=== PATIENT | female | born 1955 | race Caucasian/White ===

== ENCOUNTER 2018-06-08 00:07 | Outpatient (CLI) | payer MEDICAID, SELFPAY ==
--- NOTE | 2018-06-08 11:15 | MERGEMPI_ITS ---
*[facility]* *[facility]* [address] [place] [address] Myocardial Perfusion Imaging - SPECT Haider protocol Date of study: 06/08/2018 *PATIENT PRESENTATION* Height: Blood Pressure: Weight: BSA: Ordering physician: Nadira Rodríguez Impressions: - Patient consented to rest images only; did not consent to stress images. - Rest images appeared normal. History: REASON FOR TESTING: PMH: 2 CVA'S, KIDNEY STONES, HISTORY OF MALIGNANCY, HAS HAD SURGERY FOR SAME. MALIGNANCY SITE INCLUEDES CERVIX, OVARIES. HISTORY OF PULMONARY DISEASE INCLUDING COPD, LUMB/LUMVAOSAC DISC DEGEN, CYSTITIS, NEUROPATHY. CERVICAL ARTHRITIS, JOINT PAIN-HAND, MENOPAUSAL DISORDER NEC, RHINITIS DUE TO POLLEN, TENDONITIS NOS, DIVERTICULOSIS OF COLON (WITHOUT MENTION OF HEMORRHAGE), GERD, IBS, UTI CHRONIC PAIN SYNDROME, HYPERLIPEMIA, HTN, COPD, ANXIETY DISORDER NOS, CHRONIC BACK PAIN. MULTIPLE SURGICAL PROCEDURES. FAMILY HISTORY: MOTHER AND FATHER-EARLY CAD. SMOKING: EXERCISE: PMH: COPD. Asthma. Risk factors: Family history of coronary artery disease. Imaging Technique: Protocol: Haider protocol. Acquisition: Gated SPECT; 1 day - rest/stress. The patient was imaged in the supine position. Attenuation correction used. Isotope administration: - Rest. Tc[99m]-sestamibi. Injection to stress time: 00:45. - Stress. Tc[99m]-sestamibi. 1-2 min before end of exercise Myocardial perfusion: Imaging information: gated. Study data: Rui Joyner MD supervised and was readily available during the procedure. This study was interpreted by [facility]. Study status: Routine. Consent: The risks, benefits, and alternatives to the procedure were explained to the patient and informed consent was obtained. Procedure: Initial setup. A baseline ECG was recorded. Surface ECG leads and manual cuff blood pressure measurements were monitored. Heart sounds: Normal. Lung sounds: Normal. Treadmill exercise testing was performed using the Haider protocol. Study completion: All catheters inserted during the procedure were removed. The patient tolerated the procedure well and was discharged from the lab. Discharge: The patient left the laboratory in stable condition. Birthdate: Patient birthdate: 1955. Sex: Gender: female. Study date: Study date: 06/08/2018. Study time: 12:30 PM. Electronically signed by Rui Joyner MD 06/08/2018 16:43
== END 2018-06-08 00:27 ==
PROVIDERS: PCP Family Medicine; Visit Provider Family Medicine
DX: R07.9 Chest pain, unspecified (principal); I10 Essential (primary) hypertension; E78.5 Hyperlipidemia, unspecified; J44.9 Chronic obstructive pulmonary disease, unspecified; Z82.49 Family history of ischemic heart disease and other diseases of the circulatory system; Z86.73 Personal history of transient ischemic attack (TIA), and cerebral infarction without residual deficits
CPT/HCPCS: 78451

== ENCOUNTER 2018-09-07 17:31 | Outpatient (REF) | payer MEDICAID, SELFPAY ==
[2018-09-07 21:23] LABS: Abs Immature Grans 0.02 k/cumm (0.0-0.09); Absolute Basophil Count 0.06 k/cumm (0.0-0.2); Absolute Lymphocyte Count 3.03 k/cumm (1.2-3.4); Absolute Monocyte Count 0.57 k/cumm (0.11-0.7); Basophils % 0.7; Eosinophils % 2.2; HCT 43.8 % (36.0-46.0); HGB 14.3 g/dL (12.0-15.5); Immature Grans % 0.2; Lymphocytes % 33.4; Mean Corp. HGB Concentration 32.6 g/dL (32.0-36.0); Mean Corpuscular Hemoglobin 30.9 pg (27.0-33.0); Mean Corpuscular Volume 94.6 fL (80-95); Mean Platelet Volume 10.3 fL (8.0-11.0); Monocytes % 6.3; Neutrophils % 57.2; Platelet Count 274 x1000/uL (130-400); RBC 4.63 m/cumm (4.00-5.20); RBC Distribution Width 12.5 % (11.7-14.6); White Blood Cell Count 9.08 k/cumm (4.4-10.8)
[2018-09-07 21:39] LABS: ALT 23 U/L (12-78); AST 17 U/L (15-37); Albumin 3.6 g/dL (3.4-5.0); Alkaline Phosphatase 84 U/L (46-116); Anion Gap 8.3 mmol/L (3-11); BUN 8 mg/dL (7-18); Bilirubin, Total 0.3 mg/dL (0.2-1.0); CO2 29.7 mmol/L (21.0-32.0); CREATININE 0.98 mg/dL (0.55-1.02); Calcium 8.8 mg/dL (8.5-10.1); Chloride 102 mmol/L (98-107); Cholesterol 203 mg/dL (50-200); Estimated GFR 57.51 (mL/min/1.73m2); Glucose 79 mg/dL (70-100); HDL Cholesterol 34 mg/dL (40-60); LDL CHOLESTEROL 123 mg/dL (<100); Potassium 4.3 mmol/L (3.5-5.1); Sodium 140 mmol/L (136-145); Total Protein 7.2 g/dL (6.4-8.2); Triglyceride 293 mg/dL (30-150)
[2018-09-07 21:47] LABS: Lipase 172 U/L (73-393)
== END 2018-09-07 17:51 ==
LOC: NCHCN 17:31
PROVIDERS: PCP Family Medicine; Visit Provider Internal Medicine
DX: R10.84 Generalized abdominal pain (principal); R05 Cough; N20.0 Calculus of kidney; R03.0 Elevated blood-pressure reading, without diagnosis of hypertension; J44.9 Chronic obstructive pulmonary disease, unspecified; M79.2 Neuralgia and neuritis, unspecified
CPT/HCPCS: 80053; 80061; 83690; 83721; 85025

== ENCOUNTER 2018-11-02 13:35 | Outpatient (REF) | payer MEDICAID, SELFPAY ==
[2018-11-07 07:51] LABS: Amphetamine Negative ng/mL (Cutoff: 25); Amphetamines Interpretation Negative.; MDA (Ecstasy Metabolite) Negative ng/mL (Cutoff: 25); MDMA (Ecstasy) Negative ng/mL (Cutoff: 25); Methamphetamine Negative ng/mL (Cutoff: 25); Phentermine Negative ng/mL (Cutoff: 25); Pseudoephedrine/Ephedrine Negative ng/mL (Cutoff: 25)
[2018-11-08 12:17] LABS: Codeine Negative ng/mL (Cutoff: 25); Dihydrocodeine 470 ng/mL (Cutoff: 25); Hydrocodone 2127 ng/mL (Cutoff: 25); Hydromorphone 336 ng/mL (Cutoff: 25); Morphine Negative ng/mL (Cutoff: 25); Naloxone Negative ng/mL (Cutoff: 25); Norhydrocodone 1582 ng/mL (Cutoff: 25); Noroxycodone Negative ng/mL (Cutoff: 25); Noroxymorphone Negative ng/mL (Cutoff: 25); Opiates Interpretation Positive.
== END 2018-11-02 13:55 ==
LOC: NCHCN 13:35
PROVIDERS: PCP Family Medicine; Visit Provider Internal Medicine
DX: R30.0 Dysuria (principal); G89.4 Chronic pain syndrome; F43.10 Post-traumatic stress disorder, unspecified
CPT/HCPCS: 80324; 80361; 87077; 87086; 87186

== ENCOUNTER 2019-01-12 22:42 | Outpatient (REF) | payer MEDICAID, SELFPAY ==
[2019-01-14 12:11] LABS: Campylobacter PCR SEE COMMENTS; Salmonella PCR SEE COMMENTS; Shiga Toxin PCR SEE COMMENTS; Shigella/Enteroinvasive Ecoli SEE COMMENTS
== END 2019-01-12 23:02 ==
LOC: NCHCN 22:42
PROVIDERS: PCP Family Medicine; Visit Provider Internal Medicine
DX: R19.7 Diarrhea, unspecified (principal); R11.10 Vomiting, unspecified
CPT/HCPCS: 87505

== ENCOUNTER 2019-06-03 17:03 | Outpatient (REF) | payer MEDICAID, SELFPAY | END 2019-06-03 17:23 | LOC: NCHCO 17:03 | PROVIDERS: PCP Internal Medicine; Visit Provider Internal Medicine | DX: M54.5 Low back pain (principal); F11.20 Opioid dependence, uncomplicated; R30.0 Dysuria; K43.9 Ventral hernia without obstruction or gangrene | CPT/HCPCS: 87086 ==

== ENCOUNTER 2019-09-09 21:34 | Outpatient (REF) | payer MEDICAID, SELFPAY ==
[2019-09-09 21:37] LABS: HGB 14.6 g/dL (12.0-15.5); Mean Corp. HGB Concentration 32.4 g/dL (32.0-36.0); Mean Corpuscular Volume 92.6 fL (80-95); Mean Platelet Volume 10.1 fL (8.0-11.0); Platelet Count 327 x1000/uL (130-400); RBC 4.86 m/cumm (4.00-5.20); RBC Distribution Width 12.9 % (11.7-14.6); White Blood Cell Count 8.79 k/cumm (4.4-10.8)
[2019-09-09 22:21] LABS: Hemoglobin A1C 5.9 % (3.8-5.6)
[2019-09-09 22:25] LABS: ALT 18 U/L (14-59); AST 14 U/L (15-37); Albumin 3.6 g/dL (3.4-5.0); Alkaline Phosphatase 81 U/L (46-116); BUN 7 mg/dL (7-18); Bilirubin, Total 0.3 mg/dL (0.2-1.0); Calcium 9.1 mg/dL (8.5-10.1); Chloride 104 mmol/L (98-107); Glucose 101 mg/dL (74-106); Potassium 4.3 mmol/L (3.5-5.1); Sodium 142 mmol/L (136-145); Vitamin B12 284 pg/mL (193-986)
[2019-09-13 14:24] LABS: Albumin 58.5 % (55.8-66.1); Total Protein 6.6 g/dL (6.3-8.2)
== END 2019-09-09 21:54 ==
LOC: NCHCN 21:34
PROVIDERS: PCP Internal Medicine; Visit Provider Internal Medicine
DX: G60.9 Hereditary and idiopathic neuropathy, unspecified (principal)
CPT/HCPCS: 80053; 85027; 82607; 83036; 84165

== ENCOUNTER 2019-12-13 10:58 | Outpatient (CLI) | payer MEDICAID, SELFPAY ==
[2019-12-15 09:13] LABS: COVID-19 RT-PCR Result Negative (Negative)
== END 2019-12-13 11:18 ==
PROVIDERS: PCP Internal Medicine; Visit Provider Internal Medicine
DX: Z11.59 Encounter for screening for other viral diseases (principal)
CPT/HCPCS: U0003

== ENCOUNTER 2020-01-03 09:15 | Outpatient (CLI) | payer MEDICAID, SELFPAY ==
[2020-01-04 18:29] LABS: COVID-19 RT-PCR UVMMC Result Negative (Negative)
== END 2020-01-03 09:35 ==
PROVIDERS: PCP Internal Medicine; Visit Provider Nurse Practitioner Family
DX: Z11.59 Encounter for screening for other viral diseases (principal)
CPT/HCPCS: U0003

== ENCOUNTER 2020-04-21 07:19 | Outpatient (CLI) | payer MEDICAID, SELFPAY ==
[2020-04-25 07:48] LABS: SARS-CoV-2 RNA Undetected (Undetected)
== END 2020-04-21 07:39 ==
PROVIDERS: PCP Internal Medicine; Visit Provider Internal Medicine
DX: Z20.828 Contact with and (suspected) exposure to other viral communicable diseases (principal)
CPT/HCPCS: U0003

== ENCOUNTER 2020-05-23 16:32 | Outpatient (REF) | payer MEDICAID, SELFPAY ==
[2020-05-23 21:51] LABS: HCT 43.7 % (36.0-46.0); HGB 14.5 g/dL (11.2-15.7); MCH 31.9 pg (27.0-33.0); MCHC 33.2 % (32.0-36.0); MPV 10.6 fL (8.0-11.0); Platelet Count 271 10^3/uL (130-400); RBC 4.55 10^6/uL (3.93-5.22); RDW 12.6 % (11.7-14.6); WBC 10.05 10^3/uL (4.4-10.8)
[2020-05-23 21:53] LABS: Bilirubin Negative (Negative); Blood Trace-lysed (Negative); Clarity Cloudy (Clear); Glucose Negative (Negative); Ketones Negative (Negative); Leukocyte Esterase Negative (Negative); Nitrite Negative (Negative); Specific Gravity 1.025 (1.005-1.025); Urobilinogen 0.2 EU/dL (Up TO 0.2); pH 5.5 (5-8)
[2020-05-23 22:10] LABS: ALT 25 U/L (14-59); AST 38 U/L (15-37); Albumin 3.4 g/dL (3.4-5.0); Alkaline Phosphatase 86 U/L (46-116); Anion Gap 7.3 mmol/L (3-11); BUN 10 mg/dL (7-18); Bilirubin, Total 0.3 mg/dL (0.2-1.0); CO2 28.7 mmol/L (21.0-32.0); CREATININE 0.91 mg/dL (0.55-1.02); Calcium 8.8 mg/dL (8.5-10.1); Chloride 103 mmol/L (98-107); FREE T4 1.19 ng/dL (0.76-1.46); Glucose 132 mg/dL (74-106); Potassium 4.3 mmol/L (3.5-5.1); Sodium 139 mmol/L (136-145); TSH 0.95 uIU/mL (0.36-3.74); Total Protein 6.9 g/dL (6.4-8.2)
[2020-05-23 22:12] LABS: Bacteria Negative HPF (Negative); C & S Indicated? No/Sq. Contamination; Casts Negative LPF (Negative); Crystals Negative HPF (Negative); Epithelial Cells Many HPF (Negative); Mucus Negative (Negative); Other Cells Negative (Negative); RBC 0-2 HPF (0-2); WBC 0-2 HPF (0-5)
== END 2020-05-23 16:52 ==
LOC: NCHCN 16:32
PROVIDERS: PCP Internal Medicine; Visit Provider Internal Medicine
DX: R63.4 Abnormal weight loss (principal); R53.83 Other fatigue; R03.0 Elevated blood-pressure reading, without diagnosis of hypertension
CPT/HCPCS: 80053; 85027; 81003; 81015; 84439; 84443

== ENCOUNTER 2020-07-11 13:42 | Outpatient (REF) | payer MEDICAID, SELFPAY ==
[2020-07-16 10:54] LABS: Patient Race White; SARS-CoV-2 RNA Undetected (Undetected); SARS-CoV-2 Specimen Source Nasal
== END 2020-07-11 14:02 ==
LOC: NCHCN 13:42
PROVIDERS: PCP Internal Medicine; Visit Provider Internal Medicine
DX: Z20.828 Contact with and (suspected) exposure to other viral communicable diseases (principal)
CPT/HCPCS: U0003

== ENCOUNTER 2020-07-21 21:57 | Outpatient (REF) | payer MEDICAID, SELFPAY | END 2020-07-21 22:17 | LOC: NCHCN 21:57 | PROVIDERS: PCP Internal Medicine; Visit Provider Internal Medicine | DX: J02.9 Acute pharyngitis, unspecified (principal) | CPT/HCPCS: 87070 ==

== ENCOUNTER 2020-11-20 15:19 | Outpatient (REF) | payer MEDICAID, SELFPAY ==
[2020-11-20 20:56] LABS: Hemoglobin A1C 5.4 % (<5.7)
== END 2020-11-20 15:20 | disposition home or self-care (01) ==
LOC: NCHCN 15:19
PROVIDERS: PCP Internal Medicine; Visit Provider Internal Medicine
DX: R73.03 Prediabetes (principal); F41.8 Other specified anxiety disorders
CPT/HCPCS: 83036

== ENCOUNTER 2021-03-23 17:05 | Emergency (ER) | payer MEDICARE, MEDICAID, SELFPAY ==
[2021-03-23 17:12] VITALS: BP 106/59; PULSE 67; RESP 18; TEMP 37; O2SAT 96
--- NOTE | 2021-03-23 17:14 | W.ED.GENAD ---
Discharge Plan Disposition Patient Disposition: HOME Condition: Stable Discharge Details Clinical Impression: Fracture of right wrist, Closed head injury, Post concussive syndrome, Contusion of multiple sites, Fall Primary Care Provider: Wolfgang Cagle ED Provider: Nicci Prieto Home Meds and New Rx's Prescriptions: Continued lorazepam 1 mg tablet 1 mg PO TID PRNRF: 0 fluticasone propionate 50 mcg/actuation spray,suspension 1 spray SWAPNA DAILY RF: 0 tramadol 50 mg tablet 50 mg PO BID PRNRF: 0 albuterol sulfate [ProAir HFA] 90 mcg/actuation HFA aerosol inhaler 2 puff IH Q4H PRNRF: 0 guaifenesin [Mucinex] 600 mg tablet extended release 12hr 600 mg PO BID RF: 0 hydrocodone-acetaminophen 10-325 mg tablet 1 tab PO BID PRNRF: 0 Narcan 4 mg/actuation spray,non-aerosol 4 mg SWAPNA Q2M PRNRF: 0 Symbicort 160-4.5 mcg/actuation HFA aerosol inhaler 2 puff IH BID RF: 0 nicotine (polacrilex) 4 mg gum 4 mg BC Q2H RF: 0 pregabalin [Lyrica] 50 mg capsule 50 mg PO DAILY RF: 0 Spiriva with HandiHaler 18 mcg capsule, w/inhalation device 1 cap IH DAILY RF: 0 pantoprazole 40 mg tablet,delayed release (DR/EC) 40 mg PO DAILY RF: 0 loratadine [Claritin] 10 mg tablet 10 mg PO DAILY RF: 0 meloxicam 7.5 mg Tablet 7.5 mg PO DAILY RF: 0 buprenorphine-naloxone [Suboxone] 4-1 mg Film 1 film sublingual DAILY RF: 0 diphenhydramine HCl 25 mg Tablet 25 mg PO BID PRNRF: 0 cyclobenzaprine 5 mg Tablet 5 mg PO HS PRNRF: 0 Discharge Instructions Instructions: Wrist Fracture in Adults (ED), Head Injury (ED), Contusion in Adults (ED), Post Concussion Syndrome (ED) Additional Instructions: Rest, ice, and elevate the affected area as much as possible. Take your regular medications that you have at home as needed and directed for pain. Take Tylenol as needed and directed for pain. Call the orthopedics office on Friday to schedule a follow-up appointment for reevaluation. Call urology on Oleg morning to schedule a follow-up appointment for reevaluation of your chronic urinary incontinence, frequency, and burning. Return immediately to the emergency department if you develop any worsening or new concerning symptoms such as worsening headaches, persistent vomiting or any other concerns Referrals: Corey England MD [ [facility] STAFF PHYSICIAN] - Pedro Swan MD [ [facility] STAFF PHYSICIAN] - Discharge Data Discharge Physician: Nicci Flor Medical Decision Making 66-year-old female with a history of COPD, former opiate addiction, PTSD presents for headache, confusion, right shoulder, right hip and knee pain after fall last night. Admits to LOC and a few episodes of vomiting. She denies any difficulty breathing or abdominal pain. No evidence of head, chest, abdomen or extremity trauma. She has pain with range of motion and tenderness to the right shoulder, right clavicle, right wrist, right hip, right knee. She is declining medication for pain. Suspect intermittent confusion likely due to postconcussive syndrome. She is somewhat slowed in her responses but oriented x 3 and appears nontoxic. Her vitals are within normal limits. Do not see an indication for lab work at this time. Will obtain CT head and cervical spine, x-rays and urinalysis. Imaging reviewed and right wrist x-ray report notes nondisplaced distal radius fracture with intra-articular extension. This finding appears subtle but will place a volar fiberglass splint and place patient on orthopedic list for follow-up. Remainder of imaging reviewed and negative. Patient reassessed and she states she is now complaining of left elbow and wrist pain. Initial examination was negative for pain in the left upper extremity. She has pain in left elbow and wrist with range of motion but no deformity. She was referred for left elbow and wrist x-rays which were negative. Her urinalysis was negative for infection. Patient states she is taking trimethoprim though this was listed on her allergy list which she says is not accurate. Patient also states she takes Suboxone, meloxicam and lorazepam. She states she is not taking any narcotic pain medicine. She was also placed on urology follow-up list for her chronic urinary incontinence and frequent UTIs. Medical Records Medical records reviewed: Yes I reviewed the patient's medical records. Imaging Data Radiologic Study: Radiologist's impression: CT Head Without Contrast Exam date and time: 03/23/2021 5:52 PM Age: 66 years old Clinical indication: Injury or trauma; Patient HX: S/P fall; Additional info: R/O acute intracranial injury, FX TECHNIQUE: Imaging protocol: Computed tomography of the head without contrast. COMPARISON: No relevant prior studies available. FINDINGS: Brain: There is no evidence of acute hemorrhage within the brain parenchyma or the subarachnoid space. No abnormal attenuation is noted within the brain parenchyma. Cerebral ventricles: There is no significant ventricular effacement or midline shift. The ventricular system is normal in size and distribution. Paranasal sinuses: The sinuses are normal. Mastoid air cells: The mastoid sinuses are normal. Orbital cavity: The orbits are normal. Bones/joints: The skull is normal. Soft tissues: The extracranial soft tissues are normal. IMPRESSION: No acute abnormality. CT Cervical Spine Without Contrast Exam date and time: 03/23/2021 5:52 PM Age: 66 years old Clinical indication: Injury or trauma; Patient HX: S/P fall; Additional info: R/O acute intracranial injury, FX TECHNIQUE: Imaging protocol: Computed tomography images of the cervical spine without contrast. COMPARISON: No relevant prior studies available. FINDINGS: Bones/joints: Mild straightening of the lordotic curvature. No spondylolysis or spondylolisthesis. No vertebral body compression fracture. No fracture of the posterior or lateral elements. Discs/Spinal canal/Neural foramina: Mild multilevel disc space narrowing from C4-C6. Multilevel posterior osteophytes with a prominent posterior disc osteophyte complex at C5-C6 and moderate canal stenosis. Prevertebral Space: No prevertebral soft tissue swelling. Lungs: The visualized bilateral lung apices demonstrate mild bullous changes of centrilobular emphysema. Soft tissues: Unremarkable. IMPRESSION: No acute cervical spine fracture or malalignment. XR Right Knee Exam date and time: 03/23/2021 5:53 PM Age: 66 years old Clinical indication: Other: Pain after fall; Patient HX: Fall, rule out FX; Additional info: Fall, R/O FX TECHNIQUE: Imaging protocol: XR Right knee. Views: 3 views. COMPARISON: No relevant prior studies available. FINDINGS: Bones/joints: No acute fracture or dislocation. Superior patellar enthesophyte. Soft tissues: Normal. IMPRESSION: No acute fracture or dislocation. XR Right Hip Exam date and time: 03/23/2021 5:52 PM Age: 66 years old Clinical indication: Other: Fall, R/O FX TECHNIQUE: Imaging protocol: XR Right hip. Views: 2 or 3 views hip with pelvis when performed. COMPARISON: No relevant prior studies available. FINDINGS: Bones/joints: No acute fracture or dislocation. The sacral arcades are well preserved. Soft tissues: Unremarkable. IMPRESSION: No acute fracture or dislocation. XR Right Wrist Exam date and time: 03/23/2021 6:16 PM Age: 66 years old Clinical indication: Other: Pain after fall; Additional info: Fall, R/O FX TECHNIQUE: Imaging protocol: XR Right wrist. Views: 3 or more views. COMPARISON: No relevant prior studies available. FINDINGS: Bones/joints: Nondisplaced fracture in the lateral aspect of the distal right radius with intra-articular extension. Soft tissues: Right wrist soft tissue swelling. IMPRESSION: Nondisplaced fracture in the lateral aspect of the distal right radius with intra-articular extension. XR Right Clavicle, Complete Exam date and time: 03/23/2021 5:53 PM Age: 66 years old Clinical indication: Other: S/P fall R/O FX; Patient HX: Fall, R/O FX TECHNIQUE: Imaging protocol: XR Right clavicle complete. Views: Any number of views. COMPARISON: CR XR SHOULDER RT COMPLETE 2+V 02/06/2021 3:36 PM FINDINGS: Bones/joints: No acute fracture or dislocation. Lungs: The visualized right upper lung field is clear. Soft tissues: Normal. IMPRESSION: No acute fracture or dislocation. XR Right Shoulder Exam date and time: 03/23/2021 5:52 PM Age: 66 years old Clinical indication: Other: Fall, R/O FX TECHNIQUE: Imaging protocol: XR Right shoulder. Views: 2 or more views. COMPARISON: CR XR SHOULDER RT COMPLETE 2+V 02/06/2021 3:36 PM FINDINGS: Bones/joints: No acute fracture or dislocation. Lungs: The visualized right upper lung field is clear. Soft tissues: Normal. IMPRESSION: No acute fracture or dislocation. XR Left Elbow Exam date and time: 03/23/2021 7:40 PM Age: 66 years old Clinical indication: Other: Fall, trauma TECHNIQUE: Imaging protocol: XR Left elbow. Views: 3 or more views. COMPARISON: No relevant prior studies available. FINDINGS: Bones/joints: No acute fracture or dislocation. Soft tissues: Normal. IMPRESSION: No acute fracture or dislocation. XR Left Wrist Exam date and time: 03/23/2021 7:40 PM Age: 66 years old Clinical indication: Other: Trauma, fall TECHNIQUE: Imaging protocol: XR Left wrist. Views: 3 or more views. COMPARISON: No relevant prior studies available. FINDINGS: Bones/joints: No acute fracture or dislocation. Soft tissues: Normal. IMPRESSION: No acute fracture or dislocation. Lab Data Lab results reviewed: Yes I reviewed the patient's lab results. Labs: Laboratory Tests Range/Units 03/23/21 19:08 Urine Color (Yellow) Yellow Urine Clarity (Clear) Clear Urine pH (5-8) 5.5 Ur Specific [place] (1.005-1.025) 1.015 Urine Protein (Negative) mg/dL Negative Urine Ketones (Negative) mg/dL Negative Urine Blood (Negative) Trace-lysed H Urine Nitrite (Negative) Negative Urine Bilirubin (Negative) Negative Urine Urobilinogen (Up TO 0.2) EU/dL 0.2 Ur Leukocyte Esterase (Negative) Negative Urine RBC (0-2) HPF Urine WBC (0-5) HPF 0-2 Ur Epithelial Cells (Negative) HPF Many Urine Crystals (Negative) HPF Negative Urine Bacteria (Negative) HPF Negative Urine Mucus (Negative) Negative Ur Culture Indicated? No Urine Glucose (Negative) mg/dL Negative HPI General Mode of arrival: ambulatory. Date/Time Provider Initiated Documentation: 03/23/21 17:13. Limitations to Documentation: no limitations. Information obtained by: patient. HPI Narrative: Patient is a 66-year-old female with a history of anxiety, depression, COPD, former opiate addiction, PTSD presents for headache, confusion, right shoulder, right wrist, right hip and knee pain after a fall earlier this morning. Patient states she was at someone's house when she went down the stairs without a light on and fell down 2-3 stairs. She states she hit the right side of her body on cement and her head on grass. She admits to LOC for 1 to 2 minutes and 2 episodes of vomiting following this. She currently is complaining of right-sided headache, right shoulder, right clavicle, right wrist, right hip and right knee and right first toe pain. She took Tylenol for pain prior to arrival. She states she does not want any medication for pain. Daughter states she went to see patient this afternoon and she appeared confused at times and that she called the pharmacy thinking she was calling her primary care doctor and generally seems slowed in her responses. She denies any chest pain, difficulty breathing. She states she has chronic upper abdominal pain which is being currently evaluated and is unchanged from baseline. She states she has chronic urinary incontinence for many years and has been followed by urology in the past which is now being followed by Dr. Cagle and states she started trimethoprim this week for dysuria and what she thought may be a UTI. She states her urinary symptoms have since improved. She denies any known fever or recent other illness prior to her fall. Related Data Home Medications Medication Instructions Recorded Confirmed albuterol sulfate 90 mcg/actuation 2 puff IH Q4H PRN 07/20/19 03/23/21 aerosol inhaler budesonide-formoterol HFA 160 2 puff IH BID 07/20/19 07/20/19 mcg-4.5 mcg/actuation aerosol inhaler fluticasone propionate 50 1 spray SWAPNA DAILY 07/20/19 07/20/19 mcg/actuation nasal spray,suspension guaifenesin 600 mg tablet, 600 mg PO BID 07/20/19 07/20/19 extended release 12 hr hydrocodone 10 mg-acetaminophen 1 tab PO BID PRN 07/20/19 07/20/19 325 mg tablet loratadine 10 mg tablet 10 mg PO DAILY 07/20/19 07/20/19 lorazepam 1 mg tablet 1 mg PO TID PRN 07/20/19 07/20/19 naloxone 4 mg/actuation nasal spray 4 mg SWAPNA Q2M PRN 07/20/19 03/23/21 nicotine (polacrilex) 4 mg gum 4 mg BC Q2H 07/20/19 03/23/21 pantoprazole 40 mg tablet,delayed 40 mg PO DAILY 07/20/19 07/20/19 release pregabalin 50 mg capsule 50 mg PO DAILY 07/20/19 07/20/19 tiotropium bromide 18 mcg capsule 1 cap IH DAILY 07/20/19 03/23/21 with inhalation device tramadol 50 mg tablet 50 mg PO BID PRN 07/20/19 07/20/19 buprenorphine-naloxone [Suboxone] 1 film SUBLINGUAL DAILY 03/23/21 03/23/21 cyclobenzaprine 5 mg PO HS PRN 03/23/21 03/23/21 diphenhydramine HCl 25 mg PO BID PRN 03/23/21 03/23/21 meloxicam 7.5 mg PO DAILY 03/23/21 03/23/21 Allergies Allergy/AdvReac Type Severity Reaction Status Date / Time amitriptyline Allergy Severe none Verified 03/23/21 17:19 specified with referral codeine Allergy Severe none Verified 03/23/21 17:19 specified with referral gabapentin Allergy Severe none Verified 03/23/21 17:19 specified with referral ondansetron [From Zofran] Allergy Severe none Verified 03/23/21 17:19 specified with referral sulfamethoxazole Allergy Severe none Verified 03/23/21 17:19 [From Bactrim] specified with referral trimethoprim [From Bactrim] Allergy Severe none Verified 03/23/21 17:19 specified with referral Iodinated Contrast Media AdvReac Unknown Unverified 03/23/21 17:19 Review of Systems All systems reviewed & are unremarkable except as noted in HPI and below Constitutional Constitutional: Reports as per HPI, Denies chills and Denies fever(s) Eyes Eyes: Denies blurry vision ENT Ears, Nose, Mouth, and Throat: Denies dizziness, Denies sore throat and Denies throat swelling Cardiovascular Cardiovascular: Denies chest pain and Denies dyspnea Respiratory Respiratory: Denies cough and Denies dyspnea Gastrointestinal Gastrointestinal: Denies abdominal pain, Denies diarrhea and Denies vomiting Genitourinary Genitourinary: Denies hematuria and Denies dysuria Musculoskeletal Musculoskeletal: Denies back pain and Denies numbness Integumentary/Breasts Skin/Breast: Denies lesions and Denies rash Neurologic Neurologic: Denies dizziness, Denies localized weakness and Denies numbness Allergic/Immunologic Allergic/Immunologic: Denies throat swelling [facility] Medical History (Updated 03/23/21 @ 20:36 by Nicci Prieto DO) Anxiety and depression Back pain Breast lump Chronic pain COPD (chronic obstructive pulmonary disease) Diarrhea Dysphagia History of cervical cancer Kidney stones Opiate addiction Postmenopausal PTSD (post-traumatic stress disorder) Skin lesion of face Smoker Somatization disorder Stomach upset Surgical History (Updated 07/20/19 @ 11:29 by Jo Lucero RN) History of colonoscopy Social History Smoking/Tobacco Use Status: Current every day Tobacco Type: cigarettes Smoking risk assessment performed?: Yes Alcohol Intake: former Drug use: Occasionally Substance use type: marijuana Do you feel safe at home: Yes Do you feel safe in your relationship?: Yes Exam Const General: cooperative and no acute distress HENCA Head: normal to inspection Ears: hearing grossly normal bilaterally and external ears normal Face and sinus: normal facial exam Mouth: oral mucosae normal Eyes General: appearance normal, both eyes and all related structures Pupils: PERRL EOM: EOM intact bilaterally Neck Neck: normal visual inspection and No submandibular swelling Lymphatic: no lymphadenopathy noted Chest Chest: normal inspection of the chest, normal palpation of entire chest wall and no tenderness Resp Effort & Inspection: normal respiratory effort and able to speak in complete sentences Auscultation: clear to auscultation bilaterally Cardio Rate: regular rate Rhythm: regular rhythm GI Inspection: normal to inspection and no abdominal wall ecchymosis Palpation: soft, not firm, not rigid and nontender Auscultation: normal bowel sounds Back/Spine/Pelvis Cervical Spine: No cervical spinal tenderness Thoracic/Lumbar Spine: thoracic and lumbar spine normal to inspection, No thoracic spinal tenderness and No lumbar spinal tenderness Skin General skin exam: no rashes or lesions noted Neuro General: patient alert, patient awake and patient oriented x3 Cognition: normal cognition Speech: speech normal Motor: muscle tone normal throughout Sensory Exam: no sensory deficits noted Extrem General: normal to inspection, capillary refill normal, no calf tenderness bilaterally and no edema Other: Pain in right shoulder with range of motion and palpation. Tenderness to palpation to right anterior lateral shoulder and overlying right clavicle. There is no evidence of trauma to right clavicle and shoulder. No pain in right elbow with range of motion. Pain in right wrist and proximal palmar hand with range of motion. Right snuffbox tenderness. No evidence of trauma to right elbow, wrist or hand. Pain in right hip and knee with range of motion and palpation. There is no evidence of trauma or deformity. Feet and ankles normal to inspection and palpation bilaterally. Psych Appearance: grossly normal Mental Status: mental status grossly normal Speech and Movement: speech and movement normal Affect: normal affect Procedures Orthopedic Splinting/Casting Injury #1: Side: right Upper Extremity Injury Location: wrist Upper Extremity Immobilizer: volar splint
--- NOTE | 2021-03-23 17:45 | DI.RAD_ITS ---
Exam(s) XR SHOULDER RT COMPLETE 2+V EXAM: XR SHOULDER RT COMPLETE 2+V CLINICAL HISTORY: s/p fall, r/o fx. TECHNIQUE: 2D digital imaging was performed. COMPARISON: CR XR SHOULDER RT COMPLETE 2+V from 02/06/2021 FINDINGS: BONES: No acute fracture is present. No bony destructive lesion is seen. JOINTS: No dislocation present. Mild degenerative changes of the right acromioclavicular joint. SOFT TISSUE: Normal. IMPRESSION: Unremarkable radiographs of the right shoulder. DATA REPOSITORY: RADIATION DOSE DELIVERED:
--- NOTE | 2021-03-23 17:45 | DI.RAD_ITS ---
Exam(s) XR HIP RT COMPLETE AP PELVIS EXAM: XR HIP RT COMPLETE AP PELVIS CLINICAL HISTORY: s/p fall, r/o fx. TECHNIQUE: 2D digital imaging was performed. COMPARISON: No exams were available for comparison FINDINGS: BONES: No acute fracture is present. No bony destructive lesion is seen. JOINTS: No dislocation present. SOFT TISSUE: Normal. IMPRESSION: Unremarkable radiographs of the right hip. Unremarkable radiographs of the pelvis. DATA REPOSITORY: RADIATION DOSE DELIVERED:
--- NOTE | 2021-03-23 17:45 | DI.RAD_ITS ---
Exam(s) XR CLAVICLE RT EXAM: XR CLAVICLE RT CLINICAL HISTORY: s/p fall, r/o fx TECHNIQUE: 2D digital imaging was performed. COMPARISON: No exams were available for comparison FINDINGS: BONES: No acute fracture is present. No bony destructive lesion is seen. JOINTS: No dislocation present. Mild degenerative changes of the right AC joint. SOFT TISSUE: Normal IMPRESSION: Unremarkable radiographs of the right clavicle. DATA REPOSITORY: RADIATION DOSE DELIVERED:
--- NOTE | 2021-03-23 17:45 | DI.RAD_ITS ---
Exam(s) XR WRIST RT COMPLETE EXAM: XR WRIST RT COMPLETE CLINICAL HISTORY: s/p fall, r/o fx. TECHNIQUE: 2D digital imaging was performed. COMPARISON: No previous for comparison. FINDINGS: BONES: No acute fracture is present. No bony destructive lesion is seen. JOINTS: The carpal bones are normally aligned. Mild degenerative changes of the 1st CMC joint. SOFT TISSUE: Normal. IMPRESSION: No acute fracture or dislocation. DATA REPOSITORY: RADIATION DOSE DELIVERED:
--- NOTE | 2021-03-23 17:45 | DI.CT_ITS ---
Exam(s) CT HEAD CERVICAL SPINE WO EXAM: CT HEAD CERVICAL SPINE WO CLINICAL HISTORY: s/p fall, r/o acute intracranial injury, fx. TECHNIQUE: Imaging Protocol: Axial computed tomography images with coronal and sagittal reformatted images were created and reviewed COMPARISON: No exams were available for comparison FINDINGS: CT Head: Ventricles and Extra axial spaces: Normal in size and morphology for the patient's age. Hemorrhage: None. Cerebral parenchyma: Normal. No acute territorial infarct. Midline shift: None. Brainstem/Cerebellum: Normal. Calvarium: Normal. Visualized Paranasal sinuses/Mastoids: Clear. Soft Tissues: Unremarkable. CT Cervical Spine: Bones: No acute fracture or subluxation. Mild degenerative changes in the cervical spine. Soft Tissues: Unremarkable. Lung Apices: Clear. Mild emphysematous changes. IMPRESSION: 1. No acute intracranial process. 2. No acute fracture or subluxation in the cervical spine. RADIATION DOSE DELIVERED: 1,133.77mGy.cm Total DLP DATA REPOSITORY: All CT scans at this facility are submitted to the National Radiology Data Registry (NRDR) Dose Index Registry (DIR) with the [employer] (A[employer]). RADIATION OPTIMIZATION: All CT scans at this facility use at least one of these dose optimization te chniques: automated exposure control; mA and/or kV adjustment per patient size (includes targeted exa ms where dose is matched to clinical indication); or iterative reconstruction.
--- NOTE | 2021-03-23 17:45 | DI.RAD_ITS ---
Exam(s) XR KNEE RT 3V AP,LAT,GABE EXAM: XR KNEE RT 3V AP,LAT,GABE CLINICAL HISTORY: s/p fall, r/o fx. TECHNIQUE: 2D digital imaging was performed. COMPARISON: No exams were available for comparison FINDINGS: BONES: No acute fracture is present. No bony destructive lesion is seen. There is an enthesophyte at the superior patella. JOINTS: The knee is normally aligned. No joint effusion is seen. SOFT TISSUE: Normal. IMPRESSION: No acute fracture or dislocation. DATA REPOSITORY: RADIATION DOSE DELIVERED:
--- NOTE | 2021-03-23 18:26 | DI.VRAD_ITS ---
PROCEDURE INFORMATION: Exam: CT Head Without Contrast Exam date and time: 03/23/2021 5:52 PM Age: 66 years old Clinical indication: Injury or trauma; Patient HX: S/P fall; Additional info: R/O acute intracranial injury, FX TECHNIQUE: Imaging protocol: Computed tomography of the head without contrast. COMPARISON: No relevant prior studies available. FINDINGS: Brain: There is no evidence of acute hemorrhage within the brain parenchyma or the subarachnoid space. No abnormal attenuation is noted within the brain parenchyma. Cerebral ventricles: There is no significant ventricular effacement or midline shift. The ventricular system is normal in size and distribution. Paranasal sinuses: The sinuses are normal. Mastoid air cells: The mastoid sinuses are normal. Orbital cavity: The orbits are normal. Bones/joints: The skull is normal. Soft tissues: The extracranial soft tissues are normal. IMPRESSION: No acute abnormality. PROCEDURE INFORMATION: Exam: CT Cervical Spine Without Contrast Exam date and time: 03/23/2021 5:52 PM Age: 66 years old Clinical indication: Injury or trauma; Patient HX: S/P fall; Additional info: R/O acute intracranial injury, FX TECHNIQUE: Imaging protocol: Computed tomography images of the cervical spine without contrast. COMPARISON: No relevant prior studies available. FINDINGS: Bones/joints: Mild straightening of the lordotic curvature. No spondylolysis or spondylolisthesis. No vertebral body compression fracture. No fracture of the posterior or lateral elements. Discs/Spinal canal/Neural foramina: Mild multilevel disc space narrowing from C4-C6. Multilevel posterior osteophytes with a prominent posterior disc osteophyte complex at C5-C6 and moderate canal stenosis. Prevertebral Space: No prevertebral soft tissue swelling. Lungs: The visualized bilateral lung apices demonstrate mild bullous changes of centrilobular emphysema. Soft tissues: Unremarkable. IMPRESSION: No acute cervical spine fracture or malalignment. Dictated and Authenticated by: Mariza Saucedo MD. Ordering:SHARMIN Grajeda MD
--- NOTE | 2021-03-23 18:28 | NUR.NOTE ---
pt states she has stopped taking many of the medications on her list. verified with artis rg. Nursing Note:
--- NOTE | 2021-03-23 18:57 | DI.VRAD_ITS ---
PROCEDURE INFORMATION: Exam: XR Right Shoulder Exam date and time: 03/23/2021 5:52 PM Age: 66 years old Clinical indication: Other: Fall, R/O FX TECHNIQUE: Imaging protocol: XR Right shoulder. Views: 2 or more views. COMPARISON: CR XR SHOULDER RT COMPLETE 2+V 02/06/2021 3:36 PM FINDINGS: Bones/joints: No acute fracture or dislocation. Lungs: The visualized right upper lung field is clear. Soft tissues: Normal. IMPRESSION: No acute fracture or dislocation. Dictated and Authenticated by: Mariza Saucedo MD. Ordering:SHARMIN Grajeda MD
--- NOTE | 2021-03-23 18:58 | DI.VRAD_ITS ---
PROCEDURE INFORMATION: Exam: XR Right Clavicle, Complete Exam date and time: 03/23/2021 5:53 PM Age: 66 years old Clinical indication: Other: S/P fall R/O FX; Patient HX: Fall, R/O FX TECHNIQUE: Imaging protocol: XR Right clavicle complete. Views: Any number of views. COMPARISON: CR XR SHOULDER RT COMPLETE 2+V 02/06/2021 3:36 PM FINDINGS: Bones/joints: No acute fracture or dislocation. Lungs: The visualized right upper lung field is clear. Soft tissues: Normal. IMPRESSION: No acute fracture or dislocation. Dictated and Authenticated by: Mariza Saucedo MD. Ordering:SHARMIN Grajeda MD
--- NOTE | 2021-03-23 18:59 | DI.VRAD_ITS ---
PROCEDURE INFORMATION: Exam: XR Right Wrist Exam date and time: 03/23/2021 6:16 PM Age: 66 years old Clinical indication: Other: Pain after fall; Additional info: Fall, R/O FX TECHNIQUE: Imaging protocol: XR Right wrist. Views: 3 or more views. COMPARISON: No relevant prior studies available. FINDINGS: Bones/joints: Nondisplaced fracture in the lateral aspect of the distal right radius with intra-articular extension. Soft tissues: Right wrist soft tissue swelling. IMPRESSION: Nondisplaced fracture in the lateral aspect of the distal right radius with intra-articular extension. Dictated and Authenticated by: Mariza Saucedo MD. Ordering:SHARMIN Grajeda MD
--- NOTE | 2021-03-23 19:00 | DI.VRAD_ITS ---
PROCEDURE INFORMATION: Exam: XR Right Hip Exam date and time: 03/23/2021 5:52 PM Age: 66 years old Clinical indication: Other: Fall, R/O FX TECHNIQUE: Imaging protocol: XR Right hip. Views: 2 or 3 views hip with pelvis when performed. COMPARISON: No relevant prior studies available. FINDINGS: Bones/joints: No acute fracture or dislocation. The sacral arcades are well preserved. Soft tissues: Unremarkable. IMPRESSION: No acute fracture or dislocation. Dictated and Authenticated by: Mariza Saucedo MD. Ordering:SHARMIN Grajeda MD
--- NOTE | 2021-03-23 19:01 | DI.VRAD_ITS ---
PROCEDURE INFORMATION: Exam: XR Right Knee Exam date and time: 03/23/2021 5:53 PM Age: 66 years old Clinical indication: Other: Pain after fall; Patient HX: Fall, rule out FX; Additional info: Fall, R/O FX TECHNIQUE: Imaging protocol: XR Right knee. Views: 3 views. COMPARISON: No relevant prior studies available. FINDINGS: Bones/joints: No acute fracture or dislocation. Superior patellar enthesophyte. Soft tissues: Normal. IMPRESSION: No acute fracture or dislocation. Dictated and Authenticated by: Mariza Saucedo MD. Ordering:SHARMIN Grajeda MD
[2021-03-23 19:25] LABS: Bilirubin Negative (Negative); Blood Trace-lysed (Negative); Clarity Clear (Clear); Glucose Negative (Negative); Ketones Negative (Negative); Leukocyte Esterase Negative (Negative); Nitrite Negative (Negative); Specific Gravity 1.015 (1.005-1.025); Urobilinogen 0.2 EU/dL (Up TO 0.2); pH 5.5 (5-8)
--- NOTE | 2021-03-23 19:30 | DI.RAD_ITS ---
Exam(s) XR WRIST LT COMPLETE EXAM: XR WRIST LT COMPLETE CLINICAL HISTORY: s/p fall, r/o fx. TECHNIQUE: 2D digital imaging was performed. COMPARISON: No exams were available for comparison FINDINGS: BONES: No acute fracture is present. No bony destructive lesion is seen. JOINTS: The carpal bones are normally aligned. SOFT TISSUE: Normal. IMPRESSION: Unremarkable radiographs of the left wrist. DATA REPOSITORY: RADIATION DOSE DELIVERED:
--- NOTE | 2021-03-23 19:30 | DI.RAD_ITS ---
Exam(s) XR ELBOW LT COMPLETE EXAM: XR ELBOW LT COMPLETE CLINICAL HISTORY: s/p fall, r/o acute fx. TECHNIQUE: 2D digital imaging was performed. COMPARISON: No exams were available for comparison FINDINGS: BONES: No acute fracture is present. No bony destructive lesion is seen. JOINTS: The elbow is normally aligned. No joint effusion is seen. SOFT TISSUE: Normal. IMPRESSION: Unremarkable radiographs of the left elbow. DATA REPOSITORY: RADIATION DOSE DELIVERED:
[2021-03-23 19:36] LABS: Bacteria Negative HPF (Negative); C & S Indicated? No; Crystals Negative HPF (Negative); Epithelial Cells Many HPF (Negative); Mucus Negative (Negative); WBC 0-2 HPF (0-5)
[2021-03-23] MEDS: Acetaminophen 500 MG TAB 1000 MG PO (19:49)
--- NOTE | 2021-03-23 20:01 | DI.VRAD_ITS ---
PROCEDURE INFORMATION: Exam: XR Left Wrist Exam date and time: 03/23/2021 7:40 PM Age: 66 years old Clinical indication: Other: Trauma, fall TECHNIQUE: Imaging protocol: XR Left wrist. Views: 3 or more views. COMPARISON: No relevant prior studies available. FINDINGS: Bones/joints: No acute fracture or dislocation. Soft tissues: Normal. IMPRESSION: No acute fracture or dislocation. Dictated and Authenticated by: Mariza Saucedo MD. Ordering:SHARMIN Grajeda MD
--- NOTE | 2021-03-23 20:02 | DI.VRAD_ITS ---
PROCEDURE INFORMATION: Exam: XR Left Elbow Exam date and time: 03/23/2021 7:40 PM Age: 66 years old Clinical indication: Other: Fall, trauma TECHNIQUE: Imaging protocol: XR Left elbow. Views: 3 or more views. COMPARISON: No relevant prior studies available. FINDINGS: Bones/joints: No acute fracture or dislocation. Soft tissues: Normal. IMPRESSION: No acute fracture or dislocation. Dictated and Authenticated by: Mariza Saucedo MD. Ordering:SHARMIN Grajeda MD
[2021-03-23 20:45] VITALS: BP 130/61; PULSE 61; RESP 17; O2SAT 95
--- NOTE | 2021-03-24 02:52 | NUR.NOTE ---
Nursing Note: Patient placed on care management referral list for follow up care with urology, referral faxed to urology.
== END 2021-03-23 20:50 | disposition home or self-care (01) ==
PROVIDERS: Emergency Provider Physician Assistant; PCP Internal Medicine
DX: S52.571A Other intraarticular fracture of lower end of right radius, initial encounter for closed fracture (principal); S06.9X1A Unspecified intracranial injury with loss of consciousness of 30 minutes or less, initial encounter; R40.2412 Glasgow coma scale score 13-15, at arrival to emergency department; F07.81 Postconcussional syndrome; M25.532 Pain in left wrist; M25.531 Pain in right wrist; M25.551 Pain in right hip; M25.561 Pain in right knee; R41.0 Disorientation, unspecified; M25.511 Pain in right shoulder; W10.8XXA Fall (on) (from) other stairs and steps, initial encounter
CPT/HCPCS: 29125; 73562; 99285; 70450; 72125; 73000; 73030; 73080; 73110; 73502; 81003; 81015

== ENCOUNTER 2021-04-05 12:01 | Outpatient (CLI) | payer MEDICARE, MEDICAID, SELFPAY ==
--- NOTE | 2021-04-05 11:45 | DI.RAD_ITS ---
Exam(s) XR WRIST RT COMPLETE EXAM: XR WRIST RT COMPLETE CLINICAL HISTORY: RIGHT WRIST FRACTURE. TECHNIQUE: 2D digital imaging was performed. COMPARISON: CR,XR XR WRIST LT COMPLETE from 03/23/2021 FINDINGS: There is no evidence of fracture nor dislocation. No significant ulnar variance. No erosions. No o sseous lesions. Moderate degenerative changes are noted at the 1st carpometacarpal joint. IMPRESSION: DATA REPOSITORY: RADIATION DOSE DELIVERED:
== END 2021-04-05 12:02 | disposition home or self-care (01) ==
LOC: DIORS 12:01
PROVIDERS: PCP Internal Medicine; Referring Provider Internal Medicine; Visit Provider Student in an Organized Health Care Education/Training Program
DX: S69.81XA Other specified injuries of right wrist, hand and finger(s), initial encounter (principal); S60.211A Contusion of right wrist, initial encounter; W10.8XXA Fall (on) (from) other stairs and steps, initial encounter
CPT/HCPCS: 99215; 73110

== ENCOUNTER 2021-04-13 04:00 | Outpatient (CLI) | payer MEDICARE, MEDICAID, SELFPAY ==
--- NOTE | 2021-04-13 | DI.CT_ITS ---
Exam(s) CT HEAD WO EXAM: CT HEAD WO CLINICAL HISTORY: MEMORY IMPAIRMENT,R41.3,H/O CLOSED HEAD INJURY,Z87.820,S/P FALL. TECHNIQUE: Imaging Protocol: Axial computed tomography images with coronal and sagittal reformatted images were created and reviewed COMPARISON: CT CT HEAD CERVICAL SPINE WO from 03/23/2021 FINDINGS: There are no skull fractures nor fluid in the visualized paranasal sinuses. There is no evidence of intracranial hemorrhage, mass effect, or shift of midline structures. There are no extra-axial fluid collections. The ventricles are not enlarged or shifted and there is no blo od within the ventricular system nor within the basal cisterns. IMPRESSION: No acute intracranial findings on this noninfused CT scan of the brain. RADIATION DOSE DELIVERED: 627.27mGy.cm Total DLP DATA REPOSITORY: All CT scans at this facility are submitted to the National Radiology Data Registry (NRDR) Dose Index Registry (DIR) with the [employer] ([employer]). RADIATION OPTIMIZATION: All CT scans at this facility use at least one of these dose optimization te chniques: automated exposure control; mA and/or kV adjustment per patient size (includes targeted exa ms where dose is matched to clinical indication); or iterative reconstruction.
--- NOTE | 2021-04-13 16:39 | DI.VRAD_ITS ---
PROCEDURE INFORMATION: Exam: CT Head Without Contrast Exam date and time: 04/13/2021 3:42 PM Age: 66 years old Clinical indication: Other: Memory impairment, h/o closed head injury, S/P fall TECHNIQUE: Imaging protocol: Computed tomography of the head without contrast. Radiation optimization: All CT scans at this facility use at least one of these dose optimization techniques: automated exposure control; mA and/or kV adjustment per patient size (includes targeted exams where dose is matched to clinical indication); or iterative reconstruction. COMPARISON: CT HEAD CERVICAL SPINE WO 03/23/2021 6:05 PM FINDINGS: Brain: Mild diffuse involutional changes in the brain for age are comparable to the prior without acute hemorrhage or acute territorial infarct. As before, vascular calcifications approach the [id number]. Cerebral ventricles: No ventriculomegaly. Paranasal sinuses: Visualized sinuses are unremarkable. No fluid levels. Mastoid air cells: Visualized mastoid air cells are well aerated. Bones/joints: Unremarkable. No acute fracture. Soft tissues: Unremarkable. IMPRESSION: No acute intracranial hemorrhage in no significant interval change from the recent prior. Dictated and Authenticated by: Geoff Andrew MD. Ordering:YANELIS Goss MD
== END 2021-04-13 04:20 ==
PROVIDERS: PCP Internal Medicine; Visit Provider Internal Medicine
DX: R41.3 Other amnesia (principal); Z87.828 Personal history of other (healed) physical injury and trauma
CPT/HCPCS: 70450

== ENCOUNTER → 2021-06-25 15:26 | Outpatient (BNVA) | payer MEDICARE, MEDICAID, SELFPAY | PROVIDERS: PCP Internal Medicine; Referring Provider Internal Medicine; Visit Provider Surgery | DX: R13.19 Other dysphagia (principal); J44.9 Chronic obstructive pulmonary disease, unspecified; Z87.891 Personal history of nicotine dependence | CPT/HCPCS: 99214 ==

== ENCOUNTER 2021-07-11 02:29 | Outpatient (CLI) | payer MEDICARE, MEDICAID, SELFPAY ==
[2021-07-11 11:27] LABS: Abs Immature Grans 0.02 10^3/uL (0.0-0.06); Absolute Basophil Count 0.04 10^3/uL (0.0-0.2); Absolute Eosinophil Count 0.11 10^3/uL (0.0-0.7); Absolute Lymphocyte Count 3.05 10^3/uL (1.2-3.4); Absolute Monocyte Count 0.51 10^3/uL (0.1-0.8); Absolute Neutrophil Count 4.35 10^3/uL (1.2-6.7); Basophils % 0.5; Eosinophils % 1.4; HCT 43.2 % (36.0-46.0); HGB 14.3 g/dL (11.2-15.7); Immature Grans % 0.2; Lymphocytes % 37.7; MCH 31.4 pg (27.0-33.0); MCHC 33.1 % (32.0-36.0); MCV 94.7 fL (80-95); MPV 9.3 fL (8.0-11.0); Monocytes % 6.3; Neutrophils % 53.9; Nucleated RBC 0 %; Platelet Count 250 10^3/uL (130-400); RBC 4.56 10^6/uL (3.93-5.22); RDW 12.5 % (11.7-14.6); RDW-SD 43.7 fL; WBC 8.08 10^3/uL (4.4-10.8)
[2021-07-11 13:52] LABS: Albumin 3.6 g/dL (3.4-5.0); BUN 9 mg/dL (7-18); Calcium 8.4 mg/dL (8.5-10.1); Estimated GFR 55.64 (mL/min/1.73m2); Glucose 108 mg/dL (74-106); Total Protein 6.9 g/dL (6.4-8.2)
[2021-07-11 13:53] LABS: ALT 17 U/L (14-59); AST 14 U/L (15-37); Alkaline Phosphatase 73 U/L (46-116); Anion Gap 8.6 mmol/L (3-11); Bilirubin, Total 0.2 mg/dL (0.2-1.0); CO2 30.4 mmol/L (21.0-32.0); Chloride 103 mmol/L (98-107); Potassium 4.2 mmol/L (3.5-5.1); Sodium 142 mmol/L (136-145)
== END 2021-07-11 02:30 | disposition home or self-care (01) ==
LOC: LBO 02:29
PROVIDERS: PCP Internal Medicine; Visit Provider Surgery
DX: R63.4 Abnormal weight loss (principal); R53.82 Chronic fatigue, unspecified; R03.0 Elevated blood-pressure reading, without diagnosis of hypertension; K21.9 Gastro-esophageal reflux disease without esophagitis; G62.9 Polyneuropathy, unspecified; Z72.0 Tobacco use
CPT/HCPCS: 36415; 80053; 85025

== ENCOUNTER 2021-07-12 15:31 | Outpatient (REF) | payer MEDICARE, MEDICAID, SELFPAY ==
[2021-07-12 14:53] LABS: Source Nasal/Nares
[2021-07-13 08:51] LABS: COVID-19 PCR Negative (Negative)
== END 2021-07-12 15:32 | disposition home or self-care (01) ==
LOC: LBN 15:31
PROVIDERS: PCP Internal Medicine; Visit Provider Surgery
DX: Z20.822 Contact with and (suspected) exposure to COVID-19 (principal); Z01.818 Encounter for other preprocedural examination
CPT/HCPCS: 87635

== ENCOUNTER 2021-07-13 10:29 | Day surgery (SDC) | payer MEDICARE, MEDICAID, SELFPAY ==
--- NOTE | 2021-07-12 23:20 | PDOC.DSDIS_ITS ---
Discharge Plan Disposition Patient Disposition: HOME Condition: Good Discharge Details Reason For Visit: stomach scope Attending Provider: Radha Elkins Primary Care Provider: Wolfgang Cagle Home Meds and New Rx's Prescriptions: No Action lorazepam 1 mg tablet 1 mg PO TID PRNRF: 0 fluticasone propionate 50 mcg/actuation spray,suspension 1 spray SWAPNA DAILY RF: 0 albuterol sulfate [ProAir HFA] 90 mcg/actuation HFA aerosol inhaler 2 puff IH Q4H PRNRF: 0 guaifenesin [Mucinex] 600 mg tablet extended release 12hr 600 mg PO BID RF: 0 Narcan 4 mg/actuation spray,non-aerosol 4 mg SWAPNA Q2M PRNRF: 0 Symbicort 160-4.5 mcg/actuation HFA aerosol inhaler 2 puff IH BID RF: 0 nicotine (polacrilex) 4 mg gum 4 mg BC Q2H RF: 0 pregabalin [Lyrica] 50 mg capsule 50 mg PO DAILY RF: 0 Spiriva with HandiHaler 18 mcg capsule, w/inhalation device 1 cap IH DAILY RF: 0 loratadine [Claritin] 10 mg tablet 10 mg PO DAILY RF: 0 Caltrate 600 plus D 600 mg (1,500 mg)-800 unit tablet,chewable 1 tab PO DAILY RF: 0 cyanocobalamin (vitamin B-12) 1,000 mcg capsule 1,000 mcg PO DAILY RF: 0 tretinoin 0.1 % cream 1 applic topical QHS RF: 0 meloxicam 7.5 mg tablet 7.5 mg PO DAILY RF: 0 nitroglycerin 0.4 mg Tablet, Sublingual 0.4 mg sublingual DIRECTED RF: 0 buprenorphine-naloxone [Suboxone] 4-1 mg Film 1 film sublingual DAILY RF: 0 diphenhydramine HCl 25 mg Tablet 25 mg PO BID PRNRF: 0 Discharge Instructions Additional Instructions: DSU Colonoscopy Post- Op Instructions Instructions for Everyone who is given Anesthesia: For your safety, please do the following for the next twenty-four (24) hours: *Do Not operate a motor vehicle (car, truck, motorcycle, etc.) *Do Not drink alcoholic beverages or use any recreational drugs for the first 24 hours or while taking pain medications. The medications in your body may have a reaction that can be dangerous. *Do Not make any important decisions or sign any important papers. Findings: normal stomach you do have a hernia of the abdominal wall Follow up: in surgery office if you want your hernia repaired. 1. No lifting over 20 pounds or strenuous activity for the first 24 hours after your procedure. After 24 hours there are no restrictions on your activity but you may feel fatigued for a few days. 2. After you arrive home you may have a light meal and return to your normal diet as you can tolerate it without feeling sick to your stomach. 3. You may have a bloated, gaseous feeling in your belly (abdomen) after a colonoscopy. Passing gas and belching will help. Walking or lying down on your left side with your knees flexed may relieve the discomfort. Call the office at [phone] (Office) or [phone] (Hospital) right away if you notice any of the following: a.Vomiting of blood or ?coffee ground stools?. b.Rectal bleeding 1Tbsp, blood clots or continuous bleeding. c.Severe belly (abdominal) pain. d.A hard distended belly (abdomen) and an inability to pass gas. 4. Please don?t expect to have a normal BM (bowel movement) for 2-3 days after your procedure. 5. If there are questions regarding the findings of your procedure, please contact your doctor 6. If you are unable to contact your doctor with a problem, contact the hospital at [phone]. 7. Continue all your regular medications unless directed otherwise. I understand the above instructions and have no questions. Signature of Patient or Adult Escort Name of Responsible Adult Escort Signature of Nurse Date/Time Activity:: see above Diet:: see aove Discharge Orders Discharge Orders: Discharge Order (Routine); Ordered 07/12/21 Ordered By: Radha Elkins DS: Diagnosis Discharge Diagnosis (1) Esophageal dysphagia: Status: Acute (2) Tobacco abuse: Status: Acute (3) Emphysema/COPD: Status: Acute (4) Coronary atherosclerosis due to calcified coronary lesion: Status: Acute (5) Atherosclerosis of arteries of extremities: Status: Acute (6) Ventral hernia: Status: Acute
--- NOTE | 2021-07-12 23:22 | ROE_ITS ---
Date of service: 07/13/21 Operative Note Operative Note DATE OF PROCEDURE: 07/13/21 PRE-OP DIAGNOSIS: dysphagia POST-OP DIAGNOSIS: other (Very mild gastritis. No hiatal hernia is appreciated today) PROCEDURE: egd SURGEON: Radha Elkins ANESTHESIA TYPE: General:No Airway Refer to Anesthesia Record ESTIMATED BLOOD LOSS: 1 PATHOLOGY: other Patient was transported to: same day Patient's condition: stable Procedure Description: After informed consent was obtained the patient was take to the procedure room and placed in a supine position. Monitors were applied and a time out was done. The patients name, date of , procedure type, allergies to medications and metal in their body was reviewed. A bite block was placed and the patient was sedated. Once sedated and comfortable the gastr oscope was advanced through the oropharynx which was grossly normal into the esophagus. The proximal and mid-esophagus were nl. In the distal esophagus there was no esophageal erosions varices diverticula or stricture apparent. The scope was advanced into the stomach and through the pylorus into the 3rd portion of the duodenum. The duodenum was noted to be nl. Biopsies were done while no bowel, antrum, GE junction. All specimens are retrieved and no-strictures or bleeding is noted. The scope was retracted back into the stomach and biopsies were done to rule out H. pylori. There is mild gastritis in the antrum at best. There is no ulcers. The scope was retroflexed. The cardia and fundus were noted to be normal. There is no hiatal hernia noted. The scope was retracted back into the esophagus and biopsies were done of the GE junction to rule out Lynn's. The Z line was regular. The GE junction was nl. I did not appreciate a hiatal hernia today. She had a EGD in 2009 that the endoscopist noted a hiatal hernia. The scope was removed and the patient was woken up and taken back to [facility] in stable condition.
--- NOTE | 2021-07-13 06:47 | W.ANESPRE ---
General Info Date of Service Date Performed: 07/13/21 Height: 5 ft 1 in Weight: 68.039 kg Body Mass Index (BMI): 28.3 Surgical Procedure: Operation Date: 07/13/21 11:20 Proposed Procedures Side Surgeon p Gastroscopy Radha Elkins, Meds Allergies and Home Medications Allergies Allergy/AdvReac Type Severity Reaction Status Date / Time amitriptyline Allergy Severe none Verified 07/13/21 11:29 specified with referral codeine Allergy Severe none Verified 07/13/21 11:29 specified with referral gabapentin Allergy Severe none Verified 07/13/21 11:29 specified with referral ondansetron [From Zofran] Allergy Severe none Verified 07/13/21 11:29 specified with referral sulfamethoxazole Allergy Severe none Verified 07/13/21 11:29 [From Bactrim] specified with referral trimethoprim [From Bactrim] Allergy Severe none Verified 07/13/21 11:29 specified with referral influenza virus vacc Allergy Verified 07/13/21 11:29 trivalent, split [From Fluzone] Iodinated Contrast Media AdvReac Unknown Verified 07/13/21 11:29 Home Medication Medication Instructions Recorded albuterol sulfate 90 mcg/actuation 2 puff IH Q4H PRN 07/20/19 aerosol inhaler budesonide-formoterol HFA 160 2 puff IH BID 07/20/19 mcg-4.5 mcg/actuation aerosol inhaler fluticasone propionate 50 1 spray SWAPNA DAILY 07/20/19 mcg/actuation nasal spray,suspension guaifenesin 600 mg tablet, 600 mg PO BID 07/20/19 extended release 12 hr loratadine 10 mg tablet 10 mg PO DAILY 07/20/19 lorazepam 1 mg tablet 1 mg PO TID PRN 07/20/19 naloxone 4 mg/actuation nasal spray 4 mg SWAPNA Q2M PRN 07/20/19 nicotine (polacrilex) 4 mg gum 4 mg BC Q2H 07/20/19 pregabalin 50 mg capsule 50 mg PO DAILY 07/20/19 tiotropium bromide 18 mcg capsule 1 cap IH DAILY 07/20/19 with inhalation device buprenorphine-naloxone [Suboxone] 1 film SUBLINGUAL DAILY 03/23/21 diphenhydramine HCl 25 mg PO BID PRN 03/23/21 calcium carbonate 600 mg(1,500 1 tab PO DAILY 04/03/21 mg)-vitamin D3 800 unit chewable tablet cyanocobalamin (vitamin B-12) 1,000 mcg PO DAILY 04/03/21 1,000 mcg capsule tretinoin 0.1 % topical cream 1 applic TOPICAL QHS 04/03/21 nitroglycerin 0.4 mg SUBLINGUAL DIRECTED 07/12/21 Current Visit Medications: Current Medications Generic Name Dose Route Start Last Admin Trade Name Freq PRN Reason Stop Dose Admin Hyoscyamine Sulfate 0.125 mg 07/12/21 23:20 Hyoscyamine 0.125 Mg Sl/Oral/Chew SL DIRECTED PRN Ringer's Solution 1,000 mls @ 80 mls/hr 07/13/21 06:00 IV 07/31/21 23:59 INFUSION NORAH IV Miscellaneous Supplies 1 each 07/13/21 06:00 Iv Access IV 07/31/21 23:59 DIRECTED NORAH Sodium Chloride 0 ml 07/13/21 06:00 Normal Saline Flush 10 Ml Syr IV 07/31/21 23:59 PRN PRN Sodium Chloride 0 ml 07/13/21 06:00 Normal Saline 10 Ml Vial IJ 07/31/21 23:59 DIRECTED PRN Sterile Water 0 ml 07/13/21 06:00 Water,Injection,Sterile 10 Ml Vial IJ 07/31/21 23:59 DIRECTED PRN PFSH Active Problems Active Problems: Problem Status Onset Code Fracture of right wrist S62.101A Closed head injury S09.90XA Post concussive syndrome F07.81 Contusion of multiple sites T07.XXXA Fall W19.XXXA Esophageal dysphagia R13.19 Tobacco abuse Z72.0 Colon stricture K56.699 Emphysema/COPD J43.9 S/P cholecystectomy Z90.49 Atherosclerosis of arteries of extremities I70.209 Coronary atherosclerosis due to calcified coronary lesion I25.10, I25.84 Ventral hernia K43.9 Lumbosacral radiculopathy due to degenerative joint disease of spine M47.27 Urinary incontinence R32 Contusion of right wrist S60.211A Galactorrhea N64.3 Diverticulosis of colon K57.30 Odontogenic infection of jaw M27.2 Headache R51.9 GERD (gastroesophageal reflux disease) K21.9 Bilateral breast lump N63.10, N63.20 Chronic fatigue R53.82 Thought disorder R41.89 Neuropathic pain M79.2 Lumbar radiculitis M54.16 Chest pain R07.9 Jaw pain R68.84 Medial epicondylitis M77.00 Dysuria R30.0 Abdominal pain R10.9 Chronic cough R05 Elevated blood pressure reading in office without diagnosis of hypertension R03.0 Numbness R20.0 Hernia, ventral K43.9 Peripheral neuropathy G62.9 Prediabetes R73.03 Unintentional weight loss R63.4 Sore throat J02.9 Medical History Medical History Abdominal pain Anxiety and depression Back pain Bilateral breast lump Breast lump Chest pain Chronic cough Chronic fatigue Chronic osteomyelitis Chronic pain Contusion of right wrist COPD (chronic obstructive pulmonary disease) Diarrhea Diverticulosis of colon Dysphagia Dysuria Elevated blood pressure reading in office without diagnosis of hypertension Galactorrhea GERD (gastroesophageal reflux disease) Headache Hernia, ventral History of cervical cancer Jaw pain Kidney stones Lumbar radiculitis Medial epicondylitis Neuropathic pain Numbness Odontogenic infection of jaw Opiate addiction pt. denies this Peripheral neuropathy Postmenopausal Prediabetes PTSD (post-traumatic stress disorder) Skin lesion of face Smoker Somatization disorder Sore throat Stomach upset Thought disorder Unintentional weight loss Urinary incontinence Warts Surgical History Surgical History H/O cone biopsy of cervix History of colonoscopy History of esophagogastroduodenoscopy (EGD) History of salpingectomy Tobacco Smoking/Tobacco Use Status: Current every day Tobacco Type: cigarettes Smoking cigarettes per day: 30 Alcohol Alcohol Intake: former Substance Use Substance use: Occasionally Substance use type: marijuana Vital Signs and Lab Results Vital Signs Most Recent Vital Signs in EMR: Temp Pulse Resp BP Pulse Ox 37.0 C 83 18 128/72 96 07/13/21 11:03 07/13/21 11:03 07/13/21 11:03 07/13/21 11:03 07/13/21 11:03 Lab Results Blood Type / Crossmatch: No Data to Display Complete Blood Count: White Blood Count 8.08 10^3/uL (4.4-10.8) 07/11/21 11:05 07/11/21 Red Blood Count 4.56 10^6/uL (3.93-5.22) 07/11/21 11:05 07/11/21 Hemoglobin 14.3 g/dL (11.2-15.7) 07/11/21 11:07/11/21 Hematocrit 43.2 % (36.0-46.0) 07/11/21 11:05 07/11/21 Platelet Count 250 10^3/uL (130-400) 07/11/21 11:07/11/21 Complete Metabolic Panel: Sodium Level 142 mmol/L (136-145) 07/11/21 11:05 07/11/21 Potassium Level 4.2 mmol/L (3.5-5.1) 07/11/21 11:07/11/21 Chloride Level 103 mmol/L (98-107) 07/11/21 11:07/11/21 Carbon Dioxide Level 30.4 mmol/L (21.0-32.0) 07/11/21 11:07/11/21 Blood Urea Nitrogen 9 mg/dL (7-18) 07/11/21 11:07/11/21 Creatinine 1.0 mg/dL (0.55-1.02) 07/11/21 11:07/11/21 Estimated GFR/1.73 m2 55.64 (mL/min/1.73m2) 07/11/21 11:07/11/21 Calcium Level 8.4 mg/dL (8.5-10.1) L 07/11/21 11:07/11/21 Albumin 3.6 g/dL (3.4-5.0) 07/11/21 11:07/11/21 Glucose Level 108 mg/dL (74-106) H 07/11/21 11:05 07/11/21 Liver Function Panel: Alanine Aminotransferase (ALT/SGPT) 17 U/L (14-59) 07/11/21 11:07/11/21 Aspartate Amino Transf (AST/SGOT) 14 U/L (15-37) L 07/11/21 11:05 07/11/21 Coagulation Panel: No Data to Display Cardiac Panel: No Data to Display Arterial Blood Gas: No Data to Display Venous Blood Gas: No Data to Display Pancreas Panel: No Data to Display Thyroid Panel: No Data to Display Infectious Disease: Coronavirus (COVID-19)(PCR) Negative (Negative) 07/12/21 14:40 07/12/21 Coronavirus 2019 Source Nasal/Nares 07/12/21 14:40 07/12/21 Blood Cultures: No Data to Display Toxicology Panel: No Data to Display Imaging and Studies Imaging and Studies Stress Test Summary: 2018: rest images appear normal. results unclear. Anesthesia Assessment and Plan Anesthesia History Personal History: No History of Anesthesia Complications Family History: No Family History of Anesthesia Complications Exercise Tolerance Exercise Tolerance: Metabolic Equivalents>4 Cardiac & Pulmonary Exam Cardiac Exam: Normal S1/S2 Heart Sounds Pulmonary Exam: Clear Bilateral Breath Sounds Implantable Cardiac Device Does patient have a Pacemaker or an ICD?: No Airway Exam Known Difficult Airway: No Mallampati Class: 1 Mouth Opening: Normal (> 3cm) Thyromental Distance: Less than 3 cm Neck Range of Motion: Full ROM Neck Circumference: Normal Teeth Condition: Generalized Poor Dentition and Edentulous (Uppers) ASA Classification ASA Score: ASA 3 Emergency Case?: No NPO Status NPO Status: NPO Clears >2 hours, Solids >8 hours Anesthesia Plan Resuscitation Status: Full Code Anesthesia Technique: General Anesthesia Airway Planned: Natural Airway Monitors Used: Standard Monitors Preoperative Comments:: 66 yo female EGD for dysphagia, GERD, pain with swallowing. Sig PMHx: Smoker, suboxone, COPD (budesonide/formoterol/albuterol), GERD, anxiety/depression, PTSD, cannabis. Extremely poor historian. Unable to answers questions directly without significant tangential stories. States that she has had multiple MIs and CVAs, and clogged aorta, but I can't find this documented. States that she is NPO and her daughter confirms this.
[2021-07-13 11:03] VITALS: BP 128/72; PULSE 83; RESP 18; TEMP 37; O2SAT 96
[2021-07-13] MEDS: Lactated Ringers 1,000 ML 80 ML IV (11:18)
[2021-07-13 11:41] VITALS: BMI 28.3
--- NOTE | 2021-07-13 11:49 | STOM_PTH ---
PATIENT: Savannah Avery LOC: [facility] U#:[id number] AGE/SX: 66/F ROOM: RE07/13/[address]: Radha Elkins : 1955 BED: DIS: 07/13/2021 SPEC #: [id number] RECD: 07/13/21 12:48 STATUS: DIVYA RETanner #: [id number] SANTA: 07/13/21 11:[address]: Radha Elkins DEPT: Surgical Specimen RECD BY: Nemo Castillo ENTERED: 07/13/21 12:49 SP TYPE: STOMACH OTHR DR: Wolfgang Cagle Tissues: 1 - BIOPSY BOWEL 2 - STOMACH BIOPSY 3 - ESOPHAGUS BIOPSY Procedures: GROSS AND MICRO LEVEL 4 Comments: [id number]
[2021-07-13 12:28] VITALS: BP 129/66; PULSE 66; RESP 18; TEMP 36.8; O2SAT 96
--- NOTE | 2021-07-13 12:53 | W.ANESPOSTOP ---
Postoperative Evaluation Date, Time and Location Date Performed: 07/13/21 Time Performed: 12:53 Patient Location: Day Surgery Unit Vital Signs Most Recent Imported Vital Signs: Most Recent Vital Signs Temp Pulse Resp BP Pulse Ox 36.8 C 66 18 129/66 96 07/13/21 12:28 07/13/21 12:28 07/13/21 12:28 07/13/21 12:28 07/13/21 12:28 Assessment Mental Status: Awake (Alert & Oriented to Patient Baseline) Airway and Respiratory Function: Patent airway with normal (patient baseline) respiratory exam Cardiovascular Function: Hemodynamically Stable Hydration Status: Adequately Hydrated Nausea & Vomiting: No Nausea or Vomiting Pain: Pt. Denies Any Pain Peripheral Nerve Block: Patient did not receive a nerve block
== END 2021-07-13 13:12 | disposition home or self-care (01) ==
PROVIDERS: PCP Internal Medicine; Visit Provider Surgery
PROC: 0DJ68ZZ Inspection of Stomach, Via Natural or Artificial Opening Endoscopic (ICD-10-PCS; CPT 43235; principal; 2021-07-13 11:15)
DX: R13.19 Other dysphagia (principal); K29.70 Gastritis, unspecified, without bleeding; K31.89 Other diseases of stomach and duodenum
CPT/HCPCS: 43239; 88305

== ENCOUNTER 2021-10-23 15:14 | Outpatient (REF) | payer MEDICARE, MEDICAID, SELFPAY ==
[2021-10-23 20:13] LABS: ALT 21 U/L (14-59); AST 17 U/L (15-37); Albumin 3.6 g/dL (3.4-5.0); Alkaline Phosphatase 67 U/L (46-116); Anion Gap 6.5 mmol/L (3-11); BUN 12 mg/dL (7-18); Bilirubin, Total 0.2 mg/dL (0.2-1.0); CO2 29.5 mmol/L (21.0-32.0); Calcium 8.9 mg/dL (8.5-10.1); Chloride 104 mmol/L (98-107); Estimated GFR 55.64 (mL/min/1.73m2); Glucose 100 mg/dL (74-106); Potassium 4.7 mmol/L (3.5-5.1); Sodium 140 mmol/L (136-145); Total Protein 6.9 g/dL (6.4-8.2)
== END 2021-10-23 15:15 | disposition home or self-care (01) ==
LOC: NCHCN 15:14
PROVIDERS: PCP Internal Medicine; Visit Provider Internal Medicine
DX: R03.0 Elevated blood-pressure reading, without diagnosis of hypertension (principal)
CPT/HCPCS: 80053

== ENCOUNTER 2021-11-07 01:06 | Outpatient (CLI) | payer MEDICARE, MEDICAID, SELFPAY ==
--- NOTE | 2021-11-07 13:00 | DI.CT_ITS ---
Exam(s) CT ABDOMEN PELVIS WO EXAM: CT ABDOMEN PELVIS WO INDICATION: LLQ ABD PAIN, R10.32, VENTRAL HERNIA, K43.9. COMPARISON: CT CT CHEST LUNG CANCER SCREEN from 02/06/2021 TECHNIQUE: FINDINGS: CT examination of the abdomen and pelvis was performed with oral contrast only. Images obtained thro ugh the lung bases are unremarkable. The liver is unremarkable in appearance. Gallbladder appears to been surgically removed. There is an approximately 9 millimeter diameter comm on hepatic duct, this is within normal limits for post cholecystectomy patient. Pancreas appears normal. Spleen is unremarkable in appearance. Adrenals appear normal. There is a 1 cm in diameter left lower pole renal cortical mass which measures around 11 Hounsfield u nits attenuation, presumed cyst period another possible small renal cyst is noted in the midpole dot uring about 11 millimeters in diameter, 8 Hounsfield units mean attenuation period there is no left h ydronephrosis or nephrolithiasis. There are multiple right renal calculi. There is renal cortical scarring on the right also noted. N o hydronephrosis. Urinary bladder is unremarkable in appearance.. Abdominal aorta is of normal diameter and no major vascular abnormality is seen. Are 2 small ventral hernias in the upper abdominal midline, 1 measuring about 14 by 42 millimeters in diameter on axial imaging with a 12 millimeter neck and the other measuring about 14 x 10 millimeter s with 10 millimeter neck. These contain fat but no bowel. No additional significant abdominal wall hernia seen apart from a tiny bilateral fat containing inguinal hernias.. No abdominal or pelvic ad enopathy. F[employer] RICE structures appear intact. Appendix is not specifically visualized but there is no evidence of appendicitis.. No evidence of di verticulitis or bowel obstruction. IMPRESSION: Small upper abdominal ventral hernias noted as described above. No bowel involvement.. RADIATION DOSE DELIVERED: 837.89mGy.cm Total DLP 837.89mGy.cm Total DLP !Error CTDIvol RADIATION OPTIMIZATION: All CT scans at this facility use at least one of these dose optimization te chniques: automated exposure control; mA and/or kV adjustment per patient size (includes targeted exa ms where dose is matched to clinical indication); or iterative reconstruction.
[2021-11-07] MEDS: Barium Sulfate 2% W/V-Berry Smoothie 450 ML BTL PO ×2 (13:28→13:29)
== END 2021-11-07 01:26 ==
PROVIDERS: PCP Internal Medicine; Visit Provider Internal Medicine
DX: R10.32 Left lower quadrant pain (principal); K43.9 Ventral hernia without obstruction or gangrene
CPT/HCPCS: 74176

== ENCOUNTER 2022-01-02 15:15 | Outpatient (CLI) | payer MEDICARE, MEDICAID, SELFPAY ==
--- NOTE | 2022-01-02 14:45 | DI.RAD_ITS ---
Exam(s) XR TIB/FIB RT XR KNEE RT 2V AP,LAT EXAM: XR KNEE RT 2V AP,LAT INDICATION: tib plateau fx f/u. COMPARISON: CR XR TIB/FIB RT from 01/02/2022 TECHNIQUE: 2D digital imaging was performed. Two views of the knee. Two views of the tibia and fib sam.. FINDINGS: The fracture at the tibial spines is faintly visible. The joint effusion has decreased in size. The joint spaces are well maintained. The ankle is unremarkable. No ankle mortise widening. No new ab normalities. DATA REPOSITORY: RADIATION DOSE DELIVERED:
== END 2022-01-02 15:16 | disposition home or self-care (01) ==
LOC: DIORS 15:15
PROVIDERS: PCP Internal Medicine; Referring Provider Internal Medicine; Visit Provider Student in an Organized Health Care Education/Training Program
DX: S83.511A Sprain of anterior cruciate ligament of right knee, initial encounter; X58.XXXA Exposure to other specified factors, initial encounter; S82.111A Displaced fracture of right tibial spine, initial encounter for closed fracture
CPT/HCPCS: 99204; 99215; 73560; 73590

== ENCOUNTER 2022-01-17 01:57 | Outpatient (CLI) | payer MEDICARE, MEDICAID, SELFPAY ==
--- NOTE | 2022-01-17 07:30 | DI.MRI_ITS ---
Exam(s) MR LOWER JOINT RT WO EXAM: MR LOWER JOINT RT WO CLINICAL HISTORY: ASSESS FX,RT TIBIAL PLATEAU FX,S82.141A. TECHNIQUE: Multiplanar multisequence MRI was performed. COMPARISON: CR RA KNEE 2 VW RT from 12/19/2021 CR XR KNEE RT 2V AP,LAT from 01/02/2022 FINDINGS: BONES: There is an oblique fracture seen in the proximal tibia. The fracture begins both medially an d laterally to the tibial spines and descends inferiorly and laterally into the proximal tibial metap hysis. There is mild depression of the fracture particularly anteriorly. There is marrow edema seen in the proximal tibia. JOINTS: Mild hyperintense signal is seen in the patellar articular cartilage inferiorly. There is a small joint effusion. TENDONS: Extensor mechanism: Unremarkable. Medial retinaculum: Unremarkable. Lateral retinaculum: Unremarkable. Popliteus: Unremarkable. MUSCLES: Unremarkable. MENISCI: The medial meniscus is unremarkable. The lateral meniscus is unremarkable. There is no evid ence of a meniscal tear. SOFT TISSUES: There is edema seen in the soft tissues adjacent to the proximal tibia laterally. LIGAMENTS: Anterior Cruciate: Unremarkable. Posterior Cruciate: Unremarkable. Medial Collateral:Unremarkable. Lateral Collateral: Unremarkable. OTHER: IMPRESSION: 1. Mildly depressed tibial plateau fracture. The fracture involves the medial aspect of the lateral tibial plateau in the lateral aspect of the medial tibial plateau around the tibial spines. 2. No evidence of a meniscal or ligament tear. DATA REPOSITORY:
== END 2022-01-17 02:17 ==
PROVIDERS: PCP Internal Medicine; Visit Provider Student in an Organized Health Care Education/Training Program
DX: S82.141A Displaced bicondylar fracture of right tibia, initial encounter for closed fracture (principal); X58.XXXA Exposure to other specified factors, initial encounter
CPT/HCPCS: 73721

== ENCOUNTER 2022-01-30 15:21 | Outpatient (CLI) | payer MEDICARE, MEDICAID, SELFPAY ==
--- NOTE | 2022-01-30 14:45 | DI.RAD_ITS ---
Exam(s) XR KNEE RT 2V AP,LAT EXAM: XR KNEE RT 2V AP,LAT CLINICAL HISTORY: right knee f/u TECHNIQUE: COMPARISON: CR XR KNEE RT 2V AP,LAT from 01/02/2022 FINDINGS: Two views were obtained. Previously described proximal tibial fractures again seen, no gross interva l change in alignment of fracture fragments comparison with examination of January 02. IMPRESSION: RADIATION DOSE DELIVERED: Total DLP
--- NOTE | 2022-01-30 14:54 | DI.RAD_ITS ---
Exam(s) XR KNEE LT 2V AP,LAT EXAM: XR KNEE LT 2V AP,LAT CLINICAL HISTORY: left knee pain TECHNIQUE: COMPARISON: CR RA KNEE 2 VW RT from 12/19/2021 CR XR KNEE RT 2V AP,LAT from 01/30/2022 FINDINGS: Two views were obtained. There is a probable small knee joint effusion. There is a small superior p atellar enthesophyte. Cartilaginous joint spaces appear fairly well maintained as visualized. No ot her bony abnormality seen. IMPRESSION: RADIATION DOSE DELIVERED: Total DLP
== END 2022-01-30 15:22 | disposition home or self-care (01) ==
LOC: DIORS 15:22
PROVIDERS: PCP Internal Medicine; Referring Provider Internal Medicine; Visit Provider Student in an Organized Health Care Education/Training Program
DX: S83.511A Sprain of anterior cruciate ligament of right knee, initial encounter; S82.141A Displaced bicondylar fracture of right tibia, initial encounter for closed fracture; S84.91XA Injury of unspecified nerve at lower leg level, right leg, initial encounter; S82.111A Displaced fracture of right tibial spine, initial encounter for closed fracture; M23.92 Unspecified internal derangement of left knee; X58.XXXA Exposure to other specified factors, initial encounter
CPT/HCPCS: 99214; 73560

== ENCOUNTER → 2022-06-19 01:27 | Outpatient (CLI) | payer MEDICARE, MEDICAID, SELFPAY ==
--- NOTE | 2022-06-19 | DI.MAMMO_ITS ---
Exam(s) MAMMO SCREENING EXAM: MAMMO SCREENING CLINICAL HISTORY: SCREENING, Z12.39. TECHNIQUE: Bilateral full field digital CC and MLO mammographic images were obtained with 3D tomosyn thesis and utilizing computer aided detection (CAD). COMPARISON: Prior outside mammograms were reviewed, the most recent being 2015. FINDINGS: There has been no significant change in the appearance and distribution of the fibroglandular tissue. There are no new spiculated masses nor malignant appearing microcalcification groups. There is no significant architectural distortion nor skin thickening-retraction. IMPRESSION: No radiographic evidence of malignancy. BI-RADS Category 1 - Negative Breast Density - Category B - Scattered areas of fibroglandular density Breast density Category C or D implies that the patient has dense breast tissue. Dense breast tissue can make it harder to find cancer on a mammogram. Dense breast tissue is also associated with an incr eased risk of breast cancer. This information about the result of the mammogram report was provided to the patient to raise their awareness. Use this report when you speak with the patient about their risks for breast cancer, which includes their family history. At that time, you may recommend additional screening tests (Ultrasoun d or MRI) as these tests may add significant information. A negative radiographic report should not delay biopsy if a dominant or clinically suspicious mass is present. Up to ten percent of cancers are not identified on mammography. A negative report may reinforce clinical impression. Adenosis and dense breasts may obscure an underlying neoplasm. False positive reports average 6 to 10%. Patient will receive a letter notifying them of these results.
--- NOTE | 2022-06-19 | DI.CTLCSR_ITS ---
Exam(s) CT CHEST LUNG CANCER SCREEN EXAM: CT CHEST LUNG CANCER SCREEN CLINICAL HISTORY: SCREENING FOR LUNG CA, SMOKER, F17.210. TECHNIQUE: Imaging Protocol: Low Dose Technique CONTRAST MATERIAL: None COMPARISON: CT CT CHEST LUNG CANCER SCREEN from 02/06/2021 FINDINGS: CHEST: LUNGS: There are no ominous pulmonary nodules. There are no confluent infiltrates. No pleural effusi ons. MEDIASTINUM: There is no obvious hilar nor mediastinal adenopathy. CARDIAC: Heart size is normal. There is no pericardial effusion.Caliber of the thoracic aorta is wit hin normal limits. OTHER: OSSEOUS: No significant osseous lesions.No fractures.. IMPRESSION: 1. No significant pulmonary nodules. No infiltrates. No pleural effusions. 2. No intrathoracic adenopathy evident 3. Lung RADS Cat 1 - Negative: No nodules and definitely benign nodules Lung-RADS 1.0 CATEGORIES: Category 0 - Prior chest CT exam(s) being located for comparison. Category 1 - Annual screening in 12 months. No nodules or definitely benign nodules. Category 2 - Annual screening in 12 months. Benign appearance. Nodules with low likelihood of becomin g active cancer. Category 3 - 6-month follow-up. Probably benign. Short-term follow-up suggested. Nodules with low lik elihood of becoming active cancer. Category 4A - 3-month follow-up and CT/PET if >8 mm in size. Suspicious finding. Findings which requi re additional testing. Category 4B - Findings which require additional testing and tissue sampling. Category 4X - Category 3 or 4 nodules with additional features or imaging findings that increases the suspicion of malignancy. Modifier S- Potentially clinically significant findings (non lung cancer) RADIATION DOSE DELIVERED: 69.4mGy.cm Total DLP 1.84mGy CTDIvol DATA REPOSITORY: All CT scans at this facility are submitted to the National Radiology Data Registry (NRDR) Dose Index Registry (DIR) with the [employer] ([employer]). RADIATION OPTIMIZATION: All CT scans at this facility use at least one of these dose optimization te chniques: automated exposure control; mA and/or kV adjustment per patient size (includes targeted exa ms where dose is matched to clinical indication); or iterative reconstruction.
== END ==
PROVIDERS: PCP Internal Medicine; Visit Provider Internal Medicine
DX: F17.210 Nicotine dependence, cigarettes, uncomplicated (principal); Z12.31 Encounter for screening mammogram for malignant neoplasm of breast; Z12.2 Encounter for screening for malignant neoplasm of respiratory organs
CPT/HCPCS: 71271; 77063; 77067

== ENCOUNTER 2022-06-19 16:09 | Emergency (ER) | payer MEDICARE, MEDICAID, SELFPAY ==
[2022-06-19 16:14] VITALS: BP 143/64; PULSE 75; RESP 17; TEMP 36.4; O2SAT 97
--- NOTE | 2022-06-19 17:30 | DI.CT_ITS ---
Exam(s) CT NECK WO EXAM: CT NECK WO CLINICAL HISTORY: hoarseness, sore throat, smoker, r/o mass TECHNIQUE: COMPARISON: CT CT HEAD CERVICAL SPINE WO from 03/23/2021 FINDINGS: CT examination of the cervical region was performed without contrast administration. Visualized intr acranial structures intact. No orbital pathology identified. Salivary glands are unremarkable in appearance bilaterally. No cervical mass or lymphadenopathy. Tracheolaryngeal structures appear intact as visualized. Visualized lung apices appear clear with some emphysematous changes noted . IMPRESSION: Negative noncontrast cervical CT. Contrast-enhanced examination or MRI would be recommended for furt her evaluation if there is clinical suspicion of neoplastic, inflammatory, or infectious process. RADIATION DOSE DELIVERED: 457.97mGy.cm Total DLP !Error CTDIvol DATA REPOSITORY: All CT scans at this facility are submitted to the National Radiology Data Registry (NRDR) Dose Index Registry (DIR) with the [employer] ([employer]). RADIATION OPTIMIZATION: All CT scans at this facility use at least one of these dose optimization te chniques: automated exposure control; mA and/or kV adjustment per patient size (includes targeted exa ms where dose is matched to clinical indication); or iterative reconstruction.
--- NOTE | 2022-06-19 17:34 | ED.GENADUL_ITS ---
Discharge Plan Disposition Patient Disposition: ELOPED Condition: Stable Discharge Details Clinical Impression: Left before treatment completed, Sore throat, Hoarseness, Smoker Primary Care Provider: Wolfgang Cagle ED Provider: Nicci Prieto Home Meds and New Rx's Prescriptions: No Action lorazepam 1 mg tablet 1 mg PO TID PRN fluticasone propionate 50 mcg/actuation spray,suspension 1 spray SWAPNA DAILY albuterol sulfate [ProAir HFA] 90 mcg/actuation HFA aerosol inhaler 2 puff IH Q4H PRN guaifenesin [Mucinex] 600 mg tablet extended release 12hr 600 mg PO BID Narcan 4 mg/actuation spray,non-aerosol 4 mg SWAPNA Q2M PRN nicotine (polacrilex) 4 mg gum 4 mg BC Q2H Spiriva with HandiHaler 18 mcg capsule, w/inhalation device 1 cap IH DAILY loratadine [Claritin] 10 mg tablet 10 mg PO DAILY cyanocobalamin (vitamin B-12) 1,000 mcg capsule 1,000 mcg PO DAILY Symbicort 160-4.5 mcg/actuation HFA aerosol inhaler 1 puff IH BID nitroglycerin 0.4 mg Tablet, Sublingual 0.4 mg sublingual DIRECTED pregabalin 50 mg capsule 1 cap PO DAILY Label Comments: TAKE ONE CAPSULE BY MOUTH EVERY DAY buprenorphine-naloxone [Suboxone] 4-1 mg Film 1 film sublingual DAILY diphenhydramine HCl 25 mg Tablet 25 mg PO BID PRN Discharge Data Discharge Date/Time-TO BE ENTERED AT DEPARTURE: 06/19/22 18:28 Medical Decision Making 67-year-old female who is a chronic tobacco smoker with a history of COPD, anxiety, depression, PTSD, GERD presents for sore throat and hoarseness for the past 2-week now with difficulty swallowing solid food for the past 5 days. She has a chronic cough with her COPD and states this has been slightly worse than usual. She had a fever last week but none since then. Her voice is hoarse and faint. She is otherwise able to speak in full sentences without drooling, trismus or submandibular swelling. Normal oropharynx. Lungs clear bilaterally. Her rapid strep test was negative. Differential diagnosis includes laryngitis, laryngeal mass. She states she cannot take IV contrast due to history of unresponsive event. She is agreeable with CT neck without IV contrast. Discussed the limitations without IV contrast for full evaluation of abscess or cellulitis. We will give a dose of Decadron p.o. and reassess. We will also order a chest x-ray due to her complaint of worsening cough. While in radiology, patient questioned why the chest x-ray was being performed. She refused the chest x-ray in radiology and then eloped from the emergency department. Patient left before treatment complete and reevaluation. Her CT neck resulted after she eloped and there was no obvious mass but limited with patient movement and lack of IV contrast. Patient placed on care management list for follow-up with her PCP for her results. Medical Records Medical records reviewed: Yes I reviewed the patient's medical records. Imaging Data Radiologic Study: Radiologist's impression: CT Neck Without Contrast Exam date and time: 06/19/2022 5:52 PM Age: 67 years old Clinical indication: Hoarseness, sore throat, smoker, R/O mass TECHNIQUE: Imaging protocol: Computed tomography of the neck without contrast. COMPARISON: CT HEAD CERVICAL SPINE WO 03/23/2021 6:05 PM FINDINGS: Limitations: The lack of intravenous contrast limits evaluation of the solid organs. Motion artifact does moderately limit the sensitivity of this examination. Pharynx: No significant tonsillar enlargement. Larynx: Epiglottis is normal. Prevertebral and retropharyngeal spaces: Unremarkable. Salivary glands: Glands are normal in size. Thyroid: No enlarged or calcified nodules.? Lymph nodes: No lymphadenopathy. Trachea: Visualized trachea is unremarkable. Lungs: Centrilobular emphysema is partially visualized. Bones/joints: No acute fracture.? Multilevel degenerative changes noted in the cervical spine with bilateral neural foraminal narrowing. Vasculature: Incidentally noted is a retropharyngeal course of the right carotid bifurcation. Soft tissues: No significant subcutaneous soft tissue abnormality. IMPRESSION: 1. No evidence of large mass in the pharynx, although scan is limited secondary to lack of intravenous contrast and slight motion. 2. No evidence of significantly enlarged tonsils or lymphadenopathy. HPI General Mode of arrival: ambulatory . Date/Time Provider Initiated Documentation: 06/19/22 16:13 . Limitations to Documentation: no limitations . Information obtained by: patient . HPI Narrative: Pt is a 67yo female who is a chronic tobacco smoker, with a history of COPD, PTSD, anxiety, depression who presents for 2 weeks of sore throat, hoarseness and loss of voice. She states she has a chronic cough associated with her COPD but states that the cough has been slightly worse than usual. She states she has been having difficulty eating for the last 5 days due to her hoarseness and sore throat. She states she has been able to drink fluids and eat Jell-O. She states her last solid meal was 5 days ago. She admits to a fever of 101 last week. She states she was here today for an outpatient mammogram and decided to come to the ER for the symptoms since I was here. Related Data Home Medications Medication Instructions Recorded Confirmed albuterol sulfate 90 mcg/actuation 2 puff inhalation Q4H PRN 07/20/19 06/19/22 aerosol inhaler (ProAir HFA) fluticasone propionate 50 1 spray intranasal DAILY 07/20/19 06/19/22 mcg/actuation nasal spray,suspension guaifenesin 600 mg tablet, 600 mg PO BID 07/20/19 01/30/22 extended release 12 hr (Mucinex) loratadine 10 mg tablet (Claritin) 10 mg PO DAILY 07/20/19 01/30/22 lorazepam 1 mg tablet 1 mg PO TID PRN 07/20/19 06/19/22 naloxone 4 mg/actuation nasal 4 mg intranasal Q2M PRN 07/20/19 06/19/22 spray (Narcan) nicotine (polacrilex) 4 mg gum 4 mg buccal Q2H 07/20/19 06/19/22 tiotropium bromide 18 mcg capsule 1 cap inhalation DAILY 07/20/19 06/19/22 with inhalation device (Spiriva with HandiHaler) buprenorphine 4 mg-naloxone 1 mg 1 film sublingual DAILY 03/23/21 06/19/22 sublingual film (Suboxone) diphenhydramine HCl 25 mg tablet 25 mg PO BID PRN 03/23/21 06/19/22 cyanocobalamin (vitamin B-12) 1,000 mcg PO DAILY 04/03/21 06/19/22 1,000 mcg capsule nitroglycerin 0.4 mg sublingual 0.4 mg sublingual DIRECTED 07/12/21 06/19/22 tablet budesonide-formoterol HFA 160 1 puff inhalation BID 05/17/22 10/19/22 mcg-4.5 mcg/actuation aerosol inhaler (Symbicort) pregabalin 50 mg capsule 1 cap PO DAILY 06/19/22 06/19/22 Allergies Allergy/AdvReac Type Severity Reaction Status Date / Time amitriptyline Allergy Severe none Verified 06/19/22 16:27 specified with referral codeine Allergy Severe none Verified 06/19/22 16:27 specified with referral gabapentin Allergy Severe none Verified 06/19/22 16:27 specified with referral ondansetron [From Zofran] Allergy Severe none Verified 06/19/22 16:27 specified with referral sulfamethoxazole Allergy Severe none Verified 06/19/22 16:27 [From Bactrim] specified with referral trimethoprim [From Bactrim] Allergy Severe none Verified 06/19/22 16:27 specified with referral influenza virus vacc Allergy Verified 06/19/22 16:27 trivalent, split [From Fluzone] Iodinated Contrast Media AdvReac Unknown Verified 06/19/22 16:27 General Stated Complaint: Sorethroat DANIELLE: 4 Review of Systems All systems reviewed & are unremarkable except as noted in HPI and below Constitutional Constitutional: Reports as per HPI, Denies chills and Denies fever(s) Eyes Eyes: Denies blurry vision ENT Ears, Nose, Mouth, and Throat: Denies dizziness, Reports hoarseness, Reports sore throat and Denies throat swelling Cardiovascular Cardiovascular: Denies chest pain and Denies dyspnea Respiratory Respiratory: Reports cough (chronic) and Denies dyspnea Gastrointestinal Gastrointestinal: Denies abdominal pain, Denies diarrhea and Denies vomiting Genitourinary Genitourinary: Denies hematuria and Denies dysuria Musculoskeletal Musculoskeletal: Denies back pain and Denies numbness Integumentary/Breasts Skin/Breast: Denies lesions and Denies rash Neurologic Neurologic: Denies dizziness, Denies localized weakness and Denies numbness Allergic/Immunologic Allergic/Immunologic: Denies throat swelling PFSH All Active Problems (Updated 06/19/22 @ 18:41 by Nicci Prieto DO) Left before treatment completed (Acute) Sore throat (Acute) Hoarseness (Acute) Smoker (Acute) Neuropraxia of right lower extremity (Acute) Internal derangement of left knee (Acute) Tibial plateau fracture, right (Acute 12/19/21) Ventral hernia (Acute) Fracture of right wrist (Acute) Closed head injury (Acute) Post concussive syndrome (Acute) Contusion of multiple sites (Acute) Fall (Acute) Esophageal dysphagia (Acute) Tobacco abuse (Acute) Colon stricture (Acute) Emphysema/COPD (Acute) S/P cholecystectomy (Acute) Atherosclerosis of arteries of extremities (Acute) Coronary atherosclerosis due to calcified coronary lesion (Acute) Ventral hernia (Acute) Lumbosacral radiculopathy due to degenerative joint disease of spine (Acute) Urinary incontinence (Acute) Contusion of right wrist (Acute) Galactorrhea (Acute) Diverticulosis of colon (Acute) Odontogenic infection of jaw (Acute) Headache (Acute) GERD (gastroesophageal reflux disease) (Chronic) Bilateral breast lump (Acute) Chronic fatigue (Acute) Thought disorder (Acute) Neuropathic pain (Acute) Lumbar radiculitis (Acute) Chest pain (Acute) Jaw pain (Acute) Medial epicondylitis (Acute) Dysuria (Acute) Abdominal pain (Acute) Chronic cough (Acute) Elevated blood pressure reading in office without diagnosis of hypertension (Acute) Numbness (Acute) Hernia, ventral (Acute) Peripheral neuropathy (Acute) Prediabetes (Acute) Unintentional weight loss (Acute) Sore throat (Acute) Medical History (Updated 06/19/22 @ 18:41 by Nicci Prieto DO) Anxiety and depression Back pain Breast lump Chronic osteomyelitis Chronic pain COPD (chronic obstructive pulmonary disease) Diarrhea Dysphagia History of cervical cancer Kidney stones Opiate addiction pt. denies this Postmenopausal PTSD (post-traumatic stress disorder) Skin lesion of face Smoker Somatization disorder Stomach upset Warts Surgical History (Updated 08/01/21 @ 15:21 by Jo Lucero RN) H/O cone biopsy of cervix History of colonoscopy History of esophagogastroduodenoscopy (EGD) History of esophagogastroduodenoscopy (EGD) (~07/13/21) History of salpingectomy Family History Father Cancer throat Kidney failure Mother Cancer Social History Smoking/Tobacco Use Status: Current every day Tobacco Type: cigarettes Smoking risk assessment performed?: Yes Alcohol Intake: former Drug use: Occasionally Substance use type: marijuana Current gender identity: female Do you feel safe at home: Yes Do you feel safe in your relationship?: Yes Exam Const General: cooperative and no acute distress Orientation: alert, awake and oriented x3 HENMT Head: normal to inspection Ears: hearing grossly normal bilaterally, external ears normal and TM's normal bilaterally Face and sinus: normal facial exam Mouth: oral mucosae normal Throat: posterior oropharynx normal Eyes General: appearance normal, both eyes and all related structures Pupils: PERRL EOM: EOM intact bilaterally Neck Neck: normal visual inspection and No submandibular swelling Lymphatic: no lymphadenopathy noted Chest Chest: normal inspection of the chest and no tenderness Resp Effort & Inspection: normal respiratory effort and able to speak in complete sentences Auscultation: clear to auscultation bilaterally Cardio Rate: regular rate Rhythm: regular rhythm Skin General skin exam: no rashes or lesions noted Neuro General: patient alert, patient awake and patient oriented x3 Cognition: normal cognition Speech: speech normal Motor: muscle tone normal throughout Sensory Exam: no sensory deficits noted Extrem General: normal to inspection, full ROM, capillary refill normal, no calf tenderness bilaterally and no edema Psych Appearance: grossly normal Mental Status: mental status grossly normal Speech and Movement: speech and movement normal Affect: normal affect Course Vital Signs Vital signs: Vital Signs Temperature 97.5 F L 06/19/22 16:14 Pulse 75 06/19/22 16:14 Respiratory Rate 17 06/19/22 16:14 Blood Pressure 143/64 H 06/19/22 16:14 Pulse Oximetry 97 06/19/22 16:14 Temperature 97.5 F L 06/19/22 16:14 Temperature Source Tympanic 06/19/22 16:14 Pulse 75 06/19/22 16:14 Respiratory Rate 17 06/19/22 16:14 Respiratory Effort Short of Breath 06/19/22 16:18 Blood Pressure 143/64 H 06/19/22 16:14 Blood Pressure Position Sitting 06/19/22 16:14 Pulse Oximetry 97 06/19/22 16:14 Oxygen Delivery Method Room Air 06/19/22 16:14 Oxygen Flow Rate 0 06/19/22 16:14 Pain Level 10 06/19/22 16:14 Lab/Test Results Lab/Test Results: 06/19/22 16:21 Tonsil - Not Specified Group A Streptococcus Culture - Pending
[2022-06-19] MEDS: Dexamethasone 10 MG/ML VIAL PO (17:39)
--- NOTE | 2022-06-19 18:35 | DI.VRAD_ITS ---
PROCEDURE INFORMATION: Exam: CT Neck Without Contrast Exam date and time: 06/19/2022 5:52 PM Age: 67 years old Clinical indication: Hoarseness, sore throat, smoker, R/O mass TECHNIQUE: Imaging protocol: Computed tomography of the neck without contrast. COMPARISON: CT HEAD CERVICAL SPINE WO 03/23/2021 6:05 PM FINDINGS: Limitations: The lack of intravenous contrast limits evaluation of the solid organs. Motion artifact does moderately limit the sensitivity of this examination. Pharynx: No significant tonsillar enlargement. Larynx: Epiglottis is normal. Prevertebral and retropharyngeal spaces: Unremarkable. Salivary glands: Glands are normal in size. Thyroid: No enlarged or calcified nodules. Lymph nodes: No lymphadenopathy. Trachea: Visualized trachea is unremarkable. Lungs: Centrilobular emphysema is partially visualized. Bones/joints: No acute fracture. Multilevel degenerative changes noted in the cervical spine with bilateral neural foraminal narrowing. Vasculature: Incidentally noted is a retropharyngeal course of the right carotid bifurcation. Soft tissues: No significant subcutaneous soft tissue abnormality. IMPRESSION: 1. No evidence of large mass in the pharynx, although scan is limited secondary to lack of intravenous contrast and slight motion. 2. No evidence of significantly enlarged tonsils or lymphadenopathy. Dictated and Authenticated by: Tejal Mix MD. Ordering:SHARMIN Grajeda MD
--- NOTE | 2022-06-22 10:24 | NUR.NOTE ---
Nursing Note: referreal to cm for ct results
== END 2022-06-19 18:28 ==
PROVIDERS: Emergency Provider Physician Assistant; PCP Internal Medicine
DX: J02.9 Acute pharyngitis, unspecified (principal); J44.9 Chronic obstructive pulmonary disease, unspecified; F17.210 Nicotine dependence, cigarettes, uncomplicated; Z79.51 Long term (current) use of inhaled steroids; Z53.29 Procedure and treatment not carried out because of patient's decision for other reasons
CPT/HCPCS: 87880; 99284; 70490; 87081; J1100

== ENCOUNTER → 2022-07-15 13:54 | Outpatient (BNVA) | payer MEDICARE, MEDICAID, SELFPAY | PROVIDERS: PCP Internal Medicine; Referring Provider Student in an Organized Health Care Education/Training Program; Visit Provider Psychiatry & Neurology Neurology | DX: G62.9 Polyneuropathy, unspecified (principal); M54.16 Radiculopathy, lumbar region | CPT/HCPCS: 95885; 95909; 99215 ==

== ENCOUNTER 2022-08-21 16:33 | Outpatient (REF) | payer MEDICARE, MEDICAID, SELFPAY ==
[2022-08-21 21:38] LABS: Abs Immature Grans 0.02 10^3/uL (0.0-0.06); Absolute Basophil Count 0.06 10^3/uL (0.0-0.2); Absolute Eosinophil Count 0.06 10^3/uL (0.0-0.7); Absolute Lymphocyte Count 2.93 10^3/uL (1.2-3.4); Absolute Monocyte Count 0.34 10^3/uL (0.1-0.8); Absolute Neutrophil Count 3.96 10^3/uL (1.2-6.7); Basophils % 0.8; Eosinophils % 0.8; HCT 44.2 % (36.0-46.0); HGB 14.4 g/dL (11.2-15.7); Immature Grans % 0.3; Lymphocytes % 39.8; MCH 30.9 pg (27.0-33.0); MCHC 32.6 % (32.0-36.0); MCV 95 fL (80-95); MPV 10.9 fL (8.0-11.0); Monocytes % 4.6; Neutrophils % 53.7; Platelet Count 245 10^3/uL (130-400); RBC 4.66 10^6/uL (3.93-5.22); RDW 12.6 % (11.7-14.6); RDW-SD 43.9 fL; WBC 7.37 10^3/uL (4.4-10.8)
[2022-08-21 21:39] LABS: Bilirubin Negative (Negative); Blood Small (Negative); Glucose Negative (Negative); Ketones Negative (Negative); Leukocyte Esterase Negative (Negative); Nitrite Negative (Negative); Specific Gravity 1.025 (1.005-1.025); Urobilinogen 0.2 EU/dL (Up TO 0.2); pH 5.5 (5-8)
[2022-08-21 21:58] LABS: Clarity Sl Cloudy (Clear)
[2022-08-21 22:12] LABS: Bacteria Few HPF (Negative); C & S Indicated? C&S Done As Ordered; Casts Negative LPF (Negative); Crystals Negative HPF (Negative); Epithelial Cells Many HPF (Negative); Mucus Negative (Negative); RBC 0-2 HPF (0-2); WBC 0-2 HPF (0-5)
[2022-08-21 22:15] LABS: ALT 22 U/L (14-59); AST 22 U/L (15-37); Albumin 4.2 g/dL (3.4-5.0); Alkaline Phosphatase 68 U/L (46-116); Anion Gap 8.7 mmol/L (3-11); BUN 8 mg/dL (7-18); Bilirubin, Total 0.2 mg/dL (0.2-1.0); CO2 29.3 mmol/L (21.0-32.0); Chloride 102 mmol/L (98-107); Estimated GFR 62.13 (mL/min/1.73m2); Glucose 89 mg/dL (74-106); Potassium 4.6 mmol/L (3.5-5.1); Sodium 140 mmol/L (136-145); Total Protein 7.6 g/dL (6.4-8.2); Vitamin B12 1041 pg/mL (193-986)
[2022-08-21 22:30] LABS: Hemoglobin A1C 5.7 % (<5.7)
[2022-08-22 09:07] LABS: TSH 1.26 uIU/mL (0.36-3.74)
[2022-08-23 08:47] LABS: CA 125 5 U/mL (<30)
[2022-08-23 11:06] LABS: Albumin 59.7 % (55.8-66.1); Albumin g/dL 4.5 g/dL (3.6-5.2); Total Protein 7.6 g/dL (6.3-8.2)
== END 2022-08-21 16:34 | disposition home or self-care (01) ==
LOC: NCHCN 16:33
PROVIDERS: PCP Internal Medicine; Visit Provider Internal Medicine
DX: R10.2 Pelvic and perineal pain (principal); R73.03 Prediabetes; F41.8 Other specified anxiety disorders; Z00.00 Encounter for general adult medical examination without abnormal findings; R30.0 Dysuria; R31.9 Hematuria, unspecified
CPT/HCPCS: 80053; 86304; 81003; 81015; 82607; 83036; 84165; 84443; 85025; 87086

== ENCOUNTER 2022-10-01 17:19 | Outpatient (REF) | payer MEDICARE, MEDICAID, SELFPAY ==
[2022-10-01 20:54] LABS: Bilirubin Negative (Negative); Blood Trace-intact (Negative); Clarity Clear (Clear); Glucose Negative (Negative); Ketones Negative (Negative); Leukocyte Esterase Negative (Negative); Nitrite Negative (Negative); Urobilinogen 0.2 EU/dL (Up TO 0.2); pH 5.5 (5-8)
[2022-10-01 21:19] LABS: Bacteria Negative HPF (Negative); C & S Indicated? No; Casts Negative LPF (Negative); Crystals Negative HPF (Negative); Epithelial Cells Few HPF (Negative); Mucus Negative (Negative); RBC 0-2 HPF (0-2); WBC 0-2 HPF (0-5)
== END 2022-10-01 17:20 | disposition home or self-care (01) ==
LOC: NCHCN 17:19
PROVIDERS: PCP Internal Medicine; Visit Provider Internal Medicine
DX: R10.31 Right lower quadrant pain (principal); R10.32 Left lower quadrant pain; R31.9 Hematuria, unspecified
CPT/HCPCS: 81003; 81015

== ENCOUNTER 2023-01-14 20:55 | Outpatient (REF) | payer MEDICARE, MEDICAID, SELFPAY ==
--- NOTE | 2023-01-14 15:20 | PAPNONF_PTH ---
PATIENT: Savannah Avery LOC: [facility]#:[id number] AGE/SX: 67/F ROOM: RE01/14/[address]: Wolfgang Cagle : 1955 BED: DIS: 01/14/2023 SPEC #: [id number] RECD: 01/15/23 13:15 STATUS: DIVYA TYLER #: [id number] SANTA: 01/14/23 15:[address]: Wolfgang Cagle DEPT: [facility] Cytology RECD BY: Nemo Castillo Tissues: 1 - BODY FLUID CYTO(SPUTUM/URINE)[facility] Procedures: BODY FLUID CYTO(URINE/SPUTUM) Comments: (TV=60 ml URINE,30 ml CYTOLYT ADDED)(REFRIGERATED)
[2023-01-14 21:34] LABS: Bilirubin Negative (Negative); Blood Negative (Negative); Clarity Clear (Clear); Glucose Negative (Negative); Ketones Negative (Negative); Leukocyte Esterase Negative (Negative); Nitrite Negative (Negative); Urobilinogen 0.2 mg/dL (Up to 0.2); pH 5.5 (5-8)
== END 2023-01-14 20:56 | disposition home or self-care (01) ==
LOC: NCHCN 20:55
PROVIDERS: PCP Internal Medicine; Visit Provider Internal Medicine
DX: R30.0 Dysuria (principal); G89.4 Chronic pain syndrome; F11.20 Opioid dependence, uncomplicated
CPT/HCPCS: 81003; 88104

== ENCOUNTER → 2024-01-22 03:49 | Outpatient (CLI) | payer MEDICARE, MEDICAID, SELFPAY ==
--- NOTE | 2024-01-22 | DI.CTLCSR_ITS ---
Exam(s) CT CHEST LUNG CANCER SCREEN EXAM: CT CHEST LUNG CANCER SCREEN CLINICAL HISTORY: F17.210 Cigarette smoker. TECHNIQUE: Imaging Protocol: Low Dose Technique CONTRAST MATERIAL: None COMPARISON: CT CT CHEST LUNG CANCER SCREEN from 06/19/2022 FINDINGS: CHEST: LUNGS: There are no ominous pulmonary nodules. There are no confluent infiltrates. No pleural effusi ons. MEDIASTINUM: There is no obvious hilar nor mediastinal adenopathy. CARDIAC: Heart size is normal. There is no pericardial effusion.Caliber of the thoracic aorta is wit hin normal limits. OTHER: OSSEOUS: No significant osseous lesions.. IMPRESSION: 1. No pulmonary nodules evident. No infiltrates. No pleural effusions. 2. No obvious intrathoracic adenopathy. 3. Lung RADS Cat 1 - Negative: No nodules and definitely benign nodules Lung-RADS 1.0 CATEGORIES: Category 0 - Prior chest CT exam(s) being located for comparison. Category 1 - Annual screening in 12 months. No nodules or definitely benign nodules. Category 2 - Annual screening in 12 months. Benign appearance. Nodules with low likelihood of becomin g active cancer. Category 3 - 6-month follow-up. Probably benign. Short-term follow-up suggested. Nodules with low lik elihood of becoming active cancer. Category 4A - 3-month follow-up and CT/PET if >8 mm in size. Suspicious finding. Findings which requi re additional testing. Category 4B - Findings which require additional testing and tissue sampling. Category 4X - Category 3 or 4 nodules with additional features or imaging findings that increases the suspicion of malignancy. Modifier S- Potentially clinically significant findings (non lung cancer) RADIATION DOSE DELIVERED: 71.19mGy.cm Total DLP DATA REPOSITORY: All CT scans at this facility are submitted to the National Radiology Data Registry (NRDR) Dose Index Registry (DIR) with the [employer] ([employer]). RADIATION OPTIMIZATION: All CT scans at this facility use at least one of these dose optimization te chniques: automated exposure control; mA and/or kV adjustment per patient size (includes targeted exa ms where dose is matched to clinical indication); or iterative reconstruction.
--- NOTE | 2024-01-22 | DI.MAMMO_ITS ---
Exam(s) MAMMO SCREENING EXAM: MAMMO SCREENING CLINICAL HISTORY: Z12.31 Screening. TECHNIQUE: Bilateral full field digital CC and MLO mammographic images were obtained with 3D tomosyn thesis and utilizing computer aided detection (CAD). COMPARISON: Prior mammograms were reviewed. FINDINGS: There has been no significant change in the appearance and distribution of the fibroglandular tissue. There are no new spiculated masses nor malignant appearing microcalcification groups. There is no significant architectural distortion nor skin thickening-retraction. IMPRESSION: No radiographic evidence of malignancy. BI-RADS Category 1 - Negative Breast Density - Category B - Scattered areas of fibroglandular density Breast density Category C or D implies that the patient has dense breast tissue. Dense breast tissue can make it harder to find cancer on a mammogram. Dense breast tissue is also associated with an incr eased risk of breast cancer. This information about the result of the mammogram report was provided to the patient to raise their awareness. Use this report when you speak with the patient about their risks for breast cancer, which includes their family history. At that time, you may recommend additional screening tests (Ultrasoun d or MRI) as these tests may add significant information. A negative radiographic report should not delay biopsy if a dominant or clinically suspicious mass is present. Up to ten percent of cancers are not identified on mammography. A negative report may reinforce clinical impression. Adenosis and dense breasts may obscure an underlying neoplasm. False positive reports average 6 to 10%. Patient will receive a letter notifying them of these results.
== END ==
PROVIDERS: PCP Internal Medicine; Visit Provider Internal Medicine
DX: F17.210 Nicotine dependence, cigarettes, uncomplicated (principal); Z12.2 Encounter for screening for malignant neoplasm of respiratory organs; Z12.31 Encounter for screening mammogram for malignant neoplasm of breast
CPT/HCPCS: 71271; 77063; 77067

== ENCOUNTER 2024-06-15 22:53 | Emergency (ER) | payer MEDICARE, MEDICAID, SELFPAY ==
[2024-06-15] VITALS (10 sets, daily range): BP systolic 139–170; BP diastolic 50–79; PULSE 68–78; RESP 15–20; O2SAT 92–99
--- NOTE | 2024-06-15 22:45 | RT.EKG_ITS ---
APPROVED REPORT Exam: Resting ECG Reason for Exam: short of breath Patient Location: E HR:74 bpm ECG Measurements Heart Rate 74 AXIS MT 141 P 102 QRSd 76 QRS 57 QT 363 T 51 QTc 404 Conclusion Sinus rhythm...normal P axis, V-rate 60- 99 Normal [place] Normal Electrocardiogram
--- NOTE | 2024-06-15 23:00 | ED.GENADUL_ITS ---
Discharge Plan Disposition Patient Disposition: Against Medical Advice Condition: Stable Discharge Details Clinical Impression: COPD exacerbation, Elevated d-dimer Primary Care Provider: Clare Lama ED Provider: To Groves [place] Meds and New Rx's Prescriptions: New prednisone 20 mg tablet 40 mg PO DAILY Qty: 8 0RF Rx Instructions: start on morning of 06/17 azithromycin 250 mg tablet 250 mg PO DAILY 4 Days Qty: 4 0RF Rx Instructions: start on morning of 06/17 Continued lorazepam 1 mg tablet 1 mg PO TID PRN fluticasone propionate 50 mcg/actuation spray,suspension 1 spray SWAPNA DAILY albuterol sulfate [ProAir HFA] 90 mcg/actuation HFA aerosol inhaler 2 puff IH Q4H PRN Narcan 4 mg/actuation spray,non-aerosol 4 mg SWAPNA Q2M PRN nicotine (polacrilex) 4 mg gum 4 mg BC Q2H Spiriva with HandiHaler 18 mcg capsule, w/inhalation device 1 cap IH DAILY guaifenesin [Mucinex] 600 mg tablet extended release 12hr 600 mg PO BID PRN loratadine [Claritin] 10 mg tablet 10 mg PO DAILY PRN cyanocobalamin (vitamin B-12) 1,000 mcg capsule 1,000 mcg PO DAILY Symbicort 160-4.5 mcg/actuation HFA aerosol inhaler 1 puff IH BID nitroglycerin 0.4 mg Tablet, Sublingual 0.4 mg sublingual DIRECTED pregabalin 50 mg capsule 1 cap PO DAILY Patient Comments: TAKE ONE CAPSULE BY MOUTH EVERY DAY buprenorphine-naloxone [Suboxone] 4-1 mg Film 1 film sublingual DAILY diphenhydramine HCl 25 mg Tablet 25 mg PO BID PRN Discharge Instructions Instructions: COPD Exacerbation, Adult ED Additional Instructions: You were seen in the ED for episode of shortness of breath in the setting of increasing cough and mild shortness of breath. Overall your visit is reassuring and this is likely a COPD exacerbation which we will treat with prednisone and azithromycin. However, as we discussed your D-dimer is very elevated and we are unable to exclude a pulmonary embolus as a source of your problem. You are signing out AGAINST MEDICAL ADVICE with risk of if diagnosis of pulmonary embolus is missed. You should begin taking your prednisone and azithromycin on the morning of the . You should follow-up with your primary care this week. Return to the ED for any new or worsening chest/back pain, fever, shortness of breath, syncope, other concerns. HPI General Mode of arrival: ambulatory . Date/Time Provider Initiated Documentation: 06/15/24 23:00 . Limitations to Documentation: no limitations . Information obtained by: patient and RN notes reviewed . HPI Narrative: Patient presents to ED with sudden onset of difficulty breathing/choking sensation this evening. Patient has not felt well for a couple of weeks. She has had increasing cough and mild shortness of breath. She has had some pain in between her shoulder blades for about a week now. She has had some abdominal bloating with lack of appetite. She notes that probably for the last week she has had floating/greasy beige-colored stool. She is status postcholecystectomy in the past. She has a large growth in the left upper quadrant which is thought to be a lipoma. She denies having any chest pain. She reports that when her dog jumped on her back this evening it made her cough up a small reddish-brown tadpole looking thing without a tail. Subsequently, felt that her breathing improved. She used her inhaler and came here for evaluation. Daughter reports that during this event she did become cyanotic. Patient reports that it felt like last Thanksgiving when she choked on a piece of turkey. Related Data Home Medications ?Medication ?Instructions ?Recorded ?Confirmed albuterol sulfate 90 mcg/actuation 2 puff inhalation Q4H PRN 07/20/19 06/15/24 aerosol inhaler (ProAir HFA) fluticasone propionate 50 1 spray intranasal DAILY 07/20/19 06/15/24 mcg/actuation nasal spray,suspension lorazepam 1 mg tablet 1 mg PO TID PRN 07/20/19 06/15/24 naloxone 4 mg/actuation nasal 4 mg intranasal Q2M PRN 07/20/19 06/15/24 spray (Narcan) nicotine (polacrilex) 4 mg gum 4 mg buccal Q2H 07/20/19 06/15/24 tiotropium bromide 18 mcg capsule 1 cap inhalation DAILY 07/20/19 06/15/24 with inhalation device (Spiriva with HandiHaler) buprenorphine 4 mg-naloxone 1 mg 1 film sublingual DAILY 03/23/21 06/15/24 sublingual film (Suboxone) diphenhydramine HCl 25 mg tablet 25 mg PO BID PRN 03/23/21 06/15/24 cyanocobalamin (vitamin B-12) 1,000 mcg PO DAILY 04/03/21 06/15/24 1,000 mcg capsule nitroglycerin 0.4 mg sublingual 0.4 mg sublingual DIRECTED 07/12/21 06/15/24 tablet budesonide-formoterol HFA 160 1 puff inhalation BID 01/15/22 06/15/24 mcg-4.5 mcg/actuation aerosol inhaler (Symbicort) pregabalin 50 mg capsule 1 cap PO DAILY 06/19/22 06/15/24 guaifenesin 600 mg tablet, 600 mg PO BID PRN 07/15/22 06/15/24 extended release 12 hr (Mucinex) loratadine 10 mg tablet (Claritin) 10 mg PO DAILY PRN 07/15/22 06/15/24 azithromycin 250 mg tablet 250 mg PO DAILY 4 days #4 tabs 06/16/24 prednisone 20 mg tablet 40 mg (2 x 20 mg) PO DAILY #8 tabs 06/16/24 Previous Rx's ?Medication ?Instructions ?Recorded azithromycin 250 mg tablet 250 mg PO DAILY 4 days #4 tabs 06/16/24 prednisone 20 mg tablet 40 mg (2 x 20 mg) PO DAILY #8 tabs 06/16/24 Allergies Allergy/AdvReac Type Severity Reaction Status Date / Time amitriptyline Allergy Severe none Verified 06/15/24 23:26 specified with referral codeine Allergy Severe none Verified 06/15/24 23:26 specified with referral gabapentin Allergy Severe none Verified 06/15/24 23:26 specified with referral ondansetron (From Zofran) Allergy Severe none Verified 06/15/24 23:26 specified with referral sulfamethoxazole (From Allergy Severe none Verified 06/15/24 23:26 Bactrim) specified with referral trimethoprim (From Bactrim) Allergy Severe none Verified 06/15/24 23:26 specified with referral influenza virus vacc Allergy Unknown Verified 06/15/24 23:26 trivalent, split (From Fluzone) Iodinated Contrast Media AdvReac Unknown Unknown Verified 06/15/24 23:26 General DANIELLE: 4 Review of Systems Narrative: Per HPI Exam Narrative Exam Narrative: Const: WDWN elderly female in NAD. VS per triage. HEENT: NC/AT. Normal facial exam. Neck: Supple. Trachea midline. Lungs: Normal respiratory effort. Lungs with fair air exchange and faint, scattered wheeze. Cor: RRR without murmur. Good radial pulses. GI: Soft/ND/NT. Left upper quadrant mass which is nontender and has slowly been growing over years. Neuro: A+O x 3. Normal speech, mentation, gait. Cranial nerves II - XII grossly intact. No gross motor or sensory deficit. Ext: No C/C/E. Medical Decision Making Patient presenting to ED after an acute event this evening resulting in shortness of breath and color change. Subsequently coughed up a reddish-brown blob of something when her dog jumped on her back. This resolved her acute event and after using her inhaler she felt much improved. She has not felt well for 2 weeks and is describing increasing cough, some mild shortness of breath, abdominal bloating, stool change. Mass in her left upper quadrant has been evaluated and is felt to be lipoma. Abdomen is otherwise benign at this time. Beige-colored floating stool suggest possible bile duct blockage. She is status-post cholecystectomy in the past. IV is in place. EKG obtained from triage is normal. Patient is allergic to IV contrast. Given the resulting quick improvement after patient coughed up this reddish-brown material, this is suggestive of airway obstruction. Doubt PE and doubt cardiac but will obtain D- dimer and troponin. Will obtain liver function given stool change. Will obtain CT of the chest/abdomen/pelvis without contrast to evaluate for potential mass given her smoking history though last CT chest negative. Patient's laboratory studies with a normal white count and hemoglobin. Chemistries and liver function unremarkable. Lipase normal. Magnesium a little high at 2.5. Initial troponin is negative. D-dimer markedly elevated at greater than 1600. Noncontrast CT of the torso is negative for any acute process other than possibility of sigmoid diverticulitis. However, on abdominal exam she has no tenderness in this area and has not complained of abdominal pain. Her repeat troponin is pending. We discussed at length her elevated D- dimer and recommendations to proceed with imaging study either VQ scan or CTA after at least 2 doses of steroids and diphenhydramine given her anaphylactic response in the past. This would require an observation admit and patient is refusing to stay for such. I did discuss possibility of pulmonary embolus which could result in if missed. Patient understands risk and is willing to sign out AMA. Discussion was held with daughter present. Still suspect this was a partial airway obstruction from what ever it was that she coughed up. Given that she has had some increasing shortness of breath and cough I will treat as a COPD exacerbation. She is given a dose of prednisone and azithromycin orally. If second troponin remains negative will discharge with prescriptions for same and refer to [facility] for follow-up. Medical Records Medical records reviewed: Yes I reviewed the patient's medical records. Lab Data Lab results reviewed: Yes I reviewed the patient's lab results. ECG Data Attestation: I personally reviewed and interpreted this ECG (s) as follows: Prior ECG tracings: not available for review Interpretation: Normal EKG PFSH All Active Problems (Updated 06/16/24 @ 01:21 by To Groves MD) Elevated d-dimer (Acute) COPD exacerbation (Acute) Warts (Acute) Neuropraxia of right lower extremity (Acute) Internal derangement of left knee (Acute) Tibial plateau fracture, right (Acute 12/19/21) Fracture of right wrist (Acute) Closed head injury (Acute) Post concussive syndrome (Acute) Esophageal dysphagia (Acute) Tobacco abuse (Acute) Colon stricture (Acute) Emphysema/COPD (Acute) Atherosclerosis of arteries of extremities (Acute) Coronary atherosclerosis due to calcified coronary lesion (Acute) Ventral hernia (Acute) Lumbosacral radiculopathy due to degenerative joint disease of spine (Acute) Urinary incontinence (Acute) Galactorrhea (Acute) Diverticulosis of colon (Acute) Odontogenic infection of jaw (Acute) Headache (Acute) GERD (gastroesophageal reflux disease) (Chronic) Bilateral breast lump (Acute) Chronic fatigue (Acute) Lumbar radiculitis (Acute) Chronic cough (Acute) Elevated blood pressure reading in office without diagnosis of hypertension (Acute) Peripheral neuropathy (Acute) Prediabetes (Acute) Unintentional weight loss (Acute) Medical History Heart attack Stroke Chronic osteomyelitis Kidney stones Breast lump History of cervical cancer PTSD (post-traumatic stress disorder) Anxiety and depression Somatization disorder Postmenopausal Skin lesion of face Back pain Smoker COPD (chronic obstructive pulmonary disease) Dysphagia Diarrhea Chronic pain Surgical History S/P exploratory laparotomy S/P wrist surgery S/P decompression of ulnar nerve History of esophagogastroduodenoscopy (EGD) (~07/13/21) S/P cholecystectomy History of esophagogastroduodenoscopy (EGD) History of salpingectomy H/O cone biopsy of cervix History of colonoscopy Family History Father Cancer throat Kidney failure Mother Cancer Social History Smoking/Tobacco Use Status: Current every day Tobacco Type: cigarettes Smoking risk assessment performed?: Yes Alcohol Intake: former Drug use: Occasionally Substance use type: marijuana Current gender identity: female Do you feel safe at home: Yes Do you feel safe in your relationship?: Yes
--- NOTE | 2024-06-15 23:15 | DI.CT_ITS ---
Exam(s) CT CHEST/ABD/PEL WO EXAM: CT CHEST/ABD/PEL WO CLINICAL HISTORY: cough, SOB, bloating, greasy/floating beige stool TECHNIQUE: Imaging Protocol: Axial computed tomography images with coronal and sagittal reformatted images were created and reviewed COMPARISON: CT CT ABDOMEN PELVIS WO from 11/07/[address] CHEST LUNG CANCER SCREEN from 01/22/2024 FINDINGS: CHEST: Tracheobronchial tree: Patent where visualized. Pulmonary parenchyma: Eirj-cz-licmnucs centrilobular emphysematous changes are present. No focal con solidating infiltrates are present. No suspicious pulmonary nodules are seen at this time. Mediastinum and Sharmaine: No dominant adenopathy or fluid collection. The esophagus is unremarkable. Thyroid gland: Unremarkable. Pleura: No effusion or pneumothorax. Heart: The heart is not dilated. Coronary artery calcifications are present. No pericardial effusion . Aorta: Thoracic aorta non-dilated. Atherosclerotic calcifications are present. Lymph nodes: Within normal limits. Bones:Within normal limits for the patient's age. Soft tissues: Unremarkable. ABDOMEN: Liver: Normal density. No measurable mass. Gallbladder and Biliary Tract: No cholelithiasis. The common duct measures 1.1 cm. This is unchange d compared to the prior examinations. Pancreas: Normal density, no abnormal calcifications or inflammatory process. Spleen: Normal. Adrenals: No masses seen. Kidneys: There is stable right renal cortical scarring. There is a stable cyst in the left kidney. No follow-up is recommended. No radiodense stones or obstructive uropathy. No masses seen. Abdominal Aorta: Abdominal portion non-dilated. Atherosclerotic calcification is present. Bowel: There is diverticulosis of the colon. There are mild inflammatory changes seen around the mid sigmoid colon (series 4, image 96). This may represent a mild diverticulitis. No evidence of bowel wall thickening or obstruction. No evidence of appendicitis. Peritoneal Cavity: No ascites, collection or mesenteric inflammatory response. No free air. Lymph Nodes: Within normal limits. Bones: Within normal limits for the patient's age. Soft Tissues: There again seen midline anterior abdominal wall fat containing hernias. There moderat e in size at this time. They have shown interval increase in size since examination on 11/07/2021. PELVIS: Bladder: Symmetric distention, no gross wall thickening. Reproductive Organs: Unremarkable as visualized. Lymph Nodes: Within normal limits. Bones: Within normal limits for the patient's age. IMPRESSION: 1. No acute pulmonary process. 2. Colonic diverticulosis. Mild inflammatory stranding seen around the mid sigmoid colon which may r epresent a mild acute diverticulitis. No abscess or free air. Please correlate clinically. 3. Interval increase in size of the midline upper abdominal wall fat containing hernias. RADIATION DOSE DELIVERED: 529.01mGy.cm Total DLP 529.01mGy.cm Total DLP DATA REPOSITORY: All CT scans at this facility are submitted to the National Radiology Data Registry (NRDR) Dose Index Registry (DIR) with the [employer] (ACR). RADIATION OPTIMIZATION: All CT scans at this facility use at least one of these dose optimization te chniques: automated exposure control; mA and/or kV adjustment per patient size (includes targeted exa ms where dose is matched to clinical indication); or iterative reconstruction.
[2024-06-15 23:31] LABS: Abs Immature Grans 0.03 10^3/uL (0.0-0.06); Absolute Basophil Count 0.05 10^3/uL (0.0-0.2); Absolute Eosinophil Count 0.21 10^3/uL (0.0-0.7); Absolute Lymphocyte Count 3.03 10^3/uL (1.2-3.4); Absolute Monocyte Count 0.49 10^3/uL (0.1-0.8); Absolute Neutrophil Count 6.85 10^3/uL (1.2-6.7); Basophils % 0.5 %; HCT 46.4 % (36.0-46.0); HGB 15.1 g/dL (11.2-15.7); Immature Grans % 0.3 %; Lymphocytes % 28.4 %; MCH 30.7 pg (27.0-33.0); MCHC 32.5 % (32.0-36.0); MCV 94 fL (80-95); MPV 9.5 fL (8.0-11.0); Monocytes % 4.6 %; Neutrophils % 64.2 %; Platelet Count 286 10^3/uL (130-400); RBC 4.92 10^6/uL (3.93-5.22); RDW-SD 41.8 fL; WBC 10.66 10^3/uL (4.4-10.8)
[2024-06-15 23:47] LABS: ALT 21 U/L (14-59); AST 26 U/L (15-37); Albumin 3.4 g/dL (3.4-5.0); Alkaline Phosphatase 73 U/L (46-116); Anion Gap 8.9 mmol/L (3-11); BUN 13 mg/dL (7-18); Bilirubin, Total 0.28 mg/dL (0.2-1.0); CO2 31.1 mmol/L (21.0-32.0); CREATININE 1.1 mg/dL (0.55-1.02); Chloride 104 mmol/L (98-107); Estimated GFR 54.73 (mL/min/1.73m2); Glucose 117 mg/dL (74-106); Magnesium 2.5 mg/dL (1.8-2.4); Potassium 3.8 mmol/L (3.5-5.1); Sodium 144 mmol/L (136-145); Total Protein 7.7 g/dL (6.4-8.2)
[2024-06-15 23:52] LABS: Lipase 34 U/L (16-77); Troponin I 4 ng/L (<or=51)
[2024-06-16] VITALS (16 sets, daily range): BP systolic 121–165; BP diastolic 43–64; PULSE 65–76; RESP 14–20; TEMP 36.8; O2SAT 89–96
[2024-06-16 00:08] LABS: D-Dimer 1615 ng/mlFEU (<500)
--- NOTE | 2024-06-16 01:01 | DI.VRAD_ITS ---
PROCEDURE INFORMATION: Exam: CT Chest Without Contrast; Diagnostic Exam date and time: 06/15/2024 11:33 PM Age: 69 years old Clinical indication: Cough and shortness of breath; Prior surgery; Surgery date: 6+ months; Surgery type: Cholecystectomy, appendectomy, salpingectomy, CA of cerxix; Patient HX: Cough, SOB, bloating, greasy/floating beige stool TECHNIQUE: Imaging protocol: Diagnostic computed tomography of the chest without contrast. 3D rendering (Not supervised by radiologist): MIP and/or 3D reconstructed images were created by the technologist. Radiation optimization: All CT scans at this facility use at least one of these dose optimization techniques: automated exposure control; mA and/or kV adjustment per patient size (includes targeted exams where dose is matched to clinical indication); or iterative reconstruction. COMPARISON: CT CHEST LUNG CANCER SCREEN 01/22/2024 3:12 PM FINDINGS: Lungs: Mild centrilobular pulmonary emphysema. No acute pulmonary infiltrate. Pleural spaces: Unremarkable. No pneumothorax. No pleural effusion. Heart: Unremarkable. No cardiomegaly. No pericardial effusion. Coronary arteries: Coronary artery calcification. Lymph nodes: Unremarkable. No enlarged lymph nodes. Vasculature: Unremarkable. No aortic aneurysm. Bones/joints: Unremarkable. No acute fracture. Soft tissues: Unremarkable. IMPRESSION: No acute finding. PROCEDURE INFORMATION: Exam: CT Abdomen And Pelvis Without Contrast Exam date and time: 06/15/2024 11:33 PM Age: 69 years old Clinical indication: Cough and shortness of breath; Prior surgery; Surgery date: 6+ months; Surgery type: Cholecystectomy, appendectomy, salpingectomy, CA of cerxix; Patient HX: Cough, SOB, bloating, greasy/floating beige stool TECHNIQUE: Imaging protocol: Computed tomography of the abdomen and pelvis without contrast. 3D rendering (Not supervised by radiologist): MIP and/or 3D reconstructed images were created by the technologist. Radiation optimization: All CT scans at this facility use at least one of these dose optimization techniques: automated exposure control; mA and/or kV adjustment per patient size (includes targeted exams where dose is matched to clinical indication); or iterative reconstruction. COMPARISON: CT ABDOMEN PELVIS WO 11/07/2021 3:28 PM FINDINGS: Liver: Normal. No mass. Gallbladder and biliary ducts: Status post cholecystectomy. Pancreas: Normal. No ductal dilation. Spleen: Normal. No splenomegaly. Adrenal glands: Normal. No mass. Kidneys and ureters: Normal. No hydronephrosis. Stomach and bowel: Colonic diverticula. Question trace diverticulitis of the sigmoid colon, clinically correlate. Appendix: No evidence of appendicitis. Intraperitoneal space: Unremarkable. No free air. No significant fluid collection. Vasculature: Unremarkable. No abdominal aortic aneurysm. Lymph nodes: Unremarkable. No enlarged lymph nodes. Urinary bladder: Unremarkable as visualized. Reproductive: Unremarkable as visualized. Bones/joints: Unremarkable. No acute fracture. Soft tissues: Midline upper abdominal fat containing ventral hernia. IMPRESSION: Question trace diverticulitis of the sigmoid colon, clinically correlate. Dictated and Authenticated by: Rui Venegas MD. Ordering:SUHAS Ariza MD
[2024-06-16] MEDS: Azithromycin 250 MG TAB 500 MG PO (01:19)
[2024-06-16] MEDS: predniSONE 20 MG TAB 60 MG PO (01:20)
[2024-06-16 01:23] LABS: Troponin I 4 ng/L (<or=51)
== END 2024-06-16 01:35 | disposition left against medical advice (07) ==
PROVIDERS: Emergency Provider Emergency Medicine; PCP Family Medicine
DX: J44.1 Chronic obstructive pulmonary disease with (acute) exacerbation (principal); R79.1 Abnormal coagulation profile; Z53.29 Procedure and treatment not carried out because of patient's decision for other reasons; F17.210 Nicotine dependence, cigarettes, uncomplicated; Z79.899 Other long term (current) drug therapy
CPT/HCPCS: 36415; 71250; 80053; 83690; 93005; 99285; 74176; 83735; 84484; 85025; 85379; 93010; 99284; J7512

== ENCOUNTER 2024-06-22 19:44 | Outpatient (REF) | payer MEDICARE, MEDICAID, SELFPAY ==
[2024-06-22 18:17] LABS: D-Dimer 990 ng/mlFEU (<500)
== END 2024-06-22 19:45 | disposition home or self-care (01) ==
LOC: LBO 19:44
PROVIDERS: PCP Family Medicine; Visit Provider Family Medicine
DX: R79.1 Abnormal coagulation profile (principal)
CPT/HCPCS: 85379

== ENCOUNTER 2024-08-03 21:54 | Outpatient (REF) | payer MEDICARE, MEDICAID, SELFPAY ==
[2024-08-03 22:11] LABS: Abs Immature Grans 0.03 10^3/uL (0.0-0.06); Absolute Basophil Count 0.07 10^3/uL (0.0-0.2); Absolute Eosinophil Count 0.18 10^3/uL (0.0-0.7); Absolute Lymphocyte Count 2.75 10^3/uL (1.2-3.4); Absolute Monocyte Count 0.46 10^3/uL (0.1-0.8); Absolute Neutrophil Count 6.75 10^3/uL (1.2-6.7); Basophils % 0.7 %; Eosinophils % 1.8 %; HCT 45.2 % (36.0-46.0); HGB 14.7 g/dL (11.2-15.7); Immature Grans % 0.3 %; Lymphocytes % 26.9 %; MCH 30.7 pg (27.0-33.0); MCHC 32.5 % (32.0-36.0); MCV 94 fL (80-95); Monocytes % 4.5 %; Neutrophils % 65.8 %; Platelet Count 248 10^3/uL (130-400); RBC 4.79 10^6/uL (3.93-5.22); RDW 12.6 % (11.7-14.6); RDW-SD 43.9 fL; WBC 10.24 10^3/uL (4.4-10.8)
[2024-08-03 22:29] LABS: Calculated LDL 138 mg/dL (<100); Cholesterol 217 mg/dL (<200); HDL Cholesterol 41 mg/dL (40-60); Triglyceride 193 mg/dL (<150)
[2024-08-03 22:50] LABS: C Diff PCR Negative (Negative)
[2024-08-07 15:32] LABS: Noroxycodone-by LC-MS/MS 2272 ng/mL (Cutoff: 25); Noroxymorphone-by LC-MS/MS 716 ng/mL (Cutoff: 25); Oxycodone Interpretation Positive.; Oxycodone-by LC-MS/MS 2526 ng/mL (Cutoff: 25); Oxymorphone-by LC-MS/MS 2194 ng/mL (Cutoff: 25)
== END 2024-08-03 21:55 | disposition home or self-care (01) ==
LOC: NCHCN 21:54
PROVIDERS: PCP Family Medicine; Visit Provider Family Medicine
DX: E78.5 Hyperlipidemia, unspecified (principal); G89.4 Chronic pain syndrome; R10.9 Unspecified abdominal pain; R19.7 Diarrhea, unspecified
CPT/HCPCS: 80061; 80365; 87493; 85025

== ENCOUNTER 2024-08-18 02:57 | Outpatient (CLI) | payer MEDICARE, MEDICAID, SELFPAY ==
--- NOTE | 2024-08-18 | DI.CT_ITS ---
Exam(s) CT ABDOMEN PELVIS WO EXAM: CT ABDOMEN PELVIS WO CLINICAL HISTORY: Abdominal pain, R10.9; ? LUQ abd hernia; lower abd pain; diarrhea. TECHNIQUE: Imaging Protocol: Axial computed tomography images with coronal and sagittal reformatted images were created and reviewed CONTRAST MATERIAL: Intravenous: none Oral: Yes. Oral contrast was administered for bowel opacification. COMPARISON: CT CT CHEST/ABD/PEL WO from 06/15/2024 FINDINGS: VISUALIZED LUNG BASES: No nodules nor pleural effusions evident. ABDOMEN: There is no ascites. LIVER: There are no obvious focal hepatic lesions evident of this noninfused study. GALLBLADDER/BILIARY: A distinct gallbladder is not seen. The common hepatic duct and common bile olga lidia t are dilated, measuring 1.4 cm and 0.9 cm, respectively. There is no radiopaque calculus seen in th e lower CBD. No pancreatic head mass. Possible subtle density at the ampulla head line by oral cont rast (series 7/image 34). PANCREAS: No evidence of pancreatic mass nor dilatation of the pancreatic duct. SPLEEN: Spleen is not enlarged. No obvious intrasplenic lesions. ADRENALS: There are no significant adrenal masses. KIDNEYS:There is a small benign exophytic cyst off the inferior pole of the left kidney again noted, measuring 1.1 cm. Does not require further imaging workup. There is cortical scarring again noted i n the opposite-right kidney and multiple small calculi again evident in the right kidney. No hydrone phrosis nor hydroureter. There are no radiopaque calculi evident in the nondistended urinary bladder .. ABDOMINAL AORTA: Abdominal aorta is calcified. Upper normal size. Maximum diameter 2.2 cm. Common iliac arteries are also calcified but not enlarged. LYMPH NODES: There is no retroperitoneal nor paraaortic adenopathy. ABDOMINAL WALL: There is a high midline anterior abdominal wall hernia again noted anterior to the rashel dy of the stomach. The anterior stomach wall is pulled up to the neck of this hernia but not into th e hernia sac, with the stomach remaining within the abdominal cavity. There is some mild mesenteric streaking within the hernia sac which is slightly left of center and min which measures 6 cm wide by 3 cm AP by 5 cm craniocaudal. GI: The oral contrast has progressed to the splenic flexure of the colon at time of image acquisition . There is no evidence of small-bowel obstruction. Maximum diameter of small bowel loops is 2.6 cm. There is extensive sigmoid diverticulosis. There is no obvious acute diverticulitis. No obvious c olitis pattern evident. PELVIS: LYMPH NODES: There is no intrapelvic nor inguinal adenopathy. GI: No evidence of appendicitis. URINARY BLADDER: No calculi nor obvious masses evident REPRODUCTIVE: Uterus and adnexal regions appear unremarkable and there is no free fluid in the pelvis . OSSEOUS: No significant osseous lesions. No fractures. No disc space narrowing. IMPRESSION: 1. Compared to the recent CT scan of 06/15/2024 there is again noted right-side renal cortical scarri ng and multiple punctate nonobstructive calculi again noted in the right kidney. Ureters are not dil ated and there are no radiopaque calculi evident in the nondistended urinary tract and urinary bladde r. 2. Distinct gallbladder is not identified. There are no surgical clips but correlation with any prio r history of cholecystectomy recommended. The common hepatic duct and CBD are dilated measurements a s above. There are no radiopaque calculi evident in the lower CBD. No pancreatic head mass. There is, however, a possible suggestion of a mural lesion at the ampullary level in the duodenum. Correla tion with biliary blood work recommended. May need ERCP. 3. Extensive sigmoid diverticulosis without evidence of acute diverticulitis. Anterior abdominal wall hernia as described above, unchanged from previous. RADIATION DOSE DELIVERED: 463.26mGy.cm Total DLP DATA REPOSITORY: All CT scans at this facility are submitted to the National Radiology Data Registry (NRDR) Dose Index Registry (DIR) with the [employer] (ACR). RADIATION OPTIMIZATION: All CT scans at this facility use at least one of these dose optimization te chniques: automated exposure control; mA and/or kV adjustment per patient size (includes targeted exa ms where dose is matched to clinical indication); or iterative reconstruction.
[2024-08-18] MEDS: Barium Sulfate 2% W/V-Creamy Vanilla Smoothie 450 ML BTL PO ×2 (13:02→13:03)
== END 2024-08-18 03:17 ==
LOC: DI 02:57
PROVIDERS: PCP Family Medicine; Visit Provider Family Medicine
DX: R10.9 Unspecified abdominal pain (principal)
CPT/HCPCS: 74176

== ENCOUNTER 2024-10-13 18:09 | Emergency (ER) | payer MEDICARE, MEDICAID, SELFPAY ==
[2024-10-13] VITALS (20 sets, daily range): BP systolic 123–178; BP diastolic 58–91; PULSE 61–76; RESP 12–21; TEMP 36.8–36.9; O2SAT 91–100
--- NOTE | 2024-10-13 18:30 | RT.EKG_ITS ---
APPROVED REPORT Exam: Resting ECG Reason for Exam: shortness of breath Patient Location: E HR:67 bpm ECG Measurements Heart Rate 67 AXIS FL 135 P 64 QRSd 77 QRS 68 QT 388 T 59 QTc 411 Conclusion Sinus rhythm...normal P axis, V-rate 60- 99
--- NOTE | 2024-10-13 18:30 | DI.RAD_ITS ---
Exam(s) XR CHEST 2V PA LATERAL EXAM: XR CHEST 2V PA LATERAL CLINICAL HISTORY: shortness of breath. TECHNIQUE: 2D digital imaging was performed. COMPARISON: No exams were available for comparison FINDINGS: 2 views: Heart size is normal. The mediastinum is not widened. No infiltrates nor pleural effusions. Is subtle suggestion of possible small nodule in the left uppe r lobe sub apical region. This is projected over posterior aspect of 4th left rib measures approxima tely 8 x 7 mm. IMPRESSION: Left upper lobe finding as above. Recommend either apical lordotic view or CT scan. DATA REPOSITORY: RADIATION DOSE DELIVERED:
--- OUTSIDE RECORDS SUMMARY | 2024-10-13 18:35 | XMS_ITS | Encounter Summary ---
Author Organization [facility] Address [address] [place] [address] Care Team Providers Care Staff Electronic Warfare Officer Name Role Phone Natanael Saab MD Primary Care Provider Wolfgang Bhatt MD Primary Care Provider [phone] Clare Lama MD Primary Care Provider [phone] Encounter Details Date Type Department Care Team (Late st Contact Info) Description 07/13/2021 Lab Requisition [facility] Pathology & Laboratory Medicine - [facility] [address] [place] [address] Radha Elkins, DO [address] [place] [address] Encounter for other general examination Social History Tobacco Use Types Packs/Day Years Used Date Smoking Tobacco: Every Day Cigarettes 2 49 Alcohol Use Standard Drinks/Week Comments No 0 (1 standard drink = 0.6 oz pur e alcohol) Interpersonal Safety Answer Date Record ed Physically Hurt Never 04/04/2020 Verbally Threaten Not on file 04/04/2020 Comments No Sex and Gender Information Value Date Recorded Sex Assigned at Not on file Legal Sex Female 17:26 EST Gender Identity Not on file Sexual Orientation Not on file documented as of this encounter Functional Status * Are you deaf or do you have serious difficulty hearing? Answer Date of Assessment Author No 03/05/2016 1:44 Ravi Woodall RN * Are you blind or do you have serious difficulty seeing, even when wearing glasses? Answer Date of Assessment Author No 03/05/2016 1:44 Ravi Woodall RN * Do you have serious difficulty walking or climbing stairs? (5 years old or older) Answer Date of Assessment Author Yes 03/05/2016 1:44 Ravi Woodall RN * Do you have difficulty dressing or bathing? (5 years old or older) Answer Date of Assessment Author Yes 03/05/2016 1:44 Ravi Woodall RN * Because of a physical, mental, or emotional condition, does this person have difficulty doing errands alone such as visiting a doctor's office or shopping? Answer Date of Assessment Author Yes 03/07/2016 14:43 Kaleb Woodall RN documented as of this encounter Mental Status * Because of a physical, mental, or emotional condition, does this person have serious difficulty concentrating, remembering, or making decisions? Answer Entry Date Author Yes 03/07/2016 14:43 Kaleb Woodall RN documented in this encounter Plan of Treatment Not on file documented as of this encounter Procedures Procedure Name Priority Date/Time Associated Diagnosis Comments SURGICAL PATHOLOGY Today 07/13/2021 11 :49 EST Encounter for other general examination documented in this encounter Results * SURGICAL PATHOLOGY (07/13/2021 11:49 EST) Note to Patient The following pathology results have been interpreted by your pathologist and may be available to you before your health provider has had the opportunity to review them. Please allow time for your provider to receive these results and explore management options, if applicable. 07/17/2021 16:25 [facility] Final Diagnosis A. DUODENUM, BULB, BIOPSY: - Duodenal mucosa with no specific pathologic features. B. STOMACH, ANTRUM, BIOPSY: - Gastric antral mucosa with mild reactive (chemical) gastropathy. C. GASTROESOPHAGEAL JUNCTION, BIOPSY: - Gastric cardia type mucosa with reactive changes. - Negative for intestinal metaplasia; Negative for dysplasia. 07/17/2021 16:25 [facility] Attestation By the signature below, the attending physician certifies that they have 1) personally conducted a gross and/or microscopic examination of the described specimen(s), and/or personally interpreted the results of laboratory testing of the described specimen(s), and 2) personally rendered or confirmed the above diagnosis. 07/17/2021 16:25 [facility] at 1625 Clinical History Dysphagia 07/17/2021 16:25 [facility] Gross Description A. Received in formalin labelled with proper patient identification (initials G, D) and duodenal bulb Bx is a white focally brown speckled tissue (0.4 x 0.3 x 0.2 cm). Submitted intact in A1. B. Received in formalin labelled with proper patient identification (initials G, D) and antrum Bx is a pale singer-white tissue (0.3 x 0.3 x 0.2 cm). Submitted intact in B1. C. Received in formalin labelled with proper patient identification (initials G, D) and GE junction Bx is pale singer-white tissue (0.3 x 0.3 x 0.3 cm). Entirely submitted in C1. Joel Ariza 07/15/2021 10:04 07/17/2021 16:25 [facility] Performing Lab [facility] 16:25 [facility] Scanned Images 07/17/2021 16:25 [facility] Tissue ENTIRE ESOPHAGUS / Unknown 07/13/2021 11:49 EST 07/13/2021 16:57 EST Tissue specimen (specimen) STOMACH STRUCTURE / Unknown 07/13/2021 11:49 EST 07/13/2021 16:57 EST Tissue specimen (specimen) ESOPHAGEAL STRUCTURE / Unknown 07/13/2021 11:49 EST 07/13/2021 16:57 EST us Radha Elkins DO PATHOLOGY ORDERABLES Final Re sult [facility] [address] [place] [address] documented in this encounter Visit Diagnoses Diagnosis Encounter for other general examination documented in this encounter Care Teams Staff Electronic Warfare Officer Relationship Specialty Start Date End Date Natanael Saab MD PCP - General 03/17/15 12/29/22 Wolfgang Cagle MD [address] [place] [address] PCP - General Internal Medicine - Primary Care 12/30/22 09/29/24 Clare Lama MD [address] [place] [address] PCP - General Family Medicine - Primary Care 09/30/24 documented as of this encounter
--- OUTSIDE RECORDS SUMMARY | 2024-10-13 18:35 | XMS_ITS | Encounter Summary ---
Author Organization [facility] Address [address] [place] [address] Care Team Providers Care Health Lead Name Role Phone Natanael Saab MD Primary Care Provider Unavailabl e Encounter Details Date Type Department Care Team (Late st Contact Info) Description 01/25/2017 Historical Results Only [facility] - [facility] - Main [address] [address] Jefferson Mayer MD [address] [place] [id number] Social History Tobacco Use Types Packs/Day Years Used Date Smoking Tobacco: Every Day Cigarettes 2 49 Alcohol Use Standard Drinks/Week Comments No 0 (1 standard drink = 0.6 oz pur e alcohol) Comments No Sex and Gender Information Value [...] Date of Assessment Author Yes 03/05/2016 1:44 EDT Ravi Mayo RN * Because of a physical, mental, or emotional condition, does this person have difficulty doing errands alone such as visiting a doctor's office or shopping? Answer Date of Assessment Author Yes 03/07/2016 14:43 EDT Kaleb Mayo RN documented as of this encounter Mental Status * Because of a physical, mental, or emotional condition, does this person have serious difficulty concentrating, remembering, or making decisions? Answer Entry Date Author Yes 03/07/2016 14:43 EDT Kaleb Mayo RN documented in this encounter Plan of Treatment Not on file documented as of this encounter Procedures Procedure Name Priority Date/Time Associated Diagnosis Comments COMPLETE BLOOD COUNT WITH DIFFERENTIAL (AUTO) Routine 01/25/2017 6:00 EDT T4 FREE Routine 01/25/2017 6:00 EDT MAGNESIUM Routine 01/25/2017 6:00 EDT LIPID PROFILE (INCLUDES CHOLESTEROL, TRIGLYCERIDES, HDL, LDL) Routine 01/25/2017 6:00 EDT BASIC METABOLIC PANEL (BMP) Routine 01/25/2017 6:00 EDT documented in this encounter Results * MAGNESIUM (01/25/2017 6:00 EDT) Magnesium 2.40 1.6 - 2.6 mg/dL 01/25/2017 7:33 EDT [facility] Comment: Specimen 1+ ??hemolyzed. ??Interpret results with caution. 24 Hour urine magnesium is a better indicator of magnesium stores. 01/25/2017 6:00 EDT 01/25/2017 6:39 EDT us Jefferson Mayer MD CHEMISTRY & BLOOD GAS ORDERABLES Final Result [facility] * (ABNORMAL) LIPID PROFILE (INCLUDES CHOLESTEROL, TRIGLYCERIDES, HDL, LDL) (01/25/2017 6:00 EDT) Triglyceride 270(H) 35 - 150 mg/dL 01/25/2017 7:30 EDT [facility] Cholesterol 197 120 - 200 mg/dL 01/25/2017 7:30 EDT [facility] Chol/HDL Ratio 6.7(H) 0 - 4.5 01/25/2017 7:30 EDT [facility] Comment: DESIRABLE RATIO IS LESS THAN 4.1 PATIENTS ARE CONSIDERED AT RISK: WOMEN RATIO >5 MEN RATIO >6 FASTING? - [facility] Unknown 6:42 EDT [facility] HDL 29(L) 40 - 60 mg/dL 01/25/2017 7:30 [facility] LDL CHOLESTEROL - [facility] 114(H) 60 - 100 mg/dL 01/25/2017 7:30 EDT [facility] Non HDL Cholesterol 168 mg/dl 01/25/2017 7:30 EDT [facility] Comment: Desirable: ?Less than 130 Borderline High: ??130-159 High: ? 160-189 Very High: ?Greater than or equal to 190 01/25/2017 6:00 EDT 01/25/2017 6:39 EDT us Jefferson Mayer MD CHEMISTRY & BLOOD GAS ORDERABLES Final Result [facility] * T4 FREE (01/25/2017 6:00 EDT) FREE T4 [facility] 1.14 0.89 - 1.76 ng/dL 01/25/2017 7:36 EDT [facility] 01/25/2017 6:00 EDT 01/25/2017 6:39 EDT us Jefferson Mayer MD CHEMISTRY & BLOOD GAS ORDERABLES Final Result [facility] * (ABNORMAL) BASIC METABOLIC PANEL (BMP) (01/25/2017 6:00 EDT) Pathologist [facility] 10 7 - 18 mg/dL 01/25/2017 7:30 EDT [facility] CALCIUM - [facility] 8.2(L) 8.5 - 10.1 mg/dL 01/25/2017 7:30 [facility] Chloride 108(H) 98 - 107 mEq/L [facility]2017 [facility] Total 29 21 - 32 mEq/L 01/25/2017 7:30 [facility] CREATININE 0.82 0.5 - 1.3 mg/dL 01/25/2017 7:30 [facility] eGFR >60 01/25/2017 7:30 [facility] Comment: Chronic renal impairment is defined as GFR <60 Multiply result by 1.210 for patients. eGFR calculated using the IDMS-traceable MDRD Study Equation. ??(effective 07/04/2014) Anion Gap 8 5 - 15 [facility]2017 [facility] 97 70 - 100 mg/dL 01/25/2017 7:30 [facility] Potassium 4.7 3.5 - 5.0 mEq/L 01/25/2017 7:33 [facility] Comment:Specimen 1+ hemolyze d. Interpret results with caution. Sodium 144 135 - 145 mEq/L 01/25/2017 7:30 [facility] 01/25/2017 6:00 EDT 01/25/2017 6:39 EDT us Jefferson Mayer MD CHEMISTRY & BLOOD GAS ORDERABLES Final Result [facility] * COMPLETE BLOOD COUNT WITH DIFFERENTIAL (AUTO) (01/25/2017 6:00 EDT) Pathologist [facility] ABSOLUTE NEUTROPHIL COUN - [facility] 3.30 1.7 - 7.0 10e3/ul 01/25/2017 7:01 EDT [facility] BASO # - [facility] 0.06 0.0 - 0.3 10e3/uL 01/25/2017 7:01 [facility] BASO % - [facility] 1 0 - 2 % 01/25/2017 7:01 [facility] EOS # - [facility] 0.15 0.05 - 0.5 10e3/uL 01/25/2017 7:01 [facility] EOS % - [facility] 2 0 - 5 % 01/25/2017 7:01 [facility] GRAN % - [facility] 53 40 - 80 % 01/25/2017 7:01 [facility] HEMATOCRIT - [facility] 40.7 34.0 - 47.0 % 01/25/2017 7:01 [facility] HEMOGLOBIN - [facility] 13.1 11.2 - 15.7 g/dl 01/25/2017 7:01 [facility] IG# - [facility] 0.01 0 - 0.07 10e3/uL 01/25/2017 7:01 [facility] IG% - [facility] 0.2 0 - 0.9 % 01/25/2017 7:01 [facility] LYMPH # - [facility] 2.18 0.9 - 2.9 10e3/uL 01/25/2017 7:01 [facility] LYMPH% - [facility] 35 20 - 40 % 01/25/2017 7:01 [facility] MEAN CORPUSCULAR HGB - [facility] 30.5 26 - 34 pg 01/25/2017 7:01 [facility] MEAN CORPUSCULAR HGB CONC - [facility] 32.2 31 - 36 g/dL 01/25/2017 7:01 [facility] MEAN CELL VOLUME - [facility] 94.9 77 - 100 fl 01/25/2017 7:01 [facility] MONO # - [facility] 0.55 0.3 - 0.9 10e3/uL 01/25/2017 7:01 [facility] MONO% - [facility] 9 0 - 12 % 01/25/2017 7:01 [facility] PLATELET COUNT 218 150 - 400 10e3/ul 01/25/2017 7:01 EDT [facility] RED BLOOD COUNT - [facility] 4.29 3.8 - 5.2 10e6/ul 01/25/2017 7:01 EDT [facility] RED CELL DISTRI WIDTH - [facility] 12.6 11.8 - 15.6 % 01/25/2017 7:01 EDT [facility] WHITE BLOOD COUNT - [facility] 6.3 3.5 - 10.5 10e3/ul 01/25/2017 7:01 EDT [facility] 01/25/2017 6:00 EDT 01/25/2017 6:39 EDT us Jefferson Mayer MD HEMATOLOGY & PF4 ORDERABLES [place] l Result [facility] documented in this encounter Visit Diagnoses Not on filedocumented in this encounter Care Teams Health Lead Relationship Specialty Start Date End Date Natanael Saab MD PCP - General 03/17/15 12/29/22 documented as of this encounter
--- OUTSIDE RECORDS SUMMARY | 2024-10-13 18:35 | XMS_ITS | Encounter Summary ---
Author Organization [facility] Address [address] [place] [address] Care Team Providers Care Switch Maker Name Role Phone Wolfgang Cagle MD Primary Care Provider [phone] Clare Lama MD Primary Care Provider [phone] Reason for Visit * Reason Onset Date Comments Appointment Related 09/29/2024 Encounter Details Date Type Department Care Team (Late st Contact Info) Description 09/29/[address] [facility] Gastroenterology - [address] [id number] Kalen Bowles MD [address] [place] [address] [address] [place] [address] Appointment Related Social History Tobacco Use Types Packs/Day Years Used Date Smoking Tobacco: Every Day Cigarettes 1.5 49 Alcohol Use Standard Drinks/Week Comments No [...] Date of Assessment Author No 03/05/2016 1:44 EDT Ravi Mayo RN * Are you blind or do [...] on file documented as of this encounter Visit Diagnoses Not on filedocumented in this encounter Care Teams Switch Maker Relationship Specialty Start Date End Date Wolfgang Cagle MD [address] [place] [address] PCP - General Internal Medicine - Primary Care 12/30/22 09/29/24 Clare Lama MD [address] [place] [address] PCP - General Family Medicine - Primary Care 09/30/24 documented as of this encounter
--- OUTSIDE RECORDS SUMMARY | 2024-10-13 18:35 | XMS_ITS | Encounter Summary ---
Author Organization [facility] Address [address] [place] [address] Care Team Providers Care Television Presenter Name Role Phone Wolfgang Cagle MD Primary Care Provider [phone] Reason for Referral * Referral (Urgent) - Authorization Not Required Specialty Diagnoses / Procedures Referred By Contact Referred To Contact Diagnoses Abnormal findings on diagnostic imaging of abdomen Procedures ENDOSCOPIC ULTRASOUND (EUS) IN ESOPHAGOGASTRODUODENOSCOPY US SCOPE W/ADJ STRXRS IN EGD INTRMURAL US NEEDLE ASPIRATE/BIOPSY ESOPHAGS IN ANESTHESIA UPPER GI ENDOSCOPIC PX NOS Clare Lama MD [address] [place] [address] Phone: tel:[phone] fax:[phone] [address] Phone: tel: fax: Referral ID Status Reason Start Date Expiration Date Visits Requested Visits Authorized [id number] Authorization Not Required 09/03/2024 1 1 Encounter Details Date Type Department Care Team (Latest Contact Info) Description 09/03/2024 Transcribe Orders [facility] [id number] Clare Lama MD [address] [place] [address] Abnormal findings on diagnostic imaging of abdomen (Primary Dx) Social History Tobacco Use Types Packs/Day Years [...] documented in this encounter Plan of Treatment Scheduled Orders Name Type Priority Associated Diagnoses Orde r Schedule ENDOSCOPIC ULTRASOUND (EUS) GI Routine Abnormal findings on diagnostic imaging of abdomen Expected: 09/03/2024, Expires: 03/03/2026 documented as of this encounter Visit Diagnoses Diagnosis Abnormal findings on diagnostic imaging of abdomen- Primary Nonspecific (abnormal) findings on radiological and other examination of abdominal area, including retroperitoneum documented in this encounter Care Teams Television Presenter Relationship Specialty Start Date End Date Wolfgang Cagle MD [address] [place] [address] PCP - General Internal Medicine - Primary Care 12/30/22 09/29/24 documented as of this encounter
--- OUTSIDE RECORDS SUMMARY | 2024-10-13 18:35 | XMS_ITS | Encounter Summary ---
Author Organization [facility] Address [address] [place] [address] Care Team Providers Care Stucco Plasterer Name Role Phone Natanael Saab MD Primary Care Provider Unavailabl e Encounter Details Date Type Department Care Team (Late st Contact Info) Description 10/13/2018 Historical Results Only [facility] Radiology Results [address] [place], [place] [id number] Wolfgang Cagle MD [address], [place] [address] Social History Tobacco Use Types Packs/Day Years [...] Procedure Name Priority Date/Time Associated Diagnosis Comments CT CHEST WO CONTRAST 10/13/2018 17:[address] ABDOMEN PELVIS WO CONTRAST 10/13/2018 17:20 EST documented in this encounter Results * CT ABDOMEN PELVIS WO CONTRAST (10/13/2018 17:20 EST) Anatomical Region Laterality Modality Other 10/13/2018 17:2 0 EST Narrative 10/13/2018 17:23 EST ? EXAM: CAT SCAN/ABDOMEN PELVIS WITHOUT CON EX. D/ (1449) ? CLINICAL INFORMATION: ? R10.84 ABD PAIN ? INDICATION: R10.84 ABD PAIN CHEST/ABDOMINAL PAIN ? TECHNIQUE: CT of the chest, abdomen and pelvis was formed without ? intravenous contrast. Oral contrast was administered prior to ? scanning. Multiplanar reconstruction was generated. ? COMPARISON: CTA chest 12/08/[address] abdomen pelvis 04/19/2016 ? FINDINGS: ? CHEST: ? Lower neck: No abnormalities. ? Chest wall soft tissues: No abnormalities. ? Mediastinum and corey: No enlarged mediastinal or hilar lymph nodes. ? The esophagus appears normal. ? Heart and mediastinal vasculature: ??No abnormalities. ? Large airways: ??There is mild diffuse thickening of the large ? airways. ? Lungs: ??Upper lobe predominant centrilobular emphysema is present. ? The lungs are clear. No concerning pulmonary nodule is identified. ? Pleura: No abnormalities. ? Bones: ??No significant abnormalities. ? ABDOMEN AND PELVIS: ? Hepatobiliary: No focal hepatic lesion is detected. The patient ? status post cholecystectomy. The common bile duct is mildly dilated, ? but similar compared to 2016. ? Spleen, pancreas, adrenal glands: No abnormalities. ? Kidneys, ureters, bladder: A small parenchymal calcification lower ? pole of the right kidney is unchanged compared to 2015 is associated ? with a chronic scar. There is no hydronephrosis or nephrolithiasis. ? The ureters are normal in caliber. The bladder is thin-walled. ? Reproductive: The uterus is anteverted. There is no adnexal mass. ? Bowel: There is no bowel obstruction or bowel wall thickening. ? Colonic diverticulosis is present, but there is no evidence of acute ? diverticulitis at this time. ? Peritoneal cavity / Subperitoneal space: No free fluid or free ? intraperitoneal air. ? PAGE 1 ? Signed Report ? (CONTINUED) ? Lymphovascular: Aortoiliac atherosclerosis. No aneurysm. No ? lymphadenopathy detected. ? Abdominal wall: There is a fat-containing ventral hernia in the ? epigastric region. The hernia defect measures 1.7 cm. ? Musculoskeletal: No acute osseous abnormality is detected. There is ? mild degenerative spondylosis of the lower lumbar spine. ? IMPRESSION: ? 1. No acute finding within the chest, abdomen or pelvis to explain ? the patient's symptoms. ? 2. Emphysema and diffuse airways thickening. ? 3. Coronary artery and peripheral atherosclerotic disease. ? 4. Status post cholecystectomy. Mild dilatation of the common bile ? duct is similar compared to prior and is likely at least partially ? related to postcholecystectomy state. ? 5. Small fat-containing ventral hernia. ? 6. Colonic diverticulosis without evidence of acute diverticulitis. ? REPORT SIGNED IN OTHER VENDOR SYSTEM 10/13/2018 ?Reported By: Nasir Morocho MD ? CC: ? Transcribed Date/Time: 10/13/2018 (8553) ? Field Artillery Operations Specialist: ? Printed Date/Time: 02/21/2019 (6388) ? PAGE 2 ? Signed Report ? Procedure Note Nasir Morocho MD - 07/08/2019 EXAM: CAT SCAN/ABDOMEN PELVIS WITHOUT CON EX. D/ (9669) CLINICAL INFORMATION: R10.84 ABD PAIN INDICATION: R10.84 ABD PAIN CHEST/ABDOMINAL PAIN TECHNIQUE: CT of the chest, abdomen and pelvis was formed without intravenous contrast. Oral contrast was administered prior to scanning. Multiplanar reconstruction was generated. COMPARISON: CTA chest 12/08/[address] abdomen pelvis 04/19/2016 FINDINGS: CHEST: Lower neck: No abnormalities. Chest wall soft tissues: No abnormalities. Mediastinum and corey: No enlarged mediastinal or hilar lymph nodes. The esophagus appears normal. Heart and mediastinal vasculature: No abnormalities. Large airways: There is mild diffuse thickening of the large airways. Lungs: Upper lobe predominant centrilobular emphysema is present. The lungs are clear. No concerning pulmonary nodule is identified. Pleura: No abnormalities. Bones: No significant abnormalities. ABDOMEN AND PELVIS: Hepatobiliary: No focal hepatic lesion is detected. The patient status post cholecystectomy. The common bile duct is mildlydilated, but similar compared to 2016. Spleen, pancreas, adrenal glands: No abnormalities. Kidneys, ureters, bladder: A small parenchymal calcification lower pole of the right kidney is unchanged compared to 2015 isassociated with a chronic scar. There is no hydronephrosis or nephrolithiasis. The ureters are normal in caliber. The bladder is thin-walled. Reproductive: The uterus is anteverted. There is no adnexal mass. Bowel: There is no bowel obstruction or bowel wall thickening. Colonic diverticulosis is present, but there is no evidence ofacute diverticulitis at this time. Peritoneal cavity / Subperitoneal space: No free fluid or free intraperitoneal air. PAGE 1 Signed Report (CONTINUED) Lymphovascular: Aortoiliac atherosclerosis. No aneurysm. No lymphadenopathy detected. Abdominal wall: There is a fat-containing ventral hernia in the epigastric region. The hernia defect measures 1.7 cm. Musculoskeletal: No acute osseous abnormality is detected. There is mild degenerative spondylosis of the lower lumbar spine. IMPRESSION: 1. No acute finding within the chest, abdomen or pelvis to explain the patient's symptoms. 2. Emphysema and diffuse airways thickening. 3. Coronary artery and peripheral atherosclerotic disease. 4. Status post cholecystectomy. Mild dilatation of the common bile duct is similar compared to prior and is likely at least partially related to postcholecystectomy state. 5. Small fat-containing ventral hernia. 6. Colonic diverticulosis without evidence of acute diverticulitis. REPORT SIGNED IN OTHER VENDOR SYSTEM 10/13/2018 Reported By: Nasir Morocho MD CC: Transcribed Date/Time: 10/13/2018 (9062) Field Artillery Operations Specialist: Printed Date/Time: 02/21/2019 (0681) PAGE 2 Signed Report us Wolfgang Cagle MD IMG CT ORDERABLES Final Result * CT CHEST WO CONTRAST (10/13/2018 17:20 EST) Anatomical Region Laterality Modality Chest Other 10/13/2018 17:2 0 EST Narrative 10/13/2018 17:23 EST ? EXAM: CAT SCAN/CHEST WITHOUT CONTRAST ? EX. D/ (1449) ? CLINICAL INFORMATION: ? R07.9 CHEST PAIN, ??R05 CHRONIC COUGH ? INDICATION: R10.84 ABD PAIN CHEST/ABDOMINAL PAIN ? TECHNIQUE: CT of the chest, abdomen and pelvis was formed without ? intravenous contrast. Oral contrast was administered prior to ? scanning. Multiplanar reconstruction was generated. ? COMPARISON: CTA chest 12/08/[address] abdomen pelvis 04/19/2016 ? FINDINGS: ? CHEST: ? Lower neck: No abnormalities. ? Chest wall soft tissues: No abnormalities. ? Mediastinum and corey: No enlarged mediastinal or hilar lymph nodes. ? The esophagus appears normal. ? Heart and mediastinal vasculature: ??No abnormalities. ? Large airways: ??There is mild diffuse thickening of the large ? airways. ? Lungs: ??Upper lobe predominant centrilobular emphysema is present. ? The lungs are clear. No concerning pulmonary nodule is identified. ? Pleura: No abnormalities. ? Bones: ??No significant abnormalities. ? ABDOMEN AND PELVIS: ? Hepatobiliary: No focal hepatic lesion is detected. The patient ? status post cholecystectomy. The common bile duct is mildly dilated, ? but similar compared to 2016. ? Spleen, pancreas, adrenal glands: No abnormalities. ? Kidneys, ureters, bladder: A small parenchymal calcification lower ? pole of the right kidney is unchanged compared to 2015 is associated ? with a chronic scar. There is no hydronephrosis or nephrolithiasis. ? The ureters are normal in caliber. The bladder is thin-walled. ? Reproductive: The uterus is anteverted. There is no adnexal mass. ? Bowel: There is no bowel obstruction or bowel wall thickening. ? Colonic diverticulosis is present, but there is no evidence of acute ? diverticulitis at this time. ? Peritoneal cavity / Subperitoneal space: No free fluid or free ? intraperitoneal air. ? PAGE 1 ? Signed Report ? (CONTINUED) ? Lymphovascular: Aortoiliac atherosclerosis. No aneurysm. No ? lymphadenopathy detected. ? Abdominal wall: There is a fat-containing ventral hernia in the ? epigastric region. The hernia defect measures 1.7 cm. ? Musculoskeletal: No acute osseous abnormality is detected. There is ? mild degenerative spondylosis of the lower lumbar spine. ? IMPRESSION: ? 1. No acute finding within the chest, abdomen or pelvis to explain ? the patient's symptoms. ? 2. Emphysema and diffuse airways thickening. ? 3. Coronary artery and peripheral atherosclerotic disease. ? 4. Status post cholecystectomy. Mild dilatation of the common bile ? duct is similar compared to prior and is likely at least partially ? related to postcholecystectomy state. ? 5. Small fat-containing ventral hernia. ? 6. Colonic diverticulosis without evidence of acute diverticulitis. ? REPORT SIGNED IN OTHER VENDOR SYSTEM 10/13/2018 ?Reported By: Nasir Morocho MD ? CC: ? Transcribed Date/Time: 10/13/2018 (1723) ? Field Artillery Operations Specialist: ? Printed Date/Time: 02/21/2019 (1106) ? PAGE 2 ? Signed Report ? Procedure Note Nasir Morocho MD - 07/08/2019 EXAM: CAT SCAN/CHEST WITHOUT CONTRAST EX. D/ (1449) CLINICAL INFORMATION: R07.9 CHEST PAIN, R05 CHRONIC COUGH INDICATION: R10.84 ABD PAIN CHEST/ABDOMINAL PAIN TECHNIQUE: CT of the chest, abdomen and pelvis was formed without intravenous contrast. Oral contrast was administered prior to scanning. Multiplanar reconstruction was generated. COMPARISON: CTA chest 12/08/[address] abdomen pelvis 04/19/2016 FINDINGS: CHEST: Lower neck: No abnormalities. Chest wall soft tissues: No abnormalities. Mediastinum and corey: No enlarged mediastinal or hilar lymph nodes. The esophagus appears normal. Heart and mediastinal vasculature: No abnormalities. Large airways: There is mild diffuse thickening of the large airways. Lungs: Upper lobe predominant centrilobular emphysema is present. The lungs are clear. No concerning pulmonary nodule is identified. Pleura: No abnormalities. Bones: No significant abnormalities. ABDOMEN AND PELVIS: Hepatobiliary: No focal hepatic lesion is detected. The patient status post cholecystectomy. The common bile duct is mildlydilated, but similar compared to 2016. Spleen, pancreas, adrenal glands: No abnormalities. Kidneys, ureters, bladder: A small parenchymal calcification lower pole of the right kidney is unchanged compared to 2015 isassociated with a chronic scar. There is no hydronephrosis or nephrolithiasis. The ureters are normal in caliber. The bladder is thin-walled. Reproductive: The uterus is anteverted. There is no adnexal mass. Bowel: There is no bowel obstruction or bowel wall thickening. Colonic diverticulosis is present, but there is no evidence ofacute diverticulitis at this time. Peritoneal cavity / Subperitoneal space: No free fluid or free intraperitoneal air. PAGE 1 Signed Report (CONTINUED) Lymphovascular: Aortoiliac atherosclerosis. No aneurysm. No lymphadenopathy detected. Abdominal wall: There is a fat-containing ventral hernia in the epigastric region. The hernia defect measures 1.7 cm. Musculoskeletal: No acute osseous abnormality is detected. There is mild degenerative spondylosis of the lower lumbar spine. IMPRESSION: 1. No acute finding within the chest, abdomen or pelvis to explain the patient's symptoms. 2. Emphysema and diffuse airways thickening. 3. Coronary artery and peripheral atherosclerotic disease. 4. Status post cholecystectomy. Mild dilatation of the common bile duct is similar compared to prior and is likely at least partially related to postcholecystectomy state. 5. Small fat-containing ventral hernia. 6. Colonic diverticulosis without evidence of acute diverticulitis. REPORT SIGNED IN OTHER VENDOR SYSTEM 10/13/2018 Reported By: Nasir Morocho MD CC: Transcribed Date/Time: 10/13/2018 (5566) Field Artillery Operations Specialist: [email or web address] Printed Date/Time: 02/21/2019 (7024) PAGE 2 Signed Report Wolfgang Cagle MD IMG CT ORDERABLES Final Result documented in this encounter Visit Diagnoses Not on filedocumented in this encounter Care Teams Stucco Plasterer Relationship Specialty Start Date End Date Natanael Saab MD PCP - General 03/17/15 12/29/22 documented as of this encounter
--- OUTSIDE RECORDS SUMMARY | 2024-10-13 18:35 | XMS_ITS | Encounter Summary ---
Author Organization [facility] Address [address] [place] [address] Care Team Providers Care Award Machine Operator Name Role Phone Natanael Saab MD Primary Care Provider Unavailabl e Encounter Details Date Type Department Care Team (Late st Contact Info) Description 01/25/2017 Results Only Imaging [facility] [phone] Unknown, Provider, Social History Tobacco Use Types Packs/Day Years [...] of Assessment Author Yes 03/07/2016 14:43 EDT Kalbe Mayo RN documented as of this encounter Mental Status * Because of a physical, mental, or emotional condition, does this person have serious difficulty concentrating, remembering, or making decisions? Answer Entry Date Author Yes 03/07/2016 14:43 EDT Kaleb Mayo RN documented in this encounter Plan of Treatment Pending Results Name Type Priority Associated Diagnoses Date /Time OUTSIDE IMAGES - CT NEURO Imaging 01/25/2017 15:03 EDT documented as of this encounter Visit Diagnoses Not on filedocumented in this encounter Care Teams Award Machine Operator Relationship Specialty Start Date End Date Natanael Saab MD PCP - General 03/17/15 12/29/22 documented as of this encounter
--- OUTSIDE RECORDS SUMMARY | 2024-10-13 18:35 | XMS_ITS | Encounter Summary ---
Author Organization [facility] Address [address] [place] [address] Care Team Providers Care Vegetable Picker Name Role Phone Natanael Saab MD Primary Care Provider Wolfgang Bhatt MD Primary Care Provider [phone] Clare Lama MD Primary Care Provider [phone] Encounter Details Date Type Department Care Team (Late st Contact Info) Description 01/03/2020 Lab Requisition [facility] - [facility] [address], [place] [address] Outr Resulting Lab, Provider Social History Tobacco Use Types Packs/Day Years [...] Procedure Name Priority Date/Time Associated Diagnosis Comments ZZCOVID-19 TEST [facility] PCR Today 01/03/2020 12:41 EDT COVID-19 TESTING Routine 01/03/2020 12:4 1 EDT documented in this encounter Results * COVID-19 TEST [facility] PCR (01/03/2020 12:41 EDT) Swab ENTIRE NASOPHARYNX / Unknown 01/03/2020 12:41 EDT 01/03/2020 20:44 EDT us Provider Outr Resulting Lab MICROBIOLOGY - GENER AL ORDERABLES Final Result Performing Organization Address City/State/[facility] Co de Phone Number [facility] [address] [place] [address] * COVID-19 TESTING (01/03/2020 12:41 EDT) COVID-19 rt-PCR Result Negative Negative 01/04/2020 18:24 EDT [facility] Comment: Negative results do not preclude 2019-nCoV infection and should not be used as the sole basis for treatment or other patient management decisions. Negative results must be combined with clinical observations, patient history, and epidemiological information. This test was developed and its performance characteristics determined by [facility]. It has not been cleared or approved by the [place] Food and Drug Administration. FDA does not require this test to go through premarket FDA review. This test is used for clinical purposes. It should not be regarded as investigational or for research. This laboratory is certified under the Clinical Laboratory Improvement Amendments (CLIA) as qualified to perform high complexity clinical laboratory testing. This test is based on the CDC COVID-19 Emergency Use Authorization (EUA) assay, with minor modification as defined by the FDA Performed on the [employer]. Performing Lab [facility] 01/04/2020 18:24 EDT [facility] Swab ENTIRE NASOPHARYNX / Unknown 01/03/2020 12:41 EDT 01/03/2020 20:44 EDT us Provider Outr Resulting Lab MICROBIOLOGY - GENER AL ORDERABLES Final Result [facility] [address] [place] [address] documented in this encounter Visit Diagnoses Not on filedocumented in this encounter Care Teams Vegetable Picker Relationship Specialty Start Date End Date Natanael Saab MD PCP - General 03/17/15 12/29/22 Wolfgang Cagle MD [address] [place] [address] PCP - General Internal Medicine - Primary Care 12/30/22 09/29/24 Clare Lama MD [address] [place] [id number] PCP - General Family Medicine - Primary Care 09/30/24 documented as of this encounter
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
--- OUTSIDE RECORDS SUMMARY | 2024-10-13 18:35 | XMS_ITS | Encounter Summary ---
Author Organization [facility] Address [address] [place] [address] Care Team Providers Care Operations Representative Name Role Phone Natanael Saab MD Primary Care Provider Wolfgang Bhatt MD Primary Care Provider [phone] Clare Lama MD Primary Care Provider [phone] Encounter Details Date Type Department Care Team (Late st Contact Info) Description 08/22/2022 Lab Requisition [facility] Pathology & Laboratory Medicine - [facility] [address], [place] [address] Outr Resulting Lab, Provider Social History Tobacco [...] Procedure Name Priority Date/Time Associated Diagnosis Comments SPEP, INCLUDES QUANTITATION OF MONOCLONAL SPIKE PERFORMABLE Today 08/21/2022 15:40 EST CA 125 Today 08/21/2022 15:40 EST HOLD SST Today 08/21/2022 15:40 EST SPEP, INCLUDES QUANTITATION OF MONOCLONAL SPIKE Today 08/21/2022 15:40 EST PROTEIN, TOTAL Today 08/21/2022 15:40 EST documented in this encounter Results * HOLD SST (08/21/2022 15:40 EST) Hold Hold 08/22/2022 19:01 EST [facility] Blood VENOUS BLOOD / Unknown 08/21/2022 15:40 EST 08/22/2022 17:58 EST us Provider Outr Resulting Lab LAB INFO SERVICE AND SUPPORT & PHONE RESULT Final Result [facility] [address] [place] [address] * SPEP, INCLUDES QUANTITATION OF MONOCLONAL SPIKE PERFORMABLE (08/21/2022 15:40 EST) Albumin % 59.7 55.8 - 66.1 % 08/23/2022 11:02 [facility] Albumin g/dL 4.5 3.6 - 5.2 g/dL 08/23/2022 11:02 [facility] Alpha-1 % 4.1 2.9 - 4.9 % 08/23/2022 11:02 [facility] Alpha-1 g/dL 0.30 0.15 - 0.40 g/dL 08/23/2022 11:02 [facility] Alpha-2 % 9.0 7.1 - 11.8 % 08/23/2022 11:02 [facility] Alpha-2 g/dL 0.70 0.50 - 1.00 g/dL 08/23/2022 11:02 [facility] Beta % 11.6 8.4 - 13.1 % 08/23/2022 11:02 [facility] Beta g/dL 0.90 0.60 - 1.20 g/dL 08/23/2022 11:02 [facility] Gamma % 15.6 11.1 - 18.8 % 08/23/2022 11:02 [facility] Gamma g/dL 1.20 0.60 - 1.60 g/dL 08/23/2022 11:02 [facility] SPEP Comment No apparent monoclonal protein seen on serum electrophoresis 08/23/2022 11:02 [facility] Comment:See scanned/suppleme ntary report. Total Protein 7.6 6.3 - 8.2 g/dL 08/23/2022 11:02 [facility] Blood VENOUS BLOOD / Unknown 08/21/2022 15:40 EST 08/22/2022 17:42 EST us Provider Outr Resulting Lab CHEMISTRY & BLOOD GA S ORDERABLES Final Result [facility] [address] [place] [address] * PROTEIN, TOTAL (08/21/2022 15:40 EST) Blood VENOUS BLOOD / Unknown 08/21/2022 15:40 EST 08/22/2022 17:42 EST us Provider Outr Resulting Lab CHEMISTRY & BLOOD GA S ORDERABLES Final Result Performing Organization Address [facility] Co de Phone Number [facility] [address] [place] [address] * CA 125 (08/21/2022 15:40 EST) CA 125 5 <30 U/mL 08/23/2022 8:42 EST [facility] Comment: NOTE: Serum CA 125 concentration should not be interpreted as absolute evidence for the presence or absence of malignant disease. Assayed on [employer] XPT using chemiluminescent technology. ??Values obtained by using different assay methods cannot be used interchangeably. Blood VENOUS BLOOD / Unknown 08/21/2022 15:40 EST 08/22/2022 17:42 EST us Provider Outr Resulting Lab CHEMISTRY & BLOOD GA S ORDERABLES Final Result Performing Organization Address [facility] de Phone Number [facility] [address] [place] [address] documented in this encounter Visit Diagnoses Not on filedocumented in this encounter Care Teams Operations Representative Relationship Specialty Start Date End Date Natanael Saab MD PCP - General 03/17/15 12/29/22 Wolfgang Cagle MD [address] [place] [address] PCP - General Internal Medicine - Primary Care 12/30/22 09/29/24 Clare Lama MD [address] [place] [address] PCP - General Family Medicine - Primary Care 09/30/24 documented as of this encounter
--- OUTSIDE RECORDS SUMMARY | 2024-10-13 18:35 | XMS_ITS | Encounter Summary ---
Author Organization [facility] Address [address] [place] [address] Care Team Providers Care Photographic Platemaker Name Role Phone Natanael Saab MD Primary Care Provider Wolfgang Bhatt MD Primary Care Provider [phone] Clare Lama MD Primary Care Provider [phone] Encounter Details Date Type Department Care Team (Late st Contact Info) Description 03/15/2020 Lab Requisition [facility] Pathology & Laboratory Medicine - [facility] [address], [place] [address] Outr Resulting Lab, Provider Social History Tobacco [...] Procedure Name Priority Date/Time Associated Diagnosis Comments DO NOT ORDER STANDALONE - BROAD COVID TEST Today 03/15/2020 9:47 EDT COVID-19 TESTING Routine 03/15/2020 9:47 EDT documented in this encounter Results * DO NOT ORDER STANDALONE - BROAD COVID TEST (03/15/2020 9:47 EDT) COVID-19 rt-PCR Result NEGATIVE Negative 03/18/2020 6:45 EDT [facility] Comment: 2019-novel Coronavirus (2019-nCoV) not detected by the qRT-PCR assay. Consider testing for other respiratory viruses or re-collecting for 2019-nCoV testing. Note: Optimum timing for peak viral levels during infections caused by 2019-nCoV have not been determined. Collection of multiple specimens from the same patient may be necessary to detect the virus. Limitations Positive results are indicative of active infection with SARS-CoV-2 but do not rule out bacterial infection or co-infection with other viruses. The agent detected may not be the definite cause of disease. In addition, detection of viral RNA may not indicate the presence of infectious virus or that SARS-CoV-2 is the causative agent for clinical symptoms. Negative results do not preclude SARS-CoV-2 infection and should not be used as the sole basis for patient management decisions. Negative results must be combined with clinical observations, patient history, and epidemiological information. False negative results may also occur if amplification inhibitors are present in the specimen or if inadequate numbers of organisms are present in the specimen. Optimum specimen types and timing for peak viral levels during infections caused by SARS-CoV-2 have not been fully determined. Collection of multiple specimens (types and time points) from the same patient may be necessary to detect the virus. The test was validated for use with upper respiratory specimens obtained via nasopharyngeal or oropharyngeal swabs in VTM, UTM, M4, M5, M6, saline, and MTM media. The performance of this test has not been established for other specimens. Specimens collected using other FDA recommended Specimen Collection Materials listed in the FDA COVID-19 [employer] communication (November 25, 2019) are processed with the caveat that they were not all validated for use with this test and the result must be interpreted in this context. Furthermore, a false negative results may occur if a specimen is improperly collected, transported or handled. If the virus mutates in the RT-PCR target region, SARS-CoV-2 may not be detected or may be detected less predictably. Inhibitors or other types of interference may produce a false negative result. An interference study evaluating the effect of common cold medications was not performed. This test is not FDA-cleared but its performance characteristics were established by our CLIA-certified, CAP-accredited, high complexity laboratory in accordance with CLIA regulations, [employer] (CAP) guidelines (Nov 18, 2019), and FDA guidance (Oct 30, 2019). This test is only for use under the Food and Drug Administration's Emergency Use Authorization. Swab ENTIRE NASOPHARYNX / Unknown 03/15/2020 9:47 EDT 03/15/2020 21:29 EDT us Provider Outr Resulting Lab MICROBIOLOGY - GENER AL ORDERABLES Final Result [facility] [place] [place] * COVID-19 TESTING (03/15/2020 9:47 EDT) COVID-19 rt-PCR Result NEGATIVE Negative 03/18/2020 7:52 EDT [facility] Comment: 2019-novel Coronavirus (2019-nCoV) not detected by the qRT-PCR assay. Consider testing for other respiratory viruses or re-collecting for 2019-nCoV testing. Note: Optimum timing for peak viral levels during infections caused by 2019-nCoV have not been determined. Collection of multiple specimens from the same patient may be necessary to detect the virus. Limitations Positive results are indicative of active infection with SARS-CoV-2 but do not rule out bacterial infection or co-infection with other viruses. The agent detected may not be the definite cause of disease. In addition, detection of viral RNA may not indicate the presence of infectious virus or that SARS-CoV-2 is the causative agent for clinical symptoms. Negative results do not preclude SARS-CoV-2 infection and should not be used as the sole basis for patient management decisions. Negative results must be combined with clinical observations, patient history, and epidemiological information. False negative results may also occur if amplification inhibitors are present in the specimen or if inadequate numbers of organisms are present in the specimen. Optimum specimen types and timing for peak viral levels during infections caused by SARS-CoV-2 have not been fully determined. Collection of multiple specimens (types and time points) from the same patient may be necessary to detect the virus. The test was validated for use with upper respiratory specimens obtained via nasopharyngeal or oropharyngeal swabs in VTM, UTM, M4, M5, M6, saline, and MTM media. The performance of this test has not been established for other specimens. Specimens collected using other FDA recommended Specimen Collection Materials listed in the FDA COVID-19 [employer] communication (November 25, 2019) are processed with the caveat that they were not all validated for use with this test and the result must be interpreted in this context. Furthermore, a false negative results may occur if a specimen is improperly collected, transported or handled. If the virus mutates in the RT-PCR target region, SARS-CoV-2 may not be detected or may be detected less predictably. Inhibitors or other types of interference may produce a false negative result. An interference study evaluating the effect of common cold medications was not performed. This test is not FDA-cleared but its performance characteristics were established by our CLIA-certified, CAP-accredited, high complexity laboratory in accordance with CLIA regulations, [employer] [place] (CAP) guidelines (Nov 18, 2019), and FDA guidance (Oct 30, 2019). This test is only for use under the Food and Drug Administration's Emergency Use Authorization. Performing Lab [facility] 03/18/2020 7:52 EDT [facility] Swab 03/15/2020 9:47 EDT 03/15/2020 21:29 EDT us Provider Outr Resulting Lab MICROBIOLOGY - GENER AL ORDERABLES Final Result [facility] [address] [place] [id number] [facility] [place] documented in this encounter Visit Diagnoses Not on filedocumented in this encounter Care Teams Photographic Platemaker Relationship Specialty Start Date End Date Natanael Saab MD PCP - General 03/17/15 12/29/22 Wolfgang Cagle MD [address] [place] [address] PCP - General Internal Medicine - Primary Care 12/30/22 09/29/24 Clare Lama MD [address] [place] [address] PCP - General Family Medicine - Primary Care 09/30/24 documented as of this encounter
--- OUTSIDE RECORDS SUMMARY | 2024-10-13 18:35 | XMS_ITS | Encounter Summary ---
Author Organization [facility] Address [address] [place] [address] Care Team Providers Care Joint Machine Operator Name Role Phone Natanael Saab MD Primary Care Provider Unavailabl e Encounter Details Date Type Department Care Team (Latest Contact Info) Description 03/16/2018 13:01 EDT - 03/16/2018 23:59 EDT Hospital Encounter [facility] [address] [place] [address] Unknown, Provider, Discharge Disposition: Home or Self Care Social History Tobacco Use Types Packs/Day Years [...] Kaleb Woodall RN documented in this encounter Medications at Time of Discharge acetaminophen (TYLENOL) 500 mg tablet Take 1 Tablet by mouth every 4 hours. Takes 2 daily budesonide-formo terol HFA (SYMBICORT) 160-4.5 mcg/actuation HFA aerosol inhaler inhaler Inhale as directed 2 times daily. levalbuterol (XOPENEX HFA) 45 mcg/actuation inhaler Inhale 90 mcg as directed every 6 hours LORATADINE (CLARITIN ORAL) Take by mouth as needed. LORazepam (ATIVAN) 2 mg tablet Take 1 Tablet by mouth 2 times daily. nicotine polacrilex (NICORETTE) 2 mg gum Take 1 Each by mouth every 2 hours. tiotropium (SPIRIVA) 18 mcg inhalation capsule Inhale 18 mcg as directed daily alendronate (FOSAMAX) 70 mg tablet Take 70 mg by mouth every 7 days. With full glass water,on empty stomach; nothing by mouth or lie down for next 30 min 09/21/2024 aspirin chewable 81 mg tablet Take 81 mg by mouth daily. 09/21/2024 atorvastatin (LIPITOR) 40 mg tablet Take 40 mg by mouth daily. Has not taken for 1 week 09/21/2024 cholecalciferol, Vitamin D3, 1,000 unit tablet Take 1,000 Units by mouth daily. Not taking it daily 09/21/2024 FLUTICASONE PROPIONATE (FLOVENT HFA INHALATION) Inhale as directed. 09/21/2024 GUAIFENESIN (MUCINEX ORAL) Take by mouth. 2024 HYDROcodone-acet aminophen (LORTAB) 10-500 mg per tablet Take 1 Tab by mouth every 4 hours. 09/21/2024 lisinopril (PRINIVIL, ZESTRIL) 10 mg tablet Take 10 mg by mouth daily. 09/21/2024 metoprolol (LOPRESSOR) 50 mg tablet Take 25 mg by mouth daily. 09/21/2024 predniSONE (DELTASONE) 10 mg tablet Take 10 mg by mouth daily. Took 06/19 and 06/2009/21/2024 sertraline (ZOLOFT) 50 mg tablet Take 50 mg by mouth daily. 09/21/2024 traMADol (ULTRAM) 50 mg tablet Take 50 mg by mouth every 6 hours 09/21/2024 documented as of this encounter Discharge Disposition Disposition Code Departure Means Destination Home or Self [facility] documented in this encounter Plan of Treatment Not on file documented as of this encounter Visit Diagnoses Not on filedocumented in this encounter Care Teams Joint Machine Operator Relationship Specialty Start Date End Date Natanael Saab MD PCP - General 03/17/15 12/29/22 documented as of this encounter
--- OUTSIDE RECORDS SUMMARY | 2024-10-13 18:35 | XMS_ITS | Encounter Summary ---
Author Organization [facility] Address [address] [place] [address] Care Team Providers Care Pot Pusher Name Role Phone Natanael Saab MD Primary Care Provider Unavailabl e Encounter Details Date Type Department Care Team (Late st Contact Info) Description 01/29/2019 Historical Results Only [facility] Radiology Results [address] [place], [place] [id number] Wolfgang Cagle MD [address] [place], [place] [address] Social History Tobacco Use Types Packs/Day Years [...] Procedure Name Priority Date/Time Associated Diagnosis Comments MR LUMBAR SPINE WO CONTRAST 01/29/2019 17:03 EDT documented in this encounter Results * MR LUMBAR SPINE WO CONTRAST (01/29/2019 17:03 EDT) Anatomical Region Laterality Modality Other 01/29/2019 17:0 3 EDT Narrative 01/29/2019 17:07 EDT ? EXAM: MAGNETIC RESONANCE IMAGING/LUMBAR S EX. D/ (1507) ? CLINICAL INFORMATION: ? M54.5 LUMBAR BACK PAIN ? LUMBAR SPINE W/O CONTRAST ? Signs and Symptoms/Comments: ??M54.5 LUMBAR BACK PAIN ? Comparisons: CT abdomen pelvis on 10/20/2018.. ? Technique: Noncontrast MR of the lumbar spine was performed with the ? following sequences: Sagittal T2, sagittal T1, sagittal STIR, axial ? T1, axial T2, coronal T2 fat-sat. ? FINDINGS: ? Bones: There are 5 lumbar type vertebral bodies. Mild S-shaped ? thoracolumbar scoliosis is suspected on the coronal career development specialist image. No ? significant spondylolisthesis is present. The marrow signal is within ? normal limits. There is no evidence of acute fracture. ? Spinal cord and cauda equina: The visible lower spinal cord is ? unremarkable. The conus terminates normally at the L1-L2 level. The ? cauda equina is normal in signal and morphology. ? Degenerative changes: Mild multilevel degenerative disc disease and ? facet arthrosis are present. ? T12-L1: Unremarkable. ? L1-L2: Unremarkable. ? L2-L3: Unremarkable. ? L3-L4: Mild disc bulge is present without significant spinal ? stenosis. Disc bulge and facet arthrosis result in mild bilateral ? neuroforaminal narrowing. ? L4-L5: Mild global disc bulge and epidural lipomatosis result in mild ? spinal stenosis. Mild bilateral neuroforaminal stenosis is present. ? L5-S1: Minimal global disc bulge is present without spinal stenosis. ? Mild bilateral neuroforaminal narrowing is present. ? Sacroiliac joints: The sacroiliac joints are congruent without ? significant edema. ? Soft tissues: The paraspinal soft tissues are unremarkable. Multiple ? small T2 hyperintense renal lesions are likely cysts. There is ? moderate parenchymal scarring along the lower pole of the right ? kidney, similar to October 2018. ? IMPRESSION: ? 1. ??Mild multilevel lumbar degenerative disc disease and facet ? PAGE 1 ? Signed Report ? (CONTINUED) ? arthrosis. ? 2. ??Mild L4-L5 global disc bulge and epidural lipomatosis with ? resulting mild spinal stenosis. ? 3. ??Mild multilevel neuroforaminal stenosis, as described. ? REPORT SIGNED IN OTHER VENDOR SYSTEM 01/29/2019 ?Reported By: Norris Beard MD ? CC: ? Transcribed Date/Time: 01/29/2019 (1707) ? Truckload Checker: [email or web address] ? Printed Date/Time: 05/19/2019 (8156) ? PAGE 2 ? Signed Report ? Procedure Note Norris Beard MD, - 07/06/2019 EXAM: MAGNETIC RESONANCE IMAGING/LUMBAR S EX. D/ (1507) CLINICAL INFORMATION: M54.5 LUMBAR BACK PAIN LUMBAR SPINE W/O CONTRAST Signs and Symptoms/Comments: M54.5 LUMBAR BACK PAIN Comparisons: CT abdomen pelvis on 10/20/2018.. Technique: Noncontrast MR of the lumbar spine was performed withthe following sequences: Sagittal T2, sagittal T1, sagittal STIR, axial T1, axial T2, coronal T2 fat-sat. FINDINGS: Bones: There are 5 lumbar type vertebral bodies. Mild S-shaped thoracolumbar scoliosis is suspected on the coronal career development specialist image. No significant spondylolisthesis is present. The marrow signal iswithin normal limits. There is no evidence of acute fracture. Spinal cord and cauda equina: The visible lower spinal cord is unremarkable. The conus terminates normally at the L1-L2 level. The cauda equina is normal in signal and morphology. Degenerative changes: Mild multilevel degenerative disc disease and facet arthrosis are present. T12-L1: Unremarkable. L1-L2: Unremarkable. L2-L3: Unremarkable. L3-L4: Mild disc bulge is present without significant spinal stenosis. Disc bulge and facet arthrosis result in mild bilateral neuroforaminal narrowing. L4-L5: Mild global disc bulge and epidural lipomatosis result inmild spinal stenosis. Mild bilateral neuroforaminal stenosis is present. L5-S1: Minimal global disc bulge is present without spinalstenosis. Mild bilateral neuroforaminal narrowing is present. Sacroiliac joints: The sacroiliac joints are congruent without significant edema. Soft tissues: The paraspinal soft tissues are unremarkable.Multiple small T2 hyperintense renal lesions are likely cysts. There is moderate parenchymal scarring along the lower pole of the right kidney, similar to October 2018. IMPRESSION: 1. Mild multilevel lumbar degenerative disc disease and facet PAGE 1 Signed Report (CONTINUED) arthrosis. 2. Mild L4-L5 global disc bulge and epidural lipomatosis with resulting mild spinal stenosis. 3. Mild multilevel neuroforaminal stenosis, as described. REPORT SIGNED IN OTHER VENDOR SYSTEM 01/29/2019 Reported By: Norris Beard MD CC: Transcribed Date/Time: 01/29/2019 (9922) Truckload Checker: Printed Date/Time: 05/19/2019 (2983) PAGE 2 Signed Report us Wolfgang Cagle MD IMG MRI ORDERABLES Final Resul t documented in this encounter Visit Diagnoses Not on filedocumented in this encounter Care Teams Pot Pusher Relationship Specialty Start Date End Date Natanael Saab MD PCP - General 03/17/15 12/29/22 documented as of this encounter
--- OUTSIDE RECORDS SUMMARY | 2024-10-13 18:35 | XMS_ITS | Encounter Summary ---
Author Organization [facility] Address [address] [place] [address] Care Team Providers Care Balance Staff Inspector Name Role Phone Wolfgang Cagle MD Primary Care Provider [phone] Clare Lama MD Primary Care Provider [phone] Encounter Details Date Type Department Care Team (Late st Contact Info) Description 01/16/2023 Lab Requisition [facility] Pathology & Laboratory Medicine - [facility] [address] [place] [address] Wolfgang Cagle MD [address] [place] [id number] Dysuria Social History Tobacco Use Types Packs/Day Years [...] 03/05/2016 1:44 EDT Ravi Mayo RN * Do you have difficulty dressing [...] Procedure Name Priority Date/Time Associated Diagnosis Comments NON EXECUTIVE MEETING MANAGER/FNA CYTOLOGY Today 01/14/2023 15:20 EDT Dysuria documented in this encounter Results * NON EXECUTIVE MEETING MANAGER/FNA CYTOLOGY (01/14/2023 15:20 EDT) Note to Patient The following pathology results have been interpreted by your pathologist and may be available to you before your health provider has had the opportunity to review them. Please allow time for your provider to receive these results and explore management options, if applicable. 01/16/2023 11:07 [facility] Final Diagnosis URINE, VOIDED, CYTOLOGIC EVALUATION: - Negative for high grade urothelial carcinoma. 01/16/2023 11:07 [facility] Attestation By the signature below, the attending physician certifies that they have personally conducted a gross and/or microscopic examination of the described specimens and rendered or confirmed the above diagnosis. 01/16/2023 11:07 [facility] at 1107 Clinical History Chronic dysuria; R30.0 01/16/2023 11:07 [facility] Gross Description A. 60ccs of clear yellow fluid, of which 30ccs are composed of Cytolyt, were received and processed by selective cellular enhancement technique. 01/16/2023 11:07 EDT [facility] Performing Lab [facility] 01/16/2023 11:07 EDT [facility] Scanned Images 01/16/2023 11:07 EDT [facility] Urine VOIDED URINE SPECIMEN / Unknown 01/14/2023 15:20 EDT 01/16/2023 6:29 EDT us Wolfgang Cagle MD PATHOLOGY ORDERABLES Final Res ult [facility] [address] [place] [address] documented in this encounter Visit Diagnoses Diagnosis Dysuria documented in this encounter Care Teams Balance Staff Inspector Relationship Specialty Start Date End Date Wolfgang Cagle MD [address] [place] [address] PCP - General Internal Medicine - Primary Care 12/30/22 09/29/24 Clare Lama MD [address] [place] [address] PCP - General Family Medicine - Primary Care 09/30/24 documented as of this encounter
--- OUTSIDE RECORDS SUMMARY | 2024-10-13 18:35 | XMS_ITS | Encounter Summary ---
Author Organization [facility] Address [address] [place] [address] Care Team Providers Care Trade Show Coordinator Name Role Phone Natanael Saab MD Primary Care Provider Unavailabl e Encounter Details Date Type Department Care Team (Latest Contact Info) Description 10/13/2018 13:36 EST - 10/13/2018 23:59 EST Hospital Encounter [facility] [address] [place] [address] Unknown, Provider, Discharge Disposition: Home or Self [...] Code Departure Means Destination Home or Self [facility] documented in this encounter Plan of Treatment Not on file documented as of this encounter Visit Diagnoses Not on filedocumented in this encounter Care Teams Trade Show Coordinator Relationship Specialty Start Date End Date Natanael Saab MD PCP - General 03/17/15 12/29/22 documented as of this encounter
--- OUTSIDE RECORDS SUMMARY | 2024-10-13 18:35 | XMS_ITS | Encounter Summary ---
Author Organization [facility] Address [address] [place] [address] Care Team Providers Care Signals Collector/Analyst Name Role Phone Wolfgang Cagle MD Primary Care Provider [phone] Reason for Referral * (Routine/Next Available) - Receiving Office to Obtain Authorization Specialty Diagnoses / Procedures Referred By Contac t Referred To Contact Procedures CT OUTSIDE IMAGES ABDOMEN PELVIS Imaging, External Referral ID Status Reason Start Date Expiration Date Visits Requested Visits Authorized [id number] Receiving Office to Obtain Authorization 4 1 1 Reason for Visit * (Routine/Next Available) - Receiving Office to Obtain Authorization Specialty Diagnoses / Procedures Referred By Contac t Referred To Contact Procedures CT OUTSIDE IMAGES ABDOMEN PELVIS Imaging, External Referral ID Status Reason Start Date Expiration Date Visits Requested Visits Authorized [id number] Receiving Office to Obtain Authorization 4 1 1 Encounter Details Date Type Department Care Team (Latest Contact Info) Description 08/18/2024 - 08/18/2024 23:59 EST Hospital Encounter [facility] [place] Discharge Disposition: Home or Self Care Social [...] Code Departure Means Destination Home or Self Care documented in this encounter Plan of Treatment Not on file documented as of this encounter Procedures Procedure Name Priority Date/Time Associated Diagnosis Comments CT OUTSIDE IMAGES ABDOMEN PELVIS Routine 08/18/2024 13:56 EST documented in this encounter Results * CT OUTSIDE IMAGES ABDOMEN PELVIS (08/18/2024 13:56 EST) Narrative 08/31/2024 13:56 EST This is a non-reportable exam. us External Imaging IMG OTHER IMAGING ORDERABLES Fi nal Result documented in this encounter Visit Diagnoses Not on filedocumented in this encounter Care Teams Signals Collector/Analyst Relationship Specialty Start Date End Date Wolfgang Cagle MD [address] [place] [id number] PCP - General Internal Medicine - Primary Care 12/30/22 09/29/24 documented as of this encounter
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
--- OUTSIDE RECORDS SUMMARY | 2024-10-13 18:35 | XMS_ITS | Encounter Summary ---
Author Organization 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 Name Role Phone Natanael Saab MD Primary Care Provider Unavailabl e Encounter Details Date Type Department Care Team (Late st Contact Info) Description 01/24/2017 Historical Results Only [facility] Radiology Results [address] [place], [place] [address] Alfonzo Beaver MD Social History Tobacco Use Types Packs/Day Years [...] Procedure Name Priority Date/Time Associated Diagnosis Comments URINALYSIS/COMPLETE - CV Routine 01/24/2017 21:35 EDT MR ANGIO HEAD WO CONTRAST 01/24/2017 20:03 EDT MR ANGIO NECK W WO CONTRAST 01/24/2017 19:59 EDT MR HEAD WO CONTRAST 01/24/2017 1 9:54 EDT XR CHEST 1 VIEW 01/24/2017 16:58 EDT POCT GLUCOSE, INTERFACED Routine 01/24/2017 16:[address] HEAD WO CONTRAST 01/24/2017 1 6:24 EDT ETHYL ALCOHOL - [facility] Routine 01/24/2017 16:10 EDT COMPLETE BLOOD COUNT WITH DIFFERENTIAL (AUTO) Routine 01/24/2017 16:10 EDT PROTIME/PARTIAL PROTIME ([facility] Routine 01/24/2017 16:10 EDT TROPONIN I Routine 01/24/2017 16:10 EDT TSH Routine 01/24/2017 16:10 EDT MAGNESIUM Routine 01/24/2017 16:10 EDT COMPREHENSIVE METABOLIC PANEL (CMP) Routine 01/24/2017 16:10 EDT documented in this encounter Results * URINALYSIS/COMPLETE - [facility] (01/24/2017 21:35 EDT) URINE APPEARANCE - [facility] Clear CLEAR 01/24/2017 22:42 [facility] URINE BACTERIA - [facility] RARE 01/24/2017 22:42 [facility] URINE BILIRUBIN - DIPSTICK - [facility] Negative NEGATIVE 01/24/2017 22:42 [facility] URINE BLOOD - [facility] Trace NEG 01/24/2017 22:42 [facility] URINE COLOR - [facility] Yellow YELLOW 01/24/2017 22:42 [facility] URINE GLUCOSE - DIPSTICK - [facility] Negative NEGATIVE 01/24/2017 22:42 [facility] URINE KETONE - [facility] Negative NEGATIVE 01/24/2017 22:42 [facility] URINE LEUK ESTERASE - [facility] Negative NEG 01/24/2017 22:42 [facility] URINE NITRITE - DIPSTICK - [facility] Negative NEG 01/24/2017 22:42 [facility] URINE PH - [facility] 5.5 4.0 - 8.0 7 22:42 [facility] URINE PROTEIN - DIPSTICK - [facility] Negative NEG 01/24/2017 22:42 [facility] URINE RBC - [facility] 1-3 rbc/hpf 01/24/2017 22:42 [facility] URCULTIF+? - [facility] Contaminated 01/24/2017 22:42 [facility] Comment: Specimen contaminated. Please recollect a clean catch sample if a culture is indicated. URINE SPECIFIC GRAVITY - [facility] <=1.005 1.001 - 1.035 01/24/2017 22:42 [facility] URINE SQUAMOUS CELLS - [facility] MANY NEG #/hpf 01/24/2017 22:42 [facility] URINE UROBILINOGEN - DIPSTICK - [facility] 0.2 0.2 - 1.0 01/24/2017 22:42 [facility] URINE WBC - [facility] RARE NEG wbc/hpf 01/24/2017 22:42 EDT [facility] 01/24/2017 21:3 5 EDT 01/24/2017 22:12 EDT us Jefferson Mayer MD CHEMISTRY & BLOOD GAS ORDERABLES Final Result [facility] * MR HEAD ANGIO WO CONTRAST (01/24/2017 20:03 EDT) Anatomical Region Laterality Modality Head Other 01/24/2017 20:0 3 EDT Narrative 01/24/2017 20:03 EDT ? EXAM: MAGNETIC RESONANCE IMAGING/MRA HEAD EX. D/ (191) ? CLINICAL INFORMATION: ? R SIDED WEAKNESS AND PARASTHESIAS ? EXAM: ? MR Angiography Head Without Intravenous Contrast ? CLINICAL HISTORY: ? 61 years old, female; Signs and symptoms; Weakness; Additional ? info: R sided weakness and parasthesias ? TECHNIQUE: ? Magnetic resonance angiography images of the head without ? intravenous contrast. ? MIP reconstructed images were created and reviewed. ? EXAM DATE/TIME: ? 01/24/2017 5:41 PM ? COMPARISON: ? CT - HEAD W/O CONTRAST STROKE ALERT 01/24/2017 4:13:09 PM ? FINDINGS: ? Right internal carotid artery: ??No acute findings. ? Intracranial segment is patent with no significant stenosis. ??No ? aneurysm. ? Right anterior cerebral artery: ??Unremarkable. ??No occlusion ? or significant stenosis. ??No aneurysm. ? Right middle cerebral artery: ??Unremarkable. ??No occlusion or ? significant stenosis. ??No aneurysm. ? Right posterior cerebral artery: ??Unremarkable. ??No occlusion ? or significant stenosis. ??No aneurysm. ? Right vertebral artery: ??Unremarkable as visualized. ? Left internal carotid artery: ??No acute findings. ? Intracranial segment is patent with no significant stenosis. ??No ? aneurysm. ? Left anterior cerebral artery: ??Unremarkable. ??No occlusion or ? significant stenosis. ??No aneurysm. ? Left middle cerebral artery: ??Unremarkable. ??No occlusion or ? significant stenosis. ??No aneurysm. ? Left posterior cerebral artery: ??Unremarkable. ??No occlusion ? or significant stenosis. ??No aneurysm. ? Left vertebral artery: ??Unremarkable as visualized. ? Basilar artery: ??Unremarkable. ??No occlusion or significant ? stenosis. ??No aneurysm. ? PAGE 1 ? Signed Report ? (CONTINUED) ? IMPRESSION: ? Normal head/brain MRA. ? REPORT SIGNED IN OTHER VENDOR SYSTEM 01/24/2017 ?Reported By: Jenaro Davis MD ? CC: ? Transcribed Date/Time: 01/24/2017 (2002) ? Record Changer: ? Printed Date/Time: 2019 (1150) ? PAGE 2 ? Signed Report ? Procedure Note Jenaro Davis M - 07/07/2019 EXAM: MAGNETIC RESONANCE IMAGING/MRA HEAD EX. D/ (1913) CLINICAL INFORMATION: R SIDED WEAKNESS AND PARASTHESIAS EXAM: MR Angiography Head Without Intravenous Contrast CLINICAL HISTORY: 61 years old, female; Signs and symptoms; Weakness; Additional info: R sided weakness and parasthesias TECHNIQUE: Magnetic resonance angiography images of the head without intravenous contrast. MIP reconstructed images were created and reviewed. EXAM DATE/TIME: 01/24/2017 5:41 PM COMPARISON: CT - HEAD W/O CONTRAST STROKE ALERT 01/24/2017 4:13:09 PM FINDINGS: Right internal carotid artery: No acute findings. Intracranial segment is patent with no significant stenosis. No aneurysm. Right anterior cerebral artery: Unremarkable. No occlusion or significant stenosis. No aneurysm. Right middle cerebral artery: Unremarkable. No occlusion or significant stenosis. No aneurysm. Right posterior cerebral artery: Unremarkable. No occlusion or significant stenosis. No aneurysm. Right vertebral artery: Unremarkable as visualized. Left internal carotid artery: No acute findings. Intracranial segment is patent with no significant stenosis. No aneurysm. Left anterior cerebral artery: Unremarkable. No occlusion or significant stenosis. No aneurysm. Left middle cerebral artery: Unremarkable. No occlusion or significant stenosis. No aneurysm. Left posterior cerebral artery: Unremarkable. No occlusion or significant stenosis. No aneurysm. Left vertebral artery: Unremarkable as visualized. Basilar artery: Unremarkable. No occlusion or significant stenosis. No aneurysm. PAGE 1 Signed Report (CONTINUED) IMPRESSION: Normal head/brain MRA. REPORT SIGNED IN OTHER VENDOR SYSTEM 01/24/2017 Reported By: Jenaro Davis MD CC: Transcribed Date/Time: 01/24/2017 (2002) Record Changer: Printed Date/Time: 2019 (4362) PAGE 2 Signed Report us Pedro Barron MD IM MRI ORDERABLES Final Result * MR NECK ANGIO W WO CONTRAST (01/24/2017 19:59 EDT) Anatomical Region Laterality Modality Neck Other 01/24/2017 19:5 9 EDT Narrative 01/24/2017 19:59 EDT ? EXAM: MAGNETIC RESONANCE IMAGING/ANGIOGRA EX. D/ (1914) ? CLINICAL INFORMATION: ? R SIDED WEAKNESS AND PARASTHESIAS ? EXAM: ? MR Angiography Neck Without and With Intravenous Contrast ? CLINICAL HISTORY: ? 61 years old, female; Signs and symptoms; Weakness; Additional ? info: R sided weakness and parasthesias ? TECHNIQUE: ? Magnetic resonance angiography images of the neck without and ? with intravenous contrast. ? MIP reconstructed images were created and reviewed. ? CONTRAST: ? 20 mL of magnevist administered intravenously. ? EXAM DATE/TIME: ? 01/24/2017 5:41 PM ? COMPARISON: ? CT - SOFT TISSUE NECK WITH CONTRAST 06/01/2016 7:49:53 PM ? FINDINGS: ? Right common carotid artery: ??Unremarkable. ??No significant ? stenosis. ??No dissection or occlusion. ? Right internal carotid artery: ??Unremarkable. ??Extracranial ? segment is patent with no significant stenosis. ??No dissection ? or occlusion. ? Right external carotid artery: ??Unremarkable. ??No occlusion. ? Right vertebral artery: ??Unremarkable. ??No significant ? stenosis. ??No dissection or occlusion. ? Left common carotid artery: ??Unremarkable. ??No significant ? stenosis. ??No dissection or occlusion. ? Left internal carotid artery: ??Unremarkable. ??Extracranial ? segment is patent with no significant stenosis. ??No dissection ? or occlusion. ? Left external carotid artery: ??Unremarkable. ??No occlusion. ? Left vertebral artery: ??Unremarkable. ??No significant ? stenosis. ??No dissection or occlusion. ? Soft tissues: ??Unremarkable as visualized. ?CAROTID STENOSIS REFERENCE USING NASCET CRITERIA: ? % ICA stenosis = (1 - narrowest ICA diameter/diameter of ? distal cervical ICA) x 100. ? Mild - <50% stenosis. ? Moderate - 50-69% stenosis. ? Severe - 70-94% stenosis. ? Near occlusion - 95-99% stenosis. ? Occluded - 100% stenosis. ? PAGE 1 ? Signed Report ? (CONTINUED) ? IMPRESSION: ? Normal neck MRA. ? REPORT SIGNED IN OTHER VENDOR SYSTEM 01/24/2017 ?Reported By: Jenaro Davis MD ? CC: ? Transcribed Date/Time: 01/24/2017 (1959) ? Record Changer: ? Printed Date/Time: 2019 (1150) ? PAGE 2 ? Signed Report ? Procedure Note Jenaro Davis - 07/07/2019 EXAM: MAGNETIC RESONANCE IMAGING/ANGIOGRA EX. D/ (1914) CLINICAL INFORMATION: R SIDED WEAKNESS AND PARASTHESIAS EXAM: MR Angiography Neck Without and With Intravenous Contrast CLINICAL HISTORY: 61 years old, female; Signs and symptoms; Weakness; Additional info: R sided weakness and parasthesias TECHNIQUE: Magnetic resonance angiography images of the neck without and with intravenous contrast. MIP reconstructed images were created and reviewed. CONTRAST: 20 mL of magnevist administered intravenously. EXAM DATE/TIME: 01/24/2017 5:41 PM COMPARISON: CT - SOFT TISSUE NECK WITH CONTRAST 06/01/2016 7:49:53 PM FINDINGS: Right common carotid artery: Unremarkable. No significant stenosis. No dissection or occlusion. Right internal carotid artery: Unremarkable. Extracranial segment is patent with no significant stenosis. No dissection or occlusion. Right external carotid artery: Unremarkable. No occlusion. Right vertebral artery: Unremarkable. No significant stenosis. No dissection or occlusion. Left common carotid artery: Unremarkable. No significant stenosis. No dissection or occlusion. Left internal carotid artery: Unremarkable. Extracranial segment is patent with no significant stenosis. No dissection or occlusion. Left external carotid artery: Unremarkable. No occlusion. Left vertebral artery: Unremarkable. No significant stenosis. No dissection or occlusion. Soft tissues: Unremarkable as visualized. CAROTID STENOSIS REFERENCE USING NASCET CRITERIA: % ICA stenosis = (1 - narrowest ICA diameter/diameter of distal cervical ICA) x 100. Mild - <50% stenosis. Moderate - 50-69% stenosis. Severe - 70-94% stenosis. Near occlusion - 95-99% stenosis. Occluded - 100% stenosis. PAGE 1 Signed Report (CONTINUED) IMPRESSION: Normal neck MRA. REPORT SIGNED IN OTHER VENDOR SYSTEM 01/24/2017 Reported By: Jenaro Davis MD CC: Transcribed Date/Time: 01/24/2017 (1958) Record Changer: Printed Date/Time: 2019 (5108) PAGE 2 Signed Report Pedro Barron MD IMG MRI ORDERABLES Final Result * MR HEAD WO CONTRAST (01/24/2017 19:54 EDT) Anatomical Region Laterality Modality Head Other 01/24/2017 19:5 4 EDT Narrative 01/24/2017 19:54 EDT ? EXAM: MAGNETIC RESONANCE IMAGING/BRAIN WI EX. D/ (1913) ? CLINICAL INFORMATION: ? R SIDED WEAKNESS AND PARASTHESIAS ? EXAM: ? MR Head Without Intravenous Contrast ? CLINICAL HISTORY: ? 61 years old, female; Signs and symptoms; Weakness, extremity; ? Right; Additional info: R sided weakness and parasthesias ? TECHNIQUE: ? Magnetic resonance images of the head/brain without ? intravenous contrast in multiple planes. ? EXAM DATE/TIME: ? 01/24/2017 5:41 PM ? COMPARISON: ? CT - HEAD W/O CONTRAST STROKE ALERT 01/24/2017 4:13:09 PM ? FINDINGS: ? Brain: ??Unremarkable. ??No mass. ??No hemorrhage. ??No acute ? infarct. ? Ventricles: ??Unremarkable. ??No ventriculomegaly. ? Bones/joints: ??Unremarkable. ? Sinuses: ??Minimal ethmoid sinus disease. ??No acute sinusitis. ? Mastoid air cells: ??Unremarkable as visualized. ??No mastoid ? effusion. ? Orbits: ??Unremarkable as visualized. ? IMPRESSION: ? No acute intracranial abnormality. ? REPORT SIGNED IN OTHER VENDOR SYSTEM 01/24/2017 ?Reported By: Jenaro Davis MD ? CC: ? Transcribed Date/Time: 01/24/2017 (1954) ? Record Changer: [employer] ? Printed Date/Time: 2019 (1150) ? PAGE 1 ? Signed Report ? Procedure Note Jenaro Davis - 07/07/2019 EXAM: MAGNETIC RESONANCE IMAGING/BRAIN WI EX. D/ (1914) CLINICAL INFORMATION: R SIDED WEAKNESS AND PARASTHESIAS EXAM: MR Head Without Intravenous Contrast CLINICAL HISTORY: 61 years old, female; Signs and symptoms; Weakness, extremity; Right; Additional info: R sided weakness and parasthesias TECHNIQUE: Magnetic resonance images of the head/brain without intravenous contrast in multiple planes. EXAM DATE/TIME: 01/24/2017 5:41 PM COMPARISON: CT - HEAD W/O CONTRAST STROKE ALERT 01/24/2017 4:13:09 PM FINDINGS: Brain: Unremarkable. No mass. No hemorrhage. No acute infarct. Ventricles: Unremarkable. No ventriculomegaly. Bones/joints: Unremarkable. Sinuses: Minimal ethmoid sinus disease. No acute sinusitis. Mastoid air cells: Unremarkable as visualized. No mastoid effusion. Orbits: Unremarkable as visualized. IMPRESSION: No acute intracranial abnormality. REPORT SIGNED IN OTHER VENDOR SYSTEM 01/24/2017 Reported By: Jenaro Davis MD CC: Transcribed Date/Time: 01/24/2017 (1953) Record Changer: Printed Date/Time: 2019 (4141) PAGE 1 Signed Report us Pedro Barron MD IMG MRI ORDERABLES Final Result * XR CHEST 1 VIEW (01/24/2017 16:58 EDT) Anatomical Region Laterality Modality Other 01/24/2017 16:5 8 EDT Narrative 01/24/2017 17:01 EDT ? EXAM: RADIOLOGY/CHEST-PORTABLE ?EX. D/ (1651) ? CLINICAL INFORMATION: ? STROKE PROTOCOL ? CHEST-PORTABLE ? Signs and Symptoms/Comments: ??STROKE PROTOCOL ? Comparisons: 12/08/2016, 06/01/2016. CT chest on 12/08/2016. ? FINDINGS: ? An upright AP view of the chest was performed. Multiple leads project ? over the chest. Biapical lucency corresponds to emphysema, as ? confirmed on recent CT. No acute lung findings are visible. The right ? hemidiaphragm is chronically elevated. No pneumothorax or pleural ? effusion is present. The aorta is calcified. The cardiomediastinal ? silhouette and pulmonary vascularity are otherwise unremarkable. ? Multilevel thoracic degenerative changes are present. ? IMPRESSION: ? Emphysema. No acute cardiopulmonary process. ? REPORT SIGNED IN OTHER VENDOR SYSTEM 01/24/2017 ?Reported By: Norris Beard MD ? CC: ? Transcribed Date/Time: 01/24/2017 (1701) ? Record Changer: ? Printed Date/Time: 2019 (0610) ? PAGE 1 ? Signed Report ? Procedure Note Norris Beard MD - 07/07/2019 EXAM: RADIOLOGY/CHEST-PORTABLE EX. D/ (1651) CLINICAL INFORMATION: STROKE PROTOCOL CHEST-PORTABLE Signs and Symptoms/Comments: STROKE PROTOCOL Comparisons: 12/08/2016, 06/01/2016. CT chest on 12/08/2016. FINDINGS: An upright AP view of the chest was performed. Multiple leadsproject over the chest. Biapical lucency corresponds to emphysema, as confirmed on recent CT. No acute lung findings are visible. Theright hemidiaphragm is chronically elevated. No pneumothorax or pleural effusion is present. The aorta is calcified. The cardiomediastinal silhouette and pulmonary vascularity are otherwise unremarkable. Multilevel thoracic degenerative changes are present. IMPRESSION: Emphysema. No acute cardiopulmonary process. REPORT SIGNED IN OTHER VENDOR SYSTEM 01/24/2017 Reported By: Norris Beard MD CC: Transcribed Date/Time: 01/24/2017 (2248) Record Changer: Printed Date/Time: 2019 (8777) PAGE 1 Signed Report us Alfonzo Beaver MD IMG DIAGNOSTIC IMAGING ORDERABL ES Final Result * (ABNORMAL) POCT GLUCOSE (01/24/2017 16:26 EDT) Glucose, POC 123(H) 70 - 100 mg/dL 01/24/2017 16:27 EDT [facility] 01/24/2017 16:2 6 EDT 01/24/2017 16:27 EDT us Norris Bills MD POINT OF CARE TEST ORDERABLE S Final Result [facility] * CT HEAD WO CONTRAST (01/24/2017 16:24 EDT) Anatomical Region Laterality Modality Head Other 01/24/2017 16:2 4 EDT Narrative 01/24/2017 16:28 EDT ? EXAM: CAT SCAN/HEAD W/O CONTRAST STROKE A EX. D/ (1617) ? CLINICAL INFORMATION: ? FACIAL DROOP/WEAKNESS ? HEAD W/O CONTRAST STROKE ALERT ? Signs and Symptoms/Comments: ??FACIAL DROOP/WEAKNESS ? Comparison: 05/29/2014, 05/01/2012 ? Technique: Noncontrast CT head was performed. ? FINDINGS: ? No intra- or extra-axial hemorrhage, fluid collection or mass is ? present. There is no mass effect or midline shift. The basal cisterns ? are patent. The ventricles are unremarkable. Intracranial ? atherosclerotic disease is present. No acute loss of mobley-white ? differentiation is visible. There is no CT evidence of acute infarct, ? although MR is more sensitive. ? The globes and orbits are intact. The visible paranasal sinuses are ? unremarkable. The mastoid air cells and middle ear cavities are ? clear. The osseous structures are unremarkable. The senior sas programmer images are ? unremarkable. ? IMPRESSION: ? 1. ??No acute intracranial abnormality. ? 2. ??Intracranial atherosclerotic disease. No definite CT evidence of ? acute ischemia, however MR is more sensitive. ? Dr. Norris Beard discussed these findings with Dr. Vasquez ? Anderson on 01/24/2017 4:22 PM. ? REPORT SIGNED IN OTHER VENDOR SYSTEM 01/24/2017 ?Reported By: Norris Beard MD ? CC: ? Transcribed Date/Time: 01/24/2017 (1628) ? Record Changer: ? Printed Date/Time: 2019 (1150) ? PAGE 1 ? Signed Report ? Procedure Note Norris Beard MD - 07/07/2019 EXAM: CAT SCAN/HEAD W/O CONTRAST STROKE A EX. D/ (7504) CLINICAL INFORMATION: FACIAL DROOP/WEAKNESS HEAD W/O CONTRAST STROKE ALERT Signs and Symptoms/Comments: FACIAL DROOP/WEAKNESS Comparison: 05/29/2014, 05/01/2012 Technique: Noncontrast CT head was performed. FINDINGS: No intra- or extra-axial hemorrhage, fluid collection or mass is present. There is no mass effect or midline shift. The basalcisterns are patent. The ventricles are unremarkable. Intracranial atherosclerotic disease is present. No acute loss of mobley-white differentiation is visible. There is no CT evidence of acuteinfarct, although MR is more sensitive. The globes and orbits are intact. The visible paranasal sinuses are unremarkable. The mastoid air cells and middle ear cavities are clear. The osseous structures are unremarkable. The senior sas programmer imagesare unremarkable. IMPRESSION: 1. No acute intracranial abnormality. 2. Intracranial atherosclerotic disease. No definite CT evidenceof acute ischemia, however MR is more sensitive. Dr. Norris Beard discussed these findings with Dr. Pedro Barron on 01/24/2017 4:22 PM. REPORT SIGNED IN OTHER VENDOR SYSTEM 01/24/2017 Reported By: Norris Beard MD CC: Transcribed Date/Time: 01/24/2017 (7400) Record Changer: Printed Date/Time: 2019 (6087) PAGE 1 Signed Report Alfonzo Beaver MD IMG CT ORDERABLES Final Result * (ABNORMAL) TSH (01/24/2017 16:10 EDT) THYROID STIM HORMONE - [facility] 0.30(L) 0.35 - 5.50 uIU/mL 01/24/2017 21:14 EDT [facility] 01/24/2017 16:1 0 EDT 01/24/2017 16:13 EDT Narrative [facility] - 01/24/2017 21:14 EDT Does PT Have a Latex Allergy? NO Alfonzo Beaver MD CHEMISTRY & BLOOD GAS ORDERABLE S Final Result [facility] * TROPONIN I (01/24/2017 16:10 EDT) [facility] Troponin I (ng/mL) <0.015 0.000 - 0.045 ng/mL 01/24/2017 16:40 EDT [facility] Comment: Interpretation comments: ??Cutoff for a positive troponin result is set at the 99th percentile of the upper reference limit. ??Elevated troponin must always be interpreted in the context of the clinical presentation. ?Serial troponin testing 3-6 hr from baseline is favored over relying on a single troponin level. 01/24/2017 16:1 0 EDT 01/24/2017 16:13 EDT [facility] - 01/24/2017 21:14 EDT Does PT Have a Latex Allergy? NO Alfonzo Beaver MD CHEMISTRY & BLOOD GAS ORDERABLE S Final Result Performing Organization Address [facility] de Phone Number [facility] * MAGNESIUM (01/24/2017 16:10 EDT) [facility] Magnesium 2.20 1.6 - 2.6 mg/dL 01/24/2017 16:40 EDT [facility] Comment: 24 Hour urine magnesium is a better indicator of magnesium stores. 01/24/2017 16:1 0 EDT 01/24/2017 16:13 EDT [facility] - 01/24/2017 21:14 EDT Does PT Have a Latex Allergy? NO us Alfonzo Beaver MD CHEMISTRY & BLOOD GAS ORDERABLE S Final Result Performing Organization Address [facility] Co de Phone Number [facility] * ETHYL ALCOHOL - [facility] (01/24/2017 16:10 EDT) [facility] ETHYL ALCOHOL - [facility] <3.0 0.0 - 60.0 mg/dL 01/24/2017 16:40 EDT [facility] Comment: *Unconfirmed screening results are to be used for medical purposes only.* 01/24/2017 16:1 0 EDT 01/24/2017 16:13 EDT Narrative [facility] - 01/24/2017 21:14 EDT Does PT Have a Latex Allergy? NO us Alfonzo Beaver MD CHEMISTRY & BLOOD GAS ORDERABLE S Final Result [facility] * (ABNORMAL) COMPREHENSIVE METABOLIC PANEL (CMP) (01/24/2017 16:10 EDT) Albumin % 3.7 3.4 - 5.0 g/dL 01/24/2017 16:40 [facility] ALKALINE PHOSPHATASE - [facility] 62 41 - 126 U/L 01/24/2017 16:40 [facility] BILIRUBIN TOTAL 0.3 0.0 - 1.0 mg/dL 01/24/2017 16:40 [facility] BUN - [facility] 7 7 - 18 mg/dL 01/24/2017 16:40 [facility] CALCIUM - [facility] 8.8 8.5 - 10.1 mg/dL 01/24/2017 16:40 [facility] Chloride 103 98 - 107 mEq/L 01/24/2017 16:40 [facility] CO2 Total 28 21 - 32 mEq/L 01/24/2017 16:40 [facility] CREATININE 0.91 0.5 - 1.3 mg/dL 01/24/2017 16:40 [facility] eGFR >60 01/24/2017 16:40 [facility] Comment: Chronic renal impairment is defined as GFR <60 Multiply result by 1.210 for patients. eGFR calculated using the IDMS-traceable MDRD Study Equation. ??(effective 07/04/2014) Anion Gap 6 5 - 15 01/24/2017 16:40 [facility] GLUCOSE - [facility] 105(H) 70 - 100 mg/dL 01/24/2017 16:40 [facility] Potassium 3.8 3.5 - 5.0 mEq/L 01/24/2017 16:40 EDT [facility] Sodium 137 135 - 145 mEq/L 01/24/2017 16:40 EDT [facility] TOTAL PROTEIN - [facility] 7.2 6.4 - 8.2 gm/dl 01/24/2017 16:40 EDT [facility] SGOT/AST - [facility] 15 10 - 37 U/L 01/24/2017 16:40 EDT [facility] SGPT/ALT - [facility] 24 12 - 78 U/L 01/24/2017 16:40 EDT [facility] 01/24/2017 16:1 0 EDT 01/24/2017 16:13 EDT Narrative [facility] - 01/24/2017 21:14 EDT Does PT Have a Latex Allergy? NO us Alfonzo Beaver MD CHEMISTRY & BLOOD GAS ORDERABLE S Final Result Performing Organization Address [facility]/ZIP Co de Phone Number [facility] * PROTIME/PARTIAL PROTIME ([facility]) (01/24/2017 16:10 EDT) INR - [facility] 1.0 0.9 - 1.2 01/24/2017 16:27 EDT [facility] Comment: Low intensity INR: 2.0-3.0 High intensity INR: Consult Coag Dept. PROTHROMBIN TIME - [facility] 10.4 9.7 - 11.9 SECONDS 01/24/2017 16:27 EDT [facility] PARTIAL THROMBO TIME - [facility] 27 23 - 30 SECONDS 01/24/2017 16:27 EDT [facility] Comment:Therapeutic Heparin Range: 51 - 70 seconds 01/24/2017 16:1 0 EDT 01/24/2017 16:13 EDT Narrative [facility] - 01/24/2017 16:27 EDT Does PT Have a Latex Allergy? NO us Alfonzo Beaver MD HEMATOLOGY & PF4 ORDERABLES Fin al Result [facility] * COMPLETE BLOOD COUNT WITH DIFFERENTIAL (AUTO) (01/24/2017 16:10 EDT) ABSOLUTE NEUTROPHIL COUN - [facility] 5.06 1.7 - 7.0 10e3/ul 01/24/2017 16:17 [facility] BASO # - [facility] 0.05 0.0 - 0.3 10e3/uL 01/24/2017 16:17 [facility] BASO % - [facility] 1 0 - 2 % 01/24/2017 16:17 [facility] EOS # - [facility] 0.19 0.05 - 0.5 10e3/uL 01/24/2017 16:17 [facility] EOS % - [facility] 2 0 - 5 % 01/24/2017 16:17 [facility] GRAN % - [facility] 57 40 - 80 % 01/24/2017 16:17 [facility] HEMATOCRIT - [facility] 43.6 34.0 - 47.0 % 01/24/2017 16:17 [facility] HEMOGLOBIN - [facility] 14.9 11.2 - 15.7 g/dl 01/24/2017 16:17 [facility] IG# - [facility] 0.02 0 - 0.07 10e3/uL 01/24/2017 16:17 [facility] IG% - [facility] 0.2 0 - 0.9 % 01/24/2017 16:17 [facility] LYMPH # - [facility] 2.69 0.9 - 2.9 10e3/uL 01/24/2017 16:17 [facility] LYMPH% - [facility] 31 20 - 40 % 01/24/2017 16:17 [facility] MEAN CORPUSCULAR HGB - [facility] 31.9 26 - 34 pg 01/24/2017 16:17 [facility] MEAN CORPUSCULAR HGB CONC - [facility] 34.2 31 - 36 g/dL 01/24/2017 16:17 [facility] MEAN CELL VOLUME - CV 93.4 77 - 100 fl 01/24/2017 16:17 [facility] MONO # - [facility] 0.80 0.3 - 0.9 10e3/uL 01/24/2017 16:17 EDT [facility] MONO% - [facility] 9 0 - 12 % 01/24/2017 16:17 EDT [facility] PLATELET COUNT 256 150 - 400 10e3/ul 01/24/2017 16:17 EDT [facility] RED BLOOD COUNT - [facility] 4.67 3.8 - 5.2 10e6/ul 01/24/2017 16:17 EDT [facility] RED CELL DISTRI WIDTH - [facility] 12.4 11.8 - 15.6 % 01/24/2017 16:17 T [facility] WHITE BLOOD COUNT - [facility] 8.8 3.5 - 10.5 10e3/ul 01/24/2017 16:17 T [facility] 01/24/2017 16:1 0 EDT 01/24/2017 16:13 EDT Narrative [facility] - 01/24/2017 16:17 EDT Does PT Have a Latex Allergy? NO us Alfonzo Beaver MD HEMATOLOGY & PF4 ORDERABLES Fin al Result [facility] documented in this encounter Visit Diagnoses Not on filedocumented in this encounter Care Teams Sprinkling Truck Driver Relationship Specialty Start Date End Date Natanael Saab MD PCP - General 03/17/15 12/29/22 documented as of this encounter
--- OUTSIDE RECORDS SUMMARY | 2024-10-13 18:35 | XMS_ITS | Encounter Summary ---
Author Organization [facility] Address [address] [place] [address] Care Team Providers Care Sales Floor Associate Name Role Phone Natanael Saab MD Primary Care Provider Wolfgang Bhatt MD Primary Care Provider [phone] Clare Lama MD Primary Care Provider [phone] Encounter Details Date Type Department Care Team (Late st Contact Info) Description 09/10/2019 Lab Requisition [facility] Pathology & Laboratory Medicine - [facility] [address] [place] [address] Unknown, Provider, Social History Tobacco Use Types [...] Comments SPEP, INCLUDES QUANTITATION OF MONOCLONAL SPIKE Routine 09/09/2019 16:10 EST documented in this encounter Results * SPEP, INCLUDES QUANTITATION OF MONOCLONAL SPIKE (09/09/2019 16:10 EST) Total Protein 6.6 6.3 - 8.2 g/dL 09/13/2019 14:20 [facility] Albumin % 58.5 55.8 - 66.1 % 09/13/2019 14:20 [facility] Alpha-1 % 4.5 2.9 - 4.9 % 09/13/2019 14:20 [facility] Alpha-2 % 9.8 7.1 - 11.8 % 09/13/2019 14:20 [facility] Beta % 12.6 8.4 - 13.1 % 09/13/2019 14:20 [facility] Gamma % 14.6 11.1 - 18.8 % 09/13/2019 14:20 [facility] SPEP Comment No apparent monoclonal protein seen on serum electrophoresis 09/13/2019 14:20 [facility] Comment:See scanned/suppleme ntary report. Blood VENOUS BLOOD / Unknown 09/09/2019 16:10 EST 09/10/2019 15:50 EST us Provider Unknown MD CHEMISTRY & BLOOD GAS ORDERA BLES Final Result [facility] [address] [place] [address] documented in this encounter Visit Diagnoses Not on filedocumented in this encounter Care Teams Sales Floor Associate Relationship Specialty Start Date End Date Natanael Saab MD PCP - General 03/17/15 12/29/22 Wolfgang Cagle MD [address] [place] [address] PCP - General Internal Medicine - Primary Care 12/30/22 09/29/24 Clare Lama MD [address] [place] [address] PCP - General Family Medicine - Primary Care 09/30/24 documented as of this encounter"
--- OUTSIDE RECORDS SUMMARY | 2024-10-13 18:35 | XMS_ITS | Encounter Summary ---
Author Organization [facility] Address [address] [place] [address] Care Team Providers Care Flame Gouger Name Role Phone Natanael Saab MD Primary Care Provider Unavailabl e Reason for Visit * Reason Onset Date Comments Other 03/11/2020 covid 19 call ce nter Labs Only 03/14/2020 COVID-19 Blue Dc baru Radha [phone] Encounter Details Date Type Department Care Team (Late st Contact Info) Description 03/14/2020 Telephone [facility] Adult Primary Care - [address] [address] Francoise Morataya Other (covid 19 call center); Labs Only (COVID-19 Blue Subaru Radha [phone]) Social History Tobacco Use Types Packs/Day Years [...] Kaleb Mayo RN documented in this encounter Miscellaneous Notes * Telephone Encounter - Elinor Bills - 03/14/2020 1513 EDT ..C-19 screening recommended by provider. Routed for testing ordering. Vehicle: [employer]iempo Radha Color: Blue Cell #: [phone] Spoke to patient and verbally gave instructions for Testing Facility. Patient is instructed to be there at 9am sharp. * Telephone Encounter - Evelia Clayton PA-C - 03/14/2020 1420 EDT Covid test ordered through call center. Please change to Dr. Francoise Light as the ordering provider. If positive results, please call [facility]/Mobile testing charge nurse [phone] (9am -5pm, 7 days a week). * Telephone Encounter - Francoise Morataya - 03/14/2020 1401 EDT Cell [phone] May benefit from assessment at [facility]? This patient is calling the [facility] COVID-19 information center with concern for COVID-19. The patient has had achiness, cough and sore throat for 3 days. Pt also c/o Leg hurst like she's walking on a bubble, skin changes not normal under breast and above her knees. Temp is 99.9 today after taking 1000mg tylenol. Reports she is prescribed 3000mg a day of tylenol. Also reports difficulty urinating and increased confusion I can't think good COVID-19 testing is indicated according to current [facility] algorithm. The patient has been previously tested for Covid-19. Reports being tested multiple times. Epic shows 01/02 and 12/12 but also reports going to [facility] pop up sites. 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 Patient maybe immunocompromised. COPD and states she uses Nitroglycerin. The patient is not a resident of a alf or assisted living facility. (If patient is, home health will facilitate testing once ordered). Patient was not offered a telehealth visit with their PCP or Express Care provider to further discuss symptoms as her PCP, Dr. Cagle at [facility] referred her to call center. Question if this patient is currently stable medically was well as mentally. was advised to go to the ER or call 911 with any worsening symptoms. Pt states I know how to call 911 and I'm not going anywhere. documented in this encounter Plan of Treatment Not on file documented as of this encounter Visit Diagnoses Diagnosis Body aches- Primary Generalized pain Cough Sore throat Acute pharyngitis documented in this encounter Care Teams Flame Gouger Relationship Specialty Start Date End Date Natanael Saab MD PCP - General 03/17/15 12/29/22 documented as of this encounter
--- OUTSIDE RECORDS SUMMARY | 2024-10-13 18:35 | XMS_ITS | Encounter Summary ---
Author Organization [facility] Address [address] [place] [address] Care Team Providers Care Meter Reading Clerk Name Role Phone Wolfgang Cagle MD Primary Care Provider [phone] Reason for Visit * Reason Onset Date Comments Coordination Of Care 09/03/2024 Encounter Details Date Type Department Care Team (Late st Contact Info) Description 09/03/2024 Telephone [facility] Gastroenterology - [address] [id number] Kalen Bowles MD [address] [facility] [place] [address] Coordination Of Care Social History Tobacco Use Types Packs/Day [...] Kaleb Woodall RN documented in this encounter Miscellaneous Notes * Telephone Encounter - Jaquelin Solorio - 09/03/2024 1408 EST I have attempted to contact the patient to schedule an EUS with Dr. Wilbur CARR documented in this encounter Plan of Treatment Not on file documented as of this encounter Visit Diagnoses Not on filedocumented in this encounter Care Teams Meter Reading Clerk Relationship Specialty Start Date End Date Wolfgang Cagle MD [address] [place] [address] PCP - General Internal Medicine - Primary Care 12/30/22 09/29/24 documented as of this encounter
--- OUTSIDE RECORDS SUMMARY | 2024-10-13 18:35 | XMS_ITS | Encounter Summary ---
Author Organization [facility] Address [address] [place] [address] Care Team Providers Care Control Systems Developer Name Role Phone Wolfgang Cagle MD Primary Care Provider [phone] Encounter Details Date Type Department Care Team (Latest Contact Info) Description 09/21/2024 14:40 EST - 09/21/2024 15:08 EST Hospital Encounter [facility] Pre-Surgical Testing [address] [place] [address] Discharge Disposition: Home or Self Care Social [...] mouth every 4 hours. Takes 2 daily budesonide-formot wendi HFA (SYMBICORT) 160-4.5 mcg/actuation HFA aerosol inhaler inhaler Inhale as directed 2 times daily. buprenorphine-nal oxone (SUBOXONE) 2-0.5 mg tablet, sublingual Place 1 Tablet under the tongue daily. levalbuterol (XOPENEX HFA) 45 mcg/actuation inhaler Inhale 90 mcg as directed every 6 hours LORATADINE (CLARITIN ORAL) Take by mouth as needed. LORazepam (ATIVAN) 2 mg tablet Take 1 Tablet by mouth 2 times daily. nicotine polacrilex (NICORETTE) 2 mg gum Take 1 Each by mouth every 2 hours. pantoprazole (PROTONIX) 40 mg tablet Take 1 Tablet by mouth daily before breakfast. tiotropium (SPIRIVA) 18 mcg inhalation capsule Inhale 18 mcg as directed daily documented as of this encounter Discharge Disposition Disposition Code Departure Means Destination Home or Self Residential documented in this encounter OR Notes * Preprocedure Instructions - Shalini Altamirano RN - 09/21/2024 3635 EST Savannah Avery has been instructed as follows regarding medication administration for the day of the scheduled procedure. Date of Surgery: 10/01/24 Instructions for Taking Medications Day of Surgery Medication Dose and frequency Last Dose Hold Day of Surgery Take Day of Surgery acetaminophen (TYLENOL) 500 mg tablet Take 500 mg by mouth every 4 hours. Takes 2 daily May take budesonide-formoterol HFA (SYMBICORT) 160-4.5 mcg/actuation HFA aerosol inhaler inhaler Inhale as directed 2 times daily. Take buprenorphine-naloxone (SUBOXONE) 2-0.5 mg tablet, sublingual Place 1 Tablet under the tongue daily. Daily Max: 1 Tablet Yes levalbuterol (XOPENEX HFA) 45 mcg/actuation inhaler Inhale 90 mcg as directed every 6 hours Patient not taking: Reported on 09/21/2024 Not Taking May takle LORATADINE (CLARITIN ORAL) Take by mouth as needed. May take LORazepam (ATIVAN) 2 mg tablet Take 2 mg by mouth 2 times daily May take nicotine polacrilex (NICORETTE) 2 mg gum Take 2 mg by mouth every 2 hours. HOLD pantoprazole (PROTONIX) 40 mg tablet Take 1 Tablet by mouth daily before breakfast. Yes tiotropium (SPIRIVA) 18 mcg inhalation capsule Inhale 18 mcg as directed daily Take Please call the PAT department at [phone] if you start any new medications or if you are taking any medications that were not reported at the time of your call Instructions: Call your surgeon prior to surgery date IF: You become ill. You have any new skin problems near the area where your surgery will be, such as a rash, blister, or infection. Your surgeon may have given you specific instructions to prepare for surgery. Please follow surgeonspecific instructions & call surgeon's office with any questions. Fasting: Follow the eating and drinking instructions below unless otherwise instructed by your surgeon. No solid food or liquids containing fats, including milk*, after midnight. On the day of your procedure, you should only have clear liquids (see ???Acceptable Liquids?? listed below). Due to a temporary national IV fluid conservation effort, we ask that you hydrate on the day of surgery and please Stop drinking 2 hours before your Procedure time to the hospital. Acceptable Liquids: DO NOT ADD THICKENERS TO ANY LIQUIDS Water Clear apple juice Clear white grape juice Clear sports drinks / Pedialyte (no protein or coconut water based sports drinks) *Children under 3 years of age: Water- up to 2 hours before surgical time Clear apple juice- up to 2 hours before surgical time Clear white grape juice- up to 2 hours before surgical time Clear sports drinks / Pedialyte- up to 2 hours before surgical time Breast milk - up to 4 hours before surgical time - *do not add cereals Non-human milk or formula - up to 6 hours before surgical time *do not add cereal or use formula with cereal already added Shower: with an ANTIBACTERIAL SOAP (or scrub sponge if provided by your surgeon's office) the nightbefore surgery and the morning of surgery. Do not shave your surgical site for 3 days prior to surgery. After your morning shower avoid using creams, lotion, powders, deodorant, makeup, hairspray, perfumes or colognes. Remove all fingernail indonesian, makeup, jewelery and body piercings before surgery. Ride Home: We require you have a responsible adult to drive you home after surgery or to accompany you if getting home via Taxi or Bus. If your ride cannot wait for you at the hospital, they still need to come in to pick you up, to assist with medication pickle water pump operator from pharmacy, review of discharge instructions and surgical consult. We ask that your ride stay within 15 minutes of the hospital for pickle water pump operator. Medications: Take as directed above with a sip of water on day of surgery. (If a medication must betaken with something other than clear liquids or sips of water, please call the PreAdmission Testing Clinic at for guidance.) Bring a list of your medications to the hospital. Please list when you last took each of medication. Leave actual medications at home unless told otherwise. CPAP/BiPAP: Bring your cleaned CPAP/BiPAP machine into preop on the day of your surgery. Be sure toempty the water chamber prior to transport Smoking: Stop smoking tobacco and marijuana prior to surgery as much as possible, avoiding it for aminimum of 24 hours prior to surgery. Legal Guardianship: BRING Proof of Guardianship on Day of Surgery. Legal Guardian must be availableon the Day of Surgery by Telephone if not physically present on the Day of Surgery. Clothing: Wear loose fitting and comfortable clothing. For arm and hand surgery wear a zip up or button up shirt with short sleeves. For eye surgery, do not wear a shirt that pulls over the head unless it has a wide neck opening. Valuables: Do not bring any on day of surgery, except money you may need for you hospital co-pay orto purchase any prescriptions. Visitation: Typically, two visitors are allowed in the Preop and Recovery areas. Each area of the hospital may have different visitation guidelines. Contact Information: Prior to Day of Surgery, call Pre-Admission Testing Clinic: [phone]. PAT toll Free Number . For Day of Surgery: [facility]: [phone] [facility]; [phone]. Visit our website for more information: [email or web address] Advance Directives: You can get the forms in a doctor's office, a hospital, a law office, a state or local office for the aging, a senior center, a penitentiary, or online. For more information, including forms for your state, see the [employer] website ([email or web address]). If not already done, please bring a signed copy of your Advance Directive with you to the hospital so that it may scanned into your electronic health record. documented in this encounter Plan of Treatment Not on file documented as of this encounter Visit Diagnoses Not on filedocumented in this encounter Discontinued Medications Medication Sig Discontinue Reason Start Date End Da te atorvastatin (LIPITOR) 40 mg tablet Take 40 mg by mouth daily. Has not taken for 1 week Error 09/21/2024 lisinopril (PRINIVIL, ZESTRIL) 10 mg tablet Take 10 mg by mouth daily. Error 09/21/2024 alendronate (FOSAMAX) 70 mg tablet Take 70 mg by mouth every 7 days. With full glass water,on empty stomach; nothing by mouth or lie down for next 30 min Error 09/21/2024 GUAIFENESIN (MUCINEX ORAL) Take by mouth. Error 09/21/2024 predniSONE (DELTASONE) 10 mg tablet Take 10 mg by mouth daily. Took 06/19 and 06/20 Error 09/21/2024 FLUTICASONE PROPIONATE (FLOVENT HFA INHALATION) Inhale as directed. Error HYDROcodone-acetaminophe n (LORTAB) 10-500 mg per tablet Take 1 Tab by mouth every 4 hours. Error 09/21/2024 traMADol (ULTRAM) 50 mg tablet Take 50 mg by mouth every 6 hours Error 09/21/2024 aspirin chewable 81 mg tablet Take 81 mg by mouth daily. Error 09/21/2024 sertraline (ZOLOFT) 50 mg tablet Take 50 mg by mouth daily. Error 09/21/2024 cholecalciferol, Vitamin D3, 1,000 unit tablet Take 1,000 Units by mouth daily. Not taking it daily Error 09/21/2024 metoprolol (LOPRESSOR) 50 mg tablet Take 25 mg by mouth daily. Error 09/21/2024 documented as of this encounter Historical Medications * This list may reflect changes made after this encounter. pantoprazole (PROTONIX) 40 mg tablet Take 1 Tablet by mouth daily before breakfast. buprenorphine-nal oxone (SUBOXONE) 2-0.5 mg tablet, sublingual Place 1 Tablet under the tongue daily. added in this encounter Care Teams Control Systems Developer Relationship Specialty Start Date End Date Wolfgang Cagle MD [address] [place] [address] PCP - General Internal Medicine - Primary Care 12/30/22 09/29/24 documented as of this encounter
--- OUTSIDE RECORDS SUMMARY | 2024-10-13 18:35 | XMS_ITS | Encounter Summary ---
Author Organization [facility] Address [address] [place] [address] Care Team Providers Care Customer Service Technician Name Role Phone Wolfgang Cagle MD Primary Care Provider [phone] Reason for Referral * (Routine/Next Available) - Receiving Office to Obtain Authorization Specialty Diagnoses / Procedures Referred By Contac t Referred To Contact Procedures CT OUTSIDE IMAGES CHEST ABDOMEN PELVIS Imaging, External Referral ID Status Reason Start Date Expiration Date Visits Requested Visits Authorized [id number] Receiving Office to Obtain Authorization 4 1 1 Reason for Visit * (Routine/Next Available) - Receiving Office to Obtain Authorization Specialty Diagnoses / Procedures Referred By Contac t Referred To Contact Procedures CT OUTSIDE IMAGES CHEST ABDOMEN PELVIS Imaging, External Referral ID Status Reason Start Date Expiration Date Visits Requested Visits Authorized [id number] Receiving Office to Obtain Authorization 4 1 1 Encounter Details Date Type Department Care Team (Latest Contact Info) Description 06/15/2024 - 06/15/2024 23:59 EDT Hospital Encounter [facility] Secondary Reads [place] Discharge Disposition: Home or [...] Date/Time Associated Diagnosis Comments CT OUTSIDE IMAGES CHEST ABDOMEN PELVIS Routine 06/15/2024 13:55 EDT documented in this encounter Results * CT OUTSIDE IMAGES CHEST ABDOMEN PELVIS (06/15/2024 13:55 EDT) Narrative 08/31/2024 13:55 EST This is a non-reportable exam. us External Imaging IMG OTHER IMAGING ORDERABLES Fi nal Result documented in this encounter Visit Diagnoses Not on filedocumented in this encounter Care Teams Customer Service Technician Relationship Specialty Start Date End Date Wolfgang Cagle MD [address] [place] [id number] PCP - General Internal Medicine - Primary Care 12/30/22 09/29/24 documented as of this encounter
--- OUTSIDE RECORDS SUMMARY | 2024-10-13 18:35 | XMS_ITS | Encounter Summary ---
Author Organization [facility] Address [address] [place] [address] Care Team Providers Care Rotoformer Backtender Name Role Phone Wolfgang Cagle MD Primary Care Provider [phone] Reason for Visit * Reason Comments Hernia * Referral (Routine) - Authorization Not Required Specialty Diagnoses / Procedures Referred By Contac t Referred To Contact General Surgery Diagnoses Ventral hernia without obstruction or gangrene Clare Lama MD [address] [place] [phone] Phone: tel: fax: [facility] General Surgery [address] [place] [phone] Phone: tel: fax: Referral ID Status Reason Start Date Expiration Date Visits Requested Visits Authorized [id number] Authorization Not Required 1 1 Encounter Details Date Type Department Care Team (Late st Contact Info) Description 09/02/2024 13:45 EST Office Visit [facility] General Surgery [address] [place] [phone] Jenaro Bills MD [address] [place] [address] [phone] Incarcerated incisional hernia (Primary Dx) Social History Tobacco Use Types [...] on file documented as of this encounter Last Filed Vital Signs Vital Sign Reading Time Taken Comments Blood Pressure 145/103 09/02/2024 1345 EST Pulse 68 09/02/2024 1345 EST Temperature - - Respiratory Rate - - Oxygen Saturation - - Inhaled Oxygen Concentration - - Weight 77.1 kg (170 lb) 09/02/2024 1345 EST Height 154.9 cm (5' 1) 09/02/2024 1345 EST Body Mass Index 32.12 09/02/2024 1345 EST documented in this encounter Functional Status * Are you [...] Kaleb Woodall RN documented in this encounter Progress Notes * Jenaro Bills MD - 09/02/2024 1345 EST General Surgery H&P CC - Chief Complaint Patient presents with Hernia HPI: Savannah Avery is a 69 y.o. female presenting to the general surgery clinic for evaluation regarding an epigastric incisional hernia. Patient notes that many years ago she had an open cholecystectomy with a transverse abdominal incision. Sometime after that she noticed bulging in the area ofher epigastrium. This may have been related to strenuous activity she was doing a few years ago. The history is somewhat confusing because she conflates many of the symptoms and evaluation of this with an apparent hiatal hernia for which she has had prior upper endoscopies. The epigastric hernia has been demonstrated on multiple prior CTs. On her most recent CT there was concern about a possible duodenal mural lesion. They are aware that follow-up ERCP was recommended. She also had an episode of respiratory symptoms with an elevated D-dimer. Definitive imaging was apparently not performed for multiple reasons, but she did improve with steroid treatment and it is suspected that this was actually a COPD exacerbation. She does note that she gained a fair amount of weight while on the steroids which she is trying to lose now that she has discontinued them. When asked about smoking sensation, she becomes tearful describing multiple traumatic family eventsthat have happened recently. No fevers or chills. No current nausea or vomiting. She notes that she is on pantoprazole. She alsonotes a history of diverticular disease but no known recent history of diverticulitis. Past Medical History: Diagnosis Date Anxiety Arthritis Asthma Cancer (HCC-CMS) Cerebral artery occlusion with cerebral infarction (HCC-CMS) COPD (chronic obstructive pulmonary disease) (HCC-CMS) Depression Diabetes mellitus (HCC-CMS) Environmental allergies GERD (gastroesophageal reflux disease) Heart attack ([facility]) Hypertension Irritable bowel syndrome Neuromuscular disease (HCC-CMS) Osteoporosis Pancreatitis Seizures ([facility]) Past Surgical History: Procedure Laterality Date ABDOMEN SURGERY APPENDECTOMY CHOLECYSTECTOMY TUBAL LIGATION WRIST GANGLION EXCISION Allergies Allergen Reactions Codeine Novacaine [Procaine (Bulk)] Pt states it doesn't work Penicillins Unable To Assess Itching Omni 350 [place] [facility] [place] It[place] eyes Current Outpatient Medications Medication Sig Dispense Refill acetaminophen (TYLENOL) 500 mg tablet Take 500 mg by mouth every 4 hours. Takes 2 daily alendronate (FOSAMAX) 70 mg tablet Take 70 mg by mouth every 7 days. With full glass water,on emptystomach; nothing by mouth or lie down for next 30 min aspirin chewable 81 mg tablet Take 81 mg by mouth daily. atorvastatin (LIPITOR) 40 mg tablet Take 40 mg by mouth daily. Has not taken for 1 week budesonide-formoterol HFA (SYMBICORT) 160-4.5 mcg/actuation HFA aerosol inhaler inhaler Inhale as directed 2 times daily. cholecalciferol, Vitamin D3, 1,000 unit tablet Take 1,000 Units by mouth daily. Not taking it daily FLUTICASONE PROPIONATE (FLOVENT HFA INHALATION) Inhale as directed. GUAIFENESIN (MUCINEX ORAL) Take by mouth. HYDROcodone-acetaminophen (LORTAB) 10-500 mg per tablet Take 1 Tab by mouth every 4 hours. levalbuterol (XOPENEX HFA) 45 mcg/actuation inhaler Inhale 90 mcg as directed every 6 hours lisinopril (PRINIVIL, ZESTRIL) 10 mg tablet Take 10 mg by mouth daily. LORATADINE (CLARITIN ORAL) Take by mouth. LORazepam (ATIVAN) 2 mg tablet Take 2 mg by mouth 2 times daily metoprolol (LOPRESSOR) 50 mg tablet Take 25 mg by mouth daily. nicotine polacrilex (NICORETTE) 2 mg gum Take 2 mg by mouth every 2 hours. predniSONE (DELTASONE) 10 mg tablet Take 10 mg by mouth daily. Took 06/19 and 06/20 sertraline (ZOLOFT) 50 mg tablet Take 50 mg by mouth daily. tiotropium (SPIRIVA) 18 mcg inhalation capsule Inhale 18 mcg as directed daily traMADol (ULTRAM) 50 mg tablet Take 50 mg by mouth every 6 hours No current facility-administered medications for this visit. Family History Problem Relation Age of Onset Ovarian Cancer Mother Depression Mother High Blood Pressure Mother Cancer Mother Heart Disease Mother Diabetes Mother *Other(comment) Mother kidney failure Unknown Mother chrons Stomach Cancer Mother Depression Father High Blood Pressure Father Anesthesia Problem Father Kidney Disease Father Cancer Father bladder and throat *Other(comment) Father hernia Early Sister Ovarian Cancer Maternal Aunt Ovarian Cancer Maternal Grandmother Colon Cancer Maternal Grandmother High Blood Pressure Maternal Grandmother Colon Cancer Maternal Grandfather High Blood Pressure Maternal Grandfather Colon Cancer Paternal Grandmother High Blood Pressure Paternal Grandmother Colon Cancer Paternal Grandfather High Blood Pressure Paternal Grandfather Early Grandchild Social History Socioeconomic History Marital status: Single Tobacco Use Smoking status: Every Day Current packs/day: 1.50 Average packs/day: 1.5 packs/day for 49.0 years (73.5 ttl pk-yrs) Types: Cigarettes Substance and Sexual Activity Alcohol use: No Alcohol/week: 0.0 standard drinks of alcohol Drug use: No Review of Systems A ten point review of systems was performed and was negative except for pertinent positives noted in the HPI O: BP (!) 145/103 Pulse 68 Ht 154.9 cm (61) Wt 77.1 kg (170 lb) BMI 32.12 kg/m?? Physical Examination: General appearance - alert, well appearing, and in no distress and overweight. Strong odor of tobacco Mental status - alert, oriented to person, place, and time, occasionally anxious or teary Chest - no tachypnea, retractions or cyanosis, no significant coughing during visit Heart - normal rate and regular rhythm Abdomen -obese, soft with obvious protruding mass in the epigastric area above a well-healed transverse scar. Not fully reducible in the supine position and some tenderness with attempts at reduction Musculoskeletal - no joint tenderness, deformity or swelling, no muscular tenderness noted Labs: No results found for this or any previous visit (from the past 24 hours). Imaging: CT OUTSIDE IMAGES ABDOMEN PELVIS Result Date: 08/31/2024 This is a non-reportable exam. Images were reviewed by me and report listed separately in her chart was reviewed. No pancreatic mass appreciated, but suggestion of a mural lesion in the duodenum near the ampulla. Follow-up ERCP recommended Herniated fatty mass in the epigastric area with stomach directly subjacent to this but not herniated. Some stranding of the fatty tissue within the hernia sac. Diverticulosis without obvious diverticulitis is also noted. Assessment: 69 y.o. female presenting with asymptomatic chronic epigastric incisional hernia. Multiple other chronic medical issues. Relevant concerns were indeterminate duodenal lesion. They are aware that this will need to be assessed prior to proceeding with any surgical repair. Once this is addressed and no surgical intervention is needed, then surgical planning for hernia repair is appropriate. I discussed with her that I would strongly recommend that she abstain from smoking for 4 to 6 weeks perioperatively to increase her risk of a successful repair and reduce the risk of complications, specifically infection and hernia recurrence. She notes that she is currently not mentally ready to stop smoking, but she hopes that she will be in the near future. We also discussed gradual modest weight loss as possible which will also help improve her chances of success. Risks and benefits of surgery were explained, including but not limited to risks of anesthetic, bleeding, infection, recurrence, bowel injury, nerve injury, arterial injury, prominent scarring and discomfort, scar contracture, and non- resolution of symptoms. The patient is agreeable with proceedingwith surgical intervention. Plan: Follow-up regarding duodenal lesion concern identified on CT. Following that, once patient is ready for at least temporary discontinuation of smoking, follow-up to schedule hernia repair. Recommend modest gradual weight loss in the interim. Jenaro Bills MD 09/02/2024 14:07 documented in this encounter Plan of Treatment Not on file documented as of this encounter Visit Diagnoses Diagnosis Incarcerated incisional hernia- Primary Incisional hernia with obstruction documented in this encounter Care Teams Rotoformer Backtender Relationship Specialty Start Date End Date Wolfgang Cagle MD [address] [place] [address] PCP - General Internal Medicine - Primary Care 12/30/22 09/29/24 documented as of this encounter
--- OUTSIDE RECORDS SUMMARY | 2024-10-13 18:35 | XMS_ITS | Encounter Summary ---
Author Organization [facility] Address [address] [place] [address] Care Team Providers Care Research Environmental Scientist Name Role Phone Natanael Saab MD Primary Care Provider Unavailabl e Encounter Details Date Type Department Care Team (Late st Contact Info) Description 03/16/2018 Historical Results Only [facility] Radiology Results [address] [place] [address] Clark Gordon MD [address] [place] [phone] Social History Tobacco Use Types Packs/Day Years [...] Procedure Name Priority Date/Time Associated Diagnosis Comments TROPONIN I Routine 03/16/2018 23:59 EDT XR CHEST 2 VIEWS 03/16/2018 22:0 6 EDT COMPLETE BLOOD COUNT WITH DIFFERENTIAL (AUTO) Routine 03/16/2018 21:00 EDT TROPONIN I Routine 03/16/2018 21:00 EDT MAGNESIUM Routine 03/16/2018 21:00 EDT COMPREHENSIVE METABOLIC PANEL (CMP) Routine 03/16/2018 21:00 EDT D-DIMER Routine 03/16/2018 20:48 EDT documented in this encounter Results * TROPONIN I (03/16/2018 23:59 EDT) Pathologist [facility] Troponin I (ng/mL) <0.012 0.000 - 0.034 ng/mL 03/17/2018 0:43 EDT [facility] Comment: Interpretation comments: ??Cutoff for a positive troponin result is set at the 99th percentile of the upper reference limit. ??Elevated troponin must always be interpreted in the context of the clinical presentation. ?Serial troponin testing 3-6 hr from baseline is favored over relying on a single troponin level. 03/16/2018 23:5 9 EDT 03/17/2018 0:12 EDT Narrative [facility] - 03/17/2018 0:43 EDT Time to be drawn: At [facility] us Rajeev Retana MD CHEMISTRY & BLOOD GAS ORDERAB LES Final Result Performing Organization Address [facility]/State/ZIP Co de Phone Number [facility] * XR CHEST 2 VIEWS (03/16/2018 22:06 EDT) Anatomical Region Laterality Modality Other 03/16/2018 22:0 6 EDT Narrative 03/16/2018 22:06 EDT ? EXAM: RADIOLOGY/CHEST (PA ?? LAT) ?EX. D/ (2132) ? CLINICAL INFORMATION: ? chest pain ? EXAM: ? XR Chest, 2 Views ? CLINICAL HISTORY: ? 63 years old, female; Pain; Chest pain; Type not specified ? TECHNIQUE: ? Frontal and lateral views of the chest. ? COMPARISON: ? CR - CHEST-PORTABLE 2017-01-24 16:27 ? FINDINGS: ? Lungs: ??Stable increased lucency upper lungs compatible with ? known emphysematous disease. Symmetric lung volumes. No ? segmental consolidations. ? Pleural space: ??Unremarkable. ??No pneumothorax. ? Heart: ??Unremarkable. ??No cardiomegaly. ? Mediastinum: ??Unremarkable. ? Bones/joints: ??Unremarkable. ? Vasculature: ??Stable minimally calcified aortic arch. ? Tubes, lines and devices: ??EKG leads project over the chest. ? IMPRESSION: ? No acute intrathoracic disease. ? REPORT SIGNED IN OTHER VENDOR SYSTEM 03/16/2018 ?Reported By: Fadi Talavera MD ? CC: Clark Gordon MD ? Transcribed Date/Time: 03/16/2018 (2205) ? Tester Compressed Gases: ? Printed Date/Time: 02/19/2019 (8830) ? PAGE 1 ? Signed Report ? Procedure Note Fadi Talavera MD - 07/08/2019 EXAM: RADIOLOGY/CHEST (PA LAT) EX. D/ (2131) CLINICAL INFORMATION: chest pain EXAM: XR Chest, 2 Views CLINICAL HISTORY: 63 years old, female; Pain; Chest pain; Type not specified TECHNIQUE: Frontal and lateral views of the chest. COMPARISON: CR - CHEST-PORTABLE 2017-01-24 16:27 FINDINGS: Lungs: Stable increased lucency upper lungs compatible with known emphysematous disease. Symmetric lung volumes. No segmental consolidations. Pleural space: Unremarkable. No pneumothorax. Heart: Unremarkable. No cardiomegaly. Mediastinum: Unremarkable. Bones/joints: Unremarkable. Vasculature: Stable minimally calcified aortic arch. Tubes, lines and devices: EKG leads project over the chest. IMPRESSION: No acute intrathoracic disease. REPORT SIGNED IN OTHER VENDOR SYSTEM 03/16/2018 Reported By: Fadi Talavera MD CC: Clark Gordon MD Transcribed Date/Time: 03/16/2018 (2205) Tester Compressed Gases: Printed Date/Time: 02/19/2019 (5379) PAGE 1 Signed Report Clark Gordon MD IMG DIAGNOSTIC IMAGING O RDERABLES Final Result * MAGNESIUM (03/16/2018 21:00 EDT) Magnesium 2.20 1.7 - 2.8 mg/dL 03/16/2018 21:24 [facility] 03/16/2018 21:0 0 EDT 03/16/2018 21:06 EDT Clark Gordon MD CHEMISTRY & BLOOD GAS OR DERABLES Final Result [facility] * COMPREHENSIVE METABOLIC PANEL (CMP) (03/16/2018 21:00 EDT) Pathologist [facility] Albumin % 4.2 3.4 - 4.9 g/dL 03/16/2018 21:24 [facility] ALKALINE PHOSPHATASE - [facility] 73 38 - 126 U/L 03/16/2018 21:24 [facility] BILIRUBIN TOTAL 0.4 0.2 - 1.3 mg/dL 03/16/2018 21:24 [facility] BUN - [facility] 12 10 - 26 mg/dL 03/16/2018 21:24 [facility] CALCIUM - [facility] 9.3 8.5 - 10.5 mg/dL 03/16/2018 21:24 [facility] Chloride 104 96 - 110 mmol/L 03/16/2018 21:24 [facility] CO2 Total 26 22 - 32 mEq/L 03/16/2018 21:24 [facility] CREATININE 1.04 0.52 - 1.04 mg/dL 03/16/2018 21:24 [facility] eGFR 54 03/16/2018 21:24 [facility] Comment: Stage 3: Moderate renal impairment is defined as GFR 30-59 Multiply result by 1.210 for patients. eGFR calculated using the IDMS-traceable MDRD Study Equation. ??(effective 07/04/2014) Anion Gap 9 0 - 18 03/16/2018 21:24 [facility] GLUCOSE - [facility] 83 70 - 100 mg/dL 03/16/2018 21:24 [facility] Potassium 3.9 3.5 - 5.0 mEq/L 03/16/2018 21:24 EDT [facility] Sodium 139 136 - 145 mEq/L 03/16/2018 21:24 EDT [facility] TOTAL PROTEIN - [facility] 7.2 6.2 - 8.2 gm/dL 03/16/2018 21:24 EDT [facility] SGOT/AST - [facility] 24 14 - 36 U/L 03/16/2018 21:24 EDT [facility] SGPT/ALT - [facility] 29 9 - 52 U/L 8 21:24 EDT [facility] 03/16/2018 21:0 0 EDT 03/16/2018 21:06 EDT Clark Gordon MD CHEMISTRY & BLOOD GAS OR DERABLES Final Result Performing Organization Address [facility]/ZIP Co de Phone Number [facility] * TROPONIN I (03/16/2018 21:00 EDT) [facility] [address] Troponin I (ng/mL) <0.012 0.000 - 0.034 ng/mL 03/16/2018 21:39 EDT [facility] Comment: Interpretation comments: ??Cutoff for a positive troponin result is set at the 99th percentile of the upper reference limit. ??Elevated troponin must always be interpreted in the context of the clinical presentation. ?Serial troponin testing 3-6 hr from baseline is favored over relying on a single troponin level. 03/16/2018 21:0 0 EDT 03/16/2018 21:06 EDT Clark Gordon MD CHEMISTRY & BLOOD GAS OR DERABLES Final Result [facility] * (ABNORMAL) COMPLETE BLOOD COUNT WITH DIFFERENTIAL (AUTO) (03/16/2018 21:00 EDT) [facility] [address] ABSOLUTE NEUTROPHIL COUN - [facility] 5.87 1.7 - 7.0 10e3/ul 03/16/2018 21:19 [facility] BASO # - [facility] 0.03 0.0 - 0.3 10e3/uL 03/16/2018 21:19 [facility] BASO % - [facility] 0 0 - 2 % 03/16/2018 21:19 [facility] EOS # - [facility] 0.10 0.05 - 0.5 10e3/uL 03/16/2018 21:19 [facility] EOS % - [facility] 1 0 - 5 % 03/16/2018 21:19 [facility] GRAN % - [facility] 58 40 - 80 % 03/16/2018 21:19 [facility] HEMATOCRIT - [facility] 43.6 34.0 - 47.0 % 03/16/2018 21:19 [facility] HEMOGLOBIN - [facility] 15.1 11.2 - 15.7 g/dl 03/16/2018 21:19 [facility] IG# - [facility] 0.02 0 - 0.07 10e3/uL 03/16/2018 21:19 [facility] IG% - [facility] 0.2 0 - 0.9 % 03/16/2018 21:19 [facility] LYMPH # - [facility] 3.61(H) 0.9 - 2.9 10e3/uL 03/16/2018 21:19 [facility] LYMPH% - [facility] 36 20 - 40 % 03/16/2018 21:19 [facility] MEAN CORPUSCULAR HGB - [facility] 31.7 26 - 34 pg 03/16/2018 21:19 [facility] MEAN CORPUSCULAR HGB CONC - [facility] 34.6 31 - 36 g/dL 03/16/2018 21:19 [facility] MEAN CELL VOLUME - [facility] 91.6 77 - 100 fl 03/16/2018 21:19 [facility] MONO # - [facility] 0.51 0.3 - 0.9 10e3/uL 03/16/2018 21:19 [facility] MONO% - [facility] 5 0 - 12 % 03/16/2018 21:19 EDT [facility] PLATELET COUNT 279 150 - 400 10e3/ul 03/16/2018 21:19 EDT [facility] RED BLOOD COUNT - [facility] 4.76 3.8 - 5.2 10e6/ul 03/16/2018 21:19 EDT [facility] RED CELL DISTRI WIDTH - [facility] 12.9 11.8 - 15.6 % 03/16/2018 21:19 EDT [facility] WHITE BLOOD COUNT - [facility] 10.1 3.5 - 10.5 10e3/ul 03/16/2018 21:19 EDT [facility] 03/16/2018 21:0 0 EDT 03/16/2018 21:07 EDT us Clark Gordon MD HEMATOLOGY & PF4 ORDERAB LES Final Result [facility] * (ABNORMAL) D-DIMER (03/16/2018 20:48 EDT) [facility] [address] D-Dimer 0.86(HH) mg/L FEU 03/16/2018 23:45 EDT [facility] Comment: <0.5 mg/L = Negative DVT/PE Negative Predictive Value Cutoff*: <0.50 mg/L (FEU) *Intended for use in conjunction with a non-high pre-test probability (PTP) assessment to aid in exclusion of DVT/PE. Reference Range for Normal Health Subjects; <0.59 mg/L (FEU) 03/16/2018 20:4 8 EDT 03/16/2018 23:31 EDT us Clark Gordon MD HEMATOLOGY & PF4 ORDERAB LES Final Result [facility] documented in this encounter Visit Diagnoses Not on filedocumented in this encounter Care Teams Research Environmental Scientist Relationship Specialty Start Date End Date Natanael Saab MD PCP - General 03/17/15 12/29/22 documented as of this encounter
--- OUTSIDE RECORDS SUMMARY | 2024-10-13 18:35 | XMS_ITS | Referral Summary ---
Author Organization [facility] Address [address] [place] [address] Care Team Providers Care Metal Room Dental Technician Name Role Phone Clare Lama MD Primary Care Provider Encounters Date Type Department Care Team Description 09/30/2024 14:29 EST - 09/30/2024 23:59 EST Hospital Encounter [facility] Endoscopy [address] [id number] Kalen Bowles MD Leopold, Robin, MD Abnormal findings on diagnostic imaging of abdomen Discharge Disposition: Home or Self Care 09/30/2024 15:41 EST Anesthesia Event [address] [id number] Hung Doan MD 09/29/[address] [address] Kalen Bowles MD Appointment Related 09/21/2024 14:40 EST - 09/21/2024 15:08 EST Hospital Encounter [facility] Pre-Surgical Testing [address], [place] [id number] Discharge Disposition: Home or Self Care 09/03/[address] [phone] Kalen Bowles MD Coordination Of Care 09/03/2024 Transcribe Orders [address] [place] [address] Clare Lama MD Abnormal findings on diagnostic imaging of abdomen (Primary Dx) 09/02/2024 13:[address] [facility] General Surgery [address] [place] [address] Jenaro Bills MD Incarcerated incisional hernia (Primary Dx) 08/18/2024 - 08/18/2024 23:59 EST Hospital Encounter [facility] Secondary Reads [place] Discharge Disposition: Home or Self Care from Last 3 Months Allergies Active Allergy Reactions Criticality Noted Date Comments Codeine 04/29/2013 Procaine (Bulk) 10/16/2015 Pt states it doesn't work Penicillins 04/29/2013 Unable To Assess Itching 06/20/2016 Omni 350 - reaction 06/11/16 at [facility] - reaction: Itching eyes Ondansetron Hcl Anaphylaxis [...] mouth daily. Not taking it daily 09/21/19 25 Discontinu ed(Error) traMADol (ULTRAM) 50 mg tablet Take 50 mg by mouth every 6 hours 09/21/19 25 Discontinu ed(Error) FLUTICASONE PROPIONATE (FLOVENT HFA INHALATION) [...] original. Patient has given permission for [facility] to verbally discuss the following information with [...] bilateral low back pain with sciatica Osteomyelitis ([facility]) 03/06/2016 Pyogenic inflammation of bone ([facility]) 03/05/20 16 Abdominal pain 04/29/2013 Overview (06/01/2015): ICD10 Update Auto Replacement Incarcerated incisional hernia 04/29/2013 Overview (06/01/2015): ICD10 Update Auto Replacement Social History Tobacco Use Types Packs/Day Years [...] on file Sexual Orientation Not on file Last Filed Vital Signs Vital Sign Reading [...] Body Mass Index 32.12 09/30/2024 1444 EST Functional Status * Are you deaf or [...] Yes 03/07/2016 14:43 EDT Kaleb Mayo RN Mental Status * Because of a physical, mental, or emotional condition, does this person have serious difficulty concentrating, remembering, or making decisions? Answer Entry Date Author Yes 03/07/2016 14:43 EDT Kaleb Mayo RN Plan of Treatment Not on file Procedures Procedure Name Priority Date/Time Associated Diagnosis [...] 10/01/2024 09:47:07 AM By Kalen Bowles MD us Kalen Bowles MD GI PROCEDURE ORDERABLES Fin al Result * HEPATIC FUNCTION PANEL (ALB,ALK PHOS,ALT,AST,DBIL,TOT TYSHAWN,TOT PROT) (09/30/2024 16:23 EST) Total Protein 6.4 6.3 - 8.2 g/dL 09/30/2024 17:28 [facility] Albumin 3.9 3.4 - 4.9 g/dL 09/30/2024 17:28 [facility] Bilirubin, Total <0.5 <1.4 mg/dL 09/30/19 17:28 [facility] Conjugated Bilirubin 0.0 <=0.3 mg/dL 09/30/2024 17:28 [facility] Unconjugated Bilirubin 0.5 <=1.1 mg/dL 09/30/2024 17:28 [facility] Alkaline Phosphatase 51 38 - 126 U/L 09/30/2024 17:28 [facility] ALT 18 <35 U/L 09/30/2024 17:28 [facility] AST 26 15 - 46 U/L 09/30/2024 17:28 [facility] Calculated Total Bilirubin 0.5 <1.4 mg/dL 09/30/2024 17:28 [facility] Blood VENOUS BLOOD / Unknown Venipuncture / Unknown 09/30/2024 16:23 EST 09/30/2024 16:45 EST us Kalen Bowles MD CHEMISTRY & BLOOD GAS ORDER MARTITA Final Result [facility] [address] [place] [address] * (ABNORMAL) POCT GLUCOSE, INTERFACED (09/30/2024 15:15 EST) Glucose, POC 111(H) 70 - 100 mg/dL 09/30/2024 15:19 EST [facility] HN LAB POC COMMENT (GLUCOSE) Test Performed by Nursing Services 09/30/2024 15:19 [facility] Blood CAPILLARY BLOOD / Unknown 09/30/2024 15:15 EST 09/30/2024 15:19 EST Kalen Bowles MD POINT OF CARE TEST ORDERABL ES Final Result [facility] [address] [place] [address] * CT OUTSIDE IMAGES ABDOMEN PELVIS (08/18/2024 [...] CC: ? Transcribed Date/Time: 10/13/2018 (1723) ? Social Work Instructor: SCR ? Printed Date/Time: 02/21/2019 (1101) ? PAGE 2 ? Signed Report ? [...] Nasir Morocho MD CC: Transcribed Date/Time: 10/13/2018 (2968) Social Work Instructor: Printed Date/Time: 02/21/2019 (2113) PAGE 2 Signed Report Wolfgang Cagle MD IMG CT ORDERABLES Final Result from Last 3 Months or Most Recently Relevant to Health Maintenance [place] Advance Directives For more information, please contact: [phone] Documents on File Type Date Recorded Patient Solution Strategist Expl anation Advance Directive 03/17/2015 7:42 [place] for Health Care-Signed Advance Directive 03/17/2015 4:53 * Full Code (Latest Code Status on File) Date Activated Date Inactivated Comments 03/05/2016 1:04 03/06/2016 21:08 Question Answer Comments Reason for decision includes: Written do cumentation of patient's wishes (Advance Directive) Who participated in the discussion? Patient Care Teams Metal Room Dental Technician Relationship Specialty Start Date End Date Clare Lama MD [address] [place] [phone] PCP - General Family Medicine - Primary Care 09/30/24
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
--- OUTSIDE RECORDS SUMMARY | 2024-10-13 18:35 | XMS_ITS | Encounter Summary ---
Author Organization [facility] Address [address] [place] [address] Care Team Providers Care Certified [employer] Engineer Name Role Phone Natanael Saab MD Primary Care Provider Wolfgang Bhatt MD Primary Care Provider [phone] Clare Lama MD Primary Care Provider [phone] Encounter Details Date Type Department Care Team (Late st Contact Info) Description 12/13/2019 Lab Requisition [facility] Pathology & Laboratory Medicine - [facility] [address] [place] [address] Niall Oh MD [address] [place] [phone] Encounter for other general examination Social History [...] Priority Date/Time Associated Diagnosis Comments ZZCOVID-19 TEST [facility] PCR Today 12/13/2019 11:39 EDT Encounter for other general examination documented in this encounter Results * COVID-19 TEST [facility] (12/13/2019 11:39 EDT) COVID-19 rt-PCR Result Negative Negative 12/14/2019 18:37 EDT [facility] Comment: Negative results do not preclude 2019-nCoV infection and should not be used as the sole basis for treatment or other patient management decisions. Negative results must be combined with clinical observations, patient history, and epidemiological information. This test has not been FDA cleared or approved. This test has been internally validated, but independent review and determination of emergency use authorization ??(EUA) by the FDA is pending. Performed on the [employer] Fast Swab ENTIRE NASOPHARYNX / Unknown 12/13/2019 11:39 EDT 12/13/2019 20:32 EDT us Niall Oh MD MICROBIOLOGY - GENERAL JAYLAN NOYOLA Final Result [facility] [address] [place] [address] documented in this encounter Visit Diagnoses Diagnosis Encounter for other general examination documented in this encounter Care Teams Certified Novell Engineer Relationship Specialty Start Date End Date Natanael Saab MD PCP - General 03/17/15 12/29/22 Wolfgang Cagle MD [address] [place] [address] PCP - General Internal Medicine - Primary Care 12/30/22 09/29/24 Clare Lama MD [address] [place] [address] PCP - General Family Medicine - Primary Care 09/30/24 documented as of this encounter
--- OUTSIDE RECORDS SUMMARY | 2024-10-13 18:35 | XMS_ITS | Encounter Summary ---
Author Organization [facility] Address [address] [place] [address] Care Team Providers Care Usability Specialist Name Role Phone Natanael Saab MD Primary Care Provider Unavailabl e Reason for Visit * Reason Comments COVID-19 R/O COVID - SYMPTOMS X4 DAYS Encounter Details Date Type Department Care Team (Late st Contact Info) Description 03/15/2020 9:00 EDT Nurse Only [facility] - Mobile Testing Department [address] [place] [address] Nurse, [facility] Mobile Testing Screening for viral disease (Primary Dx) Social History Tobacco Use Types [...] Sign Reading Time Taken Comments Blood Pressure - - Pulse 78 03/15/2020 0925 EDT Temperature - - Respiratory Rate - - Oxygen Saturation 96% 03/15/2020 0925 EDT Inhaled Oxygen Concentration - - Weight - - Height - - Body Mass Index - - documented in this encounter Functional Status * Are you deaf or do you have serious difficulty hearing? Answer Date of Assessment Author No 03/05/2016 1:44 EDT Ravi Mayo RN * Are you blind or do you have serious difficulty seeing, even when wearing glasses? Answer Date of Assessment Author No 03/05/2016 1:44 EDT Ravi Mayo RN * Do you have serious difficulty [...] Kaleb Mayo RN documented in this encounter Progress Notes * Josie Macias - 03/15/2020 0900 EDT Reason for visit - Covid 19 Screening HPI and Provider order- It is confirmed that patient qualifies for testing, C-19 testing has been recommended and ordered by provider Education - Patient offered Covid counseling and was provided with Covid home instructions. Vital Signs obtained and put in chart. Brief Assessment- Patient in no acute distress and tolerated testing well. Nurse performing swab/service today - Provider on site today - Diagnosis / code - Screening for other viral disease, Z11.59 Nurse Encounter charge [id number] documented in this encounter Plan of Treatment Not on file documented as of this encounter Procedures Procedure Name Priority Date/Time Associated Diagnosis Comments COVID-19 TESTING Routine 03/15/2020 9:47 EDT Screening for viral disease documented in this encounter Results * COVID-19 TESTING (03/15/2020 9:47 EDT) Performing Lab [place] 03/18/2020 12:17 EDT [facility] Comment: Please indicate the Triage TierNO Test performed or referred by The [address] [address] COVID-19 rt-PCR Result Not Detected Negative 03/18/2020 12:17 EDT [facility] Comment: 2019-novel Coronavirus (2019-nCoV) not detected by [...] in accordance with CLIA regulations, College [employer] (CAP) guidelines (Nov 18, 2019), and FDA guidance (Oct 30, 2019). This test is only for use under the Food and Drug Administration's Emergency Use Authorization. 03/15/2020 9:47 EDT 03/15/2020 12:23 EDT us Francoise Light MD MICROBIOLOGY - GENERAL ORDERAB LES Final Result [facility] [address] [place] [address] documented in this encounter Visit Diagnoses Diagnosis Screening for viral disease- Primary Special screening examination for unspecified viral disease documented in this encounter Care Teams Usability Specialist Relationship Specialty Start Date End Date Natanael Saab MD PCP - General 03/17/15 12/29/22 documented as of this encounter
--- OUTSIDE RECORDS SUMMARY | 2024-10-13 18:36 | XMS_ITS | Encounter Summary ---
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 [address] [place], [place] [id number] Social History Tobacco Use Types Packs/Day Years [...] Date/Time Associated Diagnosis Comments TROPONIN I Routine 12/08/2016 22:[address] ANGIO CHEST 12/08/2016 22:18 EDT URINALYSIS/COMPLETE - CV Routine 12/08/2016 20:36 EDT THYROID CASCADE Routine 12/08/2016 20:27 EDT PTT Routine 12/08/2016 20:27 EDT PROTIME Routine 12/08/2016 20:27 EDT PROTIME Routine 12/08/2016 20:27 EDT ETHYL ALCOHOL - [facility] Routine 12/08/2016 20:19 EDT COMPLETE BLOOD COUNT WITH DIFFERENTIAL (AUTO) Routine 12/08/2016 20:19 EDT TROPONIN I Routine 12/08/2016 20:19 EDT BACTERIAL CULTURE, URINE Routine 12/08/2016 20:19 EDT MAGNESIUM Routine 12/08/2016 20:19 EDT LIPASE Routine 12/08/2016 20:19 EDT COMPREHENSIVE METABOLIC PANEL (CMP) Routine 12/08/2016 20:19 EDT XR CHEST 2 VIEWS 12/08/2016 19:3 2 EDT BACTERIAL CULTURE, URINE Routine 12/08/2016 19:06 EDT documented in this encounter Results * TROPONIN I (12/08/2016 22:45 EDT) Pathologist [facility] Troponin I (ng/mL) <0.015 0.000 - 0.045 ng/mL 12/08/2016 23:17 EDT [facility] Comment: Interpretation comments: ??Cutoff for a positive troponin result is set at the 99th percentile of the upper reference limit. ??Elevated troponin must always be interpreted in the context of the clinical presentation. ?Serial troponin testing 3-6 hr from baseline is favored over relying on a single troponin level. 12/08/2016 22:4 5 EDT 12/08/2016 22:51 EDT Narrative [facility] - 12/08/2016 23:17 EDT Does PT Have a Latex Allergy? NO Time to be drawn: 2041 us Rafael Lopez MD CHEMISTRY & BLOOD GAS ORDER MARTITA Final Result [facility] * CT ANGIO CHEST W AND OR WO CONTRAST (12/08/2016 22:18 EDT) Anatomical Region Laterality Modality Chest Other 12/08/2016 22:1 8 EDT Narrative 12/08/2016 22:19 EDT ? EXAM: CAT SCAN/CTA AORTA CHEST/ABDOMEN ?EX. D/ (2208) ? CLINICAL INFORMATION: ? BACK PAIN RADIATING TO CHEST, ABDOMINAL PAIN. ? EXAM: ? CT Angiography Chest With Intravenous Contrast ? CLINICAL HISTORY: ? 61 years old, female; Pain; Chest pain; Abdominal pain; Other: ? Back pain radiating to chest, abdominal pain. ; Additional info: ? Back pain radiating to chest, abdominal pain. ? TECHNIQUE: ? Axial computed tomographic angiography images of the chest ? with intravenous contrast using pulmonary embolism protocol. ? This CT exam was performed using one or more of the following ? dose reduction techniques: ??automated exposure control, ? adjustment of the mA and/or kV according to patient size, and/or ? use of iterative reconstruction technique. ? Coronal and sagittal reformatted images were created and ? reviewed. ? CONTRAST: ? 100 mL of [id number] administered intravenously. ? COMPARISON: ? No relevant prior studies available. ? FINDINGS: ? Pulmonary arteries: ??No focal filling defects are identified ? within the pulmonary arterial tree to indicate pulmonary ? embolism. ? Aorta: ??The aorta demonstrates mild atherosclerotic ? calcification. ??No thoracic aortic aneurysm. ? Lungs: ?Central airways are clear.There are moderate ? emphysematous changes. ? Pleural space:There is no pleural fluid or pneumothorax. ? Heart: ??The heart is normal in size. ??No significant ? pericardial effusion. ? Bones/joints: ??No acute fracture. ??No dislocation. ? Soft tissues: ??Unremarkable. ? Lymph nodes: ??There are no enlarged axillary, hilar or ? mediastinal lymph nodes. ? IMPRESSION: ? No evidence of pulmonary embolism or aortic aneurysm. ? Emphysema. ? EXAM: ? CT Abdomen With Intravenous Contrast ? CLINICAL HISTORY: ? 61 years old, female; Pain; Chest pain; Abdominal pain; Other: ? PAGE 1 ? Signed Report ? (CONTINUED) ? Back pain radiating to chest, abdominal pain. ; Additional info: ? Back pain radiating to chest, abdominal pain. ? TECHNIQUE: ? Axial computed tomography images of the abdomen with ? intravenous contrast during the arterial phase of enhancement. ? This CT exam was performed using one or more of the following ? dose reduction techniques: ??automated exposure control, ? adjustment of the mA and/or kV according to patient size, and/or ? use of iterative reconstruction technique. ? Coronal and sagittal reformatted images were created and ? reviewed. ? CONTRAST: ? 100 mL of [id number] administered intravenously. ? COMPARISON: ? CT - CHEST WITH CONTRAST 06/11/2016 3:43:22 PM ? FINDINGS: ? Lower thorax: No acute findings. ? Aorta: ??Calcified atherosclerotic plaque is seen in the aorta ? and common iliac arteries without evidence of aneurysm. ??No ? dissection. ? Celiac trunk and mesenteric arteries: ??No acute findings. ??No ? occlusion or significant stenosis. ? Renal arteries: ??No acute findings. ??No occlusion or ? significant stenosis. ? Liver: ??Unremarkable. ??No mass. ? Gallbladder and bile ducts: ??The gallbladder is surgically ? absent. ??Mild prominence of the common bile duct is a common ? finding following cholecystectomy. ? Pancreas: ??Unremarkable. ??No ductal dilation. ??No mass. ? Spleen: ??Unremarkable. ??No splenomegaly. ? Adrenals: ??Unremarkable. ??No mass. ? Kidneys and ureters: ??Focal wedge-shaped cortical defects are ? identified in the upper and lower poles of the right kidney. ? Left kidney is normal. ??No hydronephrosis. ? Stomach and bowel: ??The bowel is nonobstructed. ??No mucosal ? thickening. ? Intraperitoneal space: ??There is no ascites, mesenteric edema ? or free intraperitoneal air. ? Bones/joints: ??The osseous structures are demineralized. ? Soft tissues: ??Unremarkable. ??No mass. ? Lymph nodes: ??There are no enlarged mesenteric, ? retroperitoneal or pelvic lymph nodes. ? IMPRESSION: ? No evidence of aortic aneurysm. ? PAGE 2 ? Signed Report ? (CONTINUED) ? Multifocal right renal cortical scarring. ? REPORT SIGNED IN OTHER VENDOR SYSTEM 12/08/2016 ?Reported By: Rossi Humphries MD ? CC: ? Transcribed Date/Time: 12/08/2016 (0000) ? Highway Maintenance Supervisor: ? Printed Date/Time: 02/13/2019 (1233) ? PAGE 3 ? Signed Report ? Procedure Note Rossi Humphries MD - 07/07/2019 EXAM: CAT SCAN/CTA AORTA CHEST/ABDOMEN EX. D/ (9633) CLINICAL INFORMATION: BACK PAIN RADIATING TO CHEST, ABDOMINAL PAIN. EXAM: CT Angiography Chest With Intravenous Contrast CLINICAL HISTORY: 61 years old, female; Pain; Chest pain; Abdominal pain; Other: Back pain radiating to chest, abdominal pain. ; Additional info: Back pain radiating to chest, abdominal pain. TECHNIQUE: Axial computed tomographic angiography images of the chest with intravenous contrast using pulmonary embolism protocol. This CT exam was performed using one or more of the following dose reduction techniques: automated exposure control, adjustment of the mA and/or kV according to patient size, and/or use of iterative reconstruction technique. Coronal and sagittal reformatted images were created and reviewed. CONTRAST: 100 mL of [id number] administered intravenously. COMPARISON: No relevant prior studies available. FINDINGS: Pulmonary arteries: No focal filling defects are identified within the pulmonary arterial tree to indicate pulmonary embolism. Aorta: The aorta demonstrates mild atherosclerotic calcification. No thoracic aortic aneurysm. Lungs: Central airways are clear.There are moderate emphysematous changes. Pleural space:There is no pleural fluid or pneumothorax. Heart: The heart is normal in size. No significant pericardial effusion. Bones/joints: No acute fracture. No dislocation. Soft tissues: Unremarkable. Lymph nodes: There are no enlarged axillary, hilar or mediastinal lymph nodes. IMPRESSION: No evidence of pulmonary embolism or aortic aneurysm. Emphysema. EXAM: CT Abdomen With Intravenous Contrast CLINICAL HISTORY: 61 years old, female; Pain; Chest pain; Abdominal pain; Other: PAGE 1 Signed Report (CONTINUED) Back pain radiating to chest, abdominal pain. ; Additional info: Back pain radiating to chest, abdominal pain. TECHNIQUE: Axial computed tomography images of the abdomen with intravenous contrast during the arterial phase of enhancement. This CT exam was performed using one or more of the following dose reduction techniques: automated exposure control, adjustment of the mA and/or kV according to patient size, and/or use of iterative reconstruction technique. Coronal and sagittal reformatted images were created and reviewed. CONTRAST: 100 mL of [id number] administered intravenously. COMPARISON: CT - CHEST WITH CONTRAST 06/11/2016 3:43:22 PM FINDINGS: Lower thorax: No acute findings. Aorta: Calcified atherosclerotic plaque is seen in the aorta and common iliac arteries without evidence of aneurysm. No dissection. Celiac trunk and mesenteric arteries: No acute findings. No occlusion or significant stenosis. Renal arteries: No acute findings. No occlusion or significant stenosis. Liver: Unremarkable. No mass. Gallbladder and bile ducts: The gallbladder is surgically absent. Mild prominence of the common bile duct is a common finding following cholecystectomy. Pancreas: Unremarkable. No ductal dilation. No mass. Spleen: Unremarkable. No splenomegaly. Adrenals: Unremarkable. No mass. Kidneys and ureters: Focal wedge-shaped cortical defects are identified in the upper and lower poles of the right kidney. Left kidney is normal. No hydronephrosis. Stomach and bowel: The bowel is nonobstructed. No mucosal thickening. Intraperitoneal space: There is no ascites, mesenteric edema or free intraperitoneal air. Bones/joints: The osseous structures are demineralized. Soft tissues: Unremarkable. No mass. Lymph nodes: There are no enlarged mesenteric, retroperitoneal or pelvic lymph nodes. IMPRESSION: No evidence of aortic aneurysm. PAGE 2 Signed Report (CONTINUED) Multifocal right renal cortical scarring. REPORT SIGNED IN OTHER VENDOR SYSTEM 12/08/2016 Reported By: Rossi Humphries MD CC: Transcribed Date/Time: 12/08/2016 (1551) Highway Maintenance Supervisor: Printed Date/Time: 02/13/2019 (7216) PAGE 3 Signed Report us Rafael Lopez MD IMG CT ORDERABLES Final Res ult * URINALYSIS/COMPLETE - [facility] (12/08/2016 20:36 EDT) URINE APPEARANCE - [facility] Clear CLEAR 12/08/2016 20:59 EDT [facility] URINE BACTERIA - [facility] FEW 12/08/2016 21:08 EDT [facility] URINE BILIRUBIN - DIPSTICK - [facility] Negative NEGATIVE 12/08/2016 20:59 [facility] URINE BLOOD - [facility] 1+ NEG 12/08/2016 20:59 [facility] URINE COLOR - [facility] Yellow YELLOW 12/08/2016 20:59 [facility] URINE GLUCOSE - [place] - [facility] Negative NEGATIVE 12/08/2016 20:59 [facility] URINE KETONE - [facility] Negative NEGATIVE 12/08/2016 20:59 [facility] URINE LEUK ESTERASE - [facility] 1+ NEG 12/08/2016 20:59 [facility] URINE NITRITE - [place] - [facility] Negative NEG 12/08/2016 20:59 [facility] URINE PH - [facility] 6.0 4.0 - 8.0 7 20:59 [facility] URINE PROTEIN - [place] - [facility] Negative NEG 12/08/2016 20:59 [facility] URINE RBC - [facility] RARE rbc/hpf 12/09/19 17 21:08 [facility] URCULTIF+? - [facility] Culture Ordered 12/08/2016 21:08 [facility] URINE SPECIFIC GRAVITY - [facility] <=1.005 1.001 - 1.035 12/08/2016 20:59 [facility] URINE SQUAMOUS CELLS - [facility] FEW NEG #/hpf 12/08/2016 21:08 [facility] URINE UROBILINOGEN - [place] - [facility] 0.2 0.2 - 1.0 12/08/2016 20:59 [facility] URINE WBC - [facility] 1-4 NEG wbc/hpf 017 21:08 [facility] 12/08/2016 20:3 6 EDT 12/08/2016 20:40 [facility] - 12/08/2016 21:08 EDT Does PT Have a Latex Allergy? NO us Rafael Lopez MD CHEMISTRY & BLOOD GAS ORDER MARTITA Final Result Performing Organization Address [facility] Co de Phone Number [facility] * THYROID CASCADE (12/08/2016 20:27 EDT) TSH 0.41 0.35 - 5.50 uIU/mL 12/08/2016 20:59 EDT [facility] 12/08/2016 20:2 7 EDT 12/08/2016 20:36 EDT [facility] - 12/08/2016 20:59 EDT Does PT Have a Latex Allergy? NO us Rafael Lopez MD CHEMISTRY & BLOOD GAS ORDER MARTITA Final Result Performing Organization Address [facility] de Phone Number [facility] * PTT (12/08/2016 20:27 EDT) PARTIAL THROMBO TIME - [facility] 27 23 - 30 SECONDS 12/08/2016 21:04 EDT [facility] Comment:Therapeutic Heparin Range: 51 - 70 seconds 12/08/2016 20:2 7 EDT 12/08/2016 20:38 EDT [facility] - 02/24/2019 23:15 EDT Does PT Have a Latex Allergy? NO us Rafael Lopez MD HEMATOLOGY & PF4 ORDERABLES Final Result Performing Organization Address [facility] de Phone Number [facility] * PROTIME (12/08/2016 20:27 EDT) Pathologist [facility] PROTHROMBIN TIME - [facility] 10.7 9.7 - 11.9 SECONDS 12/08/2016 21:04 EDT [facility] 12/08/2016 20:2 7 EDT 12/08/2016 20:38 EDT [facility] - 02/24/2019 23:15 EDT Does PT Have a Latex Allergy? NO us Rafael Lopez MD HEMATOLOGY & PF4 ORDERABLES Final Result Performing Organization Address City/[facility] Co de Phone Number [facility] * PROTIME (12/08/2016 20:27 EDT) INR - [facility] 1.0 0.9 - 1.2 12/08/2016 21:04 EDT [facility] Comment: Low intensity INR: 2.0-3.0 High intensity INR: Consult Coag Dept. 12/08/2016 20:2 7 EDT 12/08/2016 20:38 EDT Narrative [facility] - 02/24/2019 23:15 EDT Does PT Have a Latex Allergy? NO us Rafael Lopez MD HEMATOLOGY & PF4 ORDERABLES Final Result Performing Organization Address [facility]/ZIP Co de Phone Number [facility] * BACTERIAL CULTURE, URINE (12/08/2016 20:19 EDT) Pathologist [facility] ESCHERIACHIA COLI - [facility] ESCHERICHIA COLI 12/10/2016 7:27 EDT [facility] CitrateConcentration 10,000-100,00 0 CFU/ML 12/10/2016 7:27 EDT [facility] USUAL UROGENITAL BERE - [facility] UUV 12/10/2016 7:27 EDT [facility] CitrateConcentration 10,000-100,00 0 CFU/ML 12/10/2016 7:27 EDT [facility] 12/08/2016 20:1 9 EDT 12/08/2016 21:08 EDT Comment:VOID Narrative Organism Antibiotic Method Susceptibility Escherichia coli Ampicillin Sulbactam GRAM NEGAT ISI SUSCEPTIBILITY - [facility] >=32: Resistant Escherichia coli Ampicillin GRAM NEGATIVE SUSCEPTIBILITY - [facility] >=32: Resistant Escherichia coli Amoxicillin Clavulan ic acid GRAM NEGATIVE SUSCEPTIBILITY - [facility] >=32: Resistant Escherichia coli Ceftriaxone GRAM NEGATIVE SUSCEPTIBILITY - [facility] <=1: Susceptible Escherichia coli Cefazolin GRAM NEGATIVE SUSCEPTIBILITY - [facility] >=64: Resistant Escherichia coli Ciprofloxacin GRAM NEGATIVE SUSCEPTIBILITY - [facility] <=0.25: Susceptible Escherichia coli Cefepime GRAM NEGATIVE SUSCEPTIBILITY - [facility] <=1: Susceptible Escherichia coli Ertapenem GRAM NEGATIVE SUSCEPTIBILITY - [facility] <=0.5: Susceptible Escherichia coli Nitrofurantoin GRAM NEGATIVE SUSCEPTIBILITY - [facility] <=16: Susceptible Escherichia coli Gentamicin GRAM NEGATIVE SUSCEPTIBILITY - [facility] <=1: Susceptible Escherichia coli Levofloxacin GRAM NEGATIVE SUSCEPTIBILITY - [facility] <=0.12: Susceptible Escherichia coli Trimethoprim-Sulfame th oxazole GRAM NEGATIVE SUSCEPTIBILITY - [facility] <=20: Susceptible Escherichia coli Tobramycin GRAM NEGATIVE SUSCEPTIBILITY - [facility] <=1: Susceptible Comment:See Reason(s) for St udy us Rafael Lopez MD MICROBIOLOGY - GENERAL ORDBaljit NOYOLA Edited Result - Final Performing Organization Address [facility]/ZIP Co de Phone Number [facility] * TROPONIN I (12/08/2016 20:19 EDT) Troponin I (ng/mL) <0.015 0.000 - 0.045 ng/mL 12/08/2016 20:50 EDT [facility] Comment: Interpretation comments: ??Cutoff for a positive troponin result is set at the 99th percentile of the upper reference limit. ??Elevated troponin must always be interpreted in the context of the clinical presentation. ?Serial troponin testing 3-6 hr from baseline is favored over relying on a single troponin level. 12/08/2016 20:1 9 EDT 12/08/2016 20:22 EDT Narrative [facility] - 12/08/2016 20:50 EDT Does PT Have a Latex Allergy? NO us Clark Gordon MD CHEMISTRY & BLOOD GAS OR DERABLES Final Result Performing Organization Address [facility]/ZIP Co de Phone Number [facility] * MAGNESIUM (12/08/2016 20:19 EDT) Magnesium 2.20 1.6 - 2.6 mg/dL 12/08/2016 20:50 EDT [facility] Comment: 24 Hour urine magnesium is a better indicator of magnesium stores. 12/08/2016 20:1 9 EDT 12/08/2016 20:22 EDT [facility] - 12/08/2016 20:50 EDT Does PT Have a Latex Allergy? NO us Clark Gordon MD CHEMISTRY & BLOOD GAS OR DERABLES Final Result Performing Organization Address City/[facility]/ZIP Co de Phone Number [facility] * LIPASE (12/08/2016 20:19 EDT) Lipase 112 73 - 393 U/L 12/08/2016 20:50 EDT [facility] 12/08/2016 20:1 9 EDT 12/08/2016 20:22 EDT [facility] - 12/08/2016 20:50 EDT Does PT Have a Latex Allergy? NO us Clark Gordon MD CHEMISTRY & BLOOD GAS OR DERABLES Final Result Performing Organization Address [facility] de Phone Number [facility] * ETHYL ALCOHOL - [facility] (12/08/2016 20:19 EDT) ETHYL ALCOHOL - [facility] <3.0 0.0 - 60.0 mg/dL 12/08/2016 20:50 EDT [facility] Comment: *Unconfirmed screening results are to be used for medical purposes only.* 12/08/2016 20:1 9 EDT 12/08/2016 20:22 EDT [facility] - 12/08/2016 20:50 EDT Does PT Have a Latex Allergy? NO us Clark Gordon MD CHEMISTRY & BLOOD GAS OR DERABLES Final Result Performing Organization Address [facility]/ZIP Co de Phone Number [facility] * (ABNORMAL) COMPREHENSIVE METABOLIC PANEL (CMP) (12/08/2016 20:19 EDT) Albumin % 3.8 3.4 - 5.0 g/dL 12/08/2016 20:50 EDT [facility] ALKALINE PHOSPHATASE - [facility] 67 41 - 126 U/L 12/08/2016 20:50 [facility] BILIRUBIN TOTAL 0.5 0.0 - 1.0 mg/dL 12/08/2016 20:50 [facility] BUN - [facility] 6(L) 7 - 18 mg/dL 12/08/2016 20:50 [facility] CALCIUM - [facility] 8.7 8.5 - 10.1 mg/dL 12/08/2016 20:50 [facility] Chloride 103 98 - 107 mEq/L 12/08/2016 20:50 [facility] CO2 Total 28 21 - 32 mEq/L 12/08/2016 20:50 [facility] CREATININE 0.92 0.5 - 1.3 mg/dL 12/08/2016 20:50 [facility] eGFR >60 12/08/2016 20:50 [facility] Comment: Chronic renal impairment is defined as GFR <60 Multiply result by 1.210 for patients. eGFR calculated using the IDMS-traceable MDRD Study Equation. ??(effective 07/04/2014) Anion Gap 9 5 - 15 12/08/2016 20:50 [facility] GLUCOSE - [facility] 105(H) 70 - 100 mg/dL 12/08/2016 20:50 [facility] Potassium 3.5 3.5 - 5.0 mEq/L 12/08/2016 20:50 [facility] Sodium 139 135 - 145 mEq/L 12/08/2016 20:50 [facility] TOTAL PROTEIN - [facility] 7.4 6.4 - 8.2 gm/dl 12/08/2016 20:50 [facility] SGOT/AST - [facility] 15 10 - 37 U/L 12/08/2016 20:50 [facility] SGPT/ALT - [facility] 19 12 - 78 U/L 12/08/2016 20:50 [facility] 12/08/2016 20:1 9 T 12/08/2016 20:22 [facility] - 12/08/2016 20:50 EDT Does PT Have a Latex Allergy? NO us Clark Gordon MD CHEMISTRY & BLOOD GAS OR DERABLES Final Result [facility] * (ABNORMAL) COMPLETE BLOOD COUNT WITH DIFFERENTIAL (AUTO) (12/08/2016 20:19 EDT) ABSOLUTE NEUTROPHIL COUN - [facility] 6.27 1.7 - 7.0 10e3/ul 12/08/2016 20:37 [facility] BASO # - [facility] 0.04 0.0 - 0.3 10e3/uL 12/08/2016 20:37 [facility] BASO % - [facility] 0 0 - 2 % 12/08/2016 20:37 [facility] EOS # - [facility] 0.10 0.05 - 0.5 10e3/uL 12/08/2016 20:37 [facility] EOS % - [facility] 1 0 - 5 % 12/08/2016 20:37 [facility] GRAN % - [facility] 63 40 - 80 % 12/08/2016 20:37 [facility] HEMATOCRIT - [facility] 44.3 34.0 - 47.0 % 12/08/2016 20:37 [facility] HEMOGLOBIN - [facility] 14.8 11.2 - 15.7 g/dl 12/08/2016 20:37 [facility] IG# - [facility] 0.02 0 - 0.07 10e3/uL 12/08/2016 20:37 [facility] IG% - [facility] 0.2 0 - 0.9 % 12/08/2016 20:37 [facility] LYMPH # - [facility] 3.06(H) 0.9 - 2.9 10e3/uL 12/08/2016 20:37 [facility] LYMPH% - [facility] 31 20 - 40 % 12/08/2016 20:37 [facility] MEAN CORPUSCULAR HGB - CV 31.2 26 - 34 pg 12/08/2016 20:37 EDT [facility] MEAN CORPUSCULAR HGB CONC - [facility] 33.4 31 - 36 g/dL 12/08/2016 20:37 EDT [facility] MEAN CELL VOLUME - [facility] 93.5 77 - 100 fl 12/08/2016 20:37 EDT [facility] MONO # - [facility] 0.50 0.3 - 0.9 10e3/uL 12/08/2016 20:37 EDT [facility] MONO% - [facility] 5 0 - 12 % 12/08/2016 20:37 EDT [facility] PLATELET COUNT 270 150 - 400 10e3/ul 12/08/2016 20:37 EDT [facility] RED BLOOD COUNT - [facility] 4.74 3.8 - 5.2 10e6/ul 12/08/2016 20:37 [facility] RED CELL DISTRI WIDTH - [facility] 12.5 11.8 - 15.6 % 12/08/2016 20:37 EDT [facility] WHITE BLOOD COUNT - [facility] 10.0 3.5 - 10.5 10e3/ul 12/08/2016 20:37 EDT [facility] 12/08/2016 20:1 9 EDT 12/08/2016 20:22 EDT Narrative [facility] - 12/08/2016 20:37 EDT Does PT Have a Latex Allergy? NO us Clark Gordon MD HEMATOLOGY & PF4 ORDERAB LES Final Result [facility] * XR CHEST 2 VIEWS (12/08/2016 19:32 EDT) Anatomical Region Laterality Modality Other 12/08/2016 19:3 2 EDT Narrative 12/08/2016 19:32 EDT ? EXAM: RADIOLOGY EXPRESS CARE/EXP CARE XR ??EX. D/ (1928) ? CLINICAL INFORMATION: ? HX OF COPD INCREASED FATIGUE XR DONE AT [facility] ? -R07.9 ? EXAM: ? XR Chest, 2 Views ? CLINICAL HISTORY: ? 61 years old, female; Signs and symptoms; Other: Fatigue; ? Additional info: HX of copd increased fatigue xr done at [facility] ? care ? TECHNIQUE: ? Frontal and lateral views of the chest. ? COMPARISON: ? CT - CHEST WITH CONTRAST 06/11/2016 3:43:22 PM ? FINDINGS: ? Lungs: ??The lungs hyperinflated. ??There is no focal consolidation, ? pleural fluid or pneumothorax. ? Pleural space: ??See above. ? Heart: ??The heart is normal in size. ??The thoracic aorta is normal ? in caliber. ? Mediastinum: ??Unremarkable. ? Bones/joints: ??Osseous structures are normal for age. ? IMPRESSION: ? COPD. ??No acute process. ? REPORT SIGNED IN OTHER VENDOR SYSTEM 12/08/2016 ?Reported By: Rossi Humphries MD ? CC: ? Transcribed Date/Time: 12/08/2016 (1932) ? Highway Maintenance Supervisor: ? Printed Date/Time: 02/13/2019 (1233) ? PAGE 1 ? Signed Report ? Procedure Note Rossi Humphries MD - 07/07/2019 EXAM: RADIOLOGY EXPRESS CARE/EXP CARE XR EX. D/ (1929) CLINICAL INFORMATION: HX OF COPD INCREASED FATIGUE XR DONE AT [facility] -R07.9 EXAM: XR Chest, 2 Views CLINICAL HISTORY: 61 years old, female; Signs and symptoms; Other: Fatigue; Additional info: HX of copd increased fatigue xr done at [facility] TECHNIQUE: Frontal and lateral views of the chest. COMPARISON: CT - CHEST WITH CONTRAST 06/11/2016 3:43:22 PM FINDINGS: Lungs: The lungs hyperinflated. There is no focal consolidation, pleural fluid or pneumothorax. Pleural space: See above. Heart: The heart is normal in size. The thoracic aorta is normal in caliber. Mediastinum: Unremarkable. Bones/joints: Osseous structures are normal for age. IMPRESSION: COPD. No acute process. REPORT SIGNED IN OTHER VENDOR SYSTEM 12/08/2016 Reported By: Rossi Humphries MD CC: Transcribed Date/Time: 12/08/2016 (193) Highway Maintenance Supervisor: Printed Date/Time: 02/13/2019 (1446) PAGE 1 Signed Report us Manjit Oscar NP IMG DIAGNOSTIC IMAGING ORDBaljit NOYOLA Final Result * BACTERIAL CULTURE, URINE (12/08/2016 19:06 EDT) [facility] ESCHERICHIA COLI 12/11/2016 7:16 EDT [facility] CitrateConcentration >100,000 CFU/ML 11/30 7:16 T [facility] USUAL UROGENITAL BERE - [facility]UV 12/11/2016 7:16 EDT [facility] CitrateConcentration <10,000 CFU/ML 11/30 7:16 [facility] 12/08/2016 19:0 6 EDT 12/09/2016 11:17 EDT Comment:VOID Narrative Organism Antibiotic Method Susceptibility Escherichia coli Ampicillin Sulbactam GRAM NEGAT ISI SUSCEPTIBILITY - [facility] >=32: Resistant Escherichia coli Ampicillin GRAM NEGATIVE SUSCEPTIBILITY - [facility] >=32: Resistant Escherichia coli Amoxicillin Clavulan ic acid GRAM NEGATIVE SUSCEPTIBILITY - [facility] >=32: Resistant Escherichia coli Ceftriaxone GRAM NEGATIVE SUSCEPTIBILITY - [facility] <=1: Susceptible Escherichia coli Cefazolin GRAM NEGATIVE SUSCEPTIBILITY - [facility] >=64: Resistant Escherichia coli Ciprofloxacin GRAM NEGATIVE SUSCEPTIBILITY - [facility] <=0.25: Susceptible Escherichia coli Cefepime GRAM NEGATIVE SUSCEPTIBILITY - [facility] <=1: Susceptible Escherichia coli Ertapenem GRAM NEGATIVE SUSCEPTIBILITY - [facility] <=0.5: Susceptible Escherichia coli Nitrofurantoin GRAM NEGATIVE SUSCEPTIBILITY - [facility] <=16: Susceptible Escherichia coli Gentamicin GRAM NEGATIVE SUSCEPTIBILITY - [facility] <=1: Susceptible Escherichia coli Levofloxacin GRAM NEGATIVE SUSCEPTIBILITY - [facility] <=0.12: Susceptible Escherichia coli Piperacillin Tazobactam GRAM NEGATIVE SUSCEPTIBILITY - [facility] >=128: Resistant Escherichia coli Trimethoprim-Sulfame th oxazole GRAM NEGATIVE SUSCEPTIBILITY - [facility] <=20: Susceptible Escherichia coli Tobramycin GRAM NEGATIVE SUSCEPTIBILITY - [facility] <=1: Susceptible Comment:See Reason(s) for St udy us Manjit Oscar PIANO BENCH ASSEMBLER MICROBIOLOGY - GENERAL JAYLAN NOYOLA Edited Result - Final [facility] documented in this encounter Visit Diagnoses Not on filedocumented in this encounter Care Teams Water Fabricator Operator Relationship Specialty Start Date End Date Natanael Saab MD PCP - General 03/17/15 12/29/22 documented as of this encounter
--- OUTSIDE RECORDS SUMMARY | 2024-10-13 18:36 | XMS_ITS | Encounter Summary ---
Author Organization [facility] Address [address] [place] [address] Care Team Providers Care Oxyacetylene Cutter Name Role Phone Natanael Saab MD Primary Care Provider Unavailabl e Encounter Details Date Type Department Care Team (Late st Contact Info) Description 06/21/2016 Results Only Imaging [facility] Spine Program - [address] [place] [address] Morgan Singh MD [address] [place] [address] [place] [address] Social History Tobacco Use Types Packs/Day Years Used Date Smoking Tobacco: Every Day Cigarettes 1 49 Alcohol Use Standard Drinks/Week Comments No [...] Associated Diagnoses Date /Time OUTSIDE IMAGES - NM OTHER Imaging 06/21/2016 15:00 EDT documented as of this encounter Visit Diagnoses Not on filedocumented in this encounter Care Teams Oxyacetylene Cutter Relationship Specialty Start Date End Date Natanael Saab MD PCP - General 03/17/15 12/29/22 documented as of this encounter
--- OUTSIDE RECORDS SUMMARY | 2024-10-13 18:36 | XMS_ITS | Encounter Summary ---
Author Organization [facility] Address [address] [place] [address] Care Team Providers Care Tight Cooper Name Role Phone Natanael Saab MD Primary Care Provider Unavailabl e Encounter Details Date Type Department Care Team (Late st Contact Info) Description 12/31/2016 Historical Results Only [facility] Radiology Results [address] [place] [address] Nadira Rodríguez MD [address] [place] [phone] Social History Tobacco Use Types Packs/Day Years [...] Assessment Author Yes 03/05/2016 1:44 EDT Ravi Myao RN * Because of a physical, mental, [...] Procedure Name Priority Date/Time Associated Diagnosis Comments US ABDOMEN COMPLETE 12/31/2016 1 6:20 EDT documented in this encounter Results * US ABDOMEN COMPLETE (12/31/2016 16:20 EDT) Anatomical Region Laterality Modality Abdomen, Body Ultrasound 12/31/2016 16:2 0 EDT Narrative 12/31/2016 16:29 EDT ? EXAM: ULTRASOUND/ABDOMINAL MULTIPLE ORGAN EX. D/ (1546) ? CLINICAL INFORMATION: ? R19.02 ABD MASS LEFT UPPER QUADRANT ? INDICATION: ??R19.02 ABD MASS LEFT UPPER QUADRANT MASS LEFT UPPER ? QUADRANT ? TECHNIQUE: ??Grayscale and color Doppler sonography of the abdomen ? COMPARISON: CT abdomen pelvis 04/19/2016 ? FINDINGS: ? The aorta is normal in caliber. ? The IVC is normal in caliber. ? The visualized portions of the body and head of the pancreas appear ? normal. ? Liver measures 12.2 cm maximal craniocaudal dimension and ? demonstrates normal echotexture and morphology. No focal hepatic ? lesion is identified. ? The patient is status post cholecystectomy. The common hepatic duct ? is dilated, measuring up to 14 mm in diameter. This is similar when ? compared to the comparison CT examination performed 04/19/2016 and may ? be related to postcholecystectomy state. ? The right and left kidneys measure 9.1 and 10.3 cm in long axis ? length, respectively, and demonstrate normal corticomedullary ? differentiation morphology. There is no cyst, mass or hydronephrosis. ? The spleen measures 12.3 x 4.5 x 4.0 cm and demonstrates a normal ? echotexture and morphology. ? The site of palpable concern corresponds with a fat-containing ? ventral epigastric hernia. No bowel is identified within this hernia. ? This fat-containing hernia was also apparent on a CT examination ? performed 04/19/2016. ? IMPRESSION: ? 1. Area of palpable concern corresponds with a fat-containing ventral ? hernia. ? 2. Status post cholecystectomy. ? REPORT SIGNED IN OTHER VENDOR SYSTEM 12/31/2016 ?Reported By: Nasir Morocho MD ? CC: ? Transcribed Date/Time: 12/31/2016 (1629) ? Beveler: ? Printed Date/Time: 2019 (1150) ? PAGE 1 ? Signed Report ? Procedure Note Nasir Morocho E - 07/07/2019 EXAM: ULTRASOUND/ABDOMINAL MULTIPLE ORGAN EX. D/ (1546) CLINICAL INFORMATION: R19.02 ABD MASS LEFT UPPER QUADRANT INDICATION: R19.02 ABD MASS LEFT UPPER QUADRANT MASS LEFT UPPER QUADRANT TECHNIQUE: Grayscale and color Doppler sonography of the abdomen COMPARISON: CT abdomen pelvis 04/19/2016 FINDINGS: The aorta is normal in caliber. The IVC is normal in caliber. The visualized portions of the body and head of the pancreas appear normal. Liver measures 12.2 cm maximal craniocaudal dimension and demonstrates normal echotexture and morphology. No focal hepatic lesion is identified. The patient is status post cholecystectomy. The common hepatic duct is dilated, measuring up to 14 mm in diameter. This is similar when compared to the comparison CT examination performed 04/19/2016 andmay be related to postcholecystectomy state. The right and left kidneys measure 9.1 and 10.3 cm in long axis length, respectively, and demonstrate normal corticomedullary differentiation morphology. There is no cyst, mass orhydronephrosis. The spleen measures 12.3 x 4.5 x 4.0 cm and demonstrates a normal echotexture and morphology. The site of palpable concern corresponds with a fat-containing ventral epigastric hernia. No bowel is identified within thishernia. This fat-containing hernia was also apparent on a CT examination performed 04/19/2016. IMPRESSION: 1. Area of palpable concern corresponds with a fat-containingventral hernia. 2. Status post cholecystectomy. REPORT SIGNED IN OTHER VENDOR SYSTEM 12/31/2016 Reported By: Nasir Morocho MD CC: Transcribed Date/Time: 12/31/2016 (9188) Beveler: Printed Date/Time: 2019 (9631) PAGE 1 Signed Report us Nadira Rodríguez MD IMG US ORDERABLES Final Result documented in this encounter Visit Diagnoses Not on filedocumented in this encounter Care Teams Tight Cooper Relationship Specialty Start Date End Date Natnaael Saab MD PCP - General 03/17/15 12/29/22 documented as of this encounter
--- OUTSIDE RECORDS SUMMARY | 2024-10-13 18:36 | XMS_ITS | Encounter Summary ---
Author Organization [facility] Address [address] [place] [address] Care Team Providers Care District [address] Justice Name Role Phone Natanael Saab MD Primary Care Provider Wolfgang Bhatt MD Primary Care Provider [phone] Clare Lama MD Primary Care Provider [phone] Encounter Details Date Type Department Care Team (Late st Contact Info) Description 02/27/2016 Historical Results Only [facility] [address] [place] [address] Unknown, Provider, Social History Tobacco Use Types Packs/Day Years Used Date Smoking Tobacco: Every Day Cigarettes 1 49 Alcohol Use Standard Drinks/Week Comments No 0 (1 standard drink = 0.6 oz pur e alcohol) Comments Unknown Sex and Gender Information Value Date Recorded Sex Assigned at Not on file Legal Sex Female 17:26 EST Gender Identity Not on file Sexual Orientation Not on file documented as of this encounter Plan of Treatment Not on file documented as of this encounter Procedures Procedure Name Priority Date/Time Associated Diagnosis Comments TRANSTHORACIC ECHO (TTE) COMPLETE 02/27/2016 15:13 EDT documented in this encounter Results * TRANSTHORACIC ECHO (TTE) COMPLETE (02/27/2016 15:13 EDT) Anatomical Region Laterality Modality Ultrasound 02/27/2016 15:1 3 EDT Narrative 02/27/2016 15:13 EDT ?[facility] ?[address] [place], [place] [address] ? [id number] ? E C H O C A R D I O G R A M ? R E P O R T NAME: ZAINAB AVERY ? : 57 ? LOCATION: CARD ? TELEPHONE: [phone] ?MR#: [id number] ? *[facility]* *[facility]* [address] [place] [address] Date of study: 02/27/2016 Transthoracic Echocardiography M-mode, complete 2D, complete spectral Doppler, and color Doppler *STUDY CONCLUSIONS* Summary: 1. Left ventricle: The cavity size was normal. Wall thickness was normal. ?? Systolic function was normal. The estimated ejection fraction was 60-65%. ?? Wall motion was normal; there were no regional wall motion abnormalities. 2. Left atrium: The atrium was mildly dilated. 3. Right ventricle: The cavity size was normal. Wall thickness was normal. ?? Systolic function was normal. *PATIENT PRESENTATION* Height: ? 157.5cm ((62in) ) S/D Pressure: 136 / 63 Weight: ? 77.1kg ((169.6lb) ) BSA: ?1.87m S 2 Test start time: ??03:10 PM. Test stop time: ??04:00 PM. PERFORMING ?? [facility] [place]AMINER ??Kaylin Drummond ORDERING ? Delfino Fabian REFERRING ?Delfino Fabian *PROCEDURE DATA* Procedure information: ??This study was interpreted by [facility] [place] [facility]. Pertinent images and digital data are archived for permanent storage and are available for subsequent review. Comparison was made to the study of 07/18/2007. ??Study status: ??Routine. Transthoracic echocardiography. ??M-mode, complete 2D, complete spectral Doppler, and color Doppler. A Transthoracic Echocardiogram was performed. Scanning was performed from the parasternal, apical, subcostal, and suprasternal notch acoustic windows. Images were obtained using a [facility] IE33 2 cardiac ultrasound machine. Image quality was good. ??Study completion: ??The patient tolerated the ?[facility] ?[address] [place] [address] ? [id number] ? E C H O C A R D I O G R A M ? R E P O R T NAME: ZAINAB AVERY ? : 57 ? LOCATION: CARD ? TELEPHONE: [phone] ?MR#: [id number] ? procedure well. *CARDIAC ANATOMY* Left ventricle: ??The cavity size was normal. Wall thickness was normal. Systolic function was normal. The estimated ejection fraction was 60-65%. Wall motion was normal; there were no regional wall motion abnormalities. Diastolic parameters were normal. Aortic valve: ?? Trileaflet; normal thickness leaflets. Mobility was not restricted. ??Doppler: ??Transvalvular velocity was within the normal range. There was no stenosis. There was no regurgitation. Aorta: ??Aortic root: The aortic root was normal in size. Ascending aorta: The ascending aorta was normal in size. Mitral valve: ?? Structurally normal valve. ?? Mobility was not restricted. Doppler: ??Transvalvular velocity was within the normal range. There was no evidence for stenosis. There was trivial regurgitation. Left atrium: ??The atrium was mildly dilated. Right ventricle: ??The cavity size was normal. Wall thickness was normal. Systolic function was normal. Pulmonic valve: ?Doppler: ??Transvalvular velocity was within the normal range. There was no evidence for stenosis. There was trivial regurgitation. Tricuspid valve: ?? Structurally normal valve. ?Doppler: ??Transvalvular velocity was within the normal range. There was no evidence for stenosis. There was trivial regurgitation. Pulmonary artery: ?? Pulmonary systolic pressure was within the normal range, in the range of 30mm Hg to 35mm Hg. Right atrium: ??The atrium was normal in size. Pericardium: ??There was no pericardial effusion. Systemic veins: Inferior vena cava: The vessel was normal in size. The respirophasic diameter changes were in the normal range (greater than or equal to 50%), consistent with normal central venous pressure. Measurements Left ventricle ? Value ?Reference LV ID, ED, PLAX chordal ?4.7 ?? cm ? 4.3 - 5.2 LV ID, ES, PLAX chordal ?3.0 ?? cm ? 2.3 - 3.8 LV fx shortening, PLAX chordal ? 36 ?% ?>=29 LV PW thickness, ED ?0.9 ?? cm ? IVS/LV PW ratio, ED ?0.9 ?<=1.3 LV end-diastolic volume ?102 ?? ml ? LV end-systolic volume ? 35 ?ml ? LV ejection fraction ? 66 ?% ? LV ejection fraction, 1-p A2C ?70 ?% ? LV end-systolic volume, 2-p ?22 ?ml ? LV ejection fraction, 2-p ?70 ?% ? LV IVRT, DP ?88 ?ms ? 60 - 100 LV e', lateral ? 0.106 m/sec ?[facility] ?[facility] [address] [place], [place] [address] ? [id number] ? E C H O C A R D I O G R A M ? R E P O R T NAME: ZAINAB AVERY ? : 57 ? LOCATION: CARD ? TELEPHONE: [phone] ?MR#: [id number] ? LV e', medial ?0.075 m/sec ?? LV e', average ? 0.09 ??m/sec ?? Ventricular septum ? Value ?Reference IVS thickness, ED ?0.8 ?? cm ? LVOT ? Value ?Reference LVOT ID, S ? 1.9 ?? cm ? LVOT area ?2.8 ?? cm S 2 ?? Aorta ?Value ?Reference Aortic root ID ? 2.7 ?? cm ? Ascending aorta ID, A-P ?2.7 ?? cm ? Ascending aorta ID, A-P, S ? 2.7 ?? cm ? Left atrium ?Value ?Reference LA ID, A-P, ES ? 4.1 ?? cm ? LA ID/bsa, A-P ? 2.2 ?? cm/m S 2 <=2.2 LA area, ES, A4C ? 22.1 ??cm S 2 ?? 8.8 - 23.4 LA area, ES, A2C ? 19 ?cm S 2 ?? LA volume, ES, 2-p ? 66 ?ml ? LA volume/bsa, ES, 2-p ? 35 ?ml/m S 2 LA/aortic root ratio ? 1.52 ? Mitral valve ? Value ?Reference Mitral E/A ratio, peak ? 1.3 ? Right atrium ? Value ?Reference RA area, ES, A4C ? 16.1 ??cm S 2 ?? 8.3 - 19.5 Legend: (L) ??and ??(H) ??katey values outside specified reference range. I have personally reviewed the images and have reviewed and edited the reported findings. Electronically signed by Leroy Damian 02/27/2016 16:30 Procedure Note Leroy Damian MD - 06/20/2019 [facility] [address] [place], [place] [address] [id number] E C H O C A R D I O G R A M R E P O R T NAME: ZAINAB AVERY : 57LOCATION: CARD TELEPHONE: [phone] MR#: [id number] *[facility] [place] [facility]* *[facility]* [address] [place] [address] Date of study: 02/27/2016 Transthoracic Echocardiography M-mode, complete 2D, complete spectral Doppler, and color Doppler *STUDY CONCLUSIONS* Summary: 1. Left ventricle: The cavity size was normal. Wall thickness wasnormal. Systolic function was normal. The estimated ejection fraction [id number]%. Wall motion was normal; there were no regional wall motionabnormalities. 2. Left atrium: The atrium was mildly dilated. 3. Right ventricle: The cavity size was normal. Wall thickness wasnormal. Systolic function was normal. *PATIENT PRESENTATION* Height: 157.5cm ((62in) ) S/D Pressure: 136 / 63 Weight: 77.1kg ((169.6lb) ) BSA: 1.87m S 2 Test start time: 03:10 PM. Test stop time: 04:00 PM. PERFORMING [facility] [place] EXAMINER Kaylin Drummond ORDERING Delfino Fabian REFERRING Delfino Fabian *PROCEDURE DATA* Procedure information: This study was interpreted by [facility] [place] [facility]. Pertinent imagesand digital data are archived for permanent storage and are available [facility]. Comparison was made to the study of 07/18/2007. Study status:Routine. Transthoracic echocardiography. M-mode, complete 2D, complete spectralDoppler, and color Doppler. A Transthoracic Echocardiogram was performed. Scanningwas performed from the parasternal, apical, subcostal, and suprasternalnotch acoustic windows. Images were obtained using a [facility] IE33 2 cardiacultrasound machine. Image quality was good. Study completion: The patient toleratedthe [facility] [address] [place] [address] [id number] E C H O C A R D I O G R A M R E P O R T NAME: ZAINAB AVERY : 57LOCATION: CARD TELEPHONE: [phone] MR#: [id number] [id number] procedure well. *CARDIAC ANATOMY* Left ventricle: The cavity size was normal. Wall thickness was normal.Systolic function was normal. The estimated ejection fraction was 60-65%. Wallmotion was normal; there were no regional wall motion abnormalities. Diastolicparameters were normal. Aortic valve: Trileaflet; normal thickness leaflets. Mobility was not restricted. Doppler: Transvalvular velocity was within the normal range.There was no stenosis. There was no regurgitation. Aorta: Aortic root: The aortic root was normal in size. Ascending aorta: The ascending aorta was normal in size. Mitral valve: Structurally normal valve. Mobility was notrestricted. Doppler: Transvalvular velocity was within the normal range. There wasno evidence for stenosis. There was trivial regurgitation. Left atrium: The atrium was mildly dilated. Right ventricle: The cavity size was normal. Wall thickness was normal. Systolic function was normal. Pulmonic valve: Doppler: Transvalvular velocity was within the normalrange. There was no evidence for stenosis. There was trivial regurgitation. Tricuspid valve: Structurally normal valve. Doppler: Transvalvular velocity was within the normal range. There was no evidence for stenosis.There was trivial regurgitation. Pulmonary artery: Pulmonary systolic pressure was within the normalrange, in the range of 30mm Hg to 35mm Hg. Right atrium: The atrium was normal in size. Pericardium: There was no pericardial effusion. Systemic veins: Inferior vena cava: The vessel was normal in size. The respirophasicdiameter changes were in the normal range (greater than or equal to 50%),consistent with normal central venous pressure. Measurements Left ventricle Value Reference LV ID, ED, PLAX chordal 4.7 cm 4.3 - 5.2 LV ID, ES, PLAX chordal 3.0 cm 2.3 - 3.8 LV fx shortening, PLAX chordal 36 % >=29 LV PW thickness, ED 0.9 cm IVS/LV PW ratio, ED 0.9 <=1.3 LV end-diastolic volume 102 ml LV end-systolic volume 35 ml LV ejection fraction 66 % LV ejection fraction, 1-p A2C 70 % LV end-systolic volume, 2-p 22 ml LV ejection fraction, 2-p 70 % LV IVRT, DP 88 ms 60 - 100 LV e', lateral 0.106 m/sec [facility] [address] [place], [place] [address] [id number] E C H O C A R D I O G R A M R E P O R T NAME: ZAINAB AVERY : 57LOCATION: CARD TELEPHONE: [phone] MR#: [id number] LV e', medial 0.075 m/sec LV e', average 0.09 m/sec Ventricular septum Value Reference IVS thickness, ED 0.8 cm LVOT Value Reference LVOT ID, S 1.9 cm LVOT area 2.8 cm S 2 Aorta Value Reference Aortic root ID 2.7 cm Ascending aorta ID, A-P 2.7 cm Ascending aorta ID, A-P, S 2.7 cm Left atrium Value Reference LA ID, A-P, ES 4.1 cm LA ID/bsa, A-P 2.2 cm/m S 2 <=2.2 LA area, ES, A4C 22.1 cm S 2 8.8 - 23.4 LA area, ES, A2C 19 cm S 2 LA volume, ES, 2-p 66 ml LA volume/bsa, ES, 2-p 35 ml/m S 2 LA/aortic root ratio 1.52 Mitral valve Value Reference Mitral E/A ratio, peak 1.3 Right atrium Value Reference RA area, ES, A4C 16.1 cm S 2 8.3 - 19.5 Legend: (L) and (H) katey values outside specified reference range. I have personally reviewed the images and have reviewed and edited thereported findings. Electronically signed by Leroy Damian 02/27/2016 16:30 us Provider Unknown CARDIAC ECHO ORDERABLES [place] l Result documented in this encounter Visit Diagnoses Not on filedocumented in this encounter Care Teams District [address] Justice Relationship Specialty Start Date End Date Natanael Saab MD PCP - General 03/17/15 12/29/22 Wolfgang Cagle MD [address] [place] [address] PCP - General Internal Medicine - Primary Care 12/30/22 09/29/24 Clare Lama MD [address] [place] [address] PCP - General Family Medicine - Primary Care 09/30/24 documented as of this encounter
--- OUTSIDE RECORDS SUMMARY | 2024-10-13 18:36 | XMS_ITS | Encounter Summary ---
Author Organization [facility] Address [address] [place] [address] Care Team Providers Care Rn Residential Name Role Phone Natanael Saab MD Primary Care Provider Unavailabl e Encounter Details Date Type Department Care Team (Late st Contact Info) Description 04/19/2016 Historical Results Only [facility] Radiology Results [address] [place] [address] Clare Feliciano, ELA TEACHER ENP [address] [place] [address] Social History Tobacco Use Types [...] Date of Assessment Author No 03/05/2016 1:44 HIWOTT Ravi Mayo RN * Are you blind [...] Procedure Name Priority Date/Time Associated Diagnosis Comments XR CHEST 2 VIEWS 04/19/2016 22:[address] ABDOMEN PELVIS WO CONTRAST 04/19/2016 22:03 EDT documented in this encounter Results * CT ABDOMEN PELVIS WO CONTRAST (04/19/2016 22:03 EDT) Anatomical Region Laterality Modality Other 04/19/2016 22:0 3 EDT Narrative 04/19/2016 22:03 EDT ? EXAM: CAT SCAN/ABDOMEN PELVIS WITHOUT CON EX. D/ (2115) ? CLINICAL INFORMATION: ? ABD PAIN ? EXAM: ? CT Abdomen and Pelvis Without Intravenous Contrast. ? CLINICAL HISTORY: ? The patient is a 61 years ??female; Signs and symptoms; Other: ? Unknown; Prior surgery; Surgery date: 6+ months; Surgery type: ? Gallbladder, appendectomy, fallopian tube removed around 21 y. ? O. , Recent ovarian biopsy; Patient HX: Cervical cancer at 21 y. ? O. ; Additional info: Abd pain ? TECHNIQUE: ? Axial computed tomography images of the abdomen and pelvis ? without intravenous contrast. ??As a consequence, evaluation of ? visceral organs and vascular structures is limited. ??This CT ? exam was performed using one or more of the following dose ? reduction techniques: ??automated exposure control, adjustment of ? the mA and/or kV according to patient size, and/or use of ? iterative reconstruction technique. ? Coronal and sagittal reformatted images were created and ? reviewed. ? EXAM DATE/TIME: ? 04/19/2016 8:34 PM ? COMPARISON: ? MR - PELVIS WO/W CONTRAST 03/04/2016 3:28:14 PM ? FINDINGS: ? Lower thorax: No acute findings. ?ABDOMEN: ? Liver: ??Unremarkable. ? Gallbladder and bile ducts: ??The patient is status post ? cholecystectomy. ??No ductal dilation. ? Pancreas: ??Unremarkable. ??No ductal dilation. ? Spleen: ??Unremarkable. ??No splenomegaly. ? Adrenals: ??Unremarkable. ??No mass. ? Kidneys and ureters: ??There is right renal cortical scarring ? with dystrophic calcifications. The kidneys are otherwise ? unremarkable with no evidence of hydronephrosis or perinephric ? stranding. ?PELVIS: ? Bladder: ??Unremarkable. ??No stones. ? Reproductive: ??Unremarkable as visualized. ? Appendix: ??There has been an appendectomy. ?ABDOMEN ?? PELVIS: ? Stomach and bowel: ??There is diverticulosis with no evidence ? of acute diverticulitis. There is no evidence of intestinal ? obstruction. ? Peritoneum: ??Unremarkable. ??No significant fluid collection. ? No free air. ? PAGE 1 ? Signed Report ? (CONTINUED) ? Lymph nodes: ??Unremarkable. ??No enlarged lymph nodes. ? Vasculature: ??Unremarkable. ??No aortic aneurysm. ? Bones: ??No acute osseous abnormality is identified. ??There is ? patchy sclerosis of the left sacrum which is asymmetric to the ? right. ??The recent MR demonstrated evidence of inflammation at ? the level of the left sacrum and left SI joint. ? Soft tissues: ??There is an uncomplicated fat containing ? epigastric ventral hernia. ??The neck of the hernia measures ? approximately 10 mm. ??(Image 38 of series 2). ? IMPRESSION: ? 1. ??There is no evidence of bowel obstruction, abscess or free ? air. ? 2. ??No acute intra-abdominal or pelvic abnormality is identified. ? Remainder of findings as described above. ? REPORT SIGNED IN OTHER VENDOR SYSTEM 04/19/2016 ?Reported By: Lisa Ramires MD ? CC: ? Transcribed Date/Time: 04/19/2016 (2203) ? Supervisor Home Energy Consultant: ? Printed Date/Time: 02/12/2019 (1044) ? PAGE 2 ? Signed Report ? Procedure Note Lisa Ramires - 07/07/2019 EXAM: CAT SCAN/ABDOMEN PELVIS WITHOUT CON EX. D/ (2116) CLINICAL INFORMATION: ABD PAIN EXAM: CT Abdomen and Pelvis Without Intravenous Contrast. CLINICAL HISTORY: The patient is a 61 years female; Signs and symptoms; Other: Unknown; Prior surgery; Surgery date: 6+ months; Surgery type: Gallbladder, appendectomy, fallopian tube removed around 21 y. O. , Recent ovarian biopsy; Patient HX: Cervical cancer at 21 y. O. ; Additional info: Abd pain TECHNIQUE: Axial computed tomography images of the abdomen and pelvis without intravenous contrast. As a consequence, evaluation of visceral organs and vascular structures is limited. This CT exam was performed using one or more of the following dose reduction techniques: automated exposure control, adjustment of the mA and/or kV according to patient size, and/or use of iterative reconstruction technique. Coronal and sagittal reformatted images were created and reviewed. EXAM DATE/TIME: 04/19/2016 8:34 PM COMPARISON: MR - PELVIS WO/W CONTRAST 03/04/2016 3:28:14 PM FINDINGS: Lower thorax: No acute findings. ABDOMEN: Liver: Unremarkable. Gallbladder and bile ducts: The patient is status post cholecystectomy. No ductal dilation. Pancreas: Unremarkable. No ductal dilation. Spleen: Unremarkable. No splenomegaly. Adrenals: Unremarkable. No mass. Kidneys and ureters: There is right renal cortical scarring with dystrophic calcifications. The kidneys are otherwise unremarkable with no evidence of hydronephrosis or perinephric stranding. PELVIS: Bladder: Unremarkable. No stones. Reproductive: Unremarkable as visualized. Appendix: There has been an appendectomy. ABDOMEN PELVIS: Stomach and bowel: There is diverticulosis with no evidence of acute diverticulitis. There is no evidence of intestinal obstruction. Peritoneum: Unremarkable. No significant fluid collection. No free air. PAGE 1 Signed Report (CONTINUED) Lymph nodes: Unremarkable. No enlarged lymph nodes. Vasculature: Unremarkable. No aortic aneurysm. Bones: No acute osseous abnormality is identified. There is patchy sclerosis of the left sacrum which is asymmetric to the right. The recent MR demonstrated evidence of inflammation at the level of the left sacrum and left SI joint. Soft tissues: There is an uncomplicated fat containing epigastric ventral hernia. The neck of the hernia measures approximately 10 mm. (Image 38 of series 2). IMPRESSION: 1. There is no evidence of bowel obstruction, abscess or free air. 2. No acute intra-abdominal or pelvic abnormality is identified. Remainder of findings as described above. REPORT SIGNED IN OTHER VENDOR SYSTEM 04/19/2016 Reported By: Lisa Ramires MD CC: Transcribed Date/Time: 04/19/2016 (2202) Supervisor Home Energy Consultant: Printed Date/Time: 02/12/2019 (8078) PAGE 2 Signed Report us Clare Feliciano ELA TEACHER ENP IMG CT ORDERABLES Final Re sult * XR CHEST 2 VIEWS (04/19/2016 22:03 EDT) Anatomical Region Laterality Modality Other 04/19/2016 22:0 3 EDT Narrative 04/19/2016 22:03 EDT ? EXAM: RADIOLOGY/CHEST (PA ?? LAT) ?EX. D/ (2122) ? CLINICAL INFORMATION: ? COUGH/FEVER ? EXAM: ? XR Chest, 2 Views. ? CLINICAL HISTORY: ? 61 years old, female; Signs and symptoms; Cough and fever; ? Symptoms not specified; Additional info: Cough/fever ? TECHNIQUE: ? Frontal and lateral views of the chest. ? COMPARISON: ? CR - CHEST, CHEST PA 02/14/2014 3:23:31 PM ? FINDINGS: ? Lungs: ??Unremarkable. ??No consolidation. ? Pleural spaces: ??Unremarkable. ??No pneumothorax. ? Heart: ??Unremarkable. ??No cardiomegaly. ? Mediastinum: ??Unremarkable. ? Bones/joints: ??Unremarkable. ??No acute fracture. ? IMPRESSION: ? No acute abnormality. ? REPORT SIGNED IN OTHER VENDOR SYSTEM 04/19/2016 ?Reported By: Agata Castro MD ? CC: ? Transcribed Date/Time: 04/19/2016 (2202) ? Supervisor Home Energy Consultant: ? Printed Date/Time: 02/12/2019 (8774) ? PAGE 1 ? Signed Report ? Procedure Note Agata Castro MD - 07/07/2019 EXAM: RADIOLOGY/CHEST (PA LAT) EX. D/ (2122) CLINICAL INFORMATION: COUGH/FEVER EXAM: XR Chest, 2 Views. CLINICAL HISTORY: 61 years old, female; Signs and symptoms; Cough and fever; Symptoms not specified; Additional info: Cough/fever TECHNIQUE: Frontal and lateral views of the chest. COMPARISON: CR - CHEST, CHEST PA 02/14/2014 3:23:31 PM FINDINGS: Lungs: Unremarkable. No consolidation. Pleural spaces: Unremarkable. No pneumothorax. Heart: Unremarkable. No cardiomegaly. Mediastinum: Unremarkable. Bones/joints: Unremarkable. No acute fracture. IMPRESSION: No acute abnormality. REPORT SIGNED IN OTHER VENDOR SYSTEM 04/19/2016 Reported By: Agata Castro MD CC: Transcribed Date/Time: 04/19/2016 (2202) Supervisor Home Energy Consultant: Printed Date/Time: 02/12/2019 (9399) PAGE 1 Signed Report us Clare Feliciano ELA TEACHER ENP IMG DIAGNOSTIC IMAGING ORD ERABLES Final Result documented in this encounter Visit Diagnoses Not on filedocumented in this encounter Care Teams Rn Residential Relationship Specialty Start Date End Date Natanael Saab MD PCP - General 03/17/15 12/29/22 documented as of this encounter
--- OUTSIDE RECORDS SUMMARY | 2024-10-13 18:36 | XMS_ITS | Encounter Summary ---
Author Organization [facility] Address [address] [place] [address] Care Team Providers Care Vegetable I Farmworker Name Role Phone Natanael Saab MD Primary Care Provider Unavailabl e Reason for Referral * Radiology Services (Routine) - Closed Specialty Diagnoses / Procedures Referred By Contac t Referred To Contact Diagnoses Chronic bilateral low back pain with left-sided sciatica Bilateral low back pain with right-sided sciatica, unspecified chronicity Procedures MR LUMBAR SPINE WO CONTRAST Morgan Singh MD Phone: tel: fax: Referral ID Status Reason Start Date Expiration Date Visits Re quested Visits Authorized [id number] Closed 06/26/2016 1 1 Reason for Visit * Reason Onset Date Comments Orders (Non Pre-visit) 06/26/2016 Encounter Details Date Type Department Care Team (Late st Contact Info) Description 06/26/2016 Orders Only [facility] - [address] [place] [address] Morgan Singh MD [address] [place] [address] [place] [address] Chronic bilateral low back pain with left-sided sciatica (Primary Dx); Bilateral low back pain with right-sided sciatica, unspecified chronicity Social History Tobacco Use Types Packs/Day Years [...] Type Priority Associated Diagnoses Orde r Schedule MR LUMBAR SPINE WO CONTRAST Imaging Routine Chronic bilateral low back pain with left-sided sciatica Bilateral low back pain with right-sided sciatica, unspecified chronicity Ordered: 06/26/2016 documented as of this encounter Visit Diagnoses Diagnosis Chronic bilateral low back pain with left-sided sciatica- Primary Bilateral low back pain with right-sided sciatica, unspecified chronicity documented in this encounter Care Teams Vegetable I Farmworker Relationship Specialty Start Date End Date Natanael Saab MD PCP - General 03/17/15 12/29/22 documented as of this encounter
--- OUTSIDE RECORDS SUMMARY | 2024-10-13 18:36 | XMS_ITS | Encounter Summary ---
Author Organization [facility] Address [address] [place] [address] Care Team Providers Care Exercise Scientist Name Role Phone Briana Okeefe MD Primary Care Provider Unavailabl e Encounter Details Date Type Department Care Team (Late st Contact Info) Description 03/21/2016 Historical Results Only [facility] [place] [address] [place] [address] Sally Gordillo, PLASTER TENDER [address] [place] [address], [address] [place] [address] Social History Tobacco Use Types Packs/Day Years [...] Date of Assessment Author Yes 03/07/2016 14:43 HIWOTT Kaleb Mayo RN documented as of this encounter Mental Status * Because of a physical, mental, or emotional condition, does this person have serious difficulty concentrating, remembering, or making decisions? Answer Entry Date Author Yes 03/07/2016 14:43 Kaleb Woodall RN documented in this encounter Plan of Treatment Not on file documented as of this encounter Procedures Procedure Name Priority Date/Time Associated Diagnosis Comments PAP TEST Routine 03/21/2016 documented in this encounter Results * PAP TEST (03/21/2016) 03/21/2016 03/22/2016 9:2 0 EDT Narrative [facility] - 03/29/2016 15:59 EDT ----- ------- Name: ZAINAB AVERY ? : [birth year] ?Age/Sex: 64/F ?Unit#: [id number] ? Loc: AGO ? Status: REG POV ?? Reg Date: 03/21/16 ? Pt.Phone Number: ? ----- ------- Specimen: [id number] ?STATUS: SOUT ?Spec Date:03/21/16 ? Physician Copies: ?Sally Gordillo ? Tissues: ? Cervical/Endo Pap ?BRIANA OKEEFE MD ? CPT: 95100 ?? Units: ??1 ----- ------- ? CYTOLOGY DIAGNOSIS SPECIMEN ADEQUACY: ?Satisfactory for evaluation. Transformation zone component ABSENT. GENERAL CATEGORIZATION: ?Negative for Intraepithelial Lesion or Malignancy DESCRIPTIVE DIAGNOSIS: ? Negative for Intraepithelial Lesion or Malignancy. ----- ------- ?HPV DNA RESULTS ?? 03/21/16 0925 HPV DNA RESULT ??NEG ? Negative for HPV types 16, 18, 31, 33, 35, 39, 45, 51, 52, ? 56, 58, 59, 66, 68. ? Method: Cervista HPV HR (High Risk) DNA test. ----- ------- ORDER QUERIES: LMP: ? - AGE 45 ? N Post ? N ??PREVIOUS ATYPICAL: Y BCP/HRT? N Rad Rx? N IUD? N ??PAP PLUS HPV? Y ??REFLEX TO HR-HPV IF ASCUS ?? REFLEX TO HPV 16/18 IF HPV POS/PAP NEG ?? HPV REGARDLESS?RFLX HPV IF LSIL ?? Signed Jalen Madden CT(ASCP) 03/29/16 By the signature above, the attending physician certifies that he/she has personally conducted a gross and/or microscopic examination of the described specimens and rendered or confirmed the above diagnosis. Test Performed by [facility], [address] [place] [id number] Stage Manager: Daisha Pagan MD PHD ----- ------- us Sally Gordillo PLASTER TENDER PATHOLOGY ORDERABLES Final Re sult Performing Organization Address City/State/[facility] Co de Phone Number [facility] documented in this encounter Visit Diagnoses Not on filedocumented in this encounter Care Teams Exercise Scientist Relationship Specialty Start Date End Date Briana Okeefe MD PCP - General 03/17/15 12/29/22 documented as of this encounter
--- OUTSIDE RECORDS SUMMARY | 2024-10-13 18:36 | XMS_ITS | Encounter Summary ---
Author Organization [facility] Address [address] [place] [address] Care Team Providers Care Motor Electrician Name Role Phone Natanael Saab MD Primary Care Provider Unavailabl e Encounter Details Date Type Department Care Team (Latest Contact Info) Description 12/08/2016 16:02 EDT - 12/08/2016 23:59 EDT Hospital Encounter [facility] [address] [place] [address] Unknown, Provider, Discharge Disposition: Home or Self [...] Code Departure Means Destination Home or Self Nursing Home documented in this encounter Plan of Treatment Not on file documented as of this encounter Visit Diagnoses Not on filedocumented in this encounter Care Teams Motor Electrician Relationship Specialty Start Date End Date Natanael Saab MD PCP - General 03/17/15 12/29/22 documented as of this encounter
--- OUTSIDE RECORDS SUMMARY | 2024-10-13 18:36 | XMS_ITS | Encounter Summary ---
Author Organization [facility] Address [address] [place] [address] Care Team Providers Care Cone Trucker Name Role Phone Natanael Saab MD Primary Care Provider Unavailabl e Encounter Details Date Type Department Care Team (Late st Contact Info) Description 06/11/2016 Historical Results Only [facility] Radiology Results [address] [place], [place] [address] Natanael Saab MD Social History Tobacco Use Types Packs/Day [...] Priority Date/Time Associated Diagnosis Comments CT CHEST W CONTRAST 06/11/2016 1 6:10 EDT documented in this encounter Results * CT CHEST W CONTRAST (06/11/2016 16:10 EDT) Anatomical Region Laterality Modality Chest Other 06/11/2016 16:1 0 EDT Narrative 06/11/2016 16:27 EDT ? EXAM: CAT SCAN/CHEST WITH CONTRAST ?EX. D/ (1552) ? CLINICAL INFORMATION: ? R06.02 R22.1 SWOLLEN NECK, SHORTNESS OF BREATH, ? DILATED BLOOD VESSELS;SVC SYNDROME ? CHEST WITH CONTRAST ? Signs and Symptoms/Comments: ??R06.02 R22.1 SWOLLEN NECK, SHORTNESS OF ? BREATH, DILATED BLOOD VESSELS; SVC SYNDROME ? Comparison: Chest radiograph on 06/01/2016, 04/19/2016. CT neck on ? 06/01/2016.. ? Technique: Contrast-enhanced CT chest was performed. Multiplanar ? reformations were performed. Standard and venous delays were ? performed (SVC syndrome protocol). ? FINDINGS: ? Of note, the patient complained of mild facial and eye pruritus ? immediately following intervenous contrast administration. She was ? assessed immediately by Dr. Beard. Blood pressure and heart rate ? remained within acceptable parameters. Pruritus resolved ? spontaneously over several minutes without intervention. This mild ? contrast reaction should be documented in the patient's record. ? Premedication is recommended before any future contrast-enhanced CT. ? Chest Wall: Unremarkable. ? Mediastinum: Scattered atherosclerotic disease is present. The heart ? is otherwise unremarkable. The IVC is widely patent. The pericardium ? is unremarkable. ? Lymph Nodes: No enlarged mediastinal, hilar, or axillary lymph nodes ? are identified. ? Airways: Mild diffuse airway thickening is present without ? significant mucous plugging. ? Lungs: Moderate centrilobular emphysema is present. No pulmonary mass ? is identified. ? Pleura: No pneumothorax or pleural effusion is present. ? Bones: Mild multilevel thoracolumbar degenerative disease is present. ? Upper Abdomen: The common bile duct is chronically dilated, measuring ? up to 16 mm (axial image 100). Mild-moderate intrahepatic biliary ? dilatation is also unchanged. These findings may reflect ? postcholecystectomy changes. There is moderate scarring along the ? posterior aspect of the right kidney (for example axial image 108). ? IMPRESSION: ? PAGE 1 ? Signed Report ? (CONTINUED) ? 1. ??Mild contrast reaction (facial and eye itchiness) which resolved ? spontaneously. Patient should be premedicated for any future ? iodinated contrast-enhanced exams. ? 2. ??No thoracic mass identified. SVC widely patent. ? 3. ??Moderate centrilobular emphysema. ? 4. ??Chronic biliary dilatation, perhaps reflecting ? postcholecystectomy changes.. ? REPORT SIGNED IN OTHER VENDOR SYSTEM 06/11/2016 ?Reported By: Norris Beard MD ? CC: ? Transcribed Date/Time: 06/11/2016 (1627) ? Animal Hospital Clerk: ? Printed Date/Time: 02/12/2019 (1044) ? PAGE 2 ? Signed Report ? Procedure Note Norris Beard MD - 07/07/2019 EXAM: CAT SCAN/CHEST WITH CONTRAST EX. D/ (1552) CLINICAL INFORMATION: R06.02 R22.1 SWOLLEN NECK, SHORTNESS OF BREATH, DILATED BLOOD VESSELS;SVC SYNDROME CHEST WITH CONTRAST Signs and Symptoms/Comments: R06.02 R22.1 SWOLLEN NECK, SHORTNESSOF BREATH, DILATED BLOOD VESSELS; SVC SYNDROME Comparison: Chest radiograph on 06/01/2016, 04/19/2016. CT neck on 06/01/2016.. Technique: Contrast-enhanced CT chest was performed. Multiplanar reformations were performed. Standard and venous delays were performed (SVC syndrome protocol). FINDINGS: Of note, the patient complained of mild facial and eye pruritus immediately following intervenous contrast administration. She was assessed immediately by Dr. Beard. Blood pressure and heart rate remained within acceptable parameters. Pruritus resolved spontaneously over several minutes without intervention. This mild contrast reaction should be documented in the patient's record. Premedication is recommended before any future contrast-enhanced CT. Chest Wall: Unremarkable. Mediastinum: Scattered atherosclerotic disease is present. Theheart is otherwise unremarkable. The IVC is widely patent. Thepericardium is unremarkable. Lymph Nodes: No enlarged mediastinal, hilar, or axillary lymphnodes are identified. Airways: Mild diffuse airway thickening is present without significant mucous plugging. Lungs: Moderate centrilobular emphysema is present. No pulmonarymass is identified. Pleura: No pneumothorax or pleural effusion is present. Bones: Mild multilevel thoracolumbar degenerative disease ispresent. Upper Abdomen: The common bile duct is chronically dilated,measuring up to 16 mm (axial image 100). Mild-moderate intrahepatic biliary dilatation is also unchanged. These findings may reflect postcholecystectomy changes. There is moderate scarring along the posterior aspect of the right kidney (for example axial image 108). IMPRESSION: PAGE 1 Signed Report (CONTINUED) 1. Mild contrast reaction (facial and eye itchiness) whichresolved spontaneously. Patient should be premedicated for any future iodinated contrast-enhanced exams. 2. No thoracic mass identified. SVC widely patent. 3. Moderate centrilobular emphysema. 4. Chronic biliary dilatation, perhaps reflecting postcholecystectomy changes.. REPORT SIGNED IN OTHER VENDOR SYSTEM 06/11/2016 Reported By: Norris Beard MD CC: Transcribed Date/Time: 06/11/2016 (1627) Animal Hospital Clerk: Printed Date/Time: 02/12/2019 (104) PAGE 2 Signed Report Natanael Saab MD IM CT ORDERABLES Final Result documented in this encounter Visit Diagnoses Not on filedocumented in this encounter Care Teams Cone Trucker Relationship Specialty Start Date End Date Natanael Saab MD PCP - General 03/17/15 12/29/22 documented as of this encounter
--- OUTSIDE RECORDS SUMMARY | 2024-10-13 18:36 | XMS_ITS | Encounter Summary ---
Author Organization [facility] Address [address] [place] [address] Care Team Providers Care Clinical Social Work Aide Name Role Phone Natanael Saab MD Primary Care Provider Unavailabl e Encounter Details Date Type Department Care Team (Late st Contact Info) Description 06/01/2016 Historical Results Only [facility] Radiology Results [address] [place] [address] Francoise Alejandro MD [address] [place] [address] Social History Tobacco Use Types [...] Name Priority Date/Time Associated Diagnosis Comments CT SOFT TISSUE NECK W CONTRAST 06/01/2016 21:41 EDT MR HEAD W WO CONTRAST 06/01/2016 21:24 EDT XR CHEST 2 VIEWS 06/01/2016 21:0 5 EDT documented in this encounter Results * CT SOFT TISSUE NECK W CONTRAST (06/01/2016 21:41 EDT) Anatomical Region Laterality Modality Neck Other 06/01/2016 21:4 1 EDT Narrative 06/01/2016 21:41 EDT ? EXAM: CAT SCAN/SOFT TISSUE NECK WITH CONT EX. D/ (2009) ? CLINICAL INFORMATION: ? PATIENT WITH HEADACHE, VERTIGO, FACIAL SWELLING, NECK SWELLING ? EXAM: ? CT Neck With Intravenous Contrast. ? CLINICAL HISTORY: ? 61 years old, female; Pain; Other: Swelling neck and face; ? Additional info: Patient with headache, vertigo, facial ? swelling, neck swelling ? TECHNIQUE: ? Axial computed tomography images of the neck with intravenous ? contrast. ??This CT exam was performed using one or more of the ? following dose reduction techniques: ??automated exposure ? control, adjustment of the mA and/or kV according to patient ? size, and/or use of iterative reconstruction technique. ? CONTRAST: ? 100 mL of [id number] administered intravenously. ? COMPARISON: ? MR - CERVICAL SPINE WITHOUT CONT. 10/14/2014 1:28:44 PM ? FINDINGS: ? Nasopharynx: ??Unremarkable. ? Oropharynx: ??Unremarkable. ??No significant tonsillar ? enlargement. ??No peritonsillar abscess. ? Hypopharynx: ??Unremarkable. ? Larynx: ??Unremarkable. ??Normal epiglottis. ? Trachea: ??Unremarkable. ? Retropharyngeal space: ??Unremarkable. ? Submandibular/parotid glands: ??Unremarkable. ??Glands are ? normal in size. ? Lymph nodes: ??Unremarkable. ??No lymphadenopathy. ? Thyroid: ??Unremarkable. ??No enlarged or calcified nodules. ? Bones: ??No acute fracture. ? Lung apices: ??Emphysema is present at the lung apices. ? IMPRESSION: ? 1. ??No acute findings. ? 2. ??Emphysema. ? REPORT SIGNED IN OTHER VENDOR SYSTEM 06/01/2016 ?Reported By: Agata Castro MD ? CC: ? Transcribed Date/Time: 06/01/2016 (2141) ? Gambling Supervisor: ? Printed Date/Time: 02/12/2019 (2715) ? PAGE 1 ? Signed Report ? Procedure Note Agata Castro MD - 07/07/2019 EXAM: CAT SCAN/SOFT TISSUE NECK WITH CONT EX. D/ (2009) CLINICAL INFORMATION: PATIENT WITH HEADACHE, VERTIGO, FACIAL SWELLING, NECK SWELLING EXAM: CT Neck With Intravenous Contrast. CLINICAL HISTORY: 61 years old, female; Pain; Other: Swelling neck and face; Additional info: Patient with headache, vertigo, facial swelling, neck swelling TECHNIQUE: Axial computed tomography images of the neck with intravenous contrast. This CT exam was performed using one or more of the following dose reduction techniques: automated exposure control, adjustment of the mA and/or kV according to patient size, and/or use of iterative reconstruction technique. CONTRAST: 100 mL of [id number] administered intravenously. COMPARISON: MR - CERVICAL SPINE WITHOUT CONT. 10/14/2014 1:28:44 PM FINDINGS: Nasopharynx: Unremarkable. Oropharynx: Unremarkable. No significant tonsillar enlargement. No peritonsillar abscess. Hypopharynx: Unremarkable. Larynx: Unremarkable. Normal epiglottis. Trachea: Unremarkable. Retropharyngeal space: Unremarkable. Submandibular/parotid glands: Unremarkable. Glands are normal in size. Lymph nodes: Unremarkable. No lymphadenopathy. Thyroid: Unremarkable. No enlarged or calcified nodules. Bones: No acute fracture. Lung apices: Emphysema is present at the lung apices. IMPRESSION: 1. No acute findings. 2. Emphysema. REPORT SIGNED IN OTHER VENDOR SYSTEM 06/01/2016 Reported By: Agata Castro MD CC: Transcribed Date/Time: 06/01/2016 (2146) Gambling Supervisor: Printed Date/Time: 02/12/2019 (6205) PAGE 1 Signed Report Francoise Alejandro MD IMG CT ORDERABLES Final Result * MR HEAD W WO CONTRAST (06/01/2016 21:24 EDT) Anatomical Region Laterality Modality Head Other 06/01/2016 21:2 4 EDT Narrative 06/01/2016 21:25 EDT ? EXAM: MAGNETIC RESONANCE IMAGING/BRAIN W/ EX. D/ (2020) ? CLINICAL INFORMATION: ? PATIENT WITH HEADACHE, VERTIGO, FACIAL SWELLING, NECK SWELLING ? EXAM: ? MR Head Without and With Intravenous Contrast. ? CLINICAL HISTORY: ? 61 years old, female; Signs and symptoms; Mass, lump, or ? localized swelling; Face; Additional info: Patient with ? headache, vertigo, facial swelling, neck swelling ? TECHNIQUE: ? Magnetic resonance images of the head/brain without and with ? intravenous contrast in multiple planes. ? CONTRAST: ? 15 mL of GADOLINIUM administered intravenously. ? COMPARISON: ? CT - MAXILLO FACIAL WITH CONTRAST 06/08/2015 7:13:42 PM ? FINDINGS: ? Brain: ??Unremarkable. ??No mass. ??No hemorrhage. ??No acute ? infarct. ? Ventricles: ??Unremarkable. ??No ventriculomegaly. ? Bones: ??Unremarkable. ? Sinuses: ??Unremarkable as visualized. ??No acute sinusitis. ? Mastoid air cells: ??Unremarkable as visualized. ??No mastoid ? effusion. ? Orbits: ??Unremarkable as visualized. ? IMPRESSION: ? No acute intracranial abnormality. ? REPORT SIGNED IN OTHER VENDOR SYSTEM 06/01/2016 ?Reported By: Agata Castro MD ? CC: ? Transcribed Date/Time: 06/01/2016 (2124) ? Gambling Supervisor: ? Printed Date/Time: 02/12/2019 (9803) ? PAGE 1 ? Signed Report ? Procedure Note Agata Castro MD - 07/07/2019 EXAM: MAGNETIC RESONANCE IMAGING/BRAIN W/ EX. D/ (2020) CLINICAL INFORMATION: PATIENT WITH HEADACHE, VERTIGO, FACIAL SWELLING, NECK SWELLING EXAM: MR Head Without and With Intravenous Contrast. CLINICAL HISTORY: 61 years old, female; Signs and symptoms; Mass, lump, or localized swelling; Face; Additional info: Patient with headache, vertigo, facial swelling, neck swelling TECHNIQUE: Magnetic resonance images of the head/brain without and with intravenous contrast in multiple planes. CONTRAST: 15 mL of GADOLINIUM administered intravenously. COMPARISON: CT - MAXILLO FACIAL WITH CONTRAST 06/08/2015 7:13:42 PM FINDINGS: Brain: Unremarkable. No mass. No hemorrhage. No acute infarct. Ventricles: Unremarkable. No ventriculomegaly. Bones: Unremarkable. Sinuses: Unremarkable as visualized. No acute sinusitis. Mastoid air cells: Unremarkable as visualized. No mastoid effusion. Orbits: Unremarkable as visualized. IMPRESSION: No acute intracranial abnormality. REPORT SIGNED IN OTHER VENDOR SYSTEM 06/01/2016 Reported By: Agata Castro MD CC: Transcribed Date/Time: 06/01/2016 (2124) Gambling Supervisor: Printed Date/Time: 02/12/2019 (9468) PAGE 1 Signed Report Francoise Alejandro MD IMG MRI ORDERABLES Final Result * XR CHEST 2 VIEWS (06/01/2016 21:05 EDT) Anatomical Region Laterality Modality Other 06/01/2016 21:0 5 EDT Narrative 06/01/2016 21:05 EDT ? EXAM: RADIOLOGY/CHEST (PA ?? LAT) ?EX. D/ (2056) ? CLINICAL INFORMATION: ? WEAKNESS, UPPER CHEST CONGESTION ? EXAM: ? XR Chest, 2 Views. ? CLINICAL HISTORY: ? 61 years old, female; Signs and symptoms; Other: Upper chest ? congestion; Additional info: Weakness, upper chest congestion ? TECHNIQUE: ? Frontal and lateral views of the chest. ? COMPARISON: ? CR - CHEST, [facility] 04/19/2016 9:10:37 PM ? FINDINGS: ? The lungs are well expanded and clear. ??There is no pleural ? fluid or pneumothorax. The cardiomediastinal silhouette is ? within normal limits. ??Deformity of the left clavicle represents ? prior trauma. ? IMPRESSION: ? No acute cardiopulmonary disease. ? REPORT SIGNED IN OTHER VENDOR SYSTEM 06/01/2016 ?Reported By: Rossi Humphries MD ? CC: ? Transcribed Date/Time: 06/01/2016 (2105) ? Gambling Supervisor: HIS.VRAD ? Printed Date/Time: 02/12/2019 (1044) ? PAGE 1 ? Signed Report ? Procedure Note Rossi Humphries MD - 07/07/2019 EXAM: RADIOLOGY/CHEST (PA LAT) EX. D/ (2056) CLINICAL INFORMATION: WEAKNESS, UPPER CHEST CONGESTION EXAM: XR Chest, 2 Views. CLINICAL HISTORY: 61 years old, female; Signs and symptoms; Other: Upper chest congestion; Additional info: Weakness, upper chest congestion TECHNIQUE: Frontal and lateral views of the chest. COMPARISON: CR - CHEST, [facility] 04/19/2016 9:10:37 PM FINDINGS: The lungs are well expanded and clear. There is no pleural fluid or pneumothorax. The cardiomediastinal silhouette is within normal limits. Deformity of the left clavicle represents prior trauma. IMPRESSION: No acute cardiopulmonary disease. REPORT SIGNED IN OTHER VENDOR SYSTEM 06/01/2016 Reported By: Rossi Humphries MD CC: Transcribed Date/Time: 06/01/2016 (2104) Gambling Supervisor: Printed Date/Time: 02/12/2019 (7665) PAGE 1 Signed Report us Francoise Alejandro MD IMG DIAGNOSTIC IMAGING ORDERABL ES Final Result documented in this encounter Visit Diagnoses Not on filedocumented in this encounter Care Teams Clinical Social Work Aide Relationship Specialty Start Date End Date Natanael Saab MD PCP - General 03/17/15 12/29/22 documented as of this encounter
--- OUTSIDE RECORDS SUMMARY | 2024-10-13 18:36 | XMS_ITS | Encounter Summary ---
Author Organization [facility] Address [address] [place] [address] Care Team Providers Care Switching Clerk Name Role Phone Natanael Saab MD Primary Care Provider Unavailabl e Reason for Referral * Radiology Services (Routine) - Closed Specialty Diagnoses / Procedures Referred By Contac t Referred To Contact Diagnoses Low back pain without sciatica, unspecified back pain laterality, unspecified chronicity Procedures L SPINE 4 OR MORE VIEWS Morgan Singh MD Phone: tel: fax: Referral ID Status Reason Start Date Expiration Date Visits Re quested Visits Authorized [id number] Closed 06/12/2016 1 1 Reason for Visit * Reason Onset Date Comments Pre-visit Orders 06/10/2016 Encounter Details Date Type Department Care Team (Late st Contact Info) Description 06/10/2016 Orders Only [facility] Spine Program - [address] [place] [address] Morgan Singh MD [address] [place] [address] [place] [address] Low back pain without sciatica, unspecified back pain laterality, unspecified chronicity (Primary Dx) Social History Tobacco Use Types [...] Procedure Name Priority Date/Time Associated Diagnosis Comments L SPINE 4 OR MORE VIEWS Routine 06/20/2016 15:14 EDT Low back pain without sciatica, unspecified back pain laterality, unspecified chronicity documented in this encounter Results * L SPINE 4 OR MORE VIEWS (06/20/2016 15:14 EDT) Anatomical Region Laterality Modality Other 06/20/2016 15:1 4 EDT 06/20/2016 15:57 EDT Narrative 06/20/2016 15:57 EDT L SPINE 4 OR MORE VIEWS ??06/20/2016 3:14 PM Signs and Symptoms/Comments: M54.5-Low back pain-ICD-10; low back pain Comparison outside films July 21, 2013. TECHNIQUE: AP, lateral, lateral flexion-extension views. AP film again demonstrates a mild lower lumbar dextroscoliosis. This is grossly unchanged. There may be minimal right lateral slip of L4 on L5. Although subtle, there is suggestion for calcification of the left iliolumbar ligament. The lateral view demonstrates no AP malalignment. Disc narrowing again suggested at L4-L5. There are no new compression fractures. Sclerosis overlies the lower lumbar and lumbosacral facets consistent with degenerative change. This may be slightly progressed since prior study. Flexion-extension lateral views suggest minimal anterolisthesis at L4-5 with flexion compared to extension. However, the patient is rotated on the flexion view and this may be an artifact of positioning. The amount of motion appears to be 1 mm or less even if real. IMPRESSION: 1. Suggestion for left iliolumbar ligament calcification. 2. Possible minimal right lateral slip of L4 and L5 which may be new. 3. Mild levoscoliosis not grossly changed since previous exam. 4. Possible minimal motion at L4-L5 although this appears to be 1 mm or less and may be an artifact of rotation on the flexion view relative to the extension films. Procedure Note Jose Antonio Cruz MD - 06/20/2016 L SPINE 4 OR MORE VIEWS 06/20/2016 3:14 PM Signs and Symptoms/Comments: M54.5-Low back pain-ICD-10; low back pain Comparison outside films July 21, 2013. TECHNIQUE: AP, lateral, lateral flexion-extension views. AP film again demonstrates a mild lower lumbar dextroscoliosis. This is grossly unchanged. There may be minimal right lateral slip of L4 on L5. Although subtle, there is suggestion for calcification of the left iliolumbar ligament. The lateral view demonstrates no AP malalignment. Disc narrowing again suggested at L4-L5. There are no new compression fractures. Sclerosis overlies the lower lumbar and lumbosacral facets consistent with degenerative change. This may be slightly progressed since prior study. Flexion-extension lateral views suggest minimal anterolisthesis at L4-5 with flexion compared to extension. However, the patient is rotated on the flexion view and this may be an artifact of positioning. The amount of motion appears to be 1 mm or less even if real. IMPRESSION: 1. Suggestion for left iliolumbar ligament calcification. 2. Possible minimal right lateral slip of L4 and L5 which may be new. 3. Mild levoscoliosis not grossly changed since previous exam. 4. Possible minimal motion at L4-L5 although this appears to be 1 mm or less and may be an artifact of rotation on the flexion view relative to the extension films. us Morgan Singh MD IMG DIAGNOSTIC IMAGING ORDER MARTITA Final Result documented in this encounter Visit Diagnoses Diagnosis Low back pain without sciatica, unspecified back pain laterality, unspecified chronicity- Primary documented in this encounter Care Teams Switching Clerk Relationship Specialty Start Date End Date Natanael Saab MD PCP - General 03/17/15 12/29/22 documented as of this encounter
--- OUTSIDE RECORDS SUMMARY | 2024-10-13 18:36 | XMS_ITS | Encounter Summary ---
Author Organization [facility] Address [address] [place] [address] Care Team Providers Care Offset Second Press Operator Name Role Phone Natanael Saab MD Primary Care Provider Unavailabl e Reason for Visit * Reason Onset Date Comments Biopsy Results 03/13/2016 Encounter Details Date Type Department Care Team (Late st Contact Info) Description 03/13/2016 Telephone [facility] Infectious Disease - [address] [address] Matt Finnegan RN Biopsy Results Social History Tobacco Use Types Packs/Day Years [...] of Assessment Author Yes 03/05/2016 1:44 EDT Gael, Broo ke, RN * Because of a physical, mental, [...] encounter Miscellaneous Notes * Telephone Encounter - Matt Finnegan RN - 03/13/2016 0850 EDT Patient called yesterday afternoon requesting her biopsy results. She refused to hang up without these results. Patient was very anxious as she's concerned her family is going to take her medical decision making away from her. I reviewed her surgical pathology results with her but explained that I really wanted to review with Dr. Patrick to have a better understanding of next steps. Savannah agreed but was thankful that I reviewed the results with her. I also explained that taking someone's medical decision making away is not an easy task and a court would have to deem her incompetent. This would be a long process. She was happy to hear this as she is clear that she wants to make her own decisions which she believes isbetween she and her physicians. Add- Spoke with Dr. Patrick this am(03/13/16) and review surgical path and culture results. Culturesare negative and biopsy doesn't show definitive osteomyelitis. Dr. Patrick wouldn't make any changes at this time. Dr. Patrick is still waiting for all her records for other facilities. I tried to call patient this am. Her phone was not accepting calls at this time. I will try again later today. documented in this encounter Plan of Treatment Not on file documented as of this encounter Visit Diagnoses Not on filedocumented in this encounter Care Teams Offset Second Press Operator Relationship Specialty Start Date End Date Natanael Saab MD PCP - General 03/17/15 12/29/22 documented as of this encounter
--- OUTSIDE RECORDS SUMMARY | 2024-10-13 18:36 | XMS_ITS | Encounter Summary ---
Author Organization [facility] Address [address] [place] [address] Care Team Providers Care Tire Installer Name Role Phone Natanael Saab MD Primary Care Provider Unavailabl e Reason for Visit * Reason Onset Date Comments Appointment Related 06/24/2016 Encounter Details Date Type Department Care Team (Late st Contact Info) Description 06/24/[address] [facility] Spine Program - [address] [place] [address] Morgan Singh MD [address] [place] [address] [place] [address] Appointment Related Social History Tobacco Use Types [...] of Assessment Author Yes 03/07/2016 14:43 EDT Klaeb Mayo RN documented as of this encounter Mental Status * Because of a physical, mental, or emotional condition, does this person have serious difficulty concentrating, remembering, or making decisions? Answer Entry Date Author Yes 03/07/2016 14:43 EDT Kaleb Mayo RN documented in this encounter Miscellaneous Notes * Telephone Encounter - Heydi Adams - 07/04/2016 0752 EDT Messages left for patient to please contact me as there is an extensive MRI safety questionaire I need to ask her prior to [place] [facility] [place] Awaiting patient's return call. * Telephone Encounter - Morgan Singh MD - 06/25/2016 1216 EDT OK to do [place] [facility] [place] Morgan 06/25/16 12:16 * Telephone Encounter - Heydi Adams - 06/24/[address] Singh - see copy of plan from office visit with you last week below: PLAN: 1. Lumbar MRI scan 2. SPECT/CT lumbar spine bone scan 3. Follow-up visit with Dr Singh Savannah states that she remembered after she left our office that she had a SPECT/CT in 2014 and these images have just been pushed [place] [facility] [place] Savannah states she does not want to repeat the scan as she has been advised by her infectious disease physician that she should not have any further scans. Savannah agrees to having an MRI, but is requesting this be completed [place] [facility] Please advise. documented in this encounter Plan of Treatment Not on file documented as of this encounter Visit Diagnoses Not on filedocumented in this encounter Care Teams Tire Installer Relationship Specialty Start Date End Date Natanael Saab MD PCP - General 03/17/15 12/29/22 documented as of this encounter
--- OUTSIDE RECORDS SUMMARY | 2024-10-13 18:36 | XMS_ITS | Encounter Summary ---
Author Organization [facility] Address [address] [place] [address] Care Team Providers Care Aviation Consultant Name Role Phone Natanael Saab MD Primary Care Provider Unavailabl e Reason for Visit * Reason Comments Back Pain low back pain Leg Pain bilateral leg toe pa in Neck Pain bilateral shoulder p ain Abdominal Pain Groin Pain right groin pain Encounter Details Date Type Department Care Team (Late st Contact Info) Description 03/07/2016 14:45 EDT Office Visit [facility] Interventional Pain [address] [place] [address] [place] [address] [place] [address] Villa Hackett MD [address] [place] [address] DDD (degenerative disc disease), cervical (Primary Dx); Ulnar nerve compression, left Social History Tobacco Use Types Packs/Day Years [...] Sign Reading Time Taken Comments Blood Pressure 144/77 03/07/2016 1442 EDT Pulse 72 03/07/2016 1442 EDT Temperature 36.7 ??C (98 ??F) 03/07/2016 1442 EDT Respiratory Rate 16 03/07/2016 1442 EDT Oxygen Saturation - - Inhaled Oxygen Concentration - - Weight 75.3 kg (166 lb) 03/07/2016 1442 EDT Height 157.5 cm (5' 2) 03/07/2016 1442 EDT Body Mass Index 30.36 03/07/2016 1442 EDT documented in this encounter Functional Status * [...] documented in this encounter Progress Notes * Villa Hackett MD - 03/07/2016 1430 EDT [facility] OP PAIN CONSULT Patient Name: Savannah Avery : 1955 Date of Service: 03/07/2016 Chief Complaint: Chief Complaint Patient presents with ??? Back Pain low back pain ??? Leg Pain bilateral leg toe pain ??? Neck Pain bilateral shoulder pain ??? Abdominal Pain ??? Groin Pain right groin pain Physician Requesting Consultation:Felice He History of Present Illness: Ms. Avery presents at the request of Felice He for evaluationand treatment of her chronic neck pain. This pain is primarily localized to the bilateral neck areaand radiates along the medial aspect of both arms to the 4th/5th finger along the ulnar distribution. She had surgery on the left side 5 years ago to decompress the ulnar nerve with no relief. She also had 3 steroid injections The pain is worsened with lateral neck movement and she has difficulty supporting the weight of her head with her neck and will support it with her hands when upright.The pain is dull and throbbing at the neck and shooting, radicular pain down her upper extremities. It is 5-04/10. Pt has a hx of DDD of C/L spine, depression, anxiety, PTSD, stroke, DM, borderline personality disorder and smoking (on 09/02 ppd). She also has osteoporosis but has not been able to take calcium due to her recurrent kidney stones. She had been discharged from [facility] for possible sacral osteomyelitis as she had increased pain in hersacrum. She had a bone biopsy and was put on IV abx. Bcx have shown no growth and her WBC downtrended prior to discharge on 03/06. The patient???s chronic pain has negatively impacted level of function, resulting in a depressed mood, more difficulty walking, less social interaction, less enjoyment of life and difficulty performing the basic activities of daily living. Diagnostic workup includes an MRI of the c spine and EMG. Allergies: Allergies Allergen Reactions ??? Codeine ??? Novacaine [Procaine (Bulk)] Pt states it doesn't work ??? Penicillins Current Medications: Current Outpatient Prescriptions Medication Sig Dispense Refill ??? aspirin chewable 81 mg tablet Take 81 mg by mouth daily. ??? cholecalciferol, Vitamin D3, 1,000 unit tablet Take 1,000 Units by mouth daily ??? FLUTICASONE PROPIONATE (FLOVENT HFA INHALATION) Inhale as directed. ??? GUAIFENESIN (MUCINEX ORAL) Take by mouth. ??? HYDROcodone-acetaminophen (LORTAB) 10-500 mg per tablet Take 1 Tab by mouth every 4 hours. ??? levalbuterol (XOPENEX HFA) 45 mcg/actuation inhaler Inhale 90 mcg as directed every 6 hours ??? LORATADINE (CLARITIN ORAL) Take by mouth. ??? LORazepam (ATIVAN) 2 mg tablet Take 2 mg by mouth 2 times daily ??? metoprolol (LOPRESSOR) 50 mg tablet Take 50 mg by mouth 2 times daily. ??? tiotropium (SPIRIVA) 18 mcg inhalation capsule Inhale 18 mcg as directed daily ??? traMADol (ULTRAM) 50 mg tablet Take 50 mg by mouth every 6 hours No current facility-administered medications for this visit. Past Medical HX: Past Medical History Diagnosis Date ??? Arthritis ??? Cancer ??? Asthma ??? Irritable bowel syndrome ??? COPD (chronic obstructive pulmonary disease) ??? Environmental allergies ??? Anxiety ??? Depression ??? Diabetes mellitus ??? GERD (gastroesophageal reflux disease) ??? Heart attack ??? Neuromuscular disease ??? Osteoporosis ??? Pancreatitis ??? Seizures ??? Cerebral artery occlusion with cerebral infarction Past Surgical HX: Past Surgical History Procedure Laterality Date ??? Appendectomy ??? Cholecystectomy ??? Wrist ganglion excision ??? Abdomen surgery Past Social HX: History Social History ??? Marital Status: Single Spouse Name: N/A ??? Number of Children: N/A ??? Years of Education: N/A Occupational History ??? Not on file. Social History Main Topics ??? Smoking status: Current Every Day Smoker -- 1.00 packs/day for 49 years ??? Smokeless tobacco: Not on file ??? Alcohol Use: No ??? Drug Use: No ??? Sexual Activity: Not on file Other Topics Concern ??? Not on file Social History Narrative Family HX: Family History Problem Relation Age of Onset ??? Cancer Mother ??? Heart Disease Mother ??? Diabetes Mother ??? *Other(comment) Mother kidney failure ??? Unknown Mother chrons ??? Kidney Disease Father ??? Cancer Father bladder and throat ??? *Other(comment) Father hernia Review of Systems: System Negative Positive Comments Constitutional x Eyes x ENT x Cardiovascular x Pulmonary x Gastrointestinal x Genitourinary x Muscoloskeletal x As above Skin x Neurological x Psychiatric x anxious Endocrine x Hematologic/Lymph x Allergic/Immunologic x Physical Exam: Vitals: [facility] 02/29/2016 General:orientedX3, cooperative and mild distress Neuro: Cranial nerves II-XII grossly intact and symmetric HEENT: Skin: clear, warm, dry and intact and no rashes, bruises or petechiae noted Musculoskeletal: diffuse pain in the neck bilaterally to light touch. Upper extremities: No clubbing, cyanosis, or edema. Lower extremities: No cyanosis, or edema Strength Exam: 4/5 strength in both R/L UE. Sensory Exam: decreased sensation to light touch bilaterally in upper extremity at the 4th/5th fingers. Assessment: 61 y.o. F with complicated medical history and possible left sacral osteomyelitis presents for evaluation of her chronic neck pain with bilateral radiculopathy in ulnar distribution. 1. DDD (degenerative disc disease), cervical 2. Ulnar nerve compression, left Plan: We had a lengthy discussion regarding options. From an interventional approach to pain, I would notsuggest an injection until we have ruled out osteomyelitis. If she does have this infection we willrequire about a year prior to an injection and we need ID clearance. If she does not have osteomyelitis we will schedule a repeat C spine MRI and likely do a midline DANIELLE at C8 From a medication perspective, I would recommend a trial of pregabalin for her neuropathic pain. Ptsays that gabapentin was ineffective and she is not currently on a neuropathic agent. I would also recommend acetaminophen if her liver function permits. The patient asked appropriate questions and all questions were answered. Attending attestation: I have reviewed the history and physical findings with the resident/fellow. I agree with the findings and plan of care documented in the resident's/fellow's note. Douglas Lomas MD documented in this encounter Plan of Treatment Not on file documented as of this encounter Visit Diagnoses Diagnosis DDD (degenerative disc disease), cervical- Primary Degeneration of cervical intervertebral disc Ulnar nerve compression, left documented in this encounter Care Teams Aviation Consultant Relationship Specialty Start Date End Date Natanael Saab MD PCP - General 03/17/15 12/29/22 documented as of this encounter
--- OUTSIDE RECORDS SUMMARY | 2024-10-13 18:36 | XMS_ITS | Encounter Summary ---
Author Organization [facility] Address [address] [place] [address] Care Team Providers Care Lease Administration Supervisor Name Role Phone Natanael Saab MD Primary Care Provider Unavailabl e Encounter Details Date Type Department Care Team (Late st Contact Info) Description 03/08/2016 Results Only Imaging [facility] Infectious Disease - [address] [id number] Karen Patrick MD Social History Tobacco Use Types Packs/Day [...] /Time OUTSIDE IMAGES - CT NEURO Imaging 03/08/2016 17:29 EDT documented as of this encounter Visit Diagnoses Not on filedocumented in this encounter Care Teams Lease Administration Supervisor Relationship Specialty Start Date End Date Natanael Saab MD PCP - General 03/17/15 12/29/22 documented as of this encounter
--- OUTSIDE RECORDS SUMMARY | 2024-10-13 18:36 | XMS_ITS | Encounter Summary ---
Author Organization [facility] Address [address] [place] [address] Care Team Providers Care Field Service Manager Name Role Phone Natanael Saab MD Primary Care Provider Unavailabl e Reason for Visit * Reason Onset Date Comments Appointment Related 07/02/2016 Encounter Details Date Type Department Care Team (Late st Contact Info) Description 07/02/2016 Telephone [facility] Spine Program - [address] [place] [address] Morgan Singh MD [address] [place] [address] [place] [address] Appointment Related Social History Tobacco [...] * Telephone Encounter - Heydi Adams - 07/02/[id number] EDT Call was placed to Savannah to please contact me regarding scheduling of [place] [facility] as there are some safety questions I need to ask prior to scheduling. Awaiting her return call. documented in this encounter Plan of Treatment Not on file documented as of this encounter Visit Diagnoses Not on filedocumented in this encounter Care Teams Field Service Manager Relationship Specialty Start Date End Date Natanael Saab MD PCP - General 03/17/15 12/29/22 documented as of this encounter
--- OUTSIDE RECORDS SUMMARY | 2024-10-13 18:36 | XMS_ITS | Encounter Summary ---
Author Organization [facility] Address [address] [place] [address] Care Team Providers Care Executive Administrative Asst Name Role Phone Natanael Saab MD Primary Care Provider Unavailabl e Reason for Visit * Reason Onset Date Comments Medication Management 04/12/2016 Encounter Details Date Type Department Care Team (Late st Contact Info) Description 04/12/2016 Telephone [facility] Infectious Disease - [address] [address] Karen Patrick MD Medication Management Social History Tobacco Use Types Packs/Day Years [...] encounter Miscellaneous Notes * Telephone Encounter - Fouzia Berrios RN - 04/12/2016 1433 EDT Contacted Aric at [facility] - Explained that Prednisone was not ordered by any provider in [facility]. * Telephone Encounter - Carmen Espana - 04/12/2016 1346 EDT Mauri with [facility](Dr Saab) stated patient advised her that she will be out of prednisone tomorrow and does not know who prescribes it. Mauri would like a call back today at [phone]. documented in this encounter Plan of Treatment Not on file documented as of this encounter Visit Diagnoses Not on filedocumented in this encounter Care Teams Executive Administrative Asst Relationship Specialty Start Date End Date Natanael Saab MD PCP - General 03/17/15 12/29/22 documented as of this encounter
--- OUTSIDE RECORDS SUMMARY | 2024-10-13 18:36 | XMS_ITS | Encounter Summary ---
Author Organization [facility] Address [address] [place] [address] Care Team Providers Care Vp Talent Management Name Role Phone Natanael Saab MD Primary Care Provider Unavailabl e Reason for Visit * Reason Onset Date Comments Follow-up 03/15/2016 Encounter Details Date Type Department Care Team (Late st Contact Info) Description 03/15/2016 Telephone [facility] Infectious Disease - [address] [address] Matt Finnegan RN Follow-up Social History Tobacco Use Types Packs/Day Years [...] Telephone Encounter - Matt Finnegan RN - 03/15/2016 0909 EDT Patient called back to discuss results. I relayed results to patient. Spoke with Dr. Patrick this am(03/13/16) and review surgical path and culture results.?? Cultures are negative and biopsy doesn't show definitive osteomyelitis.?? Dr. Patrick wouldn't make any changesat this time.?? Dr. Patrick is still waiting for all her records for other facilities I explained to patient that Dr. Patrick is waiting for records to review prior to creating a plan of care. Patient states she would like a call directly from Dr. Patrick. Patient reports she is having difficulty walking on her right leg and wants to get things figured out. Patient asked that I send her the surgical path results as she is unable to see them on [facility]. Mailed results. I explained to patient that Dr. Patrick will follow up with patient once she has the records. Patient understands and agreeable with plan. documented in this encounter Plan of Treatment Not on file documented as of this encounter Visit Diagnoses Not on filedocumented in this encounter Care Teams Vp Talent Management Relationship Specialty Start Date End Date Natanael Saab MD PCP - General 03/17/15 12/29/22 documented as of this encounter
--- OUTSIDE RECORDS SUMMARY | 2024-10-13 18:36 | XMS_ITS | Encounter Summary ---
Author Organization [facility] Address [address] [place] [address] Care Team Providers Care Natural Gas Trader Name Role Phone Natanael Saab MD Primary Care Provider Unavailabl e Encounter Details Date Type Department Care Team (Late st Contact Info) Description 04/04/2016 Historical Results Only [facility] Radiology Results [address] [place] [address] Sally Gordillo, MINE GEOLOGIST [address] [facility], [address] [place] [address] Social History Tobacco Use Types [...] Name Priority Date/Time Associated Diagnosis Comments US PELVIS TRANSVAGINAL COMPLETE 04/04/2016 16:50 EDT US BREAST LIMITED UNILATERAL 04/04/2016 14:26 EDT MA BREAST DIAGNOSTIC SUJIT BILATERAL 04/04/2016 14:26 EDT documented in this encounter Results * US PELVIS TRANSVAGINAL (04/04/2016 16:50 EDT) Anatomical Region Laterality Modality Pelvis Other 04/04/2016 16:5 0 EDT Narrative 04/04/2016 16:54 EDT ? EXAM: ULTRASOUND/TRANSVAGINAL - GUEST SERVICE REPRESENTATIVE W/ DO EX. D/ (1456) ? CLINICAL INFORMATION: ? R10.2 PELVIC PAIN ? INDICATION: R10.2 PELVIC PAIN PELVIC PAIN ? TECHNIQUE: ?Transvaginal pelvic ultrasound. Arterial and venous ? spectral waveforms along with color imaging of the ovaries. ? COMPARISON: None. ? FINDINGS: ?The uterus measures 6.2 x 2.2 x 3.7 centimeters. The ? endometrium measures 3.6 mm in thickness. The uterine parenchyma is ? unremarkable. ??No free fluid is seen in the cul-de-sac. The right ? ovary measures 2.0 x 1.1 x 1.1 cm. ?The left ovary measures 1.7 x ? 1.1 x 0.9 cm. ? The ovarian parenchyma is normal in appearance. ? Symmetric ovarian blood flow is noted. ? IMPRESSION: ? 1. ??No uterine or ovarian abnormality detected. ? REPORT SIGNED IN OTHER VENDOR SYSTEM 04/04/2016 ?Reported By: Sony Torres MD ? CC: ? Transcribed Date/Time: 04/04/2016 (1654) ? Seal Mixing Operator: ? Printed Date/Time: 02/12/2019 (1044) ? PAGE 1 ? Signed Report ? Procedure Note Sony Torres MD - 07/07/2019 EXAM: ULTRASOUND/TRANSVAGINAL - GUEST SERVICE REPRESENTATIVE W/ DO EX. D/ (1456) CLINICAL INFORMATION: R10.2 PELVIC PAIN INDICATION: R10.2 PELVIC PAIN PELVIC PAIN TECHNIQUE: Transvaginal pelvic ultrasound. Arterial and venous spectral waveforms along with color imaging of the ovaries. COMPARISON: None. FINDINGS: The uterus measures 6.2 x 2.2 x 3.7 centimeters. The endometrium measures 3.6 mm in thickness. The uterine parenchyma is unremarkable. No free fluid is seen in the cul-de-sac. The right ovary measures 2.0 x 1.1 x 1.1 cm. The left ovary measures 1.7 x 1.1 x 0.9 cm. The ovarian parenchyma is normal in appearance. Symmetric ovarian blood flow is noted. IMPRESSION: 1. No uterine or ovarian abnormality detected. REPORT SIGNED IN OTHER VENDOR SYSTEM 04/04/2016 Reported By: Sony Torres MD CC: Transcribed Date/Time: 04/04/2016 (0354) Seal Mixing Operator: Printed Date/Time: 02/12/2019 (4502) PAGE 1 Signed Report us Sally Gabriel Alliejeff MINE GEOLOGIST IMG US OB ORDERABLES Final Re sult * US BREAST LIMITED UNILATERAL (04/04/2016 14:26 EDT) Anatomical Region Laterality Modality Breast Other 04/04/2016 14:2 6 EDT Narrative 04/04/2016 16:19 EDT ? EXAM: MAMMOGRAM/MAMMO BILATERAL DX W SUJIT EX. D/ (1409) ? CLINICAL INFORMATION: ? R92.2 BREAST DENSITY, LEFT BREAST ? Z12.39 SCREENING MAMMO, RIGHT BREAST ? EXAM: ULTRASOUND/UNILATERAL BREAST LIMITE EX. D/ (1426) ? CLINICAL INFORMATION: ? R92.2, LEFT BREAST DENSITY ? RIGHT BREAST SCREENING ? INDICATION: ??Left breast density. Right breast screening. ? TECHNIQUE: ??Diagnostic left breast mammogram and ultrasound ? Screening right breast mammogram ? BILATERAL MAMMOGRAM: Full field digital whole breast 2D (C-view) and ? 3D CC and MLO views of both breasts were obtained. CAD technology was ? utilized. ? FINDINGS: ??The breast parenchyma is normal in appearance. No mass and ? no architectural distortion is seen. The breast tissue is of scattered ? density. ? LEFT BREAST ULTRASOUND: The entire upper left breast was scanned. The ? patient reports that her doctor perceived an area of concern in the ? upper breast. Furthermore, the patient reported a self-reported area ? of density at the 2 o'clock position. This entire region was scanned. ? No mass and no architectural distortion is seen. ? IMPRESSION: ??This is a negative bilateral breast mammogram and left ? breast ultrasound (ACR category 1). The patient should return in one ? year for bilateral breast screening mammography. ? Please note a negative imaging study should never preclude further ? evaluation and/or biopsy of a clinically suspicious finding. ? These findings and recommendations were discussed directly with the ? patient by the cardiac catheterization technologist at the time of the ? examination. ? FINAL ASSESSMENT: ??DIAGNOSTIC LEFT BREAST MAMMOGRAM/ULTRASOUND - ?Category 1 - Negative. ? FINAL ASSESSMENT: ??SCREENING RIGHT BREAST MAMMOGRAM - Category 1 - ?Negative. ? These results will be communicated to your patient via a lay letter ? from Radiology. ??If any additional imaging is needed we will contact ? your patient directly. ? PAGE 1 ? Signed Report ? (CONTINUED) ? JSP:jr ?Reported By: Sony Torres MD ? CC: ? Transcribed Date/Time: 04/04/2016 (6849) ? Seal Mixing Operator: NICOLE ? Printed Date/Time: 02/12/2019 (1044) ? PAGE 2 ? Signed Report ? Procedure Note Sony Torres MD - 07/07/2019 EXAM: MAMMOGRAM/MAMMO BILATERAL DX W SUJIT EX. D/ (1409) CLINICAL INFORMATION: R92.2 BREAST DENSITY, LEFT BREAST Z12.39 SCREENING MAMMO, RIGHT BREAST EXAM: ULTRASOUND/UNILATERAL BREAST LIMITE EX. D/ (1426) CLINICAL INFORMATION: R92.2, LEFT BREAST DENSITY RIGHT BREAST SCREENING INDICATION: Left breast density. Right breast screening. TECHNIQUE: Diagnostic left breast mammogram and ultrasound Screening right breast mammogram BILATERAL MAMMOGRAM: Full field digital whole breast 2D (C-view)and 3D CC and MLO views of both breasts were obtained. CAD technologywas utilized. FINDINGS: The breast parenchyma is normal in appearance. No massand no architectural distortion is seen. The breast tissue is ofscattered density. LEFT BREAST ULTRASOUND: The entire upper left breast was scanned.The patient reports that her doctor perceived an area of concern in the upper breast. Furthermore, the patient reported a self-reportedarea of density at the 2 o'clock position. This entire region was scanned. No mass and no architectural distortion is seen. IMPRESSION: This is a negative bilateral breast mammogram and left breast ultrasound (ACR category 1). The patient should return inone year for bilateral breast screening mammography. Please note a negative imaging study should never preclude further evaluation and/or biopsy of a clinically suspicious finding. These findings and recommendations were discussed directly with the patient by the cardiac catheterization technologist at the time of the examination. FINAL ASSESSMENT: DIAGNOSTIC LEFT BREAST MAMMOGRAM/ULTRASOUND - Category 1 - Negative. FINAL ASSESSMENT: SCREENING RIGHT BREAST MAMMOGRAM - Category 1 - Negative. These results will be communicated to your patient via a lay letter from Radiology. If any additional imaging is needed we willcontact your patient directly. PAGE 1 Signed Report (CONTINUED) JSP:jr Reported By: Sony Torres MD CC: Transcribed Date/Time: 04/04/2016 (9591) Seal Mixing Operator: NICOLE Printed Date/Time: 02/12/2019 (4228) PAGE 2 Signed Report us Sally Gordillo MINE GEOLOGIST IMG US ORDERABLES Final Resul t * MA BREAST DIAGNOSTIC SUJIT BILATERAL (04/04/2016 14:26 EDT) Anatomical Region Laterality Modality Breast Bilateral Other 04/04/2016 14:2 6 EDT Narrative 04/04/2016 16:19 EDT ? EXAM: MAMMOGRAM/MAMMO BILATERAL DX W SUJIT EX. D/ (1409) ? CLINICAL INFORMATION: ? R92.2 BREAST DENSITY, LEFT BREAST ? Z12.39 SCREENING MAMMO, RIGHT BREAST ? EXAM: ULTRASOUND/UNILATERAL BREAST LIMITE EX. D/ (1426) ? CLINICAL INFORMATION: ? R92.2, LEFT BREAST DENSITY ? RIGHT BREAST SCREENING ? INDICATION: ??Left breast density. Right breast screening. ? TECHNIQUE: ??Diagnostic left breast mammogram and ultrasound ? Screening right breast mammogram ? BILATERAL MAMMOGRAM: Full field digital whole breast 2D (C-view) and ? 3D CC and MLO views of both breasts were obtained. CAD technology was ? utilized. ? FINDINGS: ??The breast parenchyma is normal in appearance. No mass and ? no architectural distortion is seen. The breast tissue is of scattered ? density. ? LEFT BREAST ULTRASOUND: The entire upper left breast was scanned. The ? patient reports that her doctor perceived an area of concern in the ? upper breast. Furthermore, the patient reported a self-reported area ? of density at the 2 o'clock position. This entire region was scanned. ? No mass and no architectural distortion is seen. ? IMPRESSION: ??This is a negative bilateral breast mammogram and left ? breast ultrasound (ACR category 1). The patient should return in one ? year for bilateral breast screening mammography. ? Please note a negative imaging study should never preclude further ? evaluation and/or biopsy of a clinically suspicious finding. ? These findings and recommendations were discussed directly with the ? patient by the cardiac catheterization technologist at the time of the ? examination. ? FINAL ASSESSMENT: ??DIAGNOSTIC LEFT BREAST MAMMOGRAM/ULTRASOUND - ?Category 1 - Negative. ? FINAL ASSESSMENT: ??SCREENING RIGHT BREAST MAMMOGRAM - Category 1 - ?Negative. ? These results will be communicated to your patient via a lay letter ? from Radiology. ??If any additional imaging is needed we will contact ? your patient directly. ? PAGE 1 ? Signed Report ? (CONTINUED) ? AILYN:jr ?Reported By: Sony Torres MD ? CC: ? Transcribed Date/Time: 04/04/2016 (0209) ? Seal Mixing Operator: NICOLE ? Printed Date/Time: 02/12/2019 (1044) ? PAGE 2 ? Signed Report ? Procedure Note Sony Torres MD - 07/07/2019 EXAM: MAMMOGRAM/MAMMO BILATERAL DX W SUJIT EX. D/ (1409) CLINICAL INFORMATION: R92.2 BREAST DENSITY, LEFT BREAST Z12.39 SCREENING MAMMO, RIGHT BREAST EXAM: ULTRASOUND/UNILATERAL BREAST LIMITE EX. D/ (1426) CLINICAL INFORMATION: R92.2, LEFT BREAST DENSITY RIGHT BREAST SCREENING INDICATION: Left breast density. Right breast screening. TECHNIQUE: Diagnostic left breast mammogram and ultrasound Screening right breast mammogram BILATERAL MAMMOGRAM: Full field digital whole breast 2D (C-view)and 3D CC and MLO views of both breasts were obtained. CAD technologywas utilized. FINDINGS: The breast parenchyma is normal in appearance. No massand no architectural distortion is seen. The breast tissue is ofscattered density. LEFT BREAST ULTRASOUND: The entire upper left breast was scanned.The patient reports that her doctor perceived an area of concern in the upper breast. Furthermore, the patient reported a self-reportedarea of density at the 2 o'clock position. This entire region was scanned. No mass and no architectural distortion is seen. IMPRESSION: This is a negative bilateral breast mammogram and left breast ultrasound (ACR category 1). The patient should return inone year for bilateral breast screening mammography. Please note a negative imaging study should never preclude further evaluation and/or biopsy of a clinically suspicious finding. These findings and recommendations were discussed directly with the patient by the cardiac catheterization technologist at the time of the examination. FINAL ASSESSMENT: DIAGNOSTIC LEFT BREAST MAMMOGRAM/ULTRASOUND - Category 1 - Negative. FINAL ASSESSMENT: SCREENING RIGHT BREAST MAMMOGRAM - Category 1 - Negative. These results will be communicated to your patient via a lay letter from Radiology. If any additional imaging is needed we willcontact your patient directly. PAGE 1 Signed Report (CONTINUED) VIKASP:jr Reported By: Sony Torres MD CC: Transcribed Date/Time: 04/04/2016 (1619) Seal Mixing Operator: NICOLE Printed Date/Time: 02/12/2019 (8543) PAGE 2 Signed Report Sally Gordillo MINE GEOLOGIST IMG MAMMOGRAPHY ORDERABLES Fi nal Result documented in this encounter Visit Diagnoses Not on filedocumented in this encounter Care Teams Natural Gas Trader Relationship Specialty Start Date End Date Natanael Saab MD PCP - General 03/17/15 12/29/22 documented as of this encounter
--- OUTSIDE RECORDS SUMMARY | 2024-10-13 18:36 | XMS_ITS | Encounter Summary ---
Author Organization [facility] Address [address] [place] [address] Care Team Providers Care Beef Breaker Name Role Phone Natanael Saab MD Primary Care Provider Unavailabl e Encounter Details Date Type Department Care Team (Latest Contact Info) Description 02/09/2016 9:36 EDT - 02/09/2016 23:59 EDT Hospital Encounter [facility] [address] [place] [address] Unknown, Provider, Discharge Disposition: Home or Self [...] on file documented as of this encounter Medications at Time of Discharge levalbuterol (XOPENEX HFA) 45 mcg/actuation inhaler Inhale 90 mcg as directed every 6 hours LORazepam (ATIVAN) 2 mg tablet Take 1 Tablet by mouth 2 times daily. tiotropium (SPIRIVA) 18 mcg inhalation capsule Inhale 18 mcg as directed daily cholecalciferol, Vitamin D3, 1,000 unit tablet Take 1,000 Units by mouth daily. Not taking it daily 09/21/2024 FLUTICASONE PROPIONATE (FLOVENT HFA INHALATION) Inhale as directed. 09/21/2024 traMADol (ULTRAM) 50 mg tablet Take 50 mg by mouth every 6 hours 09/21/2024 documented as of this encounter Discharge Disposition Disposition Code Departure Means Destination Home or Self Assisted documented in this encounter Plan of Treatment Not on file documented as of this encounter Visit Diagnoses Not on filedocumented in this encounter Care Teams Beef Breaker Relationship Specialty Start Date End Date Natanael Saab MD PCP - General 03/17/15 12/29/22 documented as of this encounter
--- OUTSIDE RECORDS SUMMARY | 2024-10-13 18:36 | XMS_ITS | Encounter Summary ---
Author Organization [facility] Address [address] [place] [address] Care Team Providers Care Counting Machine Operator Name Role Phone Natanael Saab MD Primary Care Provider Unavailabl e Encounter Details Date Type Department Care Team (Latest Contact Info) Description 06/01/2016 8:10 EDT - 06/01/2016 23:59 EDT Hospital Encounter [facility] [address] [place] [address] Unknown, Provider, Discharge Disposition: Auto Discharge Social History Tobacco Use Types Packs/Day Years [...] Kaleb Mayo RN documented in this encounter Medications at Time of Discharge levalbuterol (XOPENEX HFA) 45 mcg/actuation inhaler Inhale 90 mcg as directed every 6 hours LORATADINE (CLARITIN ORAL) Take by mouth as needed. LORazepam (ATIVAN) 2 mg tablet Take 1 Tablet by mouth 2 times daily. tiotropium (SPIRIVA) 18 mcg inhalation capsule Inhale 18 mcg as directed daily aspirin chewable 81 mg tablet Take 81 mg by mouth daily. 09/21/2024 cholecalciferol, Vitamin D3, 1,000 unit tablet Take 1,000 Units by mouth daily. Not taking it daily 09/21/2024 FLUTICASONE PROPIONATE (FLOVENT HFA INHALATION) Inhale as directed. 09/21/2024 GUAIFENESIN (MUCINEX ORAL) Take by mouth. 2024 HYDROcodone-acet aminophen (LORTAB) 10-500 mg per tablet Take 1 Tab by mouth every 4 hours. 09/21/2024 metoprolol (LOPRESSOR) 50 mg tablet Take 25 mg by mouth daily. 09/21/2024 traMADol (ULTRAM) 50 mg tablet Take 50 mg by mouth every 6 hours 09/21/2024 documented as of this encounter Discharge Disposition Disposition Code Departure Means Destination Auto Discharge Home documented in this encounter Plan of Treatment Pending Results Name Type Priority Associated Diagnoses Date /Time OUTSIDE IMAGES - PLAIN FILM MSK Imaging 06/10/2016 11:28 EDT OUTSIDE IMAGES - OTHER NEURO Imaging 06/10/2016 11:28 EDT OUTSIDE IMAGES - PLAIN FILM MSK Imaging 06/10/2016 11:28 EDT OUTSIDE IMAGES - PLAIN FILM MSK Imaging 06/10/2016 11:28 EDT OUTSIDE IMAGES - OTHER NEURO Imaging 06/10/2016 11:28 EDT documented as of this encounter Visit Diagnoses Not on filedocumented in this encounter Care Teams Counting Machine Operator Relationship Specialty Start Date End Date Natanael Saab MD PCP - General 03/17/15 12/29/22 documented as of this encounter
--- OUTSIDE RECORDS SUMMARY | 2024-10-13 18:36 | XMS_ITS | Encounter Summary ---
Author Organization [facility] Address [address] [place] [address] Care Team Providers Care Junior Project Coordinator Name Role Phone Natanael Saab MD Primary Care Provider Unavailabl e Encounter Details Date Type Department Care Team (Late st Contact Info) Description 03/04/[address] [facility] Radiology Results [address] [place] [address] Norris Bills MD [address] [place] [address] Social History Tobacco Use Types [...] as of this encounter Functional Status * Because of a physical, mental, or emotional condition, does this person have difficulty doing errands alone such as visiting a doctor's office or shopping? Answer Date of Assessment Author Yes 02/29/2016 13:46 EDT documented as of this encounter Mental Status * Because of a physical, mental, or emotional condition, does this person have serious difficulty concentrating, remembering, or making decisions? Answer Entry Date Author Yes 02/29/2016 13:46 EDT documented in this encounter Plan of Treatment Not on file documented as of this encounter Procedures Procedure Name Priority Date/Time Associated Diagnosis Comments MR PELVIS W WO CONTRAST 03/04/2016 16:45 EDT documented in this encounter Results * MR PELVIS W WO CONTRAST (03/04/2016 16:45 EDT) Anatomical Region Laterality Modality Other 03/04/2016 16:4 5 EDT Narrative 03/04/2016 16:45 EDT ? AN ADDENDUM IS INCLUDED ON THIS REPORT ? ADDENDUM ? Findings were discussed with Norris Bills at 03/04/2016 4:51 PM ? EDT. ? ADDENDUM SIGNED IN OTHER VENDOR SYSTEM 03/04/2016 ?Reported By: Mare Ratliff MD ?Transcribed: 03/04/2016 (1651) [facility] ?REPORT ? EXAM: MAGNETIC RESONANCE IMAGING/PELVIS W EX. D/ ([id number]) ? CLINICAL INFORMATION: ? FEVER, SACRAL TENDERNESS, RADICULAR FINDINGS ? EXAM: ? MR Pelvis Without and With Intravenous Contrast. ? CLINICAL HISTORY: ? 61 years old, female; Pain and signs and symptoms; Difficulty ? in walking and other: Fever sacral tenderness, ; pelvic pain; ? Additional info: Fever, sacral tenderness, radicular findings ? TECHNIQUE: ? Multiplanar magnetic resonance images of the pelvis without ? and with intravenous contrast. ? CONTRAST: ? 15 mL of magnevist administered intravenously. ? COMPARISON: ? CT - ABDOMEN PELVIS WITHOUT CONTRAS 11/27/2014 11:55:08 PM ? FINDINGS: ? Bowel: Diverticulosis without focal diverticulitis. ??No ? obstruction. ??No mucosal thickening. ? Bladder: ??Unremarkable. ??No stones. ??No mass. ? Reproductive: ??Unremarkable as visualized. ? Lymph nodes: ??Unremarkable. ??No enlarged lymph nodes. ? Vasculature: ?? In addition to the abnormal signal within the ? bone marrow of the left sacrum, there is also some increased ? signal consistent with inflammation/edema adjacent to the ? vessels and nerves at the level of the internal iliac vessels ? and the sacroiliac joint inferiorly. ? Bones: ??No acute fracture. ??T2 fat-saturated coronal images ? show abnormal increased signal in the sacrum on the left ? adjacent to the SI joint inferiorly on image 18 through 22. ? This is also seen on axial T2 fast spin echo images 21 through ? 30. There is some increased signal within the joint itself on ? this axial series. ??No large fluid collection is seen. ? T1-weighted fat-saturated images post contrast administration ? also show abnormal enhancement at the same area in the sacrum ? that had bright signal on the T2 fast spin-echo fat-saturated ? images and there is some increased enhancement adjacent to the ? vessels and neural foramina on the left compared to the right. ? There is a very small area of increased signal within the ? PAGE 1 ? Signed Report ? (CONTINUED) ? AN ADDENDUM IS INCLUDED ON THIS REPORT ? right sacrum on image 24 series 6. ??This area shows some ? enhancement on postcontrast imaging as seen on axial image 25 of ? series 9 and coronal image 19 of series 8. ?There is a small amount of fluid at the hip joints bilaterally. ?This appears relatively symmetric. ? IMPRESSION: ? Findings consistent with infection/and/or inflammation at the ? SI joint on the left greater than right with enhancement ? predominantly in the sacrum and adjacent soft tissues on the ? left. ??There is minimal abnormal signal in the sacrum on the ? right. ??No focal abscess is identified. ??Infection needs to be ? excluded as the etiology for the changes in the sacrum. ? Infection cannot be excluded however the joint appears ? preserved although there is some increased signal on T2 weighted ? images within the SI joint. ? REPORT SIGNED IN OTHER VENDOR SYSTEM 03/04/2016 ?Reported By: Mare Ratliff MD ? CC: ? Transcribed Date/Time: 03/04/2016 (0539) ? Knit Goods Mender: ? Printed Date/Time: 02/11/2019 (2097) ? PAGE 2 ? Signed Report ? Procedure Note Mare Ratliff MD - 07/07/2019 AN ADDENDUM IS INCLUDED ON THIS REPORT ADDENDUM Findings were discussed with Nroris Bills at 03/04/2016 4:51 PM EDT. ADDENDUM SIGNED IN OTHER VENDOR SYSTEM 03/04/2016 Reported By: Mare Ratliff MD Transcribed: 03/04/2016 (1145) [facility] REPORT EXAM: MAGNETIC RESONANCE IMAGING/PELVIS W EX. D/ ([id number]) CLINICAL INFORMATION: FEVER, SACRAL TENDERNESS, RADICULAR FINDINGS EXAM: MR Pelvis Without and With Intravenous Contrast. CLINICAL HISTORY: 61 years old, female; Pain and signs and symptoms; Difficulty in walking and other: Fever sacral tenderness, ; pelvic pain; Additional info: Fever, sacral tenderness, radicular findings TECHNIQUE: Multiplanar magnetic resonance images of the pelvis without and with intravenous contrast. CONTRAST: 15 mL of magnevist administered intravenously. COMPARISON: CT - ABDOMEN PELVIS WITHOUT CONTRAS 11/27/2014 11:55:08 PM FINDINGS: Bowel: Diverticulosis without focal diverticulitis. No obstruction. No mucosal thickening. Bladder: Unremarkable. No stones. No mass. Reproductive: Unremarkable as visualized. Lymph nodes: Unremarkable. No enlarged lymph nodes. Vasculature: In addition to the abnormal signal within the bone marrow of the left sacrum, there is also some increased signal consistent with inflammation/edema adjacent to the vessels and nerves at the level of the internal iliac vessels and the sacroiliac joint inferiorly. Bones: No acute fracture. T2 fat-saturated coronal images show abnormal increased signal in the sacrum on the left adjacent to the SI joint inferiorly on image 18 through 22. This is also seen on axial T2 fast spin echo images 21 through 30. There is some increased signal within the joint itself on this axial series. No large fluid collection is seen. T1-weighted fat-saturated images post contrast administration also show abnormal enhancement at the same area in the sacrum that had bright signal on the T2 fast spin-echo fat-saturated images and there is some increased enhancement adjacent to the vessels and neural foramina on the left compared to the right. There is a very small area of increased signal within the PAGE 1 Signed Report (CONTINUED) AN ADDENDUM IS INCLUDED ON THIS REPORT right sacrum on image 24 series 6. This area shows some enhancement on postcontrast imaging as seen on axial image 25 of series 9 and coronal image 19 of series 8. There is a small amount of fluid at the hip joints bilaterally. This appears relatively symmetric. IMPRESSION: Findings consistent with infection/and/or inflammation at the SI joint on the left greater than right with enhancement predominantly in the sacrum and adjacent soft tissues on the left. There is minimal abnormal signal in the sacrum on the right. No focal abscess is identified. Infection needs to be excluded as the etiology for the changes in the sacrum. Infection cannot be excluded however the joint appears preserved although there is some increased signal on T2 weighted images within the SI joint. REPORT SIGNED IN OTHER VENDOR SYSTEM 03/04/2016 Reported By: Mare Ratliff MD CC: Transcribed Date/Time: 03/04/2016 (8327) Knit Goods Mender: Printed Date/Time: 02/11/2019 (9866) PAGE 2 Signed Report Norris Bills MD IMG MRI ORDERABLES Final Res ult documented in this encounter Visit Diagnoses Not on filedocumented in this encounter Care Teams Junior Project Coordinator Relationship Specialty Start Date End Date Natanael Saab MD PCP - General 03/17/15 12/29/22 documented as of this encounter
--- OUTSIDE RECORDS SUMMARY | 2024-10-13 18:36 | XMS_ITS | Encounter Summary ---
Author Organization [facility] Address [address] [place] [address] Care Team Providers Care Manager Shipping Name Role Phone Natanael Saab MD Primary Care Provider Unavailabl e Encounter Details Date Type Department Care Team (Late st Contact Info) Description 06/20/2016 Results Only Imaging [facility] [phone] Unknown, Provider, Social History Tobacco Use Types [...] Date of Assessment Author No 03/05/2016 1:44 Raiv Woodall RN * Are you blind or [...] Associated Diagnoses Date /Time OUTSIDE IMAGES - OTHER NEURO Imaging 06/20/2016 17:30 EDT documented as of this encounter Visit Diagnoses Not on filedocumented in this encounter Care Teams Manager Shipping Relationship Specialty Start Date End Date Natanael Saab MD PCP - General 03/17/15 12/29/22 documented as of this encounter
--- OUTSIDE RECORDS SUMMARY | 2024-10-13 18:36 | XMS_ITS | Encounter Summary ---
Author Organization [facility] Address [address] [place] [address] Care Team Providers Care Ic Designer Custom Name Role Phone Natanael Okeefe MD Primary Care Provider Unavailabl e Reason for Referral * Consult (3 - 10 Business Days) - Closed Specialty Diagnoses / Procedures Referred By Contac t Referred To Contact Infectious Disease Diagnoses Subacute osteomyelitis, osteomyelitis of unspecified site Susan Lynn DO Phone: tel: fax: [facility] Infectious Disease - [facility] [address] [place] [address] Phone: tel: fax: Referral ID Status Reason Start Date Expiration Date V isits Requested Visits Authorized [id number] Closed Specialty Services Required 03/06/2016 1 1 Question Answer Reason for Request: Hip pain, MR with ?osteo, biopsy taken- results pending on discharge * Follow Up (Routine) - Closed Specialty Diagnoses / Procedures Referred By Contac t Referred To Contact Diagnoses Subacute osteomyelitis, osteomyelitis of unspecified site Susan Lynn DO Phone: tel: fax: Referral ID Status Reason Start Date Expiration Date V isits Requested Visits Authorized [id number] Closed Continuity of Care 03/06/2016 1 1 Question Answer Reason for Request: Post hospital discharge follow up for ?osteomyelitis Reason for Visit * Reason Comments Back Pain Pt arrives complaini ng of 8/10 BP. Reports stepping on a nail three weeks ago, then again 3 days later, then was attacked by a turkey. See T-call. Encounter Details Date Type Department Care Team (Late st Contact Info) Description 03/04/2016 23:47 EDT - 03/06/2016 19:05 EDT Hospital Encounter [facility] Hematology & Oncology Unit [address] [place] [address] [phone] Salome Silver PAMarcelloC [address] [place] [address] [phone] Ashutosh Wright MD [address] [place] [address] [phone] Bharati Palma, PA-C [address] [place] [phone] Luis Enrique Colin MD [address] [place] [address] [phone] David Ruelas MD [address] [place] [address] [phone] Subacute osteomyelitis, other site (CMS-HCC) (Primary Dx); Subacute osteomyelitis, osteomyelitis of unspecified site; Ventral hernia without obstruction or gangrene Discharge Disposition: Home or Self Care Social [...] Sign Reading Time Taken Comments Blood Pressure 176/74 03/06/2016 1746 EDT Inform ed RN Arleth Pulse 63 03/06/2016 0909 EDT Temperature 37 ??C (98.6 ??F) 03/06/2016 1746 EDT Respiratory Rate 16 03/06/2016 1746 EDT Oxygen Saturation 95% 03/06/2016 1746 EDT Inhaled Oxygen Concentration - - Weight 75.4 kg (166 lb 3.2 oz) 03/04/2016 194 EDT Height 157.5 cm (5' 2.01) 03/05/2016 0149 EDT Body Mass Index 30.39 03/04/2016 1943 EDT documented in this encounter Functional Status [...] of a physical, mental, or emotional condition, do you have difficulty doing errands alone such as visiting a doctor's office or shopping? (15 years old or older) Answer Date of Assessment Author No 03/05/2016 1:44 EDT Ravi Mayo RN documented as of this encounter Mental Status * Because of a physical, mental, or emotional condition, do you have serious difficulty concentrating, remembering, or making decisions? (5 years old or older) Answer Entry Date Author No 03/05/2016 1:44 EDT Ravi Mayo RN documented in this encounter Discharge Summaries * David Ruelas MD - 03/06/2016 1349 EDT Medicine Discharge Summary Primary Care Provider: Natanael Okeefe Attending Physician: David Ruelas MD Admit Date: 03/04/2016 Discharge Date: 03/06/2016 Disposition: Home or self care Reason for Admission: Rule out osteomyelitis Principal/Final Diagnosis: Additional Problems Managed in the Hospital Active Hospital Problems Diagnosis Date Noted ??? Pyogenic inflammation of bone 03/05/2016 Resolved Hospital Problems Diagnosis Date Noted Date Resolved No resolved problems to display. Principal Procedure: Left sacral biopsy--Bone aspirate for path and culture? Hospital Course: Ms. Avery is a 61 y/o female admitted for further work-up after results from MRIat [facility] were shown to be consistent with osteomyelitis of the left iliosacral joint and sacrum. The patient's past medical history significant for degenerative disc disease of the lumbar spine, CAD, HTN, DM, stroke, recurrent dysuria, ventral abdominal hernia, anxiety, depression, PTSD, borderline personality disorder.?? She presented to [facility] because the pain in her sacrum and left leg is differentfrom her usual and she had found it more difficult to walk in the past day.?? She was transferred to [facility] for availability of specialty care services given the concern for osteomyelitis.?WBC within normal limits and trending down (8.82 --> 7.24).?? No other relevant laboratory findings to report.?? In the ED, the patient was seen and assessed by Orthopedics, who recommend against draining the abscess based on imaging.?? Interventional Radiology performed a bone biopsy the following day. The patient's pain was controlled with her home pain medications and intermittent dilaudid doses PRN. Given her clinical stability (no WBC count or fever) the patient was continued off antibiotics. She asked to leave on 03/06 as she did not want to miss previously scheduled doctors appointments on 03/07. A discussion was had regarding the possibility of an infection and the need to return to the hospital if she were to develop worsening symptoms or fever. [facility]04 at [facility] had shown no growth to date at the time of discharge. Bone biopsy from 03/06/2016 in process. Clinical Issues Needing Follow-up: -Follow up bone biopsy culture results -Infectious disease clinic follow up requested Discharge Medications: CONTINUE taking these medications Sig aspirin chewable 81 mg tablet 81 mg, oral, DAILY cholecalciferol (Vitamin D3) 1,000 unit tablet 1,000 Units, oral, DAILY CLARITIN ORAL oral FLOVENT HFA INHALATION inhalation HYDROcodone-acetaminophen 10-500 mg per tablet Commonly known as: LORTAB 1 Tab, oral, EVERY 4 HOURS LORazepam 2 mg tablet Commonly known as: ATIVAN 2 mg, oral, 2 TIMES DAILY metoprolol 50 mg tablet Commonly known as: LOPRESSOR 50 mg, oral, 2 TIMES DAILY MUCINEX ORAL oral tiotropium 18 mcg inhalation capsule Commonly known as: SPIRIVA 18 mcg, inhalation, DAILY traMADol 50 mg tablet Commonly known as: ULTRAM 50 mg, oral, EVERY 6 HOURS XOPENEX HFA 45 mcg/actuation inhaler Generic drug: levalbuterol 90 mcg, inhalation, EVERY 6 HOURS STOP taking these medications trimethoprim 100 mg tablet Commonly known as: TRIMPEX Allergies Allergen Reactions ??? Codeine ??? Novacaine [Procaine (Bulk)] Pt states it doesn't work ??? Penicillins There is no immunization history on file for this patient. Results Pending at Discharge Test results still pending from this admission Procedure Component Value Units Date/Time Bacterial Culture, Blood [[id number]] Collected: 03/04/162133 Lab Status: In process Specimen Information: Blood Updated: 03/04/162243 Bacterial Culture, Blood [[id number]] Collected: 03/04/162133 Lab Status: In process Specimen Information: Blood Updated: 03/04/162242 These [facility] appointments have already been scheduled Mar 07, 2016 14:45 Consultation with Villa Hackett MD [facility] Pain Medicine - [place] (--) [address] [place] [id number] Follow-up appointments and procedures Amb Consult/Follow Up Adult Infectious Disease Reason for Request: Hip pain, MR with ?osteo, biopsy taken- results pending on discharge Authorizing Provider: Susan Puente, DO Amb Consult/Follow Up Primary Care Physician Reason for Request: Post hospital discharge follow up for ?osteomyelitis Authorizing Provider: Susan Puente DO Discharge Summary Completed By: Susan Puente Attending Attestation: I have interviewed and examined the patient. I have discussed the case with the resident and agree with the discharge plan outlined above. Met with patient and her daughter and son after her biopsy. She was updated on our plans to continue to hold antibiotics until culture information finalized. She agreed to stay and await an ID consult. On hearing the situation, ID agreed to cont to hold antibio tics until cultures were completed - they attempted to see her but she had left the room. They alsoagreed they could see her as an outpatient. Later she decided to leave. Follow up arranged with ID.Cultures remain no growth to date. She was independently ambulatory. I updated the RN of her PCP - the patient was due to see them on Date of service: 03/06/2016 Time spent 45 min David Ruelas MD documented in this encounter Discharge Instructions * Discharge Instructions* Rui Mike RN - 03/06/2016 12:22 EDT RADIOLOGY PATIENT EDUCATION INSTRUCTIONS FOLLOWING BONE BIOPSY PROCEDURE 03/06/16 Procedure Site - Sacral Physician Performing Procedure - Reagan Bashir MD ?? Return home and rest quietly for the remainder of the day. ?? DO NOT drive or make legal decisions today as you may have received sedation medication for yourprocedure. ?? Have a responsible adult drive you and remain with you the rest of the day if possible. Depending on the time of your procedure, your activity will be restricted thus making it difficult to prepare meals etc. You may have also received medication that makes you groggy or sleepy. ?? You may resume your normal diet after the procedure. Avoid alcoholic beverages and depressant drugs for 24 hours. ?? DO NOT take aspirin-containing products, ibuprofen, vitamin E, or blood thinning products for 24hours after the procedure. You may take Tylenol (1-2 tablets every 4-6 hours) for mild discomfort. Call the Radiology Department for pain, unrelieved by Tylenol for the first 24 hours following your procedure. ?? Call your physician immediately or go to the nearest Emergency Room if you develop any of the following - Rapid Heart Rate or Pulse Upper back or chest pain Sudden onset of anxiety Skin color change Saturation or the Band-Aid or dressing Shortness of Breath Sweating Feeling Faint Bloody Stool ?? Check the dressing or Band-Aid throughout the day for any increase in drainage. Keep the Band-Aid or dressing dry for 24 hours. Replace the Band-Aid if necessary. If you notice brisk bleeding, apply pressure for 10 minutes and slowly release the pressure to see if the bleeding has stopped. If the bleeding does not stop, go to your Physician or the nearest Emergency Room. ?? The results of your procedure will go to the Physician who ordered the procedure. It may take 2-5 days for procedure results to come back. ?? IF YOU HAVE ANY QUESTIONS OR CONCERNS REGARDING THE PROCEDURE, PLEASE CALL THE [facility] INTERVENTIONAL RADIOLOGY AT . SOMEONE IS AVAILABLE TO TAKE YOUR CALL 24 HOURS A DAY. ?? documented in this encounter Medications at Time [...] or Self Care documented in this encounter Progress Notes * Sangita Wise - 03/06/2016 1615 EDT Visit to patient bedside. Also present daughter Jenna and son Mu. Patient and family inquiring Why is patient being discharged at 1530? railway station manager contacted medical team. Dr. Puente and Salo will be coming to meet with patient as soon as off call in Emergency Department. Bedside nurse Arleth Lee. Informed patient and family that bedrest following biopsy ended at 3:30. Arleth Lee informed patient and family that team would be by as soon as possible to discuss patient and family questions. * Kalen Amezquita - 03/06/2016 1526 EDT Spiritual Care Note Re: Zainab Avery : 1955, AGE: 61 y.o. Room: [place] [address] Zainab Avery who is listed as Uatsdin has received a visit from the Spiritual Care Departmenton 03/06/2016. Need/Assessment: ?? Met with patient and patient's son and daughter. ?? Patient was tearing and appeared anxious, fearful, upset, aggressive and overwhelmed by her present experience. ?? Emergency Room Clerk explored with patient and family, the patient's hospitalization, treatment and emotional feelings. ?? According to daughter, patient had bone biopsy and became upset due to post surgical pain. Emergency Room Clerk further explored with patient her emotional needs. Patient stated that she was angry because thestaff weren't giving her medication as requested by her. She stated that her medication was taken away from her and that she felt assaulted by staff. They are not listening to me and they are not doing anything for me, she said. ?? Patient, at a point, became very aggressive towards her children, whom she claimed weren't listening to her and her needs for specific pain medication. Patient appeared to be tearing as she expressed her frustration. Intervention: ?? Emergency Room Clerk provided listening, comforting and empathic presence for patient. ?? Validated patient's emotional feelings, helped patient to process her feelings and then exploredwith patient the benefits of trusting her health-care providers (the Staff). ?? Emergency Room Clerk provided spiritual counseling and emotional support. Outcome: ?? Emergency Room Clerk helped patient to calm down and listened to her caregivers. ?? Patient's care-givers were appreciative of the support. Plan of Action: x No Follow up necessary - Needs met Continued Family Support Continued Support from Emergency Room Clerk following patient Make a Referral to: Continued Support with Volunteer Visits Connect with Community Supports Ask for a consult from: Other: Visit Initiated by: x Referral Time: 1:30 PM End of Life / Comfort Care / Hospice Urgent Request - Time: 4 Level of Visit Services Provided: Anointing of Sick Prayer Communion Relaxation through music Assist Advanced Directives Integrative therapies Assist Decision Making Shahid and Prayer at dying Exploration of Ethical issues Present at time of x Family Support x Other Chaplain Rigo Nevarez 131 Phone [phone] Spiritual Care is available 24 hours a day. Office hours are 0800 to 1700 Friday through Friday and 0830 to 1630 Friday and Friday. Interfaith and Advent chaplains are available 24 hours a day. For routine consults please call and leave a message with the Spiritual Care Office ([phone]) and patients will be seen within 24 hours. Forall emergent consults page the Alevism or Interfaith on-call Emergency Room Clerk through [facility] ([phone]). * Sangita Wise - 03/06/2016 1503 EDT Initial Case Management/Social Work Assessment and Discharge Plan/Readmission Risk Assessment Reason for Admission: hip pain Patient Contact Information: Todd Jones [phone] LIVING ARRANGEMENTS AND ACCESSIBILITY ISSUES: Lives in one story home with four stairs to enter. What in home social supports are available to the patient? Patient states her son Amilcar is living with her and Amilcar has liver cancer,. ADVANCED DIRECTIVES, POA &/or COLST IN PLACE: Yes Vt Advance Directive in Scans CULTURAL, SABIANIST and/or LANGUAGE factors affecting health care/discharge planning: Yes Patient has borderline personality disorder Insurance in Place: Yes Type of Insurance: Medicaid DISCHARGE RISK ASSESSMENT: History of mental illness;Polypharmacy, > 7 medications Total # selected above: Score of 1 - 2: This patient is at LOW RISK for re-hospitalization Tentative plan to address the risk of re-hospitalization for those at HIGH MODERATE RISK: Bring risk factors to attention of team to be addressed FUNCTIONAL & PSYCHOSOCIAL INFORMATION: patient is 61 year old woman who is admitted from OSH for pain in her hip. Patient is unhappy with her care, I was supposed to get antibiotics and they haven't given me any. Patient Advocacy is involved MEDICAL AND COMMUNITY SERVICES: Primary Care Provider: Natanael Okeefe Specialists: unknown Skilled home care services: patient is followed by Cierra Chang RN Community Health team nurse from Dr. Okeefe's office DME Provider: not at this time Pharmacy: [facility] in [place] Other: Patient's brother in law Todd will give patient a ride home. POST HOSPITAL TRANSITION PLAN: pending clinical course Sangita Wise 03/06/2016 15:03 * Rui Mike RN - 03/06/2016 1053 EDT I have reviewed Labs, MAR, Pt history. I have noted the sedation orders by CURT. I have reviewed all over pertinent orders for this procedure. The H + P has been completed. The site has been site marked sacral by CURT PEREZ. Pt greeted in CT ID'd by name, and viewed name bracelet. . Assessed IV. As the nurse in the room I explained goals of procedure and sedation relating to nursing goals. Pt verbalizes all questionshave been answered regarding procedure. Upon entering the room, patient is verbally disagreeable toprocedure and to IV start. Pt in room time is 1115 I have reviewed the consent for the procedure. Pt positioned prone on the CT table. Gel pads under elbows, Safety straps in place. VS assessed. Administration of conscious sedation began at 1150 . Sterile prep of sacral spine with betadine in the usual sterile fashion. Galvez moment for BX procedure verbalized with all team members listening At 1205 between FARTUN/DERICK and CURT. At start of the procedure the patient is awake, during procedure, patient resting on table VSS as charted. Post procedure, patient moved from table to cart and transferred to S4 with report. Patient had smokeless tobacco device in her hand immediately after the procedure as I placed it there. A few minutes after, she had lost it, presumably in the bed because it was no where to be found on the floor. Patient agreed to go up without it, it can be replaced. Biopsy labs sent family notified end of procedure follow up plan discussed with In suite provider. Defer to Physicians note for procedure outcomes Medications administered during the procedure, over 50 minutes of time in titrated, divided doses, Versed 8 Mg Fentanyl 300 Mcg IV. Pt responded to sedation very resistantly at first. Other Meds given during procedure nacl IVF during procedure 400mLs. Pt tolerated procedure fairly well. Discharge instructions placed in prism. * David Ruelas MD - 03/05/2016 5808 EDT Brief Progress Note ([id number] @8:00): SUBJECTIVE: Patient lying in bed. Aggravated that she has been asked the same questions multiple times. I explained that we would like to get a bone biopsy in order to identify any specific infective agents, as well as, better guide antimicrobial therapy. She said she would like me to discuss everything with her sister before any treatment occurred. OBJECTIVE: Patient afebrile and vital signs stable at time of exam. General: Patient resting in bed, cup of juice and crackers at bedside. Not in any respirtatory or physical distress. HEENT: NC/CT, no scleral icterus. CVS: RRR, S1/S2, no M/R/G GI: abdomen soft, globally tender to palpation, hernia reducible, BS+ Extremities: able to weight bear. Ambulates with cane. *Unable to complete exam, patient deferred. LABS: WBC within normal limits and trending down (8.82 --> 7.24). No other relevant laboratory findings to report. ASSESSMENT: Ms. Avery is a 7o year old female admitted for further work-up after results from MRI at [facility] [place] to be consistent with osteomyelitis of the left iliosacral joint and sacrum. Past medical history significant for degenerative disc disease of the lumbar spine, CAD, HTN, DM, stroke, IBS s/p bowel ?resection, recurrent dysuria, abdominal hernia, anxiety, depression, PTSD, borderline personality disorder. PLAN: Osteomyelitis - plan for bone biopsy tomorrow - NPO overnight - continue FOREST RANGER TECHNICIAN meds Layla Nash MD PGY-1 Pager# [phone] Attending Attestation: I have interviewed and examined the patient. I have personally reviewed the medication list. I have independently reviewed the lab results. D/w Dr Colin. I have discussed the case with the resident and agree with the findings and plan of care above. Anyadditions in blue. Discussed her care with Patient advocacy. Her home pain med plan has been resumed. Awaiting final MRI report - she is aware recommendation isfor biopsy to confirm infection prior to antibiotics in an otherwise stable person. She is amenableto biopsy after the procedure was reviewed. No matter what, she states she needs to be home by 03/07. Date of service: 03/05/2016 David Ruelas MD * Felice Wolff - 03/05/2016 1031 EDT SPIRITUAL CARE NOTE Patient: Zainab Avery 03/05/2016 Location: [place] [address] Date of : 1955 Age: 61 y.o. Zainab Avery who is listed as Uatsdin has received a visit from the Spiritual Care Departmenton 03/05/2016. VISIT INITIATED by 4 Level of Visit Initial Visit by S.C. Department Urgent Request - Time: Follow-up visit x Referral Time:09:58 End of Life / Comfort Care / Hospice UNAVAILABLE FOR VISIT Patient Discharged Patient sleeping Patient out of room Patient with Treatment Team SPIRITUAL ISSUE & ASSESSMENT: Patient is distrustful of the health care she is receiving at hospital. She did not want to come here and is not sure she wants the services she is being provided. Imentioned she may want to talk to a patient advocate and she showed me a card of the person she wastalking to. The card said the person was an RN who is a patient advocate. When asked if she believed in this person's willingness to help, she confirmed she felt hopeful. We spoke of her spirituality. She considers her sister Sushila, who , a guardian spirit who watches over her. Before I left we said the 'Our Father' together and then I said a more personal prayer for her, her family, her caretakers and her sister Sushila. ISSUES & INTERVENTIONS: x Listened to patient's story Concerned about life after Facilitated Restorationist Needs / Rituals Conflicted or challenged belief system x Prayer / [place] Isolated from confucianist community Anointing of the Sick - (called Environmental Solutions Engineer) Conflict between confucianist beliefs and treatment Communion Facilitated exploration of Guilt Mandaen x Facilitated exploration of Hopelessness Naming Ceremony Facilitated identification of Emotions Facilitated exploration of meaning/purpose Shahid and Prayers for the Dying Facilitated exploration of Discouragement Present at time of (w/ in 2 hrs) Facilitated Grief / Bereavement Work Consoled Family Encouraged focus on present moment Prayers for the x Encouraged Self-care Contacted EDUARD Connected with Community Resources Family Support Provided Reading Materials Advocated for patient / family Relaxation through Music Celebrated with patient / family Led a Guided Meditation Consulted with interdisciplinary team Assisted with Advanced Directives Connected with Community Resources Facilitated exploration of Ethical Issues Clarified or confirmed information Facilitated Decision Making Assisted with the Clarification of Goals PLAN: No Follow up necessary - Needs met Continued Family Support x Continued Support from Emergency Room Clerk following patient Made a Referral to Continued Support with Volunteer Visits Emily Daniellain Hand Shaper Spiritual Care Department [place] [phone] Spiritual Care is available 24 hours a day. Interfaith and Advent chaplains are available 24 hours a day. For routine consults please call and leave a message with the Spiritual Care Office ([phone]) and patients will be seen within 24 hours. For all emergent consults page the Alevism or Interfaith on-call Emergency Room Clerk through [facility] ([phone]). * Yahaira Galloway, RT - 03/05/2016 0630 EDT Respiratory Consult/Progress Note Indications for Respiratory therapy: history of COPD Data Vitals: Heart Rate: 56 BPM, Resp: 16, SpO2: 95 % FIO2/O2 Device: , , O2 Device: None, RT Orders: Flovent BID, Spiriva daily and Albuterol MDI prn Protocol Scoring: Bronchodilator/Inhalation Therapy Frequency Bronchodialator - Clinical Indications: History of COPD Breath Sounds: Any abnormal BS decreased Response: No change / no treatment Pulse: <100 Resp Rate: 18-25 SOB: None Total Score: 2 Comment:: Flovent BID and Spiriva daily home routine/prn Alb MDI Airway Clearance Therapy Frequency Airway Clearance - Clinical Indications: No clinical indications Breath Sounds: Clear / diminished Sputum: Small (tsp) / None Consistency: None Cough Effort: Strong, non-productive Color: None Total Score: 0 Hyperinflation Therapy Frequency Hyperinflation - Clinical Indications: No clinical indications Breath Sounds: Diminished / crackles Surgery: No X-Ray / Atelectasis: No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 2 0:37 EDT GLUCOSE, GLUCOMETER Routine 03/05/2016 1 6:38 EDT GLUCOSE, GLUCOMETER Routine 03/05/2016 1 3:38 EDT GLUCOSE, GLUCOMETER Routine 03/05/2016 7 :12 EDT COMPLETE BLOOD COUNT Routine 03/05/2016 5:36 EDT BUN Routine 03/05/2016 5:36 EDT CREATININE Routine 03/05/2016 5:36 EDT ELECTROLYTES Routine 03/05/2016 5:36 EDT SECONDARY READ BODY MR Routine 03/05/2016 4:46 EDT GLUCOSE, GLUCOMETER Routine 03/05/2016 2 :05 EDT POCT URINE DIPSTICK, CLINITEK STAT 03/05/2016 0:24 EDT DRY POWDERED OR METERED DOSE INHALER Routine 03/04/2016 21:51 EDT EKG 12-LEAD STAT 03/04/2016 21:47 EDT BACTERIAL CULTURE, BLOOD Routine 03/04/2016 21:34 EDT BACTERIAL CULTURE, BLOOD Routine 03/04/2016 21:34 EDT SED RATE STAT 03/04/2016 21:34 EDT COMPLETE BLOOD COUNT AND DIFFERENTIAL STAT 03/04/2016 21:34 EDT C REACTIVE PROTEIN STAT 03/04/2016 21 :34 EDT BASIC METABOLIC PANEL (BMP) STAT 03/04/2016 21:34 EDT documented in this encounter Results * ECG REPORT - SCANNED (03/14/2016 10:46 EDT) 03/14/2016 10:4 6 EDT us Scan 2 Treater PROCEDURE/MINOR SURGICAL OR DERABLES Final Result * SURGICAL PATHOLOGY (03/06/2016 17:52 EDT) Pathology Report: SURGICAL PATHOLOGY REPORT Reports generated via electronic interface contain original data; however they are lacking the format of the original report. Caution should be taken when reading/interpret ing unformatted reports. Name: ? ZAINAB AVERY ? Accession #: ? [id number] ? : ? 1955 (Age: 61) ??F ? Collect Date: ? 03/06/2016 ? Location: ? [facility] ? Receive Date: ? 03/06/2016 ? Provider: REAGAN BASHIR MD Copy to: SALOME OKEEFE MD ? Final Pathologic Diagnosis: SACRUM, LEFT, BIOPSY: - ??Fibrotic tissue suggestive of marrow fibrosis. See comment. - ??Minute fragments of trabecular bone. - ??No definitive features of active osteomyelitis. Comment: The presence of fibrotic tissue raises the possibility of chronic osteomyelitis. Clinical and microbiology culture correlation is recommended. Dr. Lakeisha Brooks 03/11/2016 11:20 AM Document reviewed and electronically signed by: Ernei Patel MD Report ??Date: 03/11/2016 16:08 By the signature above, the attending physician certifies that he/she has personally conducted a gross and/or microscopic examination of the described specimens and rendered or confirmed the above diagnosis. Specimen(s) Received: Left sacral aspirate Clinical History: Left sacral pain Gross Description: ? Received in formalin labelled with proper patient identification (initials G, D) and sacral spinal biopsy is an aggregate of hemorrhage (1.3 x 0.7 x 0.3 cm). The specimen is submitted entirely in 1 and 2. 03/07/2016 11:44 AM End of Report [facility] 03/06/2016 17:5 2 EDT 03/06/2016 17:52 EDT us Reagan Bashir MD PATHOLOGY ORDERABLES Fi nal Result [facility] [address] [place] [id number] * GLUCOSE, GLUCOMETER (03/06/2016 17:45 EDT) Glucose, Fingerstick 75 70 - 100 mg/dl 03/06/2016 17:58 EDT [facility] [employer] [place] [id number] 03/06/2016 17:58 EDT [facility] Comment:Test Performed by [facility] BLOOD SPECIMEN / Unknown 03/06/2016 17:45 EDT 03/06/2016 17:58 EDT us David Ruelas MD CHEMISTRY & BLOOD GAS OR DERABLES Final Result [facility] [address] [place] [address] * IR CT GUIDE BX (03/06/2016 13:00 EDT) Anatomical Region Laterality Modality Other 03/06/2016 13:0 0 EDT 03/11/2016 16:22 EDT Narrative 03/11/2016 16:22 EDT Preoperative diagnosis: Left sacral osteomyelitis Postoperative Diagnosis: Same Surgeons: Dr. Reagan Bashir Airline Radio Operator: None Anesthesia: Local with moderate sedation Interventional procedure: Left sacrum biopsy Placement of needles: 1. CT guided placement of needle into the left sacrum Interpretation of the following images: 1. CT images during placement of needle Hemostasis: Manual pressure Indications: ??The patient is a 61-year-old female with severe left low back pain. MR from an outside institution reveals edema and enhancement involving the inferior aspect of the left sacral ala. ?? Biopsy is recommended for therapeutic planning. Procedure in detail and findings: The risks and benefits of the procedure were explained to the patient and informed consent was obtained and signed. The patient was brought to the CT suite and placed in the prone position on the CT table. Prior to the procedure, a timeout was completed verifying correct patient, date of , procedure, site, positioning and special equipment as applicable. After monitoring was initiated, sedation was administered. CT images were obtained of the sacrum and compared with the outside MR examination. There is mild inflammatory changes involving the presacral fat along the inferior left sacral ala. The lower back was prepped and draped in sterile fashion. Lidocaine was used for local anesthesia. A 20-gauge spinal needle was used to extend anesthesia to the periosteum of the posterior aspect of the left sacrum. A dermatotomy was made with a #11 blade. An 11-gauge bone needle was advanced into the sacrum then to the inferior aspect of the left sacral ala. Several samples were now obtained ??of the region. ??These were sent to pathology and microbiology for analysis. The needle was then removed. Manual pressure was used to achieve hemostasis. A sterile dressing was applied. Dr. Reagan Bashir was present during the entire procedure and the interpretation of images. Impression: The patient has undergone biopsy of the left sacrum for suspected osteomyelitis. Procedure Note Reagan Bashir MD - 03/11/2016 Preoperative diagnosis: Left sacral osteomyelitis Postoperative Diagnosis: Same Surgeons: Dr. Reagan Bashir Airline Radio Operator: None Anesthesia: Local with moderate sedation Interventional procedure: Left sacrum biopsy Placement of needles: 1. CT guided placement of needle into the left sacrum Interpretation of the following images: 1. CT images during placement of needle Hemostasis: Manual pressure Indications: The patient is a 61-year-old female with severe left low back pain. MR from an outside institution reveals edema and enhancement involving the inferior aspect of the left sacral ala. Biopsy is recommended for therapeutic planning. Procedure in detail and findings: The risks and benefits of the procedure were explained to the patient and informed consent was obtained and signed. The patient was brought to the CT suite and placed in the prone position on the CT table. Prior to the procedure, a timeout was completed verifying correct patient, date of , procedure, site, positioning and special equipment as applicable. After monitoring was initiated, sedation was administered. CT images were obtained of the sacrum and compared with the outside MR examination. There is mild inflammatory changes involving the presacral fat along the inferior left sacral ala. The lower back was prepped and draped in sterile fashion. Lidocaine was used for local anesthesia. A 20-gauge spinal needle was used to extend anesthesia to the periosteum of the posterior aspect of the left sacrum. A dermatotomy was made with a #11 blade. An 11-gauge bone needle was advanced into the sacrum then to the inferior aspect of the left sacral ala. Several samples were now obtained of the region. These were sent to pathology and microbiology for analysis. The needle was then removed. Manual pressure was used to achieve hemostasis. A sterile dressing was applied. Dr. Reagan Bashir was present during the entire procedure and the interpretation of images. Impression: The patient has undergone biopsy of the left sacrum for suspected osteomyelitis. us Susan Lynn V, IMG CT ORDERABLES Final Re sult * BACTERIAL CULTURE/SMEAR, BONE (03/06/2016 12:50 EDT) Gram Smear Result Few Polys 03/06/2016 17:12 EDT [facility] Gram Smear Result No bacteria seen 03/06/2016 17:12 EDT [facility] Result No growth 03/08/2016 7:42 EDT [facility] Specimen of unknown material (specimen) BONE STRUCTURE / Unknown 03/06/2016 12:50 EDT 03/06/2016 14:50 EDT Comment:Biopsy~sacrum us Reagan Bashir MD MICROBIOLOGY - GENERAL ORDERABLES Final Result Performing Organization Address City/[facility]/ZIP Co de Phone Number [facility] [address] [place] [address] * (ABNORMAL) GLUCOSE, GLUCOMETER (03/06/2016 8:42 EDT) Glucose, Fingerstick 109(H) 70 - 100 mg/dl 03/06/2016 8:44 EDT [facility] [employer] ID [id number] 03/06/2016 8:44 EDT [facility] Comment:Test Performed by [facility] BLOOD SPECIMEN / Unknown 03/06/2016 8:42 EDT 03/06/2016 8:44 EDT us David Ruelas MD CHEMISTRY & BLOOD GAS OR DERABLES Final Result Performing Organization Address [facility] Co de Phone Number [facility] [address] [place] [address] * INPATIENT ADD-ON (03/06/2016 7:55 EDT) Tests to be added BUN,CREATI NINE 03/06/2016 7:54 EDT [facility] Number for problems [id number] 03/06/2016 8:01 EDT [facility] Accession number [id number] 03/06/2016 8:01 EDT [facility] TOPOGRAPHY UNKNOWN / Unknown 03/06/2016 7:55 EDT 03/06/2016 8:00 EDT us Susan Lynn V, HEMATOLOGY & PF4 ORDERABLE S Final Result [facility] [address] [place] [address] * CREATININE (03/06/2016 6:17 EDT) Creatinine 0.68 0.52 - 1.04 mg/dl 03/06/2016 8:54 EDT [facility] GFR, Calculated 95 >60 ml/min/1.7 3m2 03/06/2016 8:54 EDT [facility] Comment: eGFR calculated using CKD-EPI equation for non Americans. Multiply eGFR by 1.16 for Americans. BLOOD SPECIMEN / Unknown 03/06/2016 6:17 EDT 03/06/2016 6:22 EDT Susan Lynn V, DO CHEMISTRY & BLOOD GAS ORDE RABLES Final Result Performing Organization Address [facility] Co de Phone Number [facility] [address] [place] [address] * BUN (03/06/2016 6:17 EDT) BUN 10 10 - 26 mg/dl 03/06/2016 8:54 EDT [facility] BLOOD SPECIMEN / Unknown 03/06/2016 6:17 EDT 03/06/2016 6:22 EDT Susan Lynn V, DO CHEMISTRY & BLOOD GAS ORDE RABLES Final Result Performing Organization Address City/[facility]/ZIP Co de Phone Number [facility] [address] [place] [address] * ELECTROLYTES (03/06/2016 6:17 EDT) Sodium 142 136 - 145 mEq/L 03/06/2016 6:56 EDT [facility] Potassium 4.4 3.5 - 5.0 mEq/L 03/06/2016 6:56 EDT [facility] Chloride 105 96 - 110 mEq/L 03/06/2016 6:56 EDT [facility] CO2 30 24 - 32 mEq/L 03/06/2016 6:56 EDT [facility] Blood specimen (specimen) BLOOD SPECIMEN / Unknown 03/06/2016 6:17 EDT 03/06/2016 6:22 EDT Susan Lynn V, DO CHEMISTRY & BLOOD GAS ORDE DENNYS Final Result [facility] [address] [place] [address] * HEMAGRAM AND DIFFERENTIAL (03/06/2016 6:17 EDT) WBC 6.01 4.0 - 12.4 K/cmm 03/06/2016 7:08 [facility] RBC 4.04 3.86 - 5.04 M/cmm 03/06/2016 7:08 [facility] Hemoglobin 12.4 11.6 - 15.2 gm/dl 03/06/2016 7:08 [facility] HCT 37.7 34.9 - 44.4 % 03/06/2016 7:08 [facility] MCV 93 81 - 98 fl 03/06/2016 7:08 [facility] MCH 30.7 26.7 - 33.3 pg 03/06/2016 7:08 [facility] MCHC 32.9 32.1 - 35.9 gm/dl 03/06/2016 7:08 [facility] RDW-CV 12.6 11.7 - 14.6 % 03/06/2016 7:08 [facility] RDW-SD 43.3 37.6 - 50.3 fl 03/06/2016 7:08 [facility] PLT 261 141 - 377 K/cmm 03/06/2016 7:08 [facility] MPV 10.3 9.5 - 12.7 fl 03/06/2016 7:08 [facility] % Neutrophils 47.5 % 03/06/2016 7:08 [facility] % Lymphocytes 42.1 % 03/06/2016 7:08 [facility] % Monocytes 6.8 % 03/06/2016 7:08 [facility] % Eosinophils 2.7 % 03/06/2016 7:08 [facility] % Basophils 0.7 % 03/06/2016 7:08 [facility] % Immature Grans 0.2 % 03/06/2016 7:08 [facility] ABS Neutrophils 2.86 2.20 - 8.85 K/cmm 03/06/2016 7:08 [facility] ABS Lymphs 2.53 1.09 - 3.30 K/cmm 03/06/2016 7:08 [facility] ABS Monocytes 0.41 0.1 - 0.8 K/cmm 03/06/2016 7:08 [facility] ABS Eosinophils 0.16 0.03 - 0.61 K/cmm 03/06/2016 7:08 [facility] ABS Basophils 0.04 0.01 - 0.11 K/cmm 03/06/2016 7:08 [facility] ABS Immature Grans 0.01 0 - 0.06 K/cmm 03/06/2016 7:08 [facility] Type of Diff: Automated 03/06/2016 7:08 [facility] Blood specimen (specimen) BLOOD SPECIMEN / Unknown 03/06/2016 6:17 EDT 03/06/2016 6:22 EDT Susan Lynn V, PACKAGES & DNA PROBE ORDER MARTITA Final Result [facility] [address] [place] [address] * PROTIME (03/06/2016 6:17 EDT) Pro Time 11.6 10.1 - 13.0 secs 03/06/2016 7:02 [facility] I.N.R. 1.0 0.9 - 1.1 Ratio 03/06/2016 7:02 [facility] Comment: Moderate Intensity Coumadin INR = 2.0-3.0 Adjustments in anticoagulant therapy dose should be based upon the INR and NOT the Pro Time. Blood specimen (specimen) BLOOD SPECIMEN / Unknown 03/06/2016 6:17 EDT 03/06/2016 6:22 EDT Susan Lynn V, DO HEMATOLOGY & PF4 ORDERABLE S Final Result Performing Organization Address City/[facility]/ZIP Co de Phone Number [facility] [address] [place] [address] * GLUCOSE, GLUCOMETER (03/05/2016 20:37 EDT) Glucose, Fingerstick 100 70 - 100 mg/dl 03/05/2016 21:11 EDT [facility] [employer] ID [id number] 03/05/2016 21:11 EDT [facility] Comment:Test Performed by [facility] BLOOD SPECIMEN / Unknown 03/05/2016 20:37 EDT 03/05/2016 21:11 EDT Result [facility] David Ruelas MD CHEMISTRY & BLOOD GAS OR DERABLES Final Result Performing Organization Address [facility] Co de Phone Number [facility] [address] [place] [address] * (ABNORMAL) GLUCOSE, GLUCOMETER (03/05/2016 16:38 EDT) Glucose, Fingerstick 133(H) 70 - 100 mg/dl 03/05/2016 16:42 EDT [facility] [employer] ID [id number] 03/05/2016 16:42 EDT [facility] Comment:Test Performed by [facility] BLOOD SPECIMEN / Unknown 03/05/2016 16:38 EDT 03/05/2016 16:42 EDT David Ruelas MD CHEMISTRY & BLOOD GAS OR DERABLES Final Result Performing Organization Address City/[facility]/ZIP Co de Phone Number [facility] [address] [place] [address] * GLUCOSE, GLUCOMETER (03/05/2016 13:38 EDT) Glucose, Fingerstick 93 70 - 100 mg/dl 03/05/2016 13:43 EDT [facility] [employer] ID [id number] 03/05/2016 13:43 EDT [facility] Comment:Test Performed by [facility] BLOOD SPECIMEN / Unknown 03/05/2016 13:38 EDT 03/05/2016 13:43 EDT us David Ruelas MD CHEMISTRY & BLOOD GAS OR DERABLES Final Result [facility] [address] [place] [address] * (ABNORMAL) GLUCOSE, GLUCOMETER (03/05/2016 7:12 EDT) Glucose, Fingerstick 138(H) 70 - 100 mg/dl 03/05/2016 7:20 EDT [facility] [employer] ID [id number] 03/05/2016 7:20 EDT [facility] Comment:Test Performed by [facility] BLOOD SPECIMEN / Unknown 03/05/2016 7:12 EDT 03/05/2016 7:20 EDT us Luis Enrique Colin MD CHEMISTRY & BLOOD GAS ORDERABLES Final Result [facility] [address] [place] [address] * HEMAGRAM (03/05/2016 5:36 EDT) WBC 7.24 4.0 - 12.4 K/cmm 03/05/2016 6:03 EDT [facility] RBC 3.86 3.86 - 5.04 M/cmm 03/05/2016 6:03 T [facility] Hemoglobin 11.9 11.6 - 15.2 gm/dl 03/05/2016 6:03 T [facility] HCT 36.3 34.9 - 44.4 % 03/05/2016 6:03 EDT [facility] MCV 94 81 - 98 fl 03/05/2016 6:03 EDT [facility] MCH 30.8 26.7 - 33.3 pg 03/05/2016 6:03 T [facility] MCHC 32.8 32.1 - 35.9 gm/dl 03/05/2016 6:03 [facility] RDW-CV 12.7 11.7 - 14.6 % 03/05/2016 6:03 T [facility] RDW-SD 43.6 37.6 - 50.3 fl 03/05/2016 6:03 EDT [facility] PLT 241 141 - 377 K/cmm 03/05/2016 6:03 [facility] MPV 10.0 9.5 - 12.7 fl 03/05/2016 6:03 T [facility] Blood specimen (specimen) BLOOD SPECIMEN / Unknown 03/05/2016 5:36 EDT 03/05/2016 5:52 EDT us Ann Hancock MD HEMATOLOGY & PF4 ORDERABLES Fi nal Result Performing Organization Address City/[facility]/ZIP Co de Phone Number [facility] [address] [place] [id number] * ELECTROLYTES (03/05/2016 5:36 EDT) Sodium 141 136 - 145 mEq/L 03/05/2016 6:40 EDT [facility] Potassium 3.6 3.5 - 5.0 mEq/L 03/05/2016 6:40 T [facility] Chloride 105 96 - 110 mEq/L 03/05/2016 6:40 EDT [facility] CO2 28 24 - 32 mEq/L 03/05/2016 6:40 EDT [facility] Blood specimen (specimen) BLOOD SPECIMEN / Unknown 03/05/2016 5:36 EDT 03/05/2016 5:52 EDT us Ann Hancock MD CHEMISTRY & BLOOD GAS ORDERABL ES Final Result Performing Organization Address City/[facility]/ZIP Co de Phone Number [facility] [address] [place] [address] * (ABNORMAL) BUN (03/05/2016 5:36 EDT) BUN 8(L) 10 - 26 mg/dl 03/05/2016 6:40 EDT [facility] Blood specimen (specimen) BLOOD SPECIMEN / Unknown 03/05/2016 5:36 EDT 03/05/2016 5:52 EDT Ann Hancock MD CHEMISTRY & BLOOD GAS ORDERABL ES Final Result Performing Organization Address [facility] Co de Phone Number [facility] [address] [place] [address] * CREATININE (03/05/2016 5:36 EDT) Creatinine 0.71 0.52 - 1.04 mg/dl 03/05/2016 6:40 EDT [facility] GFR, Calculated 93 >60 ml/min/1.7 3m2 03/05/2016 6:40 EDT [facility] Comment: eGFR calculated using CKD-EPI equation for non Americans. Multiply eGFR by 1.16 for Americans. Blood specimen (specimen) BLOOD SPECIMEN / Unknown 03/05/2016 5:36 EDT 03/05/2016 5:52 EDT Ann Hancock MD CHEMISTRY & BLOOD GAS ORDERABL ES Final Result Performing Organization Address [facility] Co de Phone Number [facility] [address] [place] [address] * SECONDARY READ BODY MR (03/05/2016 4:46 EDT) Anatomical Region Laterality Modality Other 03/05/2016 4:46 EDT 03/11/2016 8:38 EDT Narrative 03/11/2016 8:38 EDT SECONDARY READ BODY MR ??03/05/2016 4:46 AM SIGNS AND SYMPTOMS/COMMENTS: Routine Multidisciplinary Clinic/Tumor Board; Second opinion regarding extent of osteomyelitis sacrum/SI joint COMPARISON: None. TECHNIQUE: The following sequences were obtained in an outside institution before contrast administration: Coronal T1 no fat sat, coronal T2 fat-sat, axial T1 fat-sat, axial T2 fat-sat, and sagittal T2 nonfat sat. This was followed by coronal and axial T1 fat-sat sequences after intravenous contrast administration. FINDINGS: There is a focal area of altered signal on the anteroinferior aspect of the left sacral ala adjacent to the left SI joint, manifested mainly by low T1 signal, high T2 signal, and evidence of enhancement after intravenous contrast administration. There is edema in the adjacent soft tissues including the neurovascular structures adjacent to the inferior aspect of the SI joint. The left SI joint itself appears relatively uninvolved with only a small amount of high T2 signal. No organized or drainable fluid collection or abscess formation seen. Of note, a subtle somewhat linear region of low signal is seen within the area of bone marrow edema in the anteroinferior aspect of the left sacral ala, this conceivably may represent a tiny stress related trabecular microfracture (axial T2 image 26, coronal T2 image 20). There is a very small area of edema signal on the anteroinferior aspect of the right sacral ala adjacent to the right SI joint, which appears intact. No significant bone marrow signal abnormality seen in the remaining of the visualized osseous structures. There are minimal degenerative changes of both hips which appear otherwise congruent and symmetric. No evidence of fracture, subluxation, dislocation, or avascular necrosis on either side. No asymmetric hip joint effusion seen either. Small amount of fluid in both hips is in the upper limits of normal appears essentially symmetric. There are mild multilevel degenerative changes in the lower lumbar spine. Visualized muscles and tendons are grossly unremarkable. The overall muscle quality is age appropriate. No evidence of trochanteric, subgluteal, ischiogluteal, or iliopsoas bursitis on either side. No abnormally enlarged lymph nodes are identified. IMPRESSION: 1. Focal area of altered marrow signal in the anteroinferior aspect of the left sacral ala adjacent to the left SI joint, as described above in detail. The two main diagnostic possibilities here include a small stress related trabecular microfracture versus osteomyelitis, please correlate clinically. 2. See above description for additional findings and details. Procedure Note Cecil Macdonald MD - 03/11/2016 SECONDARY READ BODY MR 03/05/2016 4:46 AM SIGNS AND SYMPTOMS/COMMENTS: Routine Multidisciplinary Clinic/Tumor Board; Second opinion regarding extent of osteomyelitis sacrum/SI joint COMPARISON: None. TECHNIQUE: The following sequences were obtained in an outside institution before contrast administration: Coronal T1 no fat sat, coronal T2 fat-sat, axial T1 fat-sat, axial T2 fat-sat, and sagittal T2 nonfat sat. This was followed by coronal and axial T1 fat-sat sequences after intravenous contrast administration. FINDINGS: There is a focal area of altered signal on the anteroinferior aspect of the left sacral ala adjacent to the left SI joint, manifested mainly by low T1 signal, high T2 signal, and evidence of enhancement after intravenous contrast administration. There is edema in the adjacent soft tissues including the neurovascular structures adjacent to the inferior aspect of the SI joint. The left SI joint itself appears relatively uninvolved with only a small amount of high T2 signal. No organized or drainable fluid collection or abscess formation seen. Of note, a subtle somewhat linear region of low signal is seen within the area of bone marrow edema in the anteroinferior aspect of the left sacral ala, this conceivably may represent a tiny stress related trabecular microfracture (axial T2 image 26, coronal T2 image 20). There is a very small area of edema signal on the anteroinferior aspect of the right sacral ala adjacent to the right SI joint, which appears intact. No significant bone marrow signal abnormality seen in the remaining of the visualized osseous structures. There are minimal degenerative changes of both hips which appear otherwise congruent and symmetric. No evidence of fracture, subluxation, dislocation, or avascular necrosis on either side. No asymmetric hip joint effusion seen either. Small amount of fluid in both hips is in the upper limits of normal appears essentially symmetric. There are mild multilevel degenerative changes in the lower lumbar spine. Visualized muscles and tendons are grossly unremarkable. The overall muscle quality is age appropriate. No evidence of trochanteric, subgluteal, ischiogluteal, or iliopsoas bursitis on either side. No abnormally enlarged lymph nodes are identified. IMPRESSION: 1. Focal area of altered marrow signal in the anteroinferior aspect of the left sacral ala adjacent to the left SI joint, as described above in detail. The two main diagnostic possibilities here include a small stress related trabecular microfracture versus osteomyelitis, please correlate clinically. 2. See above description for additional findings and details. us Ann Hancock MD IMG OTHER IMAGING ORDERABLES F inal Result * (ABNORMAL) GLUCOSE, GLUCOMETER (03/05/2016 2:05 EDT) Glucose, Fingerstick 124(H) 70 - 100 mg/dl 03/05/2016 2:07 EDT [facility] Banquet Prep Cook ID [id number] 03/05/2016 2:07 EDT [facility] Comment:Test Performed by [facility] BLOOD SPECIMEN / Unknown 03/05/2016 2:05 EDT 03/05/2016 2:07 EDT us Luis Enrique Colin MD CHEMISTRY & BLOOD GAS ORDERABLES Final Result [facility] [address] [place] [address] * (ABNORMAL) POCT URINE DIPSTICK (03/05/2016 0:24 EDT) Color YELLOW 03/05/2016 0:23 EDT [facility] Clarity, UA Clear 03/05/2016 0:23 EDT [facility] Glucose Neg Neg 03/05/2016 0:23 T [facility] Bilirubin Neg Neg 03/05/2016 0:23 [facility] Ketones Neg Neg 03/05/2016 0:23 [facility] Specific [place] 1.015 1.001 - 1.035 03/05/2016 0:23 [facility] Blood 1+(A) Neg 03/05/2016 0:23 [facility] pH 6.5 4.6 - 8.0 03/05/2016 0:23 [facility] Protein Neg Neg 03/05/2016 0:23 [facility] Urobilinogen 0.2 0.2 - 1.0 E.U./dl 03/05/2016 0:23 [facility] Nitrite Neg Neg 03/05/2016 0:23 [facility] Leuk Esterase Neg Neg 03/05/2016 0:23 [facility] search marketing analyst ID [id number] 03/05/2016 0:23 EDT [facility] Comment:Test performed at [facility] Urine specimen (specimen) URINE / Unknown 03/05/2016 0:24 EDT 03/05/2016 0:23 EDT us Salome Silver PA-Gabriel POINT OF CARE TEST ORDE RABLES Final Result [facility] [address] [place] [address] * EKG 12-LEAD (03/04/2016 21:47 EDT) 03/04/2016 21:4 7 EDT Narrative [facility] EKG - 03/13/2016 14:26 EDT ?[facility] ? Test Date: ?2016-03-04 Pat Name: ? ZAINAB AVERY ? Department: ?? ED ? Room: ? GT32 Gender: ? 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 [id number] : ?1955 ? Requested By: PALMA Hayes Order Number: [id number] ? Roxann PEREZ: ?? ERIKA COPPOLA MD ? Measurements Intervals ?[place] ? Rate: ? 63 ? P: ?41 MD: ? 140 ?QRS: ?24 QRSD: ? 78 ? T: ?33 QT: ? 374 ? QTc: ?385 ? Interpretive Statements SINUS RHYTHM WITH SINUS ARRHYTHMIA Compared to ECG 03/17/2015 01:09:02 Sinus arrhythmia now present I reviewed the tracing and have either agreed or edited the findings in this report. Electronically Signed On 03-13-16 14:26:44 EDT by ERIKA COPPOLA MD. 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 Electronically Signed On 03-13-16 14:26:44 EDT by ERIKA BARTLETT. Salome B [place] PA-C CARDIAC ECG ORDERABLES Final Result [facility] EKG * BACTERIAL CULTURE, BLOOD (03/04/2016 21:34 EDT) Result No growth 03/09/2016 7:26 EDT [facility] Blood specimen (specimen) BLOOD SPECIMEN / Unknown 03/04/2016 21:34 EDT 03/04/2016 22:44 EDT Comment:Left~Antecubital Salome B Governale PA-C MICROBIOLOGY - GENERAL ORDERABLES Final Result Performing Organization Address City/[facility]/ZIP Co de Phone Number [facility] [address] [place] [address] * BACTERIAL CULTURE, BLOOD (03/04/2016 21:34 EDT) Result No growth 03/09/2016 7:26 EDT [facility] Blood specimen (specimen) BLOOD SPECIMEN / Unknown 03/04/2016 21:34 EDT 03/04/2016 22:43 EDT Comment:Left~Wrist Salome B Juvaris Bio[employer] PA-C MICROBIOLOGY - GENERAL ORDERABLES Final Result Performing Organization Address City/[facility]/ZIP Co de Phone Number [facility] [address] [place] [address] * SED. RATE:WESTERGREN (03/04/2016 21:34 EDT) Sed. Rate Westergren 13 0 - 30 mm/hr 03/04/2016 22:16 EDT [facility] Blood specimen (specimen) BLOOD SPECIMEN / Unknown 03/04/2016 21:34 EDT 03/04/2016 21:49 EDT Salome Silver PA-C HEMATOLOGY & PF4 ORDERA BLES Final Result [facility] [address] [place] [address] * HEMAGRAM AND DIFFERENTIAL (03/04/2016 21:34 EDT) WBC 8.82 4.0 - 12.4 K/cmm 03/04/2016 21:54 EDT [facility] RBC 4.18 3.86 - 5.04 M/cmm 03/04/2016 21:54 [facility] Hemoglobin 13.0 11.6 - 15.2 gm/dl 03/04/2016 21:54 T [facility] HCT 38.9 34.9 - 44.4 % 03/04/2016 21:54 [facility] MCV 93 81 - 98 fl 03/04/2016 21:54 T [facility] MCH 31.1 26.7 - 33.3 pg 03/04/2016 21:54 [facility] MCHC 33.4 32.1 - 35.9 gm/dl 03/04/2016 21:54 T [facility] RDW-CV 12.6 11.7 - 14.6 % 03/04/2016 21:54 T [facility] RDW-SD 43.1 37.6 - 50.3 fl 03/04/2016 21:54 EDT [facility] PLT 267 141 - 377 K/cmm 03/04/2016 21:54 [facility] MPV 9.8 9.5 - 12.7 fl 03/04/2016 21:54 [facility] % Neutrophils 59.9 % 03/04/2016 21:54 [facility] % Lymphocytes 31.6 % 03/04/2016 21:54 T [facility] % Monocytes 5.2 % 03/04/2016 21:54 [facility] % Eosinophils 2.5 % 03/04/2016 21:54 [facility] % Basophils 0.7 % 03/04/2016 21:54 [facility] % Immature Grans 0.1 % 03/04/2016 21:54 [facility] ABS Neutrophils 5.28 2.20 - 8.85 K/cmm 03/04/2016 21:54 [facility] ABS Lymphs 2.79 1.09 - 3.30 K/cmm 03/04/2016 21:54 [facility] ABS Monocytes 0.46 0.1 - 0.8 K/cmm 03/04/2016 21:54 [facility] ABS Eosinophils 0.22 0.03 - 0.61 K/cmm 03/04/2016 21:54 [facility] ABS Basophils 0.06 0.01 - 0.11 K/cmm 03/04/2016 21:54 [facility] ABS Immature Grans 0.01 0 - 0.06 K/cmm 03/04/2016 21:54 [facility] Type of Diff: Automated 03/04/2016 21:54 [facility] Blood specimen (specimen) BLOOD SPECIMEN / Unknown 03/04/2016 21:34 EDT 03/04/2016 21:49 EDT Salome Silver PA-C PACKAGES & DNA PROBE OR DERABLES Final Result [facility] [address] [place] [address] * (ABNORMAL) C REACTIVE PROTEIN (03/04/2016 21:34 EDT) C Reactive Protein 26.0(H) <10.0 mg/L 03/04/2016 22:19 T [facility] Comment: Note units change to mg/L. Values will be 10 fold higher than with previous units of mg/dl. Blood specimen (specimen) BLOOD SPECIMEN / Unknown 03/04/2016 21:34 EDT 03/04/2016 21:49 EDT Salome Silver PA-C CHEMISTRY & BLOOD GAS O RDERABLES Final Result [facility] [address] [place] [address] * (ABNORMAL) BASIC METABOLIC PANEL (03/04/2016 21:34 EDT) Sodium 143 136 - 145 mEq/L 03/04/2016 22:19 [facility] Potassium 4.0 3.5 - 5.0 mEq/L 03/04/2016 22:19 [facility] Chloride 107 96 - 110 mEq/L 03/04/2016 22:19 [facility] CO2 26 24 - 32 mEq/L 03/04/2016 22:19 [facility] BUN 7(L) 10 - 26 mg/dl 03/04/2016 22:19 [facility] Creatinine 0.71 0.52 - 1.04 mg/dl 03/04/2016 22:19 [facility] GFR, Calculated 93 >60 ml/min/1.7 3m2 03/04/2016 22:19 [facility] Comment: eGFR calculated using CKD-EPI equation for non Americans. Multiply eGFR by 1.16 for Americans. Calcium 9.2 8.5 - 10.5 mg/dl 03/04/2016 22:19 [facility] Calculated Calcium 9.9 8.5 - 10.5 mg/dl 03/04/2016 22:19 [facility] Glucose, Serum 97 70 - 100 mg/dl 03/04/2016 22:19 [facility] Fasting? Unknown 03/04/2016 22:19 [facility] Blood specimen (specimen) BLOOD SPECIMEN / Unknown 03/04/2016 21:34 EDT 03/04/2016 21:49 EDT Salome B Governale PA-C CHEMISTRY & BLOOD GAS O RDERABLES Final Result [facility] [address] [place] [address] documented in this encounter Visit Diagnoses Diagnosis Subacute osteomyelitis, other site (HCC-CMS)- Primary Subacute osteomyelitis, osteomyelitis of unspecified site Ventral hernia without obstruction or gangrene Ventral hernia, unspecified, without mention of obstruction or gangrene Pyogenic inflammation of bone (HCC-CMS) Unspecified osteomyelitis, site unspecified Osteomyelitis (HCC-CMS) Unspecified osteomyelitis, site unspecified documented in this encounter Administered Medications Inactive Administered Medications - up to 3 most recent administrations Medication Order MAR Action Action Date Dose Rate Site acetaminophen (TYLENOL) tablet 650 mg 650 mg, oral, NOW X1, 1 dose, On Fri03/04/16 at 2115, STAT Given 03/04/2016 22:16 EDT 650 mg aspirin chewable tablet 81 mg 81 mg, oral, DAILY, First dose on Fri03/05/16 at 0900, Until Discontinued, Routine Given 03/06/2016 9:15 EDT 81 mg Given 03/05/2016 8:52 EDT 81 mg cholecalciferol (Vitamin D3) tablet 1,000 Units 1,000 Units, oral, DAILY, First dose on Fri03/05/16 at 0900, Until Discontinued, Routine Given 03/06/2016 9:16 EDT 1,000 Units Given 03/05/2016 8:53 EDT 1,000 Units fentaNYL citrate (PF) 50 mcg/mL injection 25-250 mcg 25-250 mcg, intravenous, ONCE PRN, 1 dose, Starting on Fri03/06/16 at 1224, Until Fri03/06/16 at 1226, Pain, radiology, Routine, Intraprocedure Given 03/06/2016 12:26 EDT 250 mcg IV fentaNYL citrate (PF) 50 mcg/mL injection 25-250 mcg 25-250 mcg, intravenous, ONCE PRN, 1 dose, Starting on Fri03/06/16 at 1226, Until Fri03/06/16 at 1246, Pain, radiology, Routine, Intraprocedure Given 03/06/2016 12:55 EDT 50 mcg IV fluticasone (FLOVENT) 220 mcg/actuation inhaler 2 Puff 2 Puff, inhalation, 2 TIMES DAILY, First dose on Fri03/05/16 at 0100, Until Discontinued Given 03/06/2016 9:16 EDT 2 Puf fs Given 03/05/2016 8:57 EDT 2 Puffs Given 03/05/2016 2:15 EDT 2 Puffs HYDROcodone-acetaminophen (NORCO) 10-325 mg tablet 1 Tab 1 Tablet, oral, EVERY 8 HOURS PRN, Starting on Fri03/05/16 at 0055, Until Fri03/05/16 at 1222, Pain Given 03/05/2016 9:12 EDT 1 Tablet Given 03/05/2016 1:42 EDT 1 Tablet HYDROcodone-acetaminophen (NORCO) 10-325 mg tablet 2 Tab 2 Tablet, oral, EVERY 8 HOURS PRN, Starting on Fri03/05/16 at 1222, Until Fri03/05/16 at 1550, Pain Given 03/05/2016 12:46 EDT 2 Tablets HYDROcodone-acetaminophen (NORCO) 10-325 mg tablet 2 Tab 2 Tablet, oral, EVERY 6 HOURS PRN, Starting on Fri03/05/16 at 1600, Until Fri03/06/16 at 2107, Pain Given 03/06/2016 17:40 EDT 2 Tablets Given 03/06/2016 9:15 EDT 2 Tablets Given 03/05/2016 22:34 EDT 1 Tablet HYDROmorphone (PF) (DILAUDID) 1 mg/mL injection 0.5-1 mg 0.5-1 mg, intravenous, EVERY 4 HOURS PRN, Starting on Fri03/06/16 at 1414, Until Fri03/06/16 at 1446, Pain, Routine Given 03/06/2016 14:27 EDT 1 mg HYDROmorphone (PF) (DILAUDID) 1 mg/mL injection 1 mg 1 mg, intravenous, NOW X1, 1 dose, On Fri03/04/16 at 2115, STAT Given 03/04/2016 22:16 EDT 1 mg HYDROmorphone (PF) (DILAUDID) 1 mg/mL injection 1 mg 1 mg, intravenous, NOW X1, 1 dose, On Fri03/05/16 at 0030, STAT Given 03/05/2016 0:43 EDT 1 mg HYDROmorphone (PF) (DILAUDID) 1 mg/mL injection 1 dose, Starting on Fri03/06/16 at 1420, Until Fri03/06/16 at 1427 LORazepam (ATIVAN) tablet 2 mg 2 mg, oral, 2 TIMES DAILY, First dose on Fri03/05/16 at 0100, Until Discontinued, Routine Given 03/05/2016 1:42 EDT 2 m g LORazepam (ATIVAN) tablet 2 mg 2 mg, oral, EVERY 4 HOURS PRN, Starting on Fri03/05/16 at 1600, Until Fri03/06/16 at 2107, Anxiety, Routine Given 03/06/2016 0:04 EDT 2 mg metoprolol (LOPRESSOR) tablet 25 mg 25 mg, oral, 2 TIMES DAILY, First dose on Fri03/05/16 at 0100, Until Discontinued, Routine Given 03/05/2016 1:42 EDT 25 mg metoprolol (LOPRESSOR) tablet 25 mg 25 mg, oral, 2 TIMES DAILY, First dose (after last modification) on Fri03/06/16 at 1500, Until Discontinued, Routine Given 03/06/2016 14:16 EDT 25 mg midazolam (PF) (VERSED) 1 mg/mL injection 0.5-10 mg 0.5-10 mg, intravenous, ONCE PRN, 1 dose, Starting on Fri03/06/16 at 1224, Until Fri03/06/16 at 1246, Sedation, Routine, Intraprocedure Given 03/06/2016 13:09 EDT 8 mg IV tiotropium (SPIRIVA) 18 mcg inhalation capsule 18 mcg 18 mcg, inhalation, DAILY, First dose on Fri03/05/16 at 0900, Until Discontinued, Routine Given 03/06/2016 9:16 EDT 18 mcg traMADol (ULTRAM) tablet 100 mg 100 mg, oral, 2 TIMES DAILY PRN, Starting on Fri03/05/16 at 1222, Until Fri03/05/16 at 1556, Pain, Routine Given 03/05/2016 12:46 EDT 100 mg traMADol (ULTRAM) tablet 50 mg 50 mg, oral, EVERY 6 HOURS PRN, Starting on Fri03/05/16 at 1600, Until Fri03/06/16 at 2107, Pain, Routine Given 03/06/2016 17:40 EDT 50 mg Given 03/06/2016 11:02 EDT 50 mg documented in this encounter Discontinued Medications Medication Sig Discontinue Reason Start Date End Da te trimethoprim (TRIMPEX) 100 mg tablet Take 100 mg by mouth daily. 03/06/2016 documented as of this encounter Active and Recently Administered Medications Times are shown in EDT. Scheduled Medication Order 03/04/2016 03/05/2016 03/06/2016 acetaminophen (TYLENOL) tablet 650 mg (COMPLETED) 650 mg, oral, NOW X1, 1 dose, On Fri03/04/16 at 2115, STAT 2216 (Given - Provider: Dulce Urrutia) aspirin chewable tablet 81 mg (CANCELED) 81 mg, oral, DAILY, First dose on Fri03/05/16 at 0900, Until Discontinued, Routine 0852 (Given - Provider: Solo Doe RN) 0915 (Given - Provider: Arleth Daniel, NUBIA) cholecalciferol (Vitamin D3) tablet 1,000 Units (CANCELED) 1,000 Units, oral, DAILY, First dose on Fri03/05/16 at 0900, Until Discontinued, Routine 0853 (Given - Provider: Solo Doe RN) 0916 (Given - Provider: Arleth Daniel RN) fluticasone (FLOVENT) 220 mcg/actuation inhaler 2 Puff (CANCELED) 2 Puff, inhalation, 2 TIMES DAILY, First dose on Fri03/05/16 at 0100, Until Discontinued 0215 (Given - Provider: Julianne Mayo RN)0857 (Given - Provider: Solo Doe RN)2313 (Not Given - Provider: Pao Arias RN - Reason: Patient/family refused) 0916 (Given - Provider: Arleth Daniel RN) HYDROmorphone (PF) (DILAUDID) 1 mg/mL injection 1 mg (COMPLETED) 1 mg, intravenous, NOW X1, 1 dose, On Fri03/04/16 at 2115, STAT 2216 (Given - Provider: Dulce Urrutia) HYDROmorphone (PF) (DILAUDID) 1 mg/mL injection 1 mg (COMPLETED) 1 mg, intravenous, NOW X1, 1 dose, On Fri03/05/16 at 0030, STAT 0043 (Given - Provider: Dulce Urrutia) LORazepam (ATIVAN) tablet 2 mg (CANCELED) 2 mg, oral, 2 TIMES DAILY, First dose on Fri03/05/16 at 0100, Until Discontinued, Routine 0142 (Given - Provider: Julianne Mayo RN)0853 (Not Given - Provider: Solo Doe RN - Reason: Patient/family refused) metoprolol (LOPRESSOR) tablet 25 mg (CANCELED) 25 mg, oral, 2 TIMES DAILY, First dose on Fri03/05/16 at 0100, Until Discontinued, Routine 0142 (Given - Provider: Julianne Mayo RN)0852 (Not Given - Provider: Solo Doe RN - Reason: Order parameters not met)2313 (Not Given - Provider: Pao Arias RN - Reason: Patient/family refused) metoprolol (LOPRESSOR) tablet 25 mg (CANCELED) 25 mg, oral, 2 TIMES DAILY, First dose (after last modification) on Fri03/06/16 at 1500, Until Discontinued, Routine 1416 (Given - Provider: Arleth Qiu RN) tiotropium (SPIRIVA) 18 mcg inhalation capsule 18 mcg (CANCELED) 18 mcg, inhalation, DAILY, First dose on Fri03/05/16 at 0900, Until Discontinued, Routine 0855 (Not Given - Provider: Solo Doe RN - Reason: Patient/family refused) 0916 (Given - Provider: Arleth Daniel, NUBIA) PRN Medication Order 03/04/2016 03/05/2016 03/06/2016 fentaNYL citrate (PF) 50 mcg/mL injection 25-250 mcg (COMPLETED) 25-250 mcg, intravenous, ONCE PRN, 1 dose, Starting on Fri03/06/16 at 1224, Until Fri03/06/16 at 1226, Pain, radiology, Routine, Intraprocedure 1226 (Given - Provid er: Rui Mike RN) fentaNYL citrate (PF) 50 mcg/mL injection 25-250 mcg (CANCELED) 25-250 mcg, intravenous, ONCE PRN, 1 dose, Starting on Fri03/06/16 at 1226, Until Fri03/06/16 at 1246, Pain, radiology, Routine, Intraprocedure 1255 (Given - Provid er: Rui Mike RN) HYDROcodone-acetaminophen (NORCO) 10-325 mg tablet 1 Tab (CANCELED) 1 Tablet, oral, EVERY 8 HOURS PRN, Starting on Fri03/05/16 at 0055, Until Fri03/05/16 at 1222, Pain 0142 (Given - Provider: Julianne Mayo RN)0912 (Given - Provider: Solo Doe RN) HYDROcodone-acetaminophen (NORCO) 10-325 mg tablet 2 Tab (CANCELED) 2 Tablet, oral, EVERY 8 HOURS PRN, Starting on Fri03/05/16 at 1222, Until Fri03/05/16 at 1550, Pain 1246 (Given - Provider: Solo Doe RN) HYDROcodone-acetaminophen (NORCO) 10-325 mg tablet 2 Tab (CANCELED) 2 Tablet, oral, EVERY 6 HOURS PRN, Starting on Fri03/05/16 at 1600, Until Fri03/06/16 at 2107, Pain 1619 (Given - Provider: Solo Doe RN)2112 (Given - Provider: Ashutosh Swartz RN - Comment: low back pain)2234 (Given - Provider: Pao Arias RN) 0915 (Given - Provider: Arleth Daniel RN)1740 (Given - Provider: Arleth Qiu RN) HYDROmorphone (PF) (DILAUDID) 1 mg/mL injection 0.5-1 mg (CANCELED) 0.5-1 mg, intravenous, EVERY 4 HOURS PRN, Starting on Fri03/06/16 at 1414, Until Fri03/06/16 at 1446, Pain, Routine 1427 (Given - Provid er: Arleth Qiu RN) LORazepam (ATIVAN) tablet 2 mg (CANCELED) 2 mg, oral, EVERY 4 HOURS PRN, Starting on Fri03/05/16 at 1600, Until Fri03/06/16 at 2107, Anxiety, Routine 0004 (Given - Provid er: Pao Arias RN)1403 (Not Given - Provider: Arleth Qiu RN - Reason: Patient/family refused) midazolam (PF) (VERSED) 1 mg/mL injection 0.5-10 mg (CANCELED) 0.5-10 mg, intravenous, ONCE PRN, 1 dose, Starting on Fri03/06/16 at 1224, Until Fri03/06/16 at 1246, Sedation, Routine, Intraprocedure 1309 (Given - Provid er: Rui Mike RN) traMADol (ULTRAM) tablet 100 mg (CANCELED) 100 mg, oral, 2 TIMES DAILY PRN, Starting on Fri03/05/16 at 1222, Until Fri03/05/16 at 1556, Pain, Routine 1246 (Given - Provider: Solo Doe RN) traMADol (ULTRAM) tablet 50 mg (CANCELED) 50 mg, oral, EVERY 6 HOURS PRN, Starting on Fri03/05/16 at 1600, Until Fri03/06/16 at 2107, Pain, Routine 1102 (Given - Provid er: Arleth Daniel RN)1740 (Given - Provider: Arleth Qiu RN) documented in this encounter Orders Medications Ordered That Kendell ht Not Have Been Administered Count Last Ordered Date First Ordered Date HYDROmorphone (PF) (DILAUDID ) 1 mg/mL injection 0.5-1 mg 1 03/06/2016 metoprolol XL (TOPROL-XL) tablet 25 mg 1 acetaminophen (TYLENOL) tablet 650 mg 1 12/2015 albuterol inhaler 2 Puff 1 03/05/2016 atorvastatin (LIPITOR) tablet 40 mg 1 03/05 dextrose 50 % solution 12.5 g 1 03/05/2016 glucagon (human recombinant) injection 1 mg 1 03/05/2016 insulin aspart (NOVOLOG FLEXPEN) injection 2 03/05/2016 nicotine inhaler (delivery device) 2 201503/04/2016 senna (SENOKOT) tablet 2 Tab 1 03/05/2016 nicotine (NICOTROL) 10 mg in haler 1 Inhaler 1 03/04/2016 Diet Count Last Ordered Date First Orde red Date DISCHARGE DIET 1 03/06/2016 Nursing Count Last Ordered Date First Orde red Date ACTIVITY INSTRUCTIONS 1 03/06/2016 BATHING INSTRUCTIONS 1 03/06/2016 CONTRAINDICATION TO ANTICOAG ULATION THERAPY 1 03/05/2016 Respiratory Care Count Last Ordered Date First Ordered Date DRY POWDERED OR METERED DOSE INHALER 1 12/2015 IV Count Last Ordered Date First Orde red Date IV REQUEST 1 03/05/2016 Admission Count Last Ordered Date First Orde red Date STATUS: INPATIENT ACUTE ADMISSION 1 016 Transfer Count Last Ordered Date First Orde red Date NOTIFY PPS OF DISCHARGE COMPLETE 1 03/06/20 16 PPS NOTIFICATION OF PATIENT ARRIVAL ON UNIT 2 03/06/2016 03/05/2016 PPS NOTIFICATION OF SENDING PATIENT OFF THE UNIT 1 03/06/2016 CHANGE ATTENDING TO: 1 03/05/2016 UR PATIENT STATUS CHANGE 03/05/2016 Discharge Count Last Ordered Date First Orde red Date DISCHARGE PATIENT 1 03/06/2016 Legal Count Last Ordered Date First Orde red Date MISCELLANEOUS DISCHARGE INSTRUCTIONS 1 01/2016 documented in this encounter Care Teams Ic Designer Custom Relationship Specialty Start Date End Date Natanael Okeefe MD PCP - General 03/17/15 12/29/22 documented as of this encounter
--- OUTSIDE RECORDS SUMMARY | 2024-10-13 18:36 | XMS_ITS | Encounter Summary ---
Author Organization [facility] Address [address] [place] [address] Care Team Providers Care Thermal Intelligence Analyst Name Role Phone Natanael Saab MD Primary Care Provider Unavailabl e Reason for Visit * Reason Comments Back Pain Leg Pain bilateral legs * Consult (Routine) - Closed Specialty Diagnoses / Procedures Referred By Dannielle alvarenga Referred To Contact Orthopedic Surgery Diagnoses Sacrococcygeal disorders, not elsewhere classified Chronic low back pain Chronic thoracic back pain Chronic neck pain Felice He MD Phone: tel: fax: [facility] [place] [address] [place] [address] Phone: tel: fax: Referral ID Status Reason Start Date Expiration Date Visits Re quested Visits Authorized [id number] Closed 1 1 Encounter Details Date Type Department Care Team (Late st Contact Info) Description 06/20/2016 14:45 EDT Office Visit [facility] [place] [address] [place] [address] Morgan Singh MD [address] [place] [address] [place] [address] Chronic bilateral low back pain with bilateral sciatica (Primary Dx) Social History Tobacco Use Types [...] Taken Comments Blood Pressure - - Pulse - - Temperature - - Respiratory Rate - - Oxygen Saturation - - Inhaled Oxygen Concentration - - Weight 75.3 kg (166 lb) 06/20/2016 1519 EDT Height 157.5 cm (5' 2) 06/20/2016 1519 EDT Body Mass Index 30.36 06/20/2016 1519 EDT documented in this encounter Functional Status * Are you deaf or do you have serious difficulty hearing? Answer Date of Assessment Author No 03/05/2016 1:44 Kaleb Woodall RN * Are you blind or [...] Kaleb Woodall RN documented in this encounter Discharge Diagnoses Diagnosis M54.5 Low back pain-M54.5[ICD-10-CM] documented in this encounter Patient Instructions * Patient Instructions* Morgan Singh MD - 06/20/2016 14:45 EDT Images from the original note were not included. Please see separate Progress Note for dictated report. PLAN: 1. Lumbar MRI scan 2. SPECT/CT lumbar spine bone scan 3. Follow-up visit with Dr Singh documented in this encounter Progress Notes * Morgan Singh MD - 06/20/2016 1445 EDT Images from the original note were not included. Please see separate Progress Note for dictated report. PLAN: 1. Lumbar MRI scan 2. SPECT/CT lumbar spine bone scan 3. Follow-up visit with Dr Singh * Heydi Adams - 06/20/2016 7915 EDT Patient is notified of d/t of MRI and NM SPECT to be completed on 07/22/16 at [facility]. Patient to register at 10 AM, injection for scan at 10:30 AM and NM SPECT at 1:30 PM and MRI at 3:15 PM. Follow up is scheduled with Morgan Singh MD on 08/01/16 to check in at 11:30 AM. documented in this encounter Consult Notes * Morgan Singh MD - 07/23/2016 0280 EST [facility] SPINE PROGRAM CONSULTATION - 06/20/2016 PRIMARY CARE PROVIDER: Natanael Saab MD CONSULTATION REQUESTED BY: Felice He MD ATTENDING: Morgan Singh MD PROBLEM: Lumbosacral midline low back pain, buttock numbness, bilateral lower limb pain and dysesthesias. SUBJECTIVE: Consultation requested for this problem by Felice He MD. Ms Avery describes her symptoms as being about 50% lumbosacral midline and bilateral posterolateral low back pain and 50% bilateral lower limb symptoms. The lower limb symptoms are approximately equally troublesome on the right, and on the left. On theright, symptoms consist of numbness in the buttocks, pain in the posterior aspect of the thigh, pain in the posterior aspect of the lower leg, dorsal medial aspect of the foot, and a burning discomfort into the great toe. On the left, the symptoms involve pain in the posterior aspect of the thigh, posterior aspect of the lower leg, prickling in the foot (not localized) and prickling into all 5 toes equally. The symptoms are generally worsened with standing or sitting up straight, improved by flexing. The history of this problem is a bit complicated. Ms Avery describes this as going back to January 2016. She encountered a cooler with a nest of bees and mosquitos, which swarmed out with her opening it and it resulted in her getting multiple beestings and mosquito bites which resulted in fevers. She describes about a week later of losing her balance and falling onto her left buttock, resultingin left buttock pain. On 03/03/2016, she was carrying some wooded beams and developed the sudden onset of burning low back pain and bilateral foot dysesthesias, which has persisted to the present. The next day, on 03/04/2016, she went to the emergency department at [facility] whereshe was prescribed prednisone. She was referred to [facility], there was concern about a left SI joint and sacral infection, leading on 03/06/2016 to a biopsy of her left sacrum, which was negative. Bloodcultures also were negative. On 03/07/2016, Ms Avery was seen by Dr Hackett and Dr [facility], referred by Dr He, for evaluation of chronic neck pain plus bilateral upper limb symptoms. The primary concern at that point was prior to any intervention, to establish whether osteomyelitis was present or not. On 03/08/2016, Ms Avery was seen by Dr Patrick in the Infectious Disease clinic. Please see her note for multiple concerns. Absence of clear medical records available to Dr Patrick led to deferringdecision for treatment until adequate records could be obtained. On 03/21/2016, Ms Avery was again seen at [facility] emergency department. Plan wasfollow up with her primary care provider and also with Dr He with no specific treatment given, except for a prescription for prednisone. On 05/08/2016, Ms Avery was evaluated and followed by Dr He (previous visits on 08/15/2015 fordiffuse spinal pain and 02/07/2015 for neck plus thoracic pain and pain in all 4 limbs). Principal on the 05/08/2016 visit was obtained in the left SI joint region. Plan from that visit was referral here today. PAST MEDICAL HISTORY: Please see list in [facility]. PAST SURGICAL HISTORY: Appendectomy, cholecystectomy, wrist ganglion excision. Tumor removal from fallopian tubes. Dental extractions in the 1970s. Multiple abdominal operations (do not have the details). SOCIAL HISTORY: Smokes 2 packs per day of cigarettes. Uses no alcohol. 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 ALLERGIES: CODEINE (reaction unknown). PENICILLIN (reaction unknown). OMNIPAQUE 350 (causes itchingof her eyes). NOVOCAIN (it does not work). OBJECTIVE: Height is 157 cm. Weight 75.3 kg. BMI is 30.4. Upright stance mildly forward stooped. Isable to stand up almost straight, but describes this as producing increased back pain. Her gait is symmetric, bilaterally antalgic, but normal and toe dynamics. Trunk extension causes increased low back pain, but no change in lower limb symptoms. She is able to single leg partial deep knee bend, heel walk, toe walk. EHL and peroneal strength are intact. Light touch sensation is diffusely decreased throughout the entirety of the right lower limb, no localization, and normal throughout the left. Her reflexes are 2+ at the knees and ankles bilaterally.She has no clonus or Babinski. Straight leg raising is negative. Passive range of motion of hips, knees, and ankles is pain free. DIAGNOSTIC DATA: Lumbar spine x-ray images reviewed from today. The AP shows no significant abnormality. The lateral neutral upright film shows no malalignment. Disk spaces are fairly well preserved.Lumbar lordosis is normal. With extension and with flexion, nose and there is no abnormal anterior-posterior motion. The lumbar MRI images reviewed from 03/04/2016. This does show some increased T2 signal intensity within the upper anterior portion of the sacrum on the left side; however, there is no anterior soft tissue swelling and there is no SI joint abnormality. The CT-guided needle biopsy shows alignment ofthe biopsy needle with this area of increased signal intensity. ASSESSMENT: Structural basis for the lumbosacral low back pain is not clear. Structural basis for the approximately equally right and left lower limb symptoms is also not clear. The pelvic MRI scan from 03/04/2016 extends up into the lower portion of the body of L4. I see no nerve root encroachment at the L4-5 or L5-S1 levels. Ms Gena and I in a conference today reviewed all of the above, discussed various alternatives atthis point, each of her questions has been answered. She would like to proceed as follows. PLAN: 1. Lumbar spine MRI scan. 2. SPECT/CT lumbar spine bone scan. 3. Follow up with me after completion of the above. Total [id number] time for this visit was more than 80 minutes, more than 40 minutes of which was spent in counseling, regarding this assessment, relevant treatment alternatives, and risks and benefits of each. Morgan Singh MD 12 49 PM - Morgan Singh MD ln Dictation ID: [id number] cc: Felice He MD, [facility] Orthopedic Surgery [address] [place] [address] Natanael Saab MD, [facility] [address] [place] [address] The Patient documented in this encounter Plan of Treatment Not on file documented as of this encounter Visit Diagnoses Diagnosis Chronic bilateral low back pain with bilateral sciatica- Primary documented in this encounter Historical Medications * This list may reflect changes made after this encounter. nicotine polacrilex (NICORETTE) 2 mg gum Take 1 Each by mouth every 2 hours. acetaminophen (TYLENOL) 500 mg tablet Take 1 Tablet by mouth every 4 hours. Takes 2 daily budesonide-formo terol HFA (SYMBICORT) 160-4.5 mcg/actuation HFA aerosol inhaler inhaler Inhale as directed 2 times daily. lisinopril (PRINIVIL, ZESTRIL) 10 mg tablet Take 10 mg by mouth daily. 09/21/2024 predniSONE (DELTASONE) 10 mg tablet Take 10 mg by mouth daily. Took 06/19 and 06/2009/21/2024 alendronate (FOSAMAX) 70 mg tablet Take 70 mg by mouth every 7 days. With full glass water,on empty stomach; nothing by mouth or lie down for next 30 min 09/21/2024 sertraline (ZOLOFT) 50 mg tablet Take 50 mg by mouth daily. 09/21/2024 atorvastatin (LIPITOR) 40 mg tablet Take 40 mg by mouth daily. Has not taken for 1 week 09/21/2024 added in this encounter Care Teams Thermal Intelligence Analyst Relationship Specialty Start Date End Date Natanael Saab MD PCP - General 03/17/15 12/29/22 documented as of this encounter
--- OUTSIDE RECORDS SUMMARY | 2024-10-13 18:36 | XMS_ITS | Encounter Summary ---
Author Organization [facility] Address [address] [place] [address] Care Team Providers Care Manager Wound Name Role Phone Natanael Saab MD Primary Care Provider Unavailabl e Reason for Visit * Reason Comments Osteomyelitis * Consult (3 - 10 Business Days) - Closed Specialty Diagnoses / Procedures Referred By Contac t Referred To Contact Infectious Disease Diagnoses Subacute osteomyelitis, osteomyelitis of unspecified site Susan Lynn DO Phone: tel: fax: [facility] Infectious Disease [address] [address] Phone: tel: fax: Referral ID Status Reason Start Date Expiration Date V isits Requested Visits Authorized [id number] Closed Specialty Services Required 03/06/2016 1 1 Encounter Details Date Type Department Care Team (Late st Contact Info) Description 03/08/2016 9:00 EDT Office Visit [facility] Infectious Disease [address] [address] Karen Patrick MD Dysuria (Primary Dx); Osteomyelitis of sacrum ([facility]); Gingivitis; Vaginal bleeding Social History Tobacco Use Types Packs/Day Years Used Date Smoking Tobacco: Every Day Cigarettes 1 49 Tobacco Cessation:Ready to Q uit: No; Counseling Given: Yes Alcohol Use Standard Drinks/Week Comments No 0 (1 standard drink = 0.6 oz pur e alcohol) Comments No Sex and Gender Information Value Date Recorded Sex Assigned at Not on file Legal Sex Female 17:26 EST Gender Identity Not on file Sexual Orientation Not on file documented as of this encounter Last Filed Vital Signs Vital Sign Reading Time Taken Comments Blood Pressure 122/70 03/08/2016 0943 EDT Pulse - - Temperature 35.9 ??C (96.6 ??F) 03/08/2016 0943 EDT Respiratory Rate - - Oxygen Saturation - - Inhaled Oxygen Concentration - - Weight - - Height - - Body Mass Index - - documented in this encounter Functional Status * Are you deaf or do you have serious difficulty hearing? Answer Date of Assessment Author No 03/05/2016 1:44 EDRavi Desai RN * Are you blind or do [...] documented in this encounter Discharge Diagnoses Diagnosis R30.0 Dysuria-R30.0[ICD-10-CM] documented in this encounter Progress Notes * Karen Patrick MD - 03/08/2016 0946 EDT Infectious Disease Consult Note Date of Service: 03/08/2016 Requesting Physician: Dr David Ruelas Reason for Consult: osteomyelitis of the sacrum NOTE the history obtained from patient, her [id number], records from her recent hospitalization: The patient is a very poor historian and provided conflicting information throughout the visit Only records were from her recent hospitalization The patient came 35 minutes late for her appointment so her evaluation could not be fully completed HPI: (include onset, location, quality, severity, duration, timing, associating symptoms) 61-year-old woman with multiple medical problems who states that she has had a chronic recurring infection in the left side of her mouth for more than a decade. Sounds like she had some dental surgery more than 10 years ago that she has had a chronic nonhealing wound in the left upper gum area . This followed extractions of all of her upper teeth. She says she has had waxing and waning symptoms at that site over the years but in October or October of this year she had severe swelling at that site. She said she was seen in the emergency room at [facility] and had repeated lancing of an abscess in herleft gingiva and was treated with repeated courses of antibiotics. Since that time she has been opening the area with a toothpick and expressing drainage from the site on a regular basis. She says the drainage is very foul-smelling (says it smells like stool). She reports intermittent fevers since that time. She developed high fever in early March and presented to the ED at [facility]. She has a long history of chronic back pain and it sounds like she was experiencing worsening back pain at the time of her presentation in early March . Imaging done at [facility] was concerning for sacral osteomyelitis and she was transferred to [facility] for further evaluation. She was noted to be febrile on presentation. She was not treated with antibiotics during her stay. Blood cultures were negative. She underwent biopsy of the abnormal area in the sacrum on 03/06. She was discharged on 03/06 and is sent for consultation in infectious disease for further management. The patient continues to complain of severe left-sided pelvic pain. She reports worsening weakness in her left leg. The pain is definitely interfering with her ability to walk. She is not having any problems with her bowels. She denies urinary retention or incontinence. It does not sound like she has had any fever, chills, or night sweats since discharge. She continues to complain of the ongoing drainage from the left upper gingival area. Review of Systems: A ten point review of systems was performed and negative except for the findingsmentioned above and for the following: she reports vaginal bleeding She says she is able to express black drainage from her left breast She reports intermittent headaches with associated visual symptoms but no nausea or vomiting - never diagnosed with migraines She has decreased hearing but no other ear complaints No dysphagia or odynophagia She has very poor dentition but has refused to see a dentist in a prolonged period of time No change in vision except that the headaches Denies cough She does say she has had episodes of chest pressure associated with headache and shortness of breath. It does not sound like these are related to exertion. She thinks she has had a stress test but itsounds like it was remote. No known heart disease She has had burning pain in her feet bilaterally She has had hematuria but not recently. She is known to have a history of kidney stones She was on chronic trimethoprim up until the time of her hospitalization which was discontinued at discharge - she reports that she is having some dysuria at present and is concerned she is having a UTI She complains of abdominal pain which she attributes to her chronic hernias She has had problems with recurrent vomiting in the past She has significant anxiety related to posttraumatic stress disorder She has lost 15 pounds in the last months Reports? CVA in September of this year - followed by neurology (Dr. Rebollar, Dr. Viveros, and Dr. 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 CVA Posttraumatic stress disorder Anxiety COPD GERD 6 pregnancies for full-term deliveries - 2 spontaneous abortions one was a set of twins) Treated repeatedly for sinusitis Past Surgical History: Resection of the fallopian tubes, cold biopsy for cervical cancer in 1978 Cystoscopy Surgery for nerve release in her left upper extremity Hernia surgery Appendectomy Cholecystectomy Bladder surgery in the 70s Medications: MAR reviewed. Anti-infectives: None at present but reports frequent antibiotics treatment over the past months [facility]acy:[facility] in [place] Allergies: Codeine; Novacaine; and Penicillins - says she had an episode of throat closing when shetook penicillin many years ago. She then was rechallenged with Augmentin within the last 20 years and had a similar episode of throat closing. She thinks she has tolerated Cephalosporium's in the past. Family History: Completely unclear - sounds like her parents at a young age in motor vehicle accidents and shewas transferred to multiple different homes over the years. 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 Very tangential answers to questions. When asked specific questions she began to talk about other complaints in marked detail. Had to be repeatedly redirected. Nontoxic. In no acute distress. Ambulating with a cane. Physical exam was truncated because of time constraints as the patient came 35 minutes late for herappointment Head/Neck: Pupils equal, anicteric sclera, conjunctivae pink without hemorrhages. She has no facialasymmetry. She does appear to have a fullness in the left supraclavicular area compared to the right but I could not appreciate any focal lymphadenopathy. She has no upper teeth. There may be some subtle fullness of the gingiva on the left but there is no overlying erythema and I cannot see an opened area within the gum. She has some discomfort with palpation in the left gingiva. All of her lowerteeth are broken and carious with active gingivitis. Heart: Regular rhythm, no murmur appreciated Abdomen: + BS. Patient unable to get on the examining table and lay down for adequate abdominal exam Lymph Nodes: No cervical supraclavicular or axillary lymphadenopathy appreciated Skin: No acute rash Musculoskeletal: No joint effusions Extremities: No lower extremity edema Neuro: No demonstrable weakness Data Review: Laboratory data reviewed. Pertinent positives include: Labs: 03/06 CBC: WBC 6 Hb 12.4 PLT 261k UA with 1+ blood 03/04: CRP 26 ESR 13 Microbiology: BC ??2 drawn 03/06 no growth to date biopsy 03/06 with a few PMNs but no bacteria seen - culture no growth to date Other: histopathology of bone biopsy pending Radiological Studies: I have independently reviewed the MRI from 03/04 and personally reviewed the images with neuroradiology there is edema of the left side of the sacrum . The SI joint appears normal without significant fluid and no enhancement . There is a lot of admission enhancement adjacent to the sacrum but no abscess seen Assessment: ? Sacral osteomyelitis - she has edema of the sacrum on imaging . It is really difficult to get an adequate history from the patient. It sounds like she has chronic pain but then developed worsening symptoms. She clearly had a fever on presentation . Blood cultures have been unrevealing . It is interesting that the findings are in the sacrum but the SI joint appears to be preserved. There is a lot of stranding adjacent to this area but no obvious abscess. She clearly has severe gingivitis and would be at risk for bacteremia related to her gum disease with resultant potential metastatic focus of infection. She gives a history of recurrent drainage from the left upper gingival region. I do not see any opening at that site and the really are minimal findings in the gingiva at that site. Withher history of recurrent sinusitis I would be concerned about a deep dental infection at that site.Blood cultures of been negative and biopsy of the affected area of the sacrum is no growth to date.Unclear for truly dealing with an infection at this site. One concern I have is that she has a history of both fallopian tube cancer and cervical cancer. She says she has been having vaginal bleedingbut she has not had any evaluation for this. I think the findings in the sacrum could also represent tumor. Recurrent drainage from the left gingival area concerning for deep dental infection - need to rule out deep infection at that site. I called [facility] and she had a CT done last fall and asked those images to be sent for review . She may require repeat CAT scan to evaluate for deep infection in the jaw dysuria - she has been off her chronic trimethoprim. I did ask her to provide a UA today with plan for urine culture if her UA was positive but the patient did not provide a urine specimen Recommendations: 1. Need to obtain records of her prior treatment of deep dental infection earlier this year - askedher to sign a release for records from [facility] 2. Need to obtain antibiotics history 3. Review prior maxillary imaging - would expect to have abnormal findings last fall if she truly has had a chronic infection at this site 4. Would continue to hold antimicrobials therapy 5. Await blood cultures and cultures of the bone biopsy 6. Await histopathology on the bone biopsy 7. She needs to have a [employer] evaluation for her vaginal bleeding 8. Would favor formal allergy evaluation to assess if she truly has a severe penicillin allergy 9. If above studies are negative she may require repeat biopsy 10. We will also need to obtain records from her primary care physician and the dentist Karen Patrick MD 03/08/2016 9:46 documented in this encounter Plan of Treatment Not on file documented as of this encounter Visit Diagnoses Diagnosis Dysuria- Primary Osteomyelitis of sacrum ([facility]) Unspecified osteomyelitis, other specified site Gingivitis Chronic gingivitis, plaque induced Vaginal bleeding Other specified noninflammatory disorder of vagina documented in this encounter Care Teams Manager Wound Relationship Specialty Start Date End Date Natanael Saab MD PCP - General 03/17/15 12/29/22 documented as of this encounter
--- OUTSIDE RECORDS SUMMARY | 2024-10-13 18:36 | XMS_ITS | Encounter Summary ---
Author Organization [facility] Address [address] [place] [address] Care Team Providers Care Communications Lead Name Role Phone Natanael Saab MD Primary Care Provider Unavailabl e Reason for Visit * Reason Onset Date Comments Appointment Related 07/17/2016 Encounter Details Date Type Department Care Team (Late st Contact Info) Description 07/17/2016 Telephone [facility] Spine Program - [address] [place] [address] Morgan Singh MD [address] [place] [address] [place] [address] Appointment Related Social History Tobacco [...] Date of Assessment Author Yes 03/05/2016 1:44 EDRavi Desai RN * Because of a physical, mental, [...] * Telephone Encounter - Heydi Adams - 07/17/[id number] EST Savannah is notified by message to her home that appointment with Dr. Singh on 08/01/16 is cancelled as she has not had MRI ordered at visit with Dr. Singh. I have requested she call me back to help facilitate MRI scheduling at [facility] if that is what she would like to do. Once we have MRI scheduled and know the date and time, we can reschedule her appointment with Dr. Singh. documented in this encounter Plan of Treatment Not on file documented as of this encounter Visit Diagnoses Not on filedocumented in this encounter Care Teams Communications Lead Relationship Specialty Start Date End Date Natanael Saab MD PCP - General 03/17/15 12/29/22 documented as of this encounter
--- OUTSIDE RECORDS SUMMARY | 2024-10-13 18:36 | XMS_ITS | Encounter Summary ---
Author Organization [facility] Address [address] [place] [address] Care Team Providers Care Cost Coordinator Name Role Phone Natanael Saab MD Primary Care Provider Unavailabl e Reason for Visit * Reason Comments Pain leg, feet, neck, lina k, hands, stomach Encounter Details Date Type Department Care Team (Late st Contact Info) Description 02/29/2016 13:30 EDT Office Visit [facility] Interventional Pain [address] [facility] [place] [address] aDna Sanders MD [address] [facility] [address] [place] [address] Odessa Guzman MD [address] [place] [id number] Other chronic pain (Primary Dx) Social History Tobacco Use Types [...] Sign Reading Time Taken Comments Blood Pressure 170/72 02/29/2016 1340 EDT Pulse 61 02/29/2016 1340 EDT Temperature 36.7 ??C (98.1 ??F) 02/29/2016 1340 EDT Respiratory Rate 16 02/29/2016 1340 EDT Oxygen Saturation - - Inhaled Oxygen Concentration - - Weight 81.6 kg (180 lb) 02/29/2016 1340 EDT per pt Height 157.5 cm (5' 2) 02/29/2016 1340 EDT per pt Body Mass Index 32.92 02/29/2016 1340 EDT documented in this encounter Functional Status * Because of [...] 02/29/2016 13:46 EDT documented in this encounter Progress Notes * Dana Sanders - 02/29/2016 1554 EDT The patient arrived without information, paperwork. She did fill out the information with assistance required from our staff for the appointment time. We will reschedule her for a consultation. documented in this encounter Plan of Treatment Not on file documented as of this encounter Visit Diagnoses Diagnosis Other chronic pain- Primary documented in this encounter Historical Medications * This list may reflect changes made after this encounter. LORATADINE (CLARITIN ORAL) Take by mouth as needed. aspirin chewable 81 mg tablet Take 81 mg by mouth daily. 09/21/2024 trimethoprim (TRIMPEX) 100 mg tablet Take 100 mg by mouth daily. 03/06/2016 metoprolol (LOPRESSOR) 50 mg tablet Take 25 mg by mouth daily. 09/21/2024 HYDROcodone-aceta minophen (LORTAB) 10-500 mg per tablet Take 1 Tab by mouth every 4 hours. 09/21/2024 GUAIFENESIN (MUCINEX ORAL) Take by mouth. 09/21/2024 added in this encounter Care Teams Cost Coordinator Relationship Specialty Start Date End Date Natanael Saab MD PCP - General 03/17/15 12/29/22 documented as of this encounter
--- OUTSIDE RECORDS SUMMARY | 2024-10-13 18:37 | XMS_ITS | Encounter Summary ---
Author Organization [facility] Address [address] [place] [address] Care Team Providers Care Clear Coat Sprayer Name Role Phone Felice Vasquez MD Primary Care Provider + Reason for Visit * Reason Comments Hernia Encounter Details Date Type Department Care Team (Late st Contact Info) Description 04/29/2013 13:15 EDT Office Visit [facility] General Surgery - [place] [address] [facility] [address] [place] [address] Kai Bhandari MD [address] [address] Ventral hernia, unspecified, without mention of obstruction or gangrene (Primary Dx); Abdominal pain, unspecified site Social History Tobacco Use Types Packs/Day Years [...] Sign Reading Time Taken Comments Blood Pressure 142/82 04/29/2013 1318 EDT Pulse 79 04/29/2013 1318 EDT Temperature - - Respiratory Rate 18 04/29/2013 1318 EDT Oxygen Saturation - - Inhaled Oxygen Concentration - - Weight - - Height 157.5 cm (5' 2) 04/29/2013 1318 EDT Body Mass Index - - documented in this encounter Progress Notes * Kai Bhandari MD - 04/29/2013 1352 EDT [facility] H[facility]ORY AND PHYSICAL EXAMINATION Date of Service: 04/29/2013 PROBLEM: Chief Complaint Patient presents with ??? Hernia SUBJECTIVE: Ms Avery was referred by Dr Bautista via Dr Gomez for abdominal pain. Ms Averyis a difficult historian. However, she reports having pain that doubles her over and feels like a uterine cramp in her upper epigastric area and left side. This has occurred for the last 13 years. The pain is unpredictable, but does seem to come on with activities, especially when she bends over, for example to tie her shoes. There are times where the pain is so bad that she nearly passes out or has to even be helped up off of the floor. She has seen Dr Gomez in the past. Dr Gomez saw her last fall and obtained a CAT scan. The CAT scan suggested a small ventral hernia. He referred her for further evaluation since he is no longer doing surgeries. The patient states she has gained some weight in the last 6 months. She is not eating much, but has been drinking a lot of Mountain Dew. She also reports that she complained of such pains many years ago with Dr Kee. Dr Kee had sent her to [facility] and nothing was ever found. She also reports 1 time she went to the emergency room in [place] for the same pain. She was told she had a pancreatic duct obstruction. She flew back to [place] and then came up to this hospital. At that time there were many family issues going on and, therefore, she elected not to be admitted to the hospital. She states those pains subsided on their own at that time. PROBLEM LIST: does not have any pertinent problems on file. No past medical history on file. No past surgical history on file. No family history on file. Current Outpatient Prescriptions Medication Sig Dispense Refill ??? GUAIFENESIN (MUCINEX ORAL) Take by mouth. ALLERGIES: Allergies Allergen Reactions ??? Codeine ??? Penicillins REVIEW OF SYSTEMS: See intake form. PHYSICAL EXAM: BP 142/82 Pulse 79 Resp 18 Ht 157.5 cm (62) General appearance: alert, cooperative, pressured speech Skin: Skin color, temperature, turgor normal. No rashes or lesions Head: Normocephalic, without obvious abnormality, atraumatic Nose: right nares ring Lungs: clear to auscultation bilaterally Heart: regular rate and rhythm Abdomen: soft, non-tender; bowel sounds normal; no masses, no organomegaly, scar along the right mid abdomen. No incisional hernia. I cannot palpate any hernias along the abdominal midline. Nor can Ielicit any pain or tenderness. Extremities: extremities warm, atraumatic, no cyanosis or edema ASSESSMENT: 1. Ventral hernia, unspecified, without mention of obstruction or gangrene 2. Abdominal pain, unspecified site PLAN: 1. First, I discussed and reviewed with the patient the pathophysiology of hernias and also gave her a booklet. I also reviewed her CAT scan with her and showed her that there is a small 0.5 cm to 1 cm defect in her mid-abdomen. This is about 9 to 10 cm from the xiphoid process and perhaps 10 cm from the umbilicus. Unfortunately, I cannot palpate the same hernia on exam. In fact, there may be 2 small defects in this area. 2. Her symptoms are suspicious that the hernia could contribute to her pain, but are not convincing. I did discuss with the patient that repairing the hernia may actually be a diagnostic maneuver. Itis possible that a small piece of preperitoneal fat being pinched could cause a fair amount of discomfort. 3. After our discussion, the patient is not convinced that is the cause of her pains and problems. Therefore, she is not ready to consider an operation just yet, especially if I cannot feel the hernia. She wants to give our discussion some thought and states she will call me if she decides to consider surgery. Kai Bhandari MD 04/29/2013 documented in this encounter Plan of Treatment Not on file documented as of this encounter Visit Diagnoses Diagnosis Ventral hernia, unspecified, without mention of obstruction or gangrene- Primary Abdominal pain, unspecified site documented in this encounter Discontinued Medications Medication Sig Discontinue Reason Start Date End Da te OMEPRAZOLE (PRILOSEC ORAL) Take by mouth. 04/29 documented as of this encounter Care Teams Clear Coat Sprayer Relationship Specialty Start Date End Date Felice Vasquez MD [address] [place] [phone] PCP - General 04/27/13 03/16/15 documented as of this encounter
--- OUTSIDE RECORDS SUMMARY | 2024-10-13 18:37 | XMS_ITS | Encounter Summary ---
Author Organization [facility] Address [address] [place] [address] Care Team Providers Care Supervisor [employer] Name Role Phone Natanael Saab MD Primary Care Provider Unavailabl e Encounter Details Date Type Department Care Team (Late st Contact Info) Description 05/05/2015 Historical Results Only [facility] Radiology Results [address] [place] [address] Natanael Saab MD Social History Tobacco Use [...] Date/Time Associated Diagnosis Comments US ABDOMEN COMPLETE 05/05/2015 1 3:35 EDT documented in this encounter Results * US ABDOMEN COMPLETE (05/05/2015 13:35 EDT) Anatomical Region Laterality Modality Abdomen, Body Ultrasound 05/05/2015 13:3 5 EDT Narrative 05/05/2015 13:42 EDT ? EXAM: ULTRASOUND/ABDOMINAL MULTIPLE ORGAN EX. D/ (09) ? CLINICAL INFORMATION: ? AAA SCREENING, CHRONIC RENAL STONES, NICOTINE ? ADDICTION, CHRONIC ABDOMINAL PAIN. ? ABDOMINAL MULTIPLE ORGAN ??05/02/2015 2:04 PM ? Clinical History/Comments: Chronic abdominal pain. ? Comparison: Renal ultrasound 02/20/[address] abdomen pelvis 02/07/2015 ? Technique: Static and cine ultrasound and Doppler ultrasound ? examination of the abdomen was performed. ? Findings: The liver is normal in echotexture and size measuring 17.5 ? cm. ? The gallbladder is surgically absent. ? There is no intrahepatic biliary ductal dilatation. The common duct ? measures 12 mm. ? The visualized pancreas appears normal. ? The spleen is at the upper limits of normal in size, measuring 12.6 ? cm x 4.5 cm x 4.6 cm. The spleen demonstrates a normal echotexture. ? The right kidney measures 9.7 cm. The left kidney measures 10.0 cm. ? There is no evidence of hydronephrosis. ? The visualized abdominal aorta and IVC appear normal. ? Impression: ? 1. Dilatation of the common bile duct, similar relative to the CT ? examination performed 02/07/2015 and presumably related to prior ? cholecystectomy. ? 2. Otherwise, unremarkable examination. ? REPORT SIGNED IN OTHER VENDOR SYSTEM 05/05/2015 ?Reported By: David Myers MD ? CC: ? Transcribed Date/Time: 05/05/2015 (4472) ? Needle Grinder: [email or web address] ? Printed Date/Time: 02/09/2019 (1126) ? PAGE 1 ? Signed Report ? Procedure Note David Myers MD - 07/06/2019 EXAM: ULTRASOUND/ABDOMINAL MULTIPLE ORGAN EX. D/ (0907) CLINICAL INFORMATION: AAA SCREENING, CHRONIC RENAL STONES, NICOTINE ADDICTION, CHRONIC ABDOMINAL PAIN. ABDOMINAL MULTIPLE ORGAN 05/02/2015 2:04 PM Clinical History/Comments: Chronic abdominal pain. Comparison: Renal ultrasound 02/20/[address] abdomen pelvis02/07/2015 Technique: Static and cine ultrasound and Doppler ultrasound examination of the abdomen was performed. Findings: The liver is normal in echotexture and size hcjmacihw40.5 cm. The gallbladder is surgically absent. There is no intrahepatic biliary ductal dilatation. The common duct measures 12 mm. The visualized pancreas appears normal. The spleen is at the upper limits of normal in size, measuring 12.6 cm x 4.5 cm x 4.6 cm. The spleen demonstrates a normal echotexture. The right kidney measures 9.7 cm. The left kidney measures 10.0 cm. There is no evidence of hydronephrosis. The visualized abdominal aorta and IVC appear normal. Impression: 1. Dilatation of the common bile duct, similar relative to the CT examination performed 02/07/2015 and presumably related to prior cholecystectomy. 2. Otherwise, unremarkable examination. REPORT SIGNED IN OTHER VENDOR SYSTEM 05/05/2015 Reported By: David Myers MD CC: Transcribed Date/Time: 05/05/2015 (1342) Needle Grinder: Printed Date/Time: 02/09/2019 (1126) PAGE 1 Signed Report Natanael Saab MD [facility] ORDERABLES Final Result documented in this encounter Visit Diagnoses Not on filedocumented in this encounter Care Teams Supervisor [employer] Relationship Specialty Start Date End Date Natanael Saab MD PCP - General 03/17/15 12/29/22 documented as of this encounter
--- OUTSIDE RECORDS SUMMARY | 2024-10-13 18:37 | XMS_ITS | Encounter Summary ---
Author Organization [facility] Address [address] [place] [address] Care Team Providers Care Warehouse Technician Name Role Phone Unavailable Primary Care Provider Unavailabl e Encounter Details Date Type Department Care Team (Late st Contact Info) Description 03/06/2007 Before PRISM Converted Visit ([facility] conversion [address] [place] [address] Preston Richter MD [address] [place] [id number] Social History Tobacco Use Types Packs/Day Years Used Date Smoking Tobacco: Never Assessed Comments Unknown Sex and Gender Information Value Date Recorded Sex Assigned at Not on file Legal Sex Female 17:26 EST Gender Identity Not on file Sexual Orientation Not on file documented as of this encounter Consult Notes * Preston Richter MD - 07/11/2009 9701 EST [facility] - 03/06/2007 CHIEF COMPLAINT Hoarseness. HISTORY OF PRESENT ILLNESS A 52-year-old female with a history of chronic hoarseness straining to talk. Has a previous historyof thyroid nodules or polyps. Symptoms are constant with intermittent exacerbations of mild to moderate severity. Has a previous history of smoking, improved if she does not talk for awhile. No dysphagia, odynophagia, or weight loss. PAST MEDICAL HISTORY Significant for hyperlipidemia, reflux, cervical cancer. Previous surgeries include cholecystectomyand appendectomy, and removal of two arm tumors. ALLERGIES Drug reaction to IVP dye. MEDICATIONS Current medications include Roxicet and Vicodin. FAMILY HISTORY Significant for throat cancer in the father. SOCIAL HISTORY Patient is on disability, single, smokes a pack of cigarettes per day for 45 years. REVIEW OF SYSTEMS Significant for multiple system review including weight gain, allergies, night sweats, dizziness, visual disturbance, hearing loss, tinnitus, shortness of breath, cough, snoring, chest pain, constipation, blood in the stool, kidney problems, urinary tract infection, extremity and back pain, skin rashes, diabetes, and depression. Otherwise, negative for multiple system review. OBJECTIVE General: Well-developed, well-nourished, cooperative, adult female in no acute distress. Voice is hoarse. Height: 5 feet 2 inches. Weight 170 pounds. Vital signs: Blood pressure 135/90, pulse 72, respirations 20, temperature 97.2. Face is normal without lesions, no tenderness to palpation. Salivaryglands are normal. Facial strength is symmetric. Eye exam is normal. Ears: External ears are normal. Canals are clear. Tympanic membranes are normal. Nose: Nasal dorsum is midline. Nares are patent. Oral cavity is clear. Posterior pharynx is clear. Tonsils are present, not inflamed. Neck: No pathologic lymphadenopathy. Trachea is midline. Thyroid is normal. Chest is clear to auscultation. Heart regular rate and rhythm. Procedure: Fiberoptic endoscopy was performed. No evidence of nasal polyps or purulence. The nasopharynx is clear. 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 No nodules are seen and no tumor. 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 PLAN Consider microdirect laryngoscopy and Hirano procedure if patient stops smoking. Signed by Preston Richter MD 04/09/2007 16:14 Unique Louie MD Preston Richter MD - Preston Richter MD - [facility] Job ID: [id number] Doc ID: [id number] cc: Felice Vasquez MD - Preston Richter MD - p Job ID: [id number] Doc ID: [id number] cc: Felice Vasquez MD * Preston Richter MD - 07/09/2009 0058 EST [facility] - 03/06/2007 CONSULT from Felice Vasquez. CHIEF COMPLAINT Hoarseness. HISTORY OF PRESENT ILLNESS This is a 52-year-old female with a long history of chronic hoarseness and roughness of her voice, also feeling a lump in her throat. Symptoms are slowly getting worse. She has a long history of smoking up to five packs per days and is now down to one pack per day. She was previously evaluated by Dr. Ordonez in 2000 and was also seen by me in 2002 where a diagnosis of Dinh edema was made. She was advised to stop smoking. 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 Her symptoms are of moderate severity, constant, worse with talking, no other associated signs or symptoms although patient also complains of reflux, feeling the lump in the throat and excess mucus. Patient also com plains of right nasal obstruction and underwent some what sounds like liquid nitrogen therapy in the nose for what the patient describes as a large vein only seen on CT scan of the sinuses. PAST MEDICAL HISTORY Is significant for cervical cancer and reflux. PAST SURGICAL HISTORY Previous surgeries include cervical cancer surgery, cholecystectomy, appendectomy. FAMILY HISTORY Is significant for diabetes, heart disease, cancer, allergies, asthma, migraines, hearing loss. Father has a history of throat cancer and is a patient of [facility]. MEDICATIONS Roxicet and Vicodin. ALLERGIES SHE HAS DRUG REACTIONS TO IVP DYE AND PENICILLIN. SOCIAL HISTORY Patient is on disability, single, now smokes a pack of cigarettes a day. REVIEW OF SYSTEMS Positive for multiple system reviews. PHYSICAL EXAM General: Well-developed, well-nourished, cooperative, adult female. No acute distress. Voice is lowpitched and rough. Vital signs: height 5 feet 2 inches. Weight 170 pounds. Blood pressure 135/90. Pulse 72. Respirations 20. Temperature 97.2. The face is normal without lesions. No tenderness. Salivary glands are normal. Facial strength is symmetric. Eyeexam is normal. Ears: external ears normal, canals are clear. Tympanic membranes are normal. Hearing is grossly intact bilaterally. Nose: nasal dorsum is midline. The airway is patent. There is right superior nasoseptal deviation and patient hassignificant improvement of her breathing on Brown maneuver suggesting right nasal valve collapse. Oral cavity, lips, tongue, floor of mouth and buccal mucosa are normal. Posterior pharynx is clear. Tonsils are present. Neck no pathologic lymphadenopathy. Trachea is midline. Thyroid is normal. Chestis clear to auscultation. Heart regular rate and rhythm. PROCEDURE Fiberoptic endoscopy was performed with topical anesthesia. No evidence of nasal polyps or purulence. The nasopharynx is clear. The base of tongue, epiglottis, vallecula, piriform sinuses, false vocal cords are within normal limits. There is bilateral true vocal cord edema worse on the right side. 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 Patient also has a ring in that side of the nose. PLAN Will try to obtain Dr. Michael garcía records. Consider microdirect laryngoscopy and Hirano procedure and speech therapy. Signed by Preston Richter MD 04/03/2007 15:58 Unique Louie MD Preston Richter MD - Preston Richter MD - [facility] Job ID: [id number] Doc ID: [id number] cc: Felice Vasquez MD documented in this encounter Plan of Treatment Not on file documented as of this encounter Visit Diagnoses Not on filedocumented in this encounter
--- OUTSIDE RECORDS SUMMARY | 2024-10-13 18:37 | XMS_ITS | Encounter Summary ---
Author Organization [facility] Address [address] [place] [address] Care Team Providers Care Electrical Instrument Technician Name Role Phone Felice Vasquez MD Primary Care Provider + Natanael Saab MD Primary Care Provider Unavailabl e Encounter Details Date Type Department Care Team (Late st Contact Info) Description 12/21/2014 Historical Results Only [facility] Radiology Results [address] [place] [address] Nilesh Guerrero DO [address] [place] [address] Social History Tobacco Use Types [...] Name Priority Date/Time Associated Diagnosis Comments XR ABDOMEN 1 VIEW 12/21/2014 8:17 EDT documented in this encounter Results * XR ABDOMEN 1 VIEW (12/21/2014 8:17 EDT) Anatomical Region Laterality Modality Body Other 12/21/2014 8:17 EDT Narrative 12/21/2014 8:21 EDT ? EXAM: RADIOLOGY/KUB-ONE VIEW ?EX. D/ (1958) ? CLINICAL INFORMATION: ? RIGHT PROX URETER STONE ? INDICATION: Pain. Rule out kidney stone. ? TECHNIQUE: Single view abdomen. ? COMPARISON: CT 11/27/2014. ? FINDINGS: No abnormal calculi overlie the kidneys or ureters. Deep ? pelvic phleboliths are seen. No abnormal dilated small bowel loops ? are seen. No abnormal small bowel air-fluid levels are noted. ??Air ? and stool scattered throughout the colon. ? IMPRESSION: ? No nephrolithiasis detected. ? Unremarkable bowel gas pattern. ? REPORT SIGNED IN OTHER VENDOR SYSTEM 12/21/2014 ?Reported By: Sony Torres MD ? CC: ? Transcribed Date/Time: 12/21/2014 (0821) ? Latex Thread Machine Operator: ? Printed Date/Time: 02/02/2019 (1049) ? PAGE 1 ? Signed Report ? Procedure Note Sony Torres MD - 07/06/2019 EXAM: RADIOLOGY/KUB-ONE VIEW EX. D/ (1958) CLINICAL INFORMATION: RIGHT PROX URETER STONE INDICATION: Pain. Rule out kidney stone. TECHNIQUE: Single view abdomen. COMPARISON: CT 11/27/2014. FINDINGS: No abnormal calculi overlie the kidneys or ureters. Deep pelvic phleboliths are seen. No abnormal dilated small bowel loops are seen. No abnormal small bowel air-fluid levels are noted. Air and stool scattered throughout the colon. IMPRESSION: No nephrolithiasis detected. Unremarkable bowel gas pattern. REPORT SIGNED IN OTHER VENDOR SYSTEM 12/21/2014 Reported By: Sony Torres MD CC: Transcribed Date/Time: 12/21/2014 (0821) Latex Thread Machine Operator: Printed Date/Time: 02/02/2019 (3943) PAGE 1 Signed Report Nilesh Guerrero DO [facility] DI[facility]NOST[facility] IMAGING ORDERAB LES Final Result documented in this encounter Visit Diagnoses Not on filedocumented in this encounter Care Teams Electrical Instrument Technician Relationship Specialty Start Date End Date Felice Vasquez MD [address] [place] [address] PCP - General 04/27/13 03/16/15 Natanael Saab MD [address] [place] [address] PCP - General 03/17/15 3 documented as of this encounter
--- OUTSIDE RECORDS SUMMARY | 2024-10-13 18:37 | XMS_ITS | Encounter Summary ---
Author Organization [facility] Address [address] [place] [address] Care Team Providers Care Sweatband Perforator Name Role Phone Felice Vasquez MD Primary Care Provider + Encounter Details Date Type Department Care Team (Late st Contact Info) Description 04/28/2013 Abstract [facility] General Surgery - [address] [place], [place] [id number] Felice Vasquez MD [address] [place] [address] Social History Tobacco Use Types Packs/Day Years [...] Diagnoses Not on filedocumented in this encounter Historical Medications * This list may reflect changes made after this encounter. GUAIFENESIN (MUCINEX ORAL) Take by mouth. 03/17/2015 OMEPRAZOLE (PRILOSEC ORAL) Take by mouth. 04/29/2013 added in this encounter Care Teams Sweatband Perforator Relationship Specialty Start Date End Date Felice Vasquez MD [address] [place] [address] PCP - General 04/27/13 03/16/15 documented as of this encounter
--- OUTSIDE RECORDS SUMMARY | 2024-10-13 18:37 | XMS_ITS | Encounter Summary ---
Author Organization [facility] Address [address] [place] [address] Care Team Providers Care Media Production Support Manager Name Role Phone Natanael Saab MD Primary Care Provider Unavailabl e Encounter Details Date Type Department Care Team (Late st Contact Info) Description 06/08/2015 Historical Results Only [facility] Radiology Results [address] [place] [address] Natanael Palma MD Social History Tobacco Use Types Packs/Day [...] Name Priority Date/Time Associated Diagnosis Comments CT FACIAL BONES W CONTRAST 06/08/2015 19:55 EDT documented in this encounter Results * CT FACIAL BONES W CONTRAST (06/08/2015 19:55 EDT) Anatomical Region Laterality Modality Head Other 06/08/2015 19:5 5 EDT Narrative 06/08/2015 19:55 EDT ? EXAM: CAT SCAN/MAXILLO FACIAL WITH CONTRA EX. D/ (1921) ? CLINICAL INFORMATION: ? EVAL L FACIAL CELLULITIS ? EXAM: ? CT Maxillofacial With Intravenous Contrast. ? CLINICAL HISTORY: ? 60 years old, female; Signs and symptoms; Mass, lump, or ? swelling; Maxilla; Additional info: Eval l facial cellulitis ? TECHNIQUE: ? Axial computed tomography images of the face with intravenous ? contrast. ? CONTRAST: ? 75 mL of OMNI 350 administered intravenously. ? COMPARISON: ? CT - HEAD WITHOUT CONTRAST 05/29/2014 11:11:27 AM ? FINDINGS: ? Bones: ??There is mild soft tissue swelling along the buccal ? margins the right and left hemimandibles deep to which are small ? curvilinear perimandibular collections of fluid like material or ? edema which may represent early developing perimandibular ? inflammation/phlegmon, likely related to dental disease; but I ? see no gross lytic destruction of the inferior alveolar ridges ? and no gross periodontal abscess involving mandibular teeth. ? The maxilla is edentulous except for a single dental remnant of ? an otherwise largely resorbed/decayed left upper premolar tooth ? where there is ??local bony resorption/destruction of the ? residual alveolar ridge. ? Dental: ??Along the buccal margin of this portion of the left ? superior alveolar ridge there is prominent enhancing soft tissue ? material surrounding an approximately 12 x 7 x 11 mm mixed to ? low density collection of fluid like material consistent with a ? developing periodontal abscess lateral to which is mild patchy ? edema in the chasidy-maxillary subcutaneous fat. ??In addition to ? absent dentition of mandibular teeth numerous small dental ? caries are suggested, some of it appearing adjacent to dental ? amalgam. ? Extracranial soft tissues: ??Unremarkable. ? Sinuses: ??Unremarkable. ??No air-fluid levels. ? Orbits: ??Unremarkable. ? IMPRESSION: ? 1. ??Developing left chasidy-maxillary abscess with surrounding soft ? tissue inflammation secondary to advanced dental/periodontal ? disease related to a largely decayed/resorbed left upper ? premolar tooth. ? 2. ??Suggestion of bilateral perimandibular inflammatory changes, ? PAGE 1 ? Signed Report ? (CONTINUED) ? possibly early developing phlegmon which is likely related to ? dental disease . ? REPORT SIGNED IN OTHER VENDOR SYSTEM 06/08/2015 ?Reported By: Wilmer Cheng MD ? CC: ? Transcribed Date/Time: 06/08/2015 (1955) ? Javascript Programmer: ? Printed Date/Time: 02/09/2019 (1127) ? PAGE 2 ? Signed Report ? Procedure Note Wilmer Cheng MD - 07/06/2019 EXAM: CAT SCAN/MAXILLO FACIAL WITH CONTRA EX. D/ (1922) CLINICAL INFORMATION: EVAL L FACIAL CELLULITIS EXAM: CT Maxillofacial With Intravenous Contrast. CLINICAL HISTORY: 60 years old, female; Signs and symptoms; Mass, lump, or swelling; Maxilla; Additional info: Eval l facial cellulitis TECHNIQUE: Axial computed tomography images of the face with intravenous contrast. CONTRAST: 75 mL of OMNI 350 administered intravenously. COMPARISON: CT - HEAD WITHOUT CONTRAST 05/29/2014 11:11:27 AM FINDINGS: Bones: There is mild soft tissue swelling along the buccal margins the right and left hemimandibles deep to which are small curvilinear perimandibular collections of fluid like material or edema which may represent early developing perimandibular inflammation/phlegmon, likely related to dental disease; but I see no gross lytic destruction of the inferior alveolar ridges and no gross periodontal abscess involving mandibular teeth. The maxilla is edentulous except for a single dental remnant of an otherwise largely resorbed/decayed left upper premolar tooth where there is local bony resorption/destruction of the residual alveolar ridge. Dental: Along the buccal margin of this portion of the left superior alveolar ridge there is prominent enhancing soft tissue material surrounding an approximately 12 x 7 x 11 mm mixed to low density collection of fluid like material consistent with a developing periodontal abscess lateral to which is mild patchy edema in the chasidy-maxillary subcutaneous fat. In addition to absent dentition of mandibular teeth numerous small dental caries are suggested, some of it appearing adjacent to dental amalgam. Extracranial soft tissues: Unremarkable. Sinuses: Unremarkable. No air-fluid levels. Orbits: Unremarkable. IMPRESSION: 1. Developing left chasidy-maxillary abscess with surrounding soft tissue inflammation secondary to advanced dental/periodontal disease related to a largely decayed/resorbed left upper premolar tooth. 2. Suggestion of bilateral perimandibular inflammatory changes, PAGE 1 Signed Report (CONTINUED) possibly early developing phlegmon which is likely related to dental disease . REPORT SIGNED IN OTHER VENDOR SYSTEM 06/08/2015 Reported By: Wilmer Cheng MD CC: Transcribed Date/Time: 06/08/2015 (1954) Javascript Programmer: Printed Date/Time: 02/09/2019 (3161) PAGE 2 Signed Report Natanael Palma MD IMG CT ORDERABLES Final Result documented in this encounter Visit Diagnoses Not on filedocumented in this encounter Care Teams Media Production Support Manager Relationship Specialty Start Date End Date Natanael Saab MD PCP - General 03/17/15 12/29/22 documented as of this encounter
--- OUTSIDE RECORDS SUMMARY | 2024-10-13 18:37 | XMS_ITS | Encounter Summary ---
Author Organization [facility] Address [address] [place] [address] Care Team Providers Care Marketing Research Analyst Name Role Phone Felice Vasquez MD Primary Care Provider + Natanael Saab MD Primary Care Provider Unavailabl e Encounter Details Date Type Department Care Team (Late st Contact Info) Description 02/22/2015 Historical Results Only [facility] [place] [address] [place] [address] Felice He MD [address] [place] [phone] Social History Tobacco Use Types Packs/Day Years [...] Name Priority Date/Time Associated Diagnosis Comments XR CERVICAL SPINE 6 OR MORE VIEWS 02/22/2015 21:20 EDT documented in this encounter Results * XR CERVICAL SPINE 6 OR MORE VIEWS (02/22/2015 21:20 EDT) Anatomical Region Laterality Modality Other 02/22/2015 21:2 0 EDT Narrative 02/23/2015 8:28 EDT ? EXAM: RADIOLOGY/CERVICAL SPINE + FLEX ?? E EX. D/ (0934) ? CLINICAL INFORMATION: ? A 59 YO FEMALE WITH NECK PAIN AND ARM SYMPTOMS, ? BILATERAL ? 723.1 NECK PAIN ? INDICATION: Neck pain. Arm symptoms. ? COMPARISON: CERVICAL SPINE RADIOGRAPH - 06/22/2009. ? TECHNIQUE: Odontoid, AP, lateral neutral and lateral flexion and ? extension views. ? FINDINGS: Degenerative disc disease and facet arthrosis is present. ? The findings are most severe at C5-C6. There is minimal ? retrolisthesis of C5, which does not change with either flexion or ? extension. Flexion and extension movement is limited. ? IMPRESSION: ??Cervical spondylosis. ? REPORT SIGNED IN OTHER VENDOR SYSTEM 02/23/2015 ?Reported By: Carlos Sapp MD ? CC: ? Transcribed Date/Time: 02/23/2015 (0828) ? Executive Candidate Developer: NICOLE ? Printed Date/Time: 02/08/2019 (192) ? PAGE 1 ? Signed Report ? Procedure Note Carlos Sapp MD - 07/06/2019 EXAM: RADIOLOGY/CERVICAL SPINE + FLEX E EX. D/ (0934) CLINICAL INFORMATION: A 59 YO FEMALE WITH NECK PAIN AND ARM SYMPTOMS, BILATERAL 723.1 NECK PAIN INDICATION: Neck pain. Arm symptoms. COMPARISON: CERVICAL SPINE RADIOGRAPH - 06/22/2009. TECHNIQUE: Odontoid, AP, lateral neutral and lateral flexion and extension views. FINDINGS: Degenerative disc disease and facet arthrosis is present. The findings are most severe at C5-C6. There is minimal retrolisthesis of C5, which does not change with either flexion or extension. Flexion and extension movement is limited. IMPRESSION: Cervical spondylosis. REPORT SIGNED IN OTHER VENDOR SYSTEM 02/23/2015 Reported By: Carlos Sapp MD CC: Transcribed Date/Time: 02/23/2015 (0828) Executive Candidate Developer: NICOLE Printed Date/Time: 02/08/2019 (1926) PAGE 1 Signed Report Felice He MD IMG DIAGNOSTIC IMAGING ORDERABLE S Final Result documented in this encounter Visit Diagnoses Not on filedocumented in this encounter Care Teams Marketing Research Analyst Relationship Specialty Start Date End Date Felice Vasquez MD [address] [place] [phone] PCP - General 04/27/13 03/16/15 Natanael Saab MD [address] [place] [phone] PCP - General 03/17/15 3 documented as of this encounter
--- OUTSIDE RECORDS SUMMARY | 2024-10-13 18:37 | XMS_ITS | Encounter Summary ---
Author Organization [facility] Address [address] [place] [address] Care Team Providers Care Dry Roller Name Role Phone Natanael Saab MD Primary Care Provider Unavailabl e Reason for Visit * Reason Comments Chest Pain Pt reports she was s ent by PCPs office for r/o PE. Extensive workup lately for multiple complaints. Pt reports pain is under L breast. + fatigue Encounter Details Date Type Department Care Team (Late st Contact Info) Description 03/17/2015 0:38 EDT - 03/17/2015 4:42 EDT Emergency [facility] Emergency Department - Main [place] [address], [place] [id number] Patel Solorio MD [address] [place], [place] [address] EmergencyEmeli MD Left upper quadrant pain (Primary Dx) Discharge Disposition: Home or Self Care Social [...] Sign Reading Time Taken Comments Blood Pressure 143/68 03/17/2015 0239 EDT Pulse - - Temperature 36.9 ??C (98.4 ??F) 03/17/2015 0059 EDT Respiratory Rate 16 03/17/2015 0239 EDT Oxygen Saturation 95% 03/17/2015 0415 EDT Inhaled Oxygen Concentration - - Weight 72.6 kg (160 lb) 03/17/2015 0059 EDT Height - - Body Mass Index 29.26 04/29/2013 1318 EDT documented in this encounter Discharge Instructions * Discharge Instructions* Patel Solorio MD - 03/17/2015 4:27 EDT Recheck with your primary care doctor within 12 hours if pain persists or worsens * Attachments The following attachments cannot be sent through Care Everywhere. * ABDOMINAL PAIN (PORTUGUESE) documented in this encounter Medications at Time [...] mouth daily. Not taking it daily 09/21/2024 doxycycline (VIBRA-TABS) 100 mg tablet Take 100 mg by mouth 2 times daily 10/16/2015 traMADol (ULTRAM) 50 mg tablet Take 50 mg by mouth every 6 hours 09/21/2024 documented as of this encounter Discharge Disposition Disposition Code Departure Means Destination Home or Self Care Walk-out Home documented in this encounter ED Notes * Hien Vaz RN - 03/17/2015 0440 EDT D/C instructions reviewed with patient. Follow up care address and phone numbers provided. Patient states understanding of d/c instructions and voiced displeasure at being told to come to the ER emergently by [facility] this is insurance fraud, they sent me here. VSS. PIV removed. Pt d/c to home with fa jose manuel member. Pt stable at time of discharge. Pt aware of S+S to return to ER. Pt to f/u with PCP. Pt states pain remains 8/10. Pt declined to speak again with provider. * Hien Vaz RN - 03/17/2015 0222 EDT Patient transported to CT via stretcher. * Hien Vaz RN - 03/17/2015 0200 EDT Osmin PEREZ at bedside. * Patel Solorio MD - 03/17/2015 0149 EDT DOS: 03/17/2015 Chief Complaint Patient presents with ??? Chest Pain Pt reports she was sent by PCPs office for r/o PE. Extensive workup lately for multiple complaints.Pt reports pain is under L breast. + fatigue HPI HPI Comments: I, Rona Rajput, am scribing for Patel Solorio MD while he/she is personally performing the service. 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 Patient is a poor historian. She presents with new 8/10 abdominal pain under her left breast that has been constant, and waxing and waning for the past week. Pain radiates to her left back. She states her pain is worse with palpation, deep breathing, coughing, and eating. Her pain has been at 10/10 at worst. She notes she has associated nausea, a productive cough, rhinorrhea, and SOBon exertion. She also notes many years of LUQ abd pain which is in the same location but feels verydifferent according to her. She has been worked up extensively for this by her PMD. She also statesshe has swelling and pain in her ankles bilaterally. The patient states she adjusted her PO intake to prevent vomiting. She notes she had a fever recently, which improved with doxycycline which she started today. She has had constant green diarrhea onset 1 week ago, with the last episode 2 days ago. BMs have been normal in the last 2 days. She notes she took 4mg lorazepam which has improved pain. The history is provided by the patient, medical records and the spouse. History limited by: Poor historian. Abdominal Pain Pain location: LUQ Pain quality: sharp and stabbing Pain radiates to: Back Pain severity: Moderate Onset quality: Gradual Duration: 1 week Timing: Constant Progression: Waxing and waning Chronicity: New Relieved by: Nothing Worsened by: Coughing, palpation, eating and deep breathing Ineffective treatments: None tried Associated symptoms: diarrhea (Last episode 2 days ago.), fatigue, nausea and shortness of breath (On exertion.) Associated symptoms: no chest pain, no constipation, no dysuria and no vomiting Review of Systems Review of Systems Constitutional: Positive for fatigue. HENT: Positive for rhinorrhea. Respiratory: Positive for shortness of breath (On exertion.). Cardiovascular: Positive for leg swelling (Ankle.). Negative for chest pain. Gastrointestinal: Positive for nausea, abdominal pain and diarrhea (Last episode 2 days ago.). Negative for vomiting and constipation. Genitourinary: Negative for dysuria. Musculoskeletal: Positive for joint swelling (Ankle.). All other systems reviewed and are negative. The patient's past medical, family and social history was reviewed and updated as needed. Allergies Allergen Reactions ??? Codeine ??? Penicillins Vital Signs Vitals Reassessment?: Yes Temp: 36.9 ??C (98.4 ??F) Temp src: Temporal Heart Rate: 67 BPM Resp: 16 SpO2: 95 % BP: 143/68 mmHg BP Device: BP Machine Patient Position: Semi fowlers BP Cuff Location: Left arm Christensen Agitation Sedation Scale: 0 O2 Device: None (Room air) Physical Exam Constitutional: She is oriented to person, place, and time. She appears well- developed and well-nourished. HENT: Head: Normocephalic and atraumatic. Eyes: Conjunctivae and EOM are normal. Pupils are equal, round, and reactive to light. Right eye exhibits no discharge. Left eye exhibits no discharge. Neck: Normal range of motion. Neck supple. No tracheal deviation present. Cardiovascular: Normal rate, regular rhythm and normal heart sounds. No murmur heard. Pulmonary/Chest: Effort normal. No respiratory distress. She has no wheezes. She has rales (Basilarcrackles that sound like dry crackles.). She exhibits no tenderness. Poor air movement throughout. Abdominal: Soft. Bowel sounds are normal. She exhibits no distension. There is tenderness (LUQ.) inthe left upper quadrant. Musculoskeletal: Normal range of motion. She exhibits no edema. Neurological: She is alert and oriented to person, place, and time. Skin: Skin is warm and dry. No rash noted. Psychiatric: She has a normal mood and affect. Nursing note and vitals reviewed. RESULTS EKG orders: EKG 12-LEAD The EKG was independently reviewed and interpreted by me. Read at 01:09- Normal sinus rhythm with rate of 81bpm. Normal access and intervals. No Q wave or ST changes. Radiology orders: CT CHEST W CONTRAST (PE) PROTOCOL CT chest with contrast independently reviewed and interpreted by me and reviewed and discussed withradiology. Findings significant for: No pulmonary embolism. Mild smoking related lung disease emphezema. No other abnormalities noted in chest or upper abd. ED Lab Results Labs Reviewed PROFILE ED CARDIAC PACK - Abnormal Potassium 3.4 (*) Final BUN 5 (*) Final WBC 13.42 (*) Final ABS Lymphs 3.77 (*) Final ABS Basophils 0.17 (*) Final Sodium 141 Final Chloride 104 Final CO2 29 Final Creatinine 0.77 Final GFR, Calculated 85 Final Magnesium 2.1 Final RBC 4.77 Final Hemoglobin 14.6 Final HCT 43.4 Final MCV 91 Final MCH 30.5 Final MCHC 33.6 Final RDW-CV 13.1 Final RDW-SD 41.1 Final PLT 287 Final MPV 7.8 Final Neutrophils 65.6 Final Lymphocytes 28.1 Final Monocytes 3.8 Final Eosinophils 1.3 Final Basophils 1.2 Final ABS Neutrophils 8.81 Final ABS Monocytes 0.51 Final ABS Eosinophils 0.17 Final Type of Diff: Automated Final Troponin I <0.034 Final Glucose, Screening 90 Final Hold Blue Top Final Value: Sample for coagulation will be discarded after 4 hours ED/WICC ADD-ON Tests to be added D DIMER Final Number for problems [id number] (ED) Final D-DIMER D-Dimer <200 Final Procedures ED COURSE A medical screening exam was performed. The patient requested nicotine. She was given Nicotrol. Re-evaluation 4:22- Patient states she is ready for discharge. Her symptoms are mildly improved. She will follow up with her PCP if pain continues or worsens. Prior to discharge usual and customary precautions were reviewed with the patient and/or family including follow-up instructions and reasons to return to the Emergency Department if condition worsens, does not improve as expected, or other new concerns arise. ASSESSMENT AND PLAN Final diagnoses: Left upper quadrant pain DISPOSITION: Discharged The patient's pain was managed to an adequate level weighing risk vs. benefit of further medications. Upon departure from the Emergency Department, the patient's pain was 3 on a zero to ten scale. Condition at departure from the Emergency Department: Good PCP: Natanael Saab (General) MDM Number of Diagnoses or Management Options Amount and/or Complexity of Data Reviewed Clinical lab tests: ordered and reviewed Tests in the radiology section of CPT??: ordered and reviewed Tests in the medicine section of CPT??: ordered and reviewed Independent visualization of images, tracings, or specimens: yes This documentation is recorded by Rona Rajput acting as Scribe under the direction and presence of Patel Solorio MD. Patel Solorio MD: I personally performed the services recorded by the scribe in my presence. I confirm the scribe's documentation has been reviewed by me to accurately and completely record my work, treatment, procedures, and medical decision making. 03/17/2015 4:47 No flowsheet data found. * Hien Vaz RN - 03/17/2015 0115 EDT Blood drawn via saline lock per protocol, rainbow tube(s) sent to lab per order. * Hien Vaz RN - 03/17/2015 0115 EDT Chief Complaint Patient presents with ??? Chest Pain Pt reports she was sent by PCPs office for r/o PE. Extensive workup lately for multiple complaints.Pt reports pain is under L breast. + fatigue * Mihaela Balderas RN - 03/17/2015 0111 EDT 12 Lead EKG Performed by Mihaela Balderas RN and shown to Patel Solorio MD. documented in this encounter Plan of Treatment Not on file documented as of this encounter Procedures Procedure Name Priority Date/Time Associated Diagnosis Comments ECG REPORT - SCANNED 03/27/2015 22:[address] CHEST (PE) PROTOCOL W CONTRAST 03/17/2015 2:32 EDT DRY POWDERED OR METERED DOSE INHALER Routine 03/17/2015 2:13 EDT ED/URGENT CARE ADD-ON STAT 03/17/2015 1:50 EDT PROFILE ED CARDIAC PACK STAT 03/17/2015 1:11 EDT D-DIMER Routine 03/17/2015 1:11 EDT EKG 12-LEAD STAT 03/17/2015 1:09 EDT documented in this encounter Results * ECG REPORT - SCANNED (03/27/2015 22:17 EDT) 03/27/2015 22:1 7 EDT us Scan 2 Rail Grinder PROCEDURE/MINOR SURGICAL OR DERABLES Final Result * CT CHEST W CONTRAST (PE) PROTOCOL (03/17/2015 2:32 EDT) Anatomical Region Laterality Modality Other 03/17/2015 2:32 EDT 03/17/2015 8:57 EDT Narrative 03/17/2015 8:[address] CHEST W CONTRAST (PE) PROTOCOL ??03/17/2015 2:32 AM Clinical History/Comments: sob, left chest pain, elevated d dimer RO PE Technique: A contrast-enhanced helical CT acquisition of the chest from apices through the lung bases was performed with a reconstructed slice thickness of 0.9 mm with overlapping 0.45 mm intervals following the intravenous administration of 75-100 cc of 370 mg% nonionic contrast injected at a rate of 4-5 cc/second. ??A small test bolus was used for image acquisition. Scans were reviewed on a dedicated PACS workstation for analysis. Comparison: None. Findings: Opacification of the pulmonary vasculature is good. No acute or chronic emboli are seen within the pulmonary arterial vasculature. Lower neck: No abnormalities. Chest wall soft tissues: No abnormalities. Mediastinum and corey: Scattered, nonenlarged mediastinal or hilar lymph nodes. ? Heart and mediastinal vasculature: ??Scattered calcified plaques of the thoracic aorta. Large airways: ??Scattered thickening and secretions. Lungs: ??Mid and upper lung centrilobular and paraseptal emphysema. ?? The lungs otherwise are clear. Pleura: There is a small left Bochdalek hernia. Upper abdomen (limited to upper abdomen, not optimized for abdominal imaging): Small ventral hernia containing omental fat. ??There is a cortical scar of the right kidney. Bones: ??No significant abnormalities. Impression: 1. No evidence of pulmonary embolism. 2. ??Emphysema and evidence of chronic bronchitis. 3. ??Small ventral hernia containing omental fat. 4. ??Small Bochdalek hernia. 5. ??Aortic atherosclerosis. Procedure Note Omega Malave MD - 03/17/2015 CT CHEST W CONTRAST (PE) PROTOCOL 03/17/2015 2:32 AM Clinical History/Comments: sob, left chest pain, elevated d dimer RO PE Technique: A contrast-enhanced helical CT acquisition of the chest from apices through the lung bases was performed with a reconstructed slice thickness of 0.9 mm with overlapping 0.45 mm intervals following the intravenous administration of 75-100 cc of 370 mg% nonionic contrast injected at a rate of 4-5 cc/second. A small test bolus was used for image acquisition. Scans were reviewed on a dedicated PACS workstation for analysis. Comparison: None. Findings: Opacification of the pulmonary vasculature is good. No acute or chronic emboli are seen within the pulmonary arterial vasculature. Lower neck: No abnormalities. Chest wall soft tissues: No abnormalities. Mediastinum and corey: Scattered, nonenlarged mediastinal or hilar lymph nodes. Heart and mediastinal vasculature: Scattered calcified plaques of the thoracic aorta. Large airways: Scattered thickening and secretions. Lungs: Mid and upper lung centrilobular and paraseptal emphysema. The lungs otherwise are clear. Pleura: There is a small left Bochdalek hernia. Upper abdomen (limited to upper abdomen, not optimized for abdominal imaging): Small ventral hernia containing omental fat. There is a cortical scar of the right kidney. Bones: No significant abnormalities. Impression: 1. No evidence of pulmonary embolism. 2. Emphysema and evidence of chronic bronchitis. 3. Small ventral hernia containing omental fat. 4. Small Bochdalek hernia. 5. Aortic atherosclerosis. Patel Solorio MD IMG CT ORDERABLES Final Result * ED/WICC ADD-ON (03/17/2015 1:50 EDT) Tests to be added D DIMER 03/17/2015 1:46 EDT [facility] Number for problems [id number] (ED) 03/17/2015 1:46 EDT [facility] TOPOGRAPHY UNKNOWN / Unknown 03/17/2015 1:50 EDT 03/17/2015 1:51 EDT Patel Solorio MD HEMATOLOGY & PF4 ORDERABLES Fi nal Result [facility] [address] [place] [address] * D-DIMER (03/17/2015 1:11 EDT) D-Dimer <200 <230 ng/mL 03/17/2015 2:21 EDT [facility] Comment:CUTOFF VALUE FOR THE EXCLUSION OF DVT and PE: 230 ng/mL D-dimer units BLOOD SPECIMEN / Unknown 03/17/2015 1:11 EDT 03/17/2015 1:16 EDT To Zhang MD HEMATOLOGY & PF4 ORD ERABLES Final Result [facility] [address] [place] [address] * (ABNORMAL) PROFILE ED CARDIAC PACK (03/17/2015 1:11 EDT) Sodium 141 136 - 145 mEq/L 03/17/2015 1:39 [facility] Potassium 3.4(L) 3.5 - 5.0 mEq/L 03/17/2015 1:39 [facility] Chloride 104 96 - 110 mEq/L 03/17/2015 1:39 [facility] CO2 29 24 - 32 mEq/L 03/17/2015 1:39 [facility] BUN 5(L) 10 - 26 mg/dl 03/17/2015 1:39 [facility] Creatinine 0.77 0.52 - 1.04 mg/dl 03/17/2015 1:39 [facility] GFR, Calculated 85 >60 ml/min/1 .73m2 03/17/2015 1:39 [facility] Comment: eGFR calculated using CKD-EPI equation for non Americans. Multiply eGFR by 1.16 for Americans. Magnesium 2.1 1.7 - 2.8 mg/dl 03/17/2015 1:39 [facility] WBC 13.42(H) 4.0 - 12.4 K/cmm 03/17/2015 1:21 [facility] RBC 4.77 3.86 - 5.04 M/cmm 03/17/2015 1:21 [facility] Hemoglobin 14.6 11.6 - 15.2 gm/dl 03/17/2015 1:21 [facility] HCT 43.4 34.9 - 44.4 % 03/17/2015 1:21 [facility] MCV 91 81 - 98 fl 03/17/2015 1:21 [facility] MCH 30.5 26.7 - 33.3 pg 03/17/2015 1:21 [facility] MCHC 33.6 32.1 - 35.9 gm/dl 03/17/2015 1:21 [facility] RDW-CV 13.1 11.7 - 14.6 % 03/17/2015 1:21 [facility] RDW-SD 41.1 37.6 - 50.3 fl 03/17/2015 1:21 [facility] PLT 287 141 - 320 K/cmm 03/17/2015 1:21 [facility] MPV 7.8 7.5 - 11.2 fl 03/17/2015 1:21 [facility] % Neutrophils 65.6 45.5 - 79.7 % 03/17/2015 1:21 [facility] % Lymphocytes 28.1 15.0 - 46.8 % 03/17/2015 1:21 [facility] % Monocytes 3.8 1.8 - 12.0 % 03/17/2015 1:21 [facility] % Eosinophils 1.3 0.6 - 6.9 % 03/17/2015 1:21 [facility] % Basophils 1.2 0.2 - 1.4 % 03/17/2015 1:21 [facility] ABS Neutrophils 8.81 2.20 - 8.85 K/cmm 03/17/2015 1:21 [facility] ABS Lymphs 3.77(H) 1.09 - 3.30 K/cmm 03/17/2015 1:21 [facility] ABS Monocytes 0.51 0.1 - 0.8 K/cmm 03/17/2015 1:21 [facility] ABS Eosinophils 0.17 0.03 - 0.61 K/cm 03/17/2015 1:21 [facility] ABS Basophils 0.17(H) 0.01 - 0.11 K/cm 03/17/2015 1:21 [facility] Type of Diff: Automated 03/17/2015 1:21 [facility] Troponin I (ng/mL) <0.034 <0.034 ng/ml 03/17/2015 1:49 [facility] Glucose, Screening 90 70 - 100 mg/dl 03/17/2015 1:39 EDT [facility] Hold Blue Top Sample for coagulation will be discarded after 4 hours 03/17/2015 1:26 EDT [facility] Blood specimen (specimen) BLOOD SPECIMEN / Unknown 03/17/2015 1:11 EDT 03/17/2015 1:16 EDT us To Zhang MD PACKAGES & DNA PROBE ORDERABLES Final Result [facility] [address] [place] [address] * EKG 12-LEAD (03/17/2015 1:09 EDT) 03/17/2015 1:09 EDT Narrative [facility] - 03/24/2015 16:11 EDT ?[facility] ? Test Date: ?2015-03-17 Pat Name: ? ZAINAB AVERY ? Department: ?? ED ? Room: ? AC19 Gender: ? F ?Upper Marker: ?? [id number] : ?1955 ? Requested By: BRUCE Burt Order Number: [id number] ?Roxann PEREZ: ?? SHAKEEL SPIVEY MD ? Measurements Intervals ?[place] ? Rate: ? 81 ? P: ?52 DC: ? 138 ?QRS: ?45 QRSD: ? 82 ? T: ?40 QT: ? 357 ? QTc: ?416 ? Interpretive Statements SINUS RHYTHM Normal ECG No previous ECG available for comparison Edited by REJI TOLENTINO DO on 03-17-15 13:28:42 EDT. I reviewed the tracing and have either agreed or edited the findings in this report. Electronically Signed On 03-24-15 16:11:13 EDT by SHAKEEL SPIVEY MD. Procedure Note Shakeel Spivey MD - 03/24/2015 [facility] Emergency Test Date: 2015-03-17 Pat Name: ZAINAB AVERY Department: ED Room: [facility] Gender: F Upper Marker: [id number] : 1955 Requested By: BRUCE Burt Order Number: [id number] Reading MD: SHAKEEL SPIVEY MD Measurements Intervals [place] Rate: 81 P: 52 DC: 138 QRS: 45 QRSD: 82 T: 40 QT: 357 QTc: 416 Interpretive Statements SINUS RHYTHM Normal ECG No previous ECG available for comparison Edited by REJI TOLENTINO DO on 03-17-15 13:28:42 EDT. I reviewed the tracing and have either agreed or edited the findings inthis report. Electronically Signed On 03-24-15 16:11:13 EDT by SHAKEEL COOLEY. us To Zhang MD CARDIAC ECG ORDERABL ES Final Result [facility] EKG documented in this encounter Visit Diagnoses Diagnosis Left upper quadrant pain- Primary Abdominal pain, left upper quadrant documented in this encounter Administered Medications Inactive Administered Medications - up to 3 most recent administrations Medication Order MAR Action Action Date Dose Rate Site nicotine (NICOTROL) 10 mg inhaler 1 Inhaler 1 Inhaler, inhalation, EVERY 2 HOURS PRN, Starting on Fri03/17/15 at 0211, Until Fri03/17/15 at 0643, Smoking Cessation, STAT Given 03/17/2015 2:16 EDT 1 Inhaler nicotine (NICOTROL) 10 mg inhaler 1 dose, Starting on Fri03/17/15 at 0216, Until Fri03/17/15 at 0216 documented in this encounter Discontinued Medications Medication Sig Discontinue Reason Start Date End Da te GUAIFENESIN (MUCINEX ORAL) Take by mouth. Therapy completed documented as of this encounter Historical Medications * This list may reflect changes made after this encounter. tiotropium (SPIRIVA) 18 mcg inhalation capsule Inhale 18 mcg as directed daily levalbuterol (XOPENEX HFA) 45 mcg/actuation inhaler Inhale 90 mcg as directed every 6 hours LORazepam (ATIVAN) 2 mg tablet Take 1 Tablet by mouth 2 times daily. traMADol (ULTRAM) 50 mg tablet Take 50 mg by mouth every 6 hours 09/21/2024 cholecalciferol, Vitamin D3, 1,000 unit tablet Take 1,000 Units by mouth daily. Not taking it daily 09/21/2024 doxycycline (VIBRA-TABS) 100 mg tablet Take 100 mg by mouth 2 times daily 10/16/2015 added in this encounter Active and Recently Administered Medications Times are shown in EDT. PRN Medication Order 03/15/2015 03/16/2015 03/17/2015 nicotine (NICOTROL) 10 mg inhaler 1 Inhaler (CANCELED) 1 Inhaler, inhalation, EVERY 2 HOURS PRN, Starting on Fri03/17/15 at 0211, Until Fri03/17/15 at 0643, Smoking Cessation, STAT 0216 (Given - Provid er: Hien Vaz RN) documented in this encounter Orders Medications Ordered That Kendell ht Not Have Been Administered Count Last Ordered Date First Ordered Date nicotine inhaler (delivery device) 1 2014 [facility] Count Last Ordered Date First Ordered Date DRY POWDERED OR METERED DOSE INHALER 1 03/01 documented in this encounter Care Teams Dry Roller Relationship Specialty Start Date End Date Natanael Saab MD PCP - General 03/17/15 12/29/22 documented as of this encounter
--- OUTSIDE RECORDS SUMMARY | 2024-10-13 18:37 | XMS_ITS | Encounter Summary ---
Author Organization [facility] Address [address] [place] [address] Care Team Providers Care Social Sciences Chair Name Role Phone Felice Vasquez MD Primary Care Provider + Natanael Saab MD Primary Care Provider Unavailabl e Encounter Details Date Type Department Care Team (Late st Contact Info) Description 02/23/2015 Historical Results Only [facility] - [facility] Radiology Results [address] [place] [address] Felice He MD [address] [place] [phone] Social History Tobacco Use Types Packs/Day Years [...] Procedure Name Priority Date/Time Associated Diagnosis Comments NM BONE WHOLE BODY SINGLE ZONE WITH SPECT/CT 02/23/2015 12:18 EDT documented in this encounter Results * NM BONE WHOLE BODY WITH SPECT (02/23/2015 12:18 EDT) Anatomical Region Laterality Modality Body Other 02/23/2015 12:1 8 EDT Narrative 02/23/2015 14:53 EDT ? EXAM: NUCLEAR MEDICINE/BONE SPECT WITH WH EX. D/ (0934) ? CLINICAL INFORMATION: ? A 59 YO FEMALE WITH NECK PAIN AND ARM SYMPTOMS, ? BILATERAL ? 723.1 NECK PAIN ? INDICATION: 59-year-old female with neck pain and arm symptoms. ? COMPARISON: CERVICAL SPINE RADIOGRAPH - 02/22/2015. ? TECHNIQUE: Radionuclide bone SPECT CT of the cervical spine with ? total body bone scan was performed utilizing 26.000 mCi of technetium ? 99m MDP. Low dose CT scan was utilized for localization purposes. ? FINDINGS: Degenerative disc disease within the cervical spine is most ? severe at C5-C6. There is increased radiotracer uptake within the ? right and left sides of the C5-C6 endplates. The distribution and ? uptake of radiopharmaceutical throughout the remainder of the ? cervical spine is unremarkable. There is mild degenerative disc ? disease in the lower thoracic spine with mild increased radiotracer ? uptake noted. Evaluation of total body bone scan demonstrates normal ? distribution and uptake of radiopharmaceutical throughout the ? remainder of the skeleton. Evaluation of low dose CT scan ? demonstrates mild pulmonary emphysema in the upper lung zones ? bilaterally. ? IMPRESSION: ??Cervical spondylosis with degenerative disc disease most ? severe at C5-C6 where there is increased radiotracer uptake within ? the right and left sides of the C5-C6 endplates. ? REPORT SIGNED IN OTHER VENDOR SYSTEM 02/23/2015 ?Reported By: Carlos Sapp MD ? CC: ? Transcribed Date/Time: 02/23/2015 (503) ? Office Associate: NICOLE ? Printed Date/Time: 02/08/2019 (1925) ? PAGE 1 ? Signed Report ? Procedure Note Carlos Sapp MD - 07/06/2019 EXAM: NUCLEAR MEDICINE/BONE SPECT WITH WH EX. D/ (0934) CLINICAL INFORMATION: A 59 YO FEMALE WITH NECK PAIN AND ARM SYMPTOMS, BILATERAL 723.1 NECK PAIN INDICATION: 59-year-old female with neck pain and arm symptoms. COMPARISON: CERVICAL SPINE RADIOGRAPH - 02/22/2015. TECHNIQUE: Radionuclide bone SPECT CT of the cervical spine with total body bone scan was performed utilizing 26.000 mCi oftechnetium 99m MDP. Low dose CT scan was utilized for localization purposes. FINDINGS: Degenerative disc disease within the cervical spine ismost severe at C5-C6. There is increased radiotracer uptake within the right and left sides of the C5-C6 endplates. The distribution and uptake of radiopharmaceutical throughout the remainder of the cervical spine is unremarkable. There is mild degenerative disc disease in the lower thoracic spine with mild increased radiotracer uptake noted. Evaluation of total body bone scan demonstratesnormal distribution and uptake of radiopharmaceutical throughout the remainder of the skeleton. Evaluation of low dose CT scan demonstrates mild pulmonary emphysema in the upper lung zones bilaterally. IMPRESSION: Cervical spondylosis with degenerative disc diseasemost severe at C5-C6 where there is increased radiotracer uptake within the right and left sides of the C5-C6 endplates. REPORT SIGNED IN OTHER VENDOR SYSTEM 02/23/2015 Reported By: Carlos Sapp MD CC: Transcribed Date/Time: 02/23/2015 (987) Office Associate: NICOLE Printed Date/Time: 02/08/2019 (1925) PAGE 1 Signed Report Felice He MD IM NM ORDERABLES Final Result documented in this encounter Visit Diagnoses Not on filedocumented in this encounter Care Teams Social Sciences Chair Relationship Specialty Start Date End Date Felice Vasquez MD [address] [place], [place] [phone] PCP - General 04/27/13 03/16/15 Natanael Saab MD [address] [place] [address] PCP - General 03/17/1512/29/ 3 documented as of this encounter
--- OUTSIDE RECORDS SUMMARY | 2024-10-13 18:37 | XMS_ITS | Encounter Summary ---
Author Organization [facility] Address [address] [place] [address] Care Team Providers Care Engineering Program Analyst Name Role Phone Felice Vasquez MD Primary Care Provider + Natanael Saab MD Primary Care Provider Unavailabl e Encounter Details Date Type Department Care Team (Late st Contact Info) Description 02/07/2015 Historical Results Only [facility] [place] [address] [place], [place] [id number] Rui Traylor MD Social History Tobacco Use Types Packs/Day [...] on filedocumented in this encounter Care Teams Engineering Program Analyst Relationship Specialty Start Date End Date Felice Vasquez MD [address] [place] [phone] PCP - General 04/27/13 03/16/15 Natanael Saab MD [address] [place] [phone] PCP - General 03/17/1512/29/ 3 documented as of this encounter
--- OUTSIDE RECORDS SUMMARY | 2024-10-13 18:37 | XMS_ITS | Encounter Summary ---
Author Organization [facility] Address [address] [place] [address] Care Team Providers Care Tar Heat Exchanger Cleaner Name Role Phone Unavailable Primary Care Provider Unavailabl e Encounter Details Date Type Department Care Team (Late st Contact Info) Description 01/27/2003 13:44 EDT Hospital Encounter [address] [address] Marshal Park MD [address] [place] [address], [address] [place] [phone] Discharge Disposition: Auto Discharge Social History Tobacco Use Types Packs/Day Years Used Date Smoking Tobacco: Never Assessed Comments Unknown Sex and Gender Information Value Date Recorded Sex Assigned at Not on file Legal Sex Female 17:26 EST Gender Identity Not on file Sexual Orientation Not on file documented as of this encounter Discharge Disposition Disposition Code Departure Means Destination Auto Discharge documented in this encounter Plan of Treatment Not on file documented as of this encounter Visit Diagnoses Not on filedocumented in this encounter
--- OUTSIDE RECORDS SUMMARY | 2024-10-13 18:37 | XMS_ITS | Encounter Summary ---
Author Organization [facility] Address [address] [place] [address] Care Team Providers Care Hand I Cutter Name Role Phone Natanael Saab MD Primary Care Provider Unavailabl e Encounter Details Date Type Department Care Team (Latest Contact Info) Description 04/20/2015 12:54 EDT - 04/20/2015 23:59 EDT Hospital Encounter [facility] [address] [place] [address] Unknown, Provider, Discharge Disposition: Home or Self [...] Associated Diagnoses Date /Time OUTSIDE IMAGES - US BREAST Imaging 04/20/2015 8:01 EDT OUTSIDE IMAGES - MAMMO BREAST Imaging 04/20/2015 8:01 EDT OUTSIDE IMAGES - US BREAST Imaging 06/26/2012 8:01 EDT OUTSIDE IMAGES - MAMMO BREAST Imaging 06/26/2012 8:01 EDT OUTSIDE IMAGES - MAMMO BREAST Imaging 05/01/2012 8:01 EDT OUTSIDE IMAGES - US BREAST Imaging 11/26/2010 8:01 EDT OUTSIDE IMAGES - MAMMO BREAST Imaging 11/26/2010 8:01 EDT OUTSIDE IMAGES - MAMMO BREAST Imaging 10/30/2010 8:01 EST OUTSIDE IMAGES - MAMMO BREAST Imaging 05/04/2008 8:01 EDT Scheduled Orders Name Type Priority Associated Diagnoses Orde r Schedule OUTSIDE IMAGES - US BREAST Imaging One Time for 1 Occurrences starting 05/18/2015 until 05/18/2015 OUTSIDE IMAGES - MAMMO BREAST Imaging One Time for 1 Occurrences starting 05/18/2015 until 05/18/2015 OUTSIDE IMAGES - US BREAST Imaging One Time for 1 Occurrences starting 05/18/2015 until 05/18/2015 OUTSIDE IMAGES - MAMMO BREAST Imaging One Time for 1 Occurrences starting 05/18/2015 until 05/18/2015 OUTSIDE IMAGES - MAMMO BREAST Imaging One Time for 1 Occurrences starting 05/18/2015 until 05/18/2015 OUTSIDE IMAGES - US BREAST Imaging One Time for 1 Occurrences starting 05/18/2015 until 05/18/2015 OUTSIDE IMAGES - MAMMO BREAST Imaging One Time for 1 Occurrences starting 05/18/2015 until 05/18/2015 OUTSIDE IMAGES - MAMMO BREAST Imaging One Time for 1 Occurrences starting 05/18/2015 until 05/18/2015 OUTSIDE IMAGES - MAMMO BREAST Imaging One Time for 1 Occurrences starting 05/18/2015 until 05/18/2015 documented as of this encounter Visit Diagnoses Not on filedocumented in this encounter Care Teams Hand I Cutter Relationship Specialty Start Date End Date Natanael Saab MD PCP - General 03/17/15 12/29/22 documented as of this encounter
--- OUTSIDE RECORDS SUMMARY | 2024-10-13 18:37 | XMS_ITS | Encounter Summary ---
Author Organization [facility] Address [address] [place] [address] Care Team Providers Care Financial Center Manager Name Role Phone Felice Vasquez MD Primary Care Provider + Natanael Saab MD Primary Care Provider Unavailabl e Encounter Details Date Type Department Care Team (Late st Contact Info) Description 09/07/2014 Historical Results Only [facility] - [facility] [place] [place] Radiology Results [address] [place], [place] [phone] Natanael Saab MD Social History Tobacco Use [...] Procedure Name Priority Date/Time Associated Diagnosis Comments DXA BONE DENSITY 09/07/2014 14:4 0 EST documented in this encounter Results * XR DEXA BONE DENSITY (09/07/2014 14:40 EST) Anatomical Region Laterality Modality Wrist, Hip, L-spine Other 09/07/2014 14:4 0 EST Narrative 09/08/2014 10:18 EST ? EXAM: RADIOLOGY/DXA SCAN/BONE DENSITY ? EX. D/ (1440) ? CLINICAL INFORMATION: ? CHRONIC STEROID USE ? 733.00 OSTEOPOROSIS, UNSPEC ? See attached report. ??Report also available in PACS. ? FOSTER WINDER:jr ?Reported By: Carlos Sapp MD ? CC: ? Transcribed Date/Time: 09/08/2014 (1018) ? Meat Grinder: NICOLE ? Printed Date/Time: 02/01/2019 (7992) ? PAGE 1 ? Signed Report ? Procedure Note Carlos Sapp MD - 07/06/2019 EXAM: RADIOLOGY/DXA SCAN/BONE DENSITY EX. D/ (1440) CLINICAL INFORMATION: CHRONIC STEROID USE 733.00 OSTEOPOROSIS, UNSPEC See attached report. Report also available in PACS. FOSTER WINDER:jr Reported By: Carlos Sapp MD CC: Transcribed Date/Time: 09/08/2014 (1018) Meat Grinder: NICOLE Printed Date/Time: 02/01/2019 (8062) PAGE 1 Signed Report Natanale Saab MD IMG DEXA ORDERABLES Final Result documented in this encounter Visit Diagnoses Not on filedocumented in this encounter Care Teams Financial Center Manager Relationship Specialty Start Date End Date Felice Vasquez MD [address] [place] [phone] PCP - General 8/27/13 7/16/15 Natanael Saab MD [address] [place] [phone] PCP - General 03/17/15 3 documented as of this encounter
--- OUTSIDE RECORDS SUMMARY | 2024-10-13 18:37 | XMS_ITS | Encounter Summary ---
Author Organization [facility] Address [address] [place] [address] Care Team Providers Care Improvement Intern Name Role Phone Felice Vasquez MD Primary Care Provider + Encounter Details Date Type Department Care Team (Latest Contact Info) Description 12/20/2014 13:38 EDT - 12/20/2014 23:59 EDT Hospital Encounter [facility] [address] [place] [address] Unknown, Provider, MD Discharge Disposition: Home or Self Care Social [...] this encounter Medications at Time of Discharge GUAIFENESIN (MUCINEX ORAL) Take by mouth. 03/17/2015 documented as of this encounter Discharge Disposition Disposition Code Departure Means Destination Home or Self Retirement documented in this encounter Plan of Treatment Not on file documented as of this encounter Visit Diagnoses Not on filedocumented in this encounter Care Teams Improvement Intern Relationship Specialty Start Date End Date Felice Vasquez MD [address] [place] [phone] PCP - General 04/27/13 03/16/15 documented as of this encounter
--- OUTSIDE RECORDS SUMMARY | 2024-10-13 18:37 | XMS_ITS | Encounter Summary ---
Author Organization [facility] Address [address] [place] [address] Care Team Providers Care Slotter Operator Helper Name Role Phone Felice Vasquez MD Primary Care Provider + Natanael Saab MD Primary Care Provider Unavailabl e Encounter Details Date Type Department Care Team (Late st Contact Info) Description 11/27/2014 Historical Results Only [facility] [place] [facility] [address] [place], [place] [address] Kalen Alberto MD [address] [place], [place] [phone] Social History Tobacco Use Types Packs/Day Years [...] Name Priority Date/Time Associated Diagnosis Comments CT ABDOMEN PELVIS WO CONTRAST 11/27/2014 0:06 EDT documented in this encounter Results * CT ABDOMEN PELVIS WO CONTRAST (11/27/2014 0:06 EDT) Anatomical Region Laterality Modality Other 11/27/2014 0:06 EDT Narrative 11/28/2014 8:52 EDT ? EXAM: CAT SCAN/ABDOMEN PELVIS WITHOUT CON EX. D/ (0006) ? CLINICAL INFORMATION: ? R FLANK PAIN, HEMATURIA ? Patient Name: Savannah Avery ? Date of : 1955 ? Exam: CT ABDOMEN ?? PELVIS WITHOUT ? Date of Exam: 11/27/2014 ? Referring Physician: Dolly Meyers ? Clinical History: r flank pain ? FINAL REPORT ? EXAM: ? CT Abdomen and Pelvis Without Intravenous Contrast. ? CLINICAL HISTORY: ? 59 years old, female; R flank pain ? TECHNIQUE: ? Axial computed tomography images of the abdomen and pelvis without ? intravenous contrast. ? COMPARISON: ? None. ? FINDINGS: ? The heart is normal in size. ? No significant pericardial effusion is identified. ? Minimal atelectasis/scarring is noted within the visualized lungs. ? No significant pleural effusion is identified. ? The unenhanced liver appears normal in size and contour. ? Evaluation for intrahepatic lesions is compromised due to lack of ? intravenous contrast. ? The gallbladder is not visualized. ? The bile duct is mildly enlarged, measuring up to 1.2 cm. ? The pancreas appears normal. ? The spleen appears within normal limits. ? The adrenal glands appear unremarkable. ? The kidneys are normal in size and position. ? There is scarring of RIGHT kidney. ? A small calcification is noted within the RIGHT kidney compatible with ? a renal calculus. ? There is mild pelvocaliectasis of the RIGHT kidney. ? 0.4 x 0.3 x 0.3 cm calculus is identified within the RIGHT proximal ? ureter. ? The bladder appears unremarkable. ? The uterus appears normal. ? The ovaries appear grossly unremarkable. ? Scattered diverticula are noted within the colon. ? There is no associated inflammatory stranding. ? There is no definite evidence of pneumoperitoneum. ? A small amount of free fluid is identified within the pelvis. ? The aorta is normal in caliber. ? Odlv-sl-[id number] atherosclerotic disease noted within aorta and ? PAGE 1 ? Signed Report ? (CONTINUED) ? branches. ? Evaluation for lymphadenopathy is limited due to lack of intravenous ? contrast. ? The osseous structures appear intact. ? IMPRESSION: ? RIGHT proximal ureteral calculus with mild hydroureteronephrosis. ? Cholecystectomy with mild biliary ductal dilatation. ? Diverticulosis without CT evidence of diverticulitis. ? Dictated, Authenticated, and ?Reported By: Willian Aponte MD ? CC: ? Transcribed Date/Time: 11/28/2014 (0852) ? Sourcing Engineer: NICOLE ? Printed Date/Time: 02/02/2019 (1049) ? PAGE 2 ? Signed Report ? Procedure Note Willian Aponte MD - 07/06/2019 EXAM: CAT SCAN/ABDOMEN PELVIS WITHOUT CON EX. D/ (0006) CLINICAL INFORMATION: R FLANK PAIN, HEMATURIA Patient Name: Savannah Avery Date of : 1955 Exam: CT ABDOMEN PELVIS WITHOUT Date of Exam: 11/27/2014 Referring Physician: Dolly Meyers Clinical History: r flank pain FINAL REPORT EXAM: CT Abdomen and Pelvis Without Intravenous Contrast. CLINICAL HISTORY: 59 years old, female; R flank pain TECHNIQUE: Axial computed tomography images of the abdomen and pelvis without intravenous contrast. COMPARISON: None. FINDINGS: The heart is normal in size. No significant pericardial effusion is identified. Minimal atelectasis/scarring is noted within the visualized lungs. No significant pleural effusion is identified. The unenhanced liver appears normal in size and contour. Evaluation for intrahepatic lesions is compromised due to lack of intravenous contrast. The gallbladder is not visualized. The bile duct is mildly enlarged, measuring up to 1.2 cm. The pancreas appears normal. The spleen appears within normal limits. The adrenal glands appear unremarkable. The kidneys are normal in size and position. There is scarring of RIGHT kidney. A small calcification is noted within the RIGHT kidney compatiblewith a renal calculus. There is mild pelvocaliectasis of the RIGHT kidney. 0.4 x 0.3 x 0.3 cm calculus is identified within the RIGHT proximal ureter. The bladder appears unremarkable. The uterus appears normal. The ovaries appear grossly unremarkable. Scattered diverticula are noted within the colon. There is no associated inflammatory stranding. There is no definite evidence of pneumoperitoneum. A small amount of free fluid is identified within the pelvis. The aorta is normal in caliber. Uqtm-aw-wxtyejtq atherosclerotic disease noted within aorta and PAGE 1 Signed Report (CONTINUED) branches. Evaluation for lymphadenopathy is limited due to lack ofintravenous contrast. The osseous structures appear intact. IMPRESSION: RIGHT proximal ureteral calculus with mild hydroureteronephrosis. Cholecystectomy with mild biliary ductal dilatation. Diverticulosis without CT evidence of diverticulitis. Dictated, Authenticated, and Reported By: Willian Aponte MD CC: Transcribed Date/Time: 11/28/2014 (0852) Sourcing Engineer: NICOLE Printed Date/Time: 02/02/2019 (1049) PAGE 2 Signed Report Kalen Alberto MD IMG CT ORDERABLES Final Resu lt documented in this encounter Visit Diagnoses Not on filedocumented in this encounter Care Teams Slotter Operator Helper Relationship Specialty Start Date End Date Felice Vasquez MD [address] [place] [phone] PCP - General 04/27/13 03/16/15 Natanael Saab MD [address] [place] [phone] PCP - General 03/17/15 3 documented as of this encounter
--- OUTSIDE RECORDS SUMMARY | 2024-10-13 18:37 | XMS_ITS | Encounter Summary ---
Author Organization [facility] Address [address] [place] [address] Care Team Providers Care Wireless Cellular Technician Name Role Phone Natanael Saab MD Primary Care Provider Unavailabl e Encounter Details Date Type Department Care Team (Late st Contact Info) Description 10/31/2015 Historical Results Only [facility] Radiology Results [address] [place] [address] Natanael Saab MD Social History Tobacco Use [...] Name Priority Date/Time Associated Diagnosis Comments MR HEAD W WO CONTRAST 10/31/2015 10:17 EST documented in this encounter Results * MR HEAD W WO CONTRAST (10/31/2015 10:17 EST) Anatomical Region Laterality Modality Head Other 10/31/2015 10:1 7 EST Narrative 10/31/2015 10:28 EST ? EXAM: MAGNETIC RESONANCE IMAGING/BRAIN W/ EX. D/ (1703) ? CLINICAL INFORMATION: ? R20.2 NUMBNESS AND TINGLING SENSATION OF SKIN ? H53.9 VISUAL CHANGES, I63.9 STROKE ? BRAIN W/WITHOUT CONTRAST ? Signs and Symptoms/Comments: ??R20.2 NUMBNESS AND TINGLING SENSATION ? OF SKIN: H53.9 VISUAL CHANGES, I63.9 STROKE ? Comparisons: CT head on 05/29/2014. ? Technique: Contrast-enhanced MR brain was performed with the ? following sequences: Sagittal T1, axial T2, axial T2 FLAIR, axial T1, ? axial gradient, axial DWI, and post gadolinium axial and coronal T1 ? fat-sat. ? FINDINGS: ? No intra- or extra-axial mass, fluid collection, or abnormal ? enhancement is present. There is no mass effect or midline shift. The ? basal cisterns are patent. The ventricles are unremarkable. ? Anderson-white differentiation is preserved. No restricted diffusion is ? identified to suggest acute ischemia. The major flow voids are ? preserved. No abnormal susceptibility is present to suggest ? hemorrhage. ? The globes and orbits are normal. The paranasal sinuses are clear. ? The mastoid air cells and middle ear cavities are clear. The osseous ? structures are unremarkable. The extracranial soft tissues are ? unremarkable. ? IMPRESSION: ? Normal contrast-enhanced MR brain. ? REPORT SIGNED IN OTHER VENDOR SYSTEM 10/31/2015 ?Reported By: Norris Beard MD ? CC: ? Transcribed Date/Time: 10/31/2015 (1028) ? Flare Stitcher: ? Printed Date/Time: 02/11/2019 (1128) ? PAGE 1 ? Signed Report ? Procedure Note Norris Beard MD - 07/07/2019 EXAM: MAGNETIC RESONANCE IMAGING/BRAIN W/ EX. D/ (1703) CLINICAL INFORMATION: R20.2 NUMBNESS AND TINGLING SENSATION OF SKIN H53.9 VISUAL CHANGES, I63.9 STROKE BRAIN W/WITHOUT CONTRAST Signs and Symptoms/Comments: R20.2 NUMBNESS AND TINGLING SENSATION OF SKIN: H53.9 VISUAL CHANGES, I63.9 STROKE Comparisons: CT head on 05/29/2014. Technique: Contrast-enhanced MR brain was performed with the following sequences: Sagittal T1, axial T2, axial T2 FLAIR, axialT1, axial gradient, axial DWI, and post gadolinium axial and coronal T1 fat-sat. FINDINGS: No intra- or extra-axial mass, fluid collection, or abnormal enhancement is present. There is no mass effect or midline shift.The basal cisterns are patent. The ventricles are unremarkable. Anderson-white differentiation is preserved. No restricted diffusion is identified to suggest acute ischemia. The major flow voids are preserved. No abnormal susceptibility is present to suggest hemorrhage. The globes and orbits are normal. The paranasal sinuses are clear. The mastoid air cells and middle ear cavities are clear. Theosseous structures are unremarkable. The extracranial soft tissues are unremarkable. IMPRESSION: Normal contrast-enhanced MR brain. REPORT SIGNED IN OTHER VENDOR SYSTEM 10/31/2015 Reported By: Norris Beard MD CC: Transcribed Date/Time: 10/31/2015 (1028) Flare Stitcher: Printed Date/Time: 02/11/2019 (2454) PAGE 1 Signed Report Natanael Saab MD IM MRI ORDERABLES Final Result documented in this encounter Visit Diagnoses Not on filedocumented in this encounter Care Teams Wireless Cellular Technician Relationship Specialty Start Date End Date Natanael Saab MD PCP - General 03/17/15 12/29/22 documented as of this encounter
--- OUTSIDE RECORDS SUMMARY | 2024-10-13 18:37 | XMS_ITS | Encounter Summary ---
Author Organization [facility] Address [address] [place] [address] Care Team Providers Care Senior Publications Specialist Name Role Phone Felice Vasquez MD Primary Care Provider + Natanael Saab MD Primary Care Provider Unavailabl e Encounter Details Date Type Department Care Team (Late st Contact Info) Description 10/14/2014 Historical Results Only [facility] - [facility] Radiology Results [address] [place], [place] [id number] Natanael Saab MD Social History Tobacco Use [...] Name Priority Date/Time Associated Diagnosis Comments MR CERVICAL SPINE WO CONTAST 10/14/2014 16:33 EST XR HIP RIGHT 2-3 VIEWS, OPTIONAL PELVIS 10/14/2014 14:33 EST MR CERVICAL SPINE WO CONTAST 10/14/2014 13:45 EST documented in this encounter Results * MR CERVICAL SPINE WO CONTRAST (10/14/2014 16:33 EST) Anatomical Region Laterality Modality Other 10/14/2014 16:3 3 EST Narrative 10/14/2014 16:48 EST ? EXAM: MAGNETIC RESONANCE IMAGING/CERVICAL EX. D/ (1345) ? CLINICAL INFORMATION: ? CERVICAL RADICULITIS ? CERVICAL SPINE WITHOUT CONT. ? Signs and Symptoms/Comments: ??Cervical radiculitis. ? Comparisons: MR cervical spine on 04/12/2010. ? Technique: Noncontrast MR of the cervical spine was performed with ? the following sequences: Sagittal T2, sagittal T1, axial T2, axial ? T1, and bilateral sagittal oblique T2. ? Findings: ? There is mild reversal of the expected cervical lordosis.. There is ? slight degenerative anterolisthesis of C7 on T1. The marrow signal is ? unremarkable. The cervical cord is normal in signal and morphology. ? Multilevel degenerative changes are present as follows. ? C2-C3: Unremarkable. ? C3-C4: Mild disc osteophyte complex results in minimal spinal ? stenosis. Uncovertebral spurring and facet hypertrophy result in ? moderate left and mild right neuroforaminal narrowing with mass ? effect on the exiting C4 nerve roots. ? C4-C5: Disc osteophyte complex and ligamentum flavum hypertrophy ? result in mild spinal stenosis with partial effacement of the ? anterior aspect of the thecal sac. Uncovertebral spurring and facet ? arthrosis result in moderate left neural foraminal narrowing with ? mass effect on the exiting left C5 nerve root. ? C5-C6: Moderate disc osteophyte complex, eccentric to the right, and ? ligamentum flavum hypertrophy result in moderate spinal stenosis with ? effacement of the anterior and posterior aspects of the thecal sac. ? Disc osteophyte complex, uncovertebral spurring, and facet arthrosis ? result in severe bilateral neuroforaminal narrowing with mass effect ? on the exiting C6 nerve roots. ? C6-C7: Disc osteophyte complex results in mild spinal stenosis with ? partial effacement of the anterior aspect of the thecal sac. ? Uncovertebral spurring and facet hypertrophy result in mild bilateral ? neural foraminal narrowing mass effect on the exiting C7 nerve roots. ? C7-T1: Minimal disc osteophyte complex is present without significant ? spinal stenosis or neural foraminal narrowing. ? The paraspinal soft tissues are unremarkable. ? IMPRESSION: ? 1. Multilevel spinal stenosis secondary to disc osteophyte complex, ? as detailed above, moderate at C5-C6. ? PAGE 1 ? Signed Report ? (CONTINUED) ? 2. Multilevel neuroforaminal narrowing, severe bilaterally at C6-C7, ? moderate on the left at C3-C4 and C4-C5. ? 3. Additional levels detailed above. ? REPORT SIGNED IN OTHER VENDOR SYSTEM 10/14/2014 ?Reported By: Norris Beard MD ? CC: ? Transcribed Date/Time: 10/14/2014 (1648) ? Controlled Area Checker: ? Printed Date/Time: 02/02/2019 (1049) ? PAGE 2 ? Signed Report ? Procedure Note Norris Beard MD - 07/06/2019 EXAM: MAGNETIC RESONANCE IMAGING/CERVICAL EX. D/ ([id number]) CLINICAL INFORMATION: CERVICAL RADICULITIS CERVICAL SPINE WITHOUT CONT. Signs and Symptoms/Comments: Cervical radiculitis. Comparisons: MR cervical spine on 04/12/2010. Technique: Noncontrast MR of the cervical spine was performed with the following sequences: Sagittal T2, sagittal T1, axial T2, axial T1, and bilateral sagittal oblique T2. Findings: There is mild reversal of the expected cervical lordosis.. There is slight degenerative anterolisthesis of C7 on T1. The marrow signalis unremarkable. The cervical cord is normal in signal and morphology. Multilevel degenerative changes are present as follows. C2-C3: Unremarkable. C3-C4: Mild disc osteophyte complex results in minimal spinal stenosis. Uncovertebral spurring and facet hypertrophy result in moderate left and mild right neuroforaminal narrowing with mass effect on the exiting C4 nerve roots. C4-C5: Disc osteophyte complex and ligamentum flavum hypertrophy result in mild spinal stenosis with partial effacement of the anterior aspect of the thecal sac. Uncovertebral spurring and facet arthrosis result in moderate left neural foraminal narrowing with mass effect on the exiting left C5 nerve root. C5-C6: Moderate disc osteophyte complex, eccentric to the right,and ligamentum flavum hypertrophy result in moderate spinal stenosiswith effacement of the anterior and posterior aspects of the thecal sac. Disc osteophyte complex, uncovertebral spurring, and facetarthrosis result in severe bilateral neuroforaminal narrowing with masseffect on the exiting C6 nerve roots. C6-C7: Disc osteophyte complex results in mild spinal stenosis with partial effacement of the anterior aspect of the thecal sac. Uncovertebral spurring and facet hypertrophy result in mildbilateral neural foraminal narrowing mass effect on the exiting C7 nerveroots. C7-T1: Minimal disc osteophyte complex is present withoutsignificant spinal stenosis or neural foraminal narrowing. The paraspinal soft tissues are unremarkable. IMPRESSION: 1. Multilevel spinal stenosis secondary to disc osteophyte complex, as detailed above, moderate at C5-C6. PAGE 1 Signed Report (CONTINUED) 2. Multilevel neuroforaminal narrowing, severe bilaterally atC6-C7, moderate on the left at C3-C4 and C4-C5. 3. Additional levels detailed above. REPORT SIGNED IN OTHER VENDOR SYSTEM 10/14/2014 Reported By: Norris Beard MD CC: Transcribed Date/Time: 10/14/2014 (6090) Controlled Area Checker: Printed Date/Time: 02/02/2019 (7485) PAGE 2 Signed Report us Beto Gutierrez MD IMG MRI ORDERABLES Final Resul t * XR HIP RIGHT 2-3 VIEWS, OPTIONAL PELVIS (10/14/2014 14:33 EST) Anatomical Region Laterality Modality Lower Extremities Right Other 10/14/2014 14:3 3 EST Narrative 10/14/2014 14:40 EST ? EXAM: RADIOLOGY/HIP-RIGHT-2 VIEW ?EX. D/ (1420) ? CLINICAL INFORMATION: ? FALL PAIN, RIGHT HIP ? Indication: Status post fall. Right hip pain. ? Comparison: Right hip radiograph 2009. ? Technique: AP and lateral views. ? Findings: There are minimal degenerative changes in the right hip and ? sacroiliac joints. The right hip joint space is well-maintained. ? Amorphous calcification superior to the right femur greater ? trochanter is consistent with gluteus medius calcific tendinitis. ? Bone density is normal. No fracture seen. ? Impression: ? 1. Minimal degenerative joint disease. ? 2. Right gluteus medius calcific tendinitis. ? REPORT SIGNED IN OTHER VENDOR SYSTEM 10/14/2014 ?Reported By: Carlos Sapp MD ? CC: ? Transcribed Date/Time: 10/14/2014 (1440) ? Controlled Area Checker: ? Printed Date/Time: 02/02/2019 (8962) ? PAGE 1 ? Signed Report ? Procedure Note Carlos Sapp MD - 07/06/2019 EXAM: RADIOLOGY/HIP-RIGHT-2 VIEW EX. D/ (1420) CLINICAL INFORMATION: FALL PAIN, RIGHT HIP Indication: Status post fall. Right hip pain. Comparison: Right hip radiograph 2009. Technique: AP and lateral views. Findings: There are minimal degenerative changes in the right hipand sacroiliac joints. The right hip joint space is well-maintained. Amorphous calcification superior to the right femur greater trochanter is consistent with gluteus medius calcific tendinitis. Bone density is normal. No fracture seen. Impression: 1. Minimal degenerative joint disease. 2. Right gluteus medius calcific tendinitis. REPORT SIGNED IN OTHER VENDOR SYSTEM 10/14/2014 Reported By: Carlos Sapp MD CC: Transcribed Date/Time: 10/14/2014 (2510) Controlled Area Checker: Printed Date/Time: 02/02/2019 (3971) PAGE 1 Signed Report Natanael Saab MD IMG DIAGNOSTIC IMAGING ORDERABLE S Final Result * MR CERVICAL SPINE WO CONTRAST (10/14/2014 13:45 EST) Anatomical Region Laterality Modality Spine Magnetic Resonan ce 10/14/2014 13:4 5 EST Narrative 10/14/2014 16:33 EST ? EXAM: MAGNETIC RESONANCE IMAGING/CERVICAL EX. D/ (8722) ? CLINICAL INFORMATION: ? CERVICAL RADICULITIS ? CERVICAL SPINE WITHOUT CONT. ? Signs and Symptoms/Comments: ??Cervical radiculitis. ? Comparisons: MR cervical spine on 04/12/2010. ? Technique: Noncontrast MR of the cervical spine was performed with ? the following sequences: Sagittal T2, sagittal T1, axial T2, axial ? T1, and bilateral sagittal oblique T2. ? Findings: ? There is mild reversal of the expected cervical lordosis.. There is ? slight degenerative anterolisthesis of C7 on T1. The marrow signal is ? unremarkable. The cervical cord is normal in signal and morphology. ? Multilevel degenerative changes are present as follows. ? C2-C3: Unremarkable. ? C3-C4: Mild disc osteophyte complex results in minimal spinal ? stenosis. Uncovertebral spurring and facet hypertrophy result in ? moderate left and mild right neuroforaminal narrowing with mass ? effect on the exiting C4 nerve roots. ? C4-C5: Disc osteophyte complex and ligamentum flavum hypertrophy ? result in mild spinal stenosis with partial effacement of the ? anterior aspect of the thecal sac. Uncovertebral spurring and facet ? arthrosis result in moderate left neural foraminal narrowing with ? mass effect on the exiting left C5 nerve root. ? C5-C6: Moderate disc osteophyte complex, eccentric to the right, and ? ligamentum flavum hypertrophy result in moderate spinal stenosis with ? effacement of the anterior and posterior aspects of the thecal sac. ? Disc osteophyte complex, uncovertebral spurring, and facet arthrosis ? result in severe bilateral neuroforaminal narrowing with mass effect ? on the exiting C6 nerve roots. ? C6-C7: Disc osteophyte complex results in mild spinal stenosis with ? partial effacement of the anterior aspect of the thecal sac. ? Uncovertebral spurring and facet hypertrophy result in mild bilateral ? neural foraminal narrowing mass effect on the exiting C7 nerve roots. ? C7-T1: Minimal disc osteophyte complex is present without significant ? spinal stenosis or neural foraminal narrowing. ? The paraspinal soft tissues are unremarkable. ? IMPRESSION: ? 1. Multilevel spinal stenosis secondary to disc osteophyte complex, ? as detailed above, moderate at C5-C6. ? PAGE 1 ? Signed Report ? (CONTINUED) ? 2. Multilevel neuroforaminal narrowing, severe bilaterally at C6-C7, ? moderate on the left at C3-C4 and C4-C5. ? 3. Additional levels detailed above. ? REPORT SIGNED IN OTHER VENDOR SYSTEM 10/14/2014 ?Reported By: Norris Baerd MD ? CC: ? Transcribed Date/Time: 10/14/2014 (1648) ? Controlled Area Checker: ? Printed Date/Time: 02/02/2019 (1049) ? PAGE 2 ? Signed Report ? Procedure Note Norris Beard MD - 09/24/2019 EXAM: MAGNETIC RESONANCE IMAGING/CERVICAL EX. D/ (8205) CLINICAL INFORMATION: CERVICAL RADICULITIS CERVICAL SPINE WITHOUT CONT. Signs and Symptoms/Comments: Cervical radiculitis. Comparisons: MR cervical spine on 04/12/2010. Technique: Noncontrast MR of the cervical spine was performed with the following sequences: Sagittal T2, sagittal T1, axial T2, axial T1, and bilateral sagittal oblique T2. Findings: There is mild reversal of the expected cervical lordosis.. There is slight degenerative anterolisthesis of C7 on T1. The marrow signalis unremarkable. The cervical cord is normal in signal and morphology. Multilevel degenerative changes are present as follows. C2-C3: Unremarkable. C3-C4: Mild disc osteophyte complex results in minimal spinal stenosis. Uncovertebral spurring and facet hypertrophy result in moderate left and mild right neuroforaminal narrowing with mass effect on the exiting C4 nerve roots. C4-C5: Disc osteophyte complex and ligamentum flavum hypertrophy result in mild spinal stenosis with partial effacement of the anterior aspect of the thecal sac. Uncovertebral spurring and facet arthrosis result in moderate left neural foraminal narrowing with mass effect on the exiting left C5 nerve root. C5-C6: Moderate disc osteophyte complex, eccentric to the right,and ligamentum flavum hypertrophy result in moderate spinal stenosiswith effacement of the anterior and posterior aspects of the thecal sac. Disc osteophyte complex, uncovertebral spurring, and facetarthrosis result in severe bilateral neuroforaminal narrowing with masseffect on the exiting C6 nerve roots. C6-C7: Disc osteophyte complex results in mild spinal stenosis with partial effacement of the anterior aspect of the thecal sac. Uncovertebral spurring and facet hypertrophy result in mildbilateral neural foraminal narrowing mass effect on the exiting C7 nerveroots. C7-T1: Minimal disc osteophyte complex is present withoutsignificant spinal stenosis or neural foraminal narrowing. The paraspinal soft tissues are unremarkable. IMPRESSION: 1. Multilevel spinal stenosis secondary to disc osteophyte complex, as detailed above, moderate at C5-C6. PAGE 1 Signed Report (CONTINUED) 2. Multilevel neuroforaminal narrowing, severe bilaterally atC6-C7, moderate on the left at C3-C4 and C4-C5. 3. Additional levels detailed above. REPORT SIGNED IN OTHER VENDOR SYSTEM 10/14/2014 Reported By: Norris Beard MD CC: Transcribed Date/Time: 10/14/2014 (9303) Controlled Area Checker: Printed Date/Time: 02/02/2019 (6320) PAGE 2 Signed Report us Beto Gutierrez MD IMG MRI ORDERABLES Final Resul t documented in this encounter Visit Diagnoses Not on filedocumented in this encounter Care Teams Senior Publications Specialist Relationship Specialty Start Date End Date Felice Vasquez MD [address] [place] [address] PCP - General 04/27/13 03/16/15 Natanael Saab MD [address] [place] [address] PCP - General 03/17/1512/29/ 3 documented as of this encounter
--- OUTSIDE RECORDS SUMMARY | 2024-10-13 18:37 | XMS_ITS | Encounter Summary ---
Author Organization [facility] Address [address] [place] [address] Care Team Providers Care Food Processing Plant Manager Name Role Phone Felice Vasquez MD Primary Care Provider + Encounter Details Date Type Department Care Team (Latest Contact Info) Description 09/07/2014 18:10 EST - 09/07/2014 23:59 EST Hospital Encounter [address] [address] Unknown, Provider, Discharge Disposition: Home or Self [...] Code Departure Means Destination Home or Self Long Term documented in this encounter Plan of Treatment Not on file documented as of this encounter Visit Diagnoses Not on filedocumented in this encounter Care Teams Food Processing Plant Manager Relationship Specialty Start Date End Date Felice Vasquez MD [address] [place] [phone] PCP - General 04/27/13 03/16/15 documented as of this encounter
--- OUTSIDE RECORDS SUMMARY | 2024-10-13 18:37 | XMS_ITS | Encounter Summary ---
Author Organization [facility] Address [address] [place] [address] Care Team Providers Care Assembly Repairer Name Role Phone Felice Vasquez MD Primary Care Provider + Natanael Saab MD Primary Care Provider Unavailabl e Encounter Details Date Type Department Care Team (Late st Contact Info) Description 02/21/2015 Historical Results Only [facility] [place] Radiology Results [address] [place], [place] [id number] Rui Traylor MD Social History Tobacco Use [...] Associated Diagnosis Comments XR ABDOMEN 1 VIEW 02/21/2015 11: 41 EDT documented in this encounter Results * XR ABDOMEN 1 VIEW (02/21/2015 11:41 EDT) Anatomical Region Laterality Modality Body Other 02/21/2015 11:4 1 EDT Narrative 02/21/2015 14:49 EDT ? EXAM: RADIOLOGY/KUB-ONE VIEW ?EX. D/ (1436) ? CLINICAL INFORMATION: ? RIGHT URETERAL STONE ? INDICATION: Right ureteral stone. ? COMPARISON: CT ABDOMEN/PELVIS - 02/07/2015. ? TECHNIQUE: AP supine view. ? FINDINGS: The bowel gas pattern has a normal appearance. There are ? findings suspicious for a small stone superimposed over the region of ? the right kidney lower pole. No stones are seen corresponding to the ? course of either ureter or the urinary bladder. No left renal stone ? is identified. ? IMPRESSION: ? 1. Right nephrolithiasis. ? 2. No ureteral or urinary bladder calculus identified. ? REPORT SIGNED IN OTHER VENDOR SYSTEM 02/21/2015 ?Reported By: Carlos Sapp MD ? CC: ? Transcribed Date/Time: 02/21/2015 (1449) ? Blind Hanger: NICOLE ? Printed Date/Time: 02/08/2019 (1926) ? PAGE 1 ? Signed Report ? Procedure Note Carlos Sapp MD - 07/06/2019 EXAM: RADIOLOGY/KUB-ONE VIEW EX. D/ (1436) CLINICAL INFORMATION: RIGHT URETERAL STONE INDICATION: Right ureteral stone. COMPARISON: CT ABDOMEN/PELVIS - 02/07/2015. TECHNIQUE: AP supine view. FINDINGS: The bowel gas pattern has a normal appearance. There are findings suspicious for a small stone superimposed over the regionof the right kidney lower pole. No stones are seen corresponding tothe course of either ureter or the urinary bladder. No left renal stone is identified. IMPRESSION: 1. Right nephrolithiasis. 2. No ureteral or urinary bladder calculus identified. REPORT SIGNED IN OTHER VENDOR SYSTEM 02/21/2015 Reported By: Carlos Sapp MD CC: Transcribed Date/Time: 02/21/2015 (1449) Blind Hanger: NICOLE Printed Date/Time: 02/08/2019 (3786) PAGE 1 Signed Report Rui Traylor MD IMG DIAGNOSTIC IMAGING ORDERABLE S Final Result documented in this encounter Visit Diagnoses Not on filedocumented in this encounter Care Teams Assembly Repairer Relationship Specialty Start Date End Date Felice Vasquez MD [address] [place] [address] PCP - General 04/27/13 03/16/15 Natanael Saab MD [address] [place] [address] PCP - General 03/17/1512/29/ 3 documented as of this encounter
--- OUTSIDE RECORDS SUMMARY | 2024-10-13 18:37 | XMS_ITS | Encounter Summary ---
Author Organization [facility] Address [address] [place] [address] Care Team Providers Care Clinical Case Manager Name Role Phone Felice Vasquez MD Primary Care Provider + Natanael Saab MD Primary Care Provider Unavailabl e Encounter Details Date Type Department Care Team (Late st Contact Info) Description 02/20/2015 Historical Results Only [facility] Radiology Results [address] [place], [place] [id number] Rui Traylor MD Social History Tobacco Use [...] Name Priority Date/Time Associated Diagnosis Comments US RENAL/BLADDER LIMITED 02/20/2015 14:49 EDT documented in this encounter Results * US RENAL/BLADDER LIMITED (02/20/2015 14:49 EDT) Anatomical Region Laterality Modality Abdomen, Body Other 02/20/2015 14:4 9 EDT Narrative 02/20/2015 15:02 EDT ? EXAM: ULTRASOUND/RENAL LIMITED ?EX. D/ (1430) ? CLINICAL INFORMATION: ? RIGHT URETERAL STONE ? INDICATION: ?? Right ureteral stone. ? COMPARISON: CT scan of the abdomen and pelvis 02/07/2015. ? TECHNIQUE: Sonographic examination of the kidneys was performed. ? Color Doppler imaging was also utilized. ? FINDINGS: Both kidneys are normal in size, shape and echotexture. No ? renal stone, focal renal lesion or hydronephrosis is identified. The ? right kidney measures 9.9 cm in length and the left kidney measures ? 10.7 cm. ? IMPRESSION: ? Normal renal ultrasound. ? REPORT SIGNED IN OTHER VENDOR SYSTEM 02/20/2015 ?Reported By: Carlos Sapp MD ? CC: ? Transcribed Date/Time: 02/20/2015 (1502) ? Bakery Helper: BLANKA ? Printed Date/Time: 02/08/2019 (1926) ? PAGE 1 ? Signed Report ? Procedure Note Carlos Sapp MD - 07/06/2019 EXAM: ULTRASOUND/RENAL LIMITED EX. D/ (1430) CLINICAL INFORMATION: RIGHT URETERAL STONE INDICATION: Right ureteral stone. COMPARISON: CT scan of the abdomen and pelvis 02/07/2015. TECHNIQUE: Sonographic examination of the kidneys was performed. Color Doppler imaging was also utilized. FINDINGS: Both kidneys are normal in size, shape and echotexture.No renal stone, focal renal lesion or hydronephrosis is identified.The right kidney measures 9.9 cm in length and the left kidney measures 10.7 cm. IMPRESSION: Normal renal ultrasound. REPORT SIGNED IN OTHER VENDOR SYSTEM 02/20/2015 Reported By: Carlos Sapp MD CC: Transcribed Date/Time: 02/20/2015 (1508) Bakery Helper: BLANKA Printed Date/Time: 02/08/2019 (5670) PAGE 1 Signed Report Rui Traylor MD [facility] OB ORDERABLES Final Resul t documented in this encounter Visit Diagnoses Not on filedocumented in this encounter Care Teams Clinical Case Manager Relationship Specialty Start Date End Date Felice Vasquez MD [address] [place] [phone] PCP - General 04/27/13 03/16/15 Natanael Saab MD [address] [place] [address] PCP - General 03/17/15 3 documented as of this encounter
--- OUTSIDE RECORDS SUMMARY | 2024-10-13 18:37 | XMS_ITS | Encounter Summary ---
Author Organization [facility] Address [address] [place] [address] Care Team Providers Care Pesticide Chemist Name Role Phone Felice Vasquez MD Primary Care Provider + Encounter Details Date Type Department Care Team (Latest Contact Info) Description 05/29/2014 8:56 EDT - 05/29/2014 23:59 EDT Hospital Encounter [facility] [address] [place] [address] Unknown, Provider, MD Discharge Disposition: Home or [...] Code Departure Means Destination Home or Self [facility] documented in this encounter Plan of Treatment Not on file documented as of this encounter Visit Diagnoses Not on filedocumented in this encounter Care Teams Pesticide Chemist Relationship Specialty Start Date End Date Felice Vasquez MD [address] [place] [phone] PCP - General 04/27/13 03/16/15 documented as of this encounter
--- OUTSIDE RECORDS SUMMARY | 2024-10-13 18:37 | XMS_ITS | Encounter Summary ---
Author Organization [facility] Address [address] [place] [address] Care Team Providers Care Commercial Light Fixture Assembler Name Role Phone Natanael Saab MD Primary Care Provider Unavailabl e Encounter Details Date Type Department Care Team (Late st Contact Info) Description 04/20/2015 Historical Results Only [facility] Radiology Results [address] [place], [place] [id number] Natanael Saab MD Social History Tobacco Use [...] Name Priority Date/Time Associated Diagnosis Comments US BREAST LIMITED UNILATERAL 04/20/2015 15:55 EDT MA BREAST DIAGNOSTIC SUJIT BILATERAL 04/20/2015 15:55 EDT documented in this encounter Results * US BREAST LIMITED UNILATERAL (04/20/2015 15:55 EDT) Anatomical Region Laterality Modality Breast Other 04/20/2015 15:5 5 EDT Narrative 04/21/2015 9:51 EDT ? EXAM: MAMMOGRAM/MAMMO BILATERAL DX W SUJIT EX. D/ (1424) ? CLINICAL INFORMATION: ? LEFT BREAST MASS, GALACTORRHEA, RIGHT SCREEN ? EXAM: ULTRASOUND/UNILATERAL BREAST LIMITE EX. D/ (3367) ? CLINICAL INFORMATION: ? LEFT BREAST MASS ? TECHNIQUE: Diagnostic left breast mammogram and ultrasound, right ? breast screening ? INDICATION: ??Patient reports area of palpable concern/pain in the left ? axilla. Physician reports upper left central breast density. ? BILATERAL BREAST MAMMOGRAM: Full field digital whole breast 2D and 3D ? CC and MLO views of the left breast were obtained. CAD technology was ? utilized. ? Breast markers are seen at the left breast. Normal, stable-appearing ? bilateral axillary lymph nodes are noted. The breast tissue is ? unremarkable. No focal mass or architectural distortion is seen. The ? breast tissue is of scattered density. ? LEFT BREAST ULTRASOUND: ??The entire left axilla was assessed, also, ? the entire upper outer quadrant of the left breast was assessed from ? the 12-3 o'clock position. ? Note is made of several left axillary normal-appearing lymph nodes. No ? suspicious mass or architectural distortion is seen. ? IMPRESSION: ??This is a negative bilateral breast mammogram and left ? breast ultrasound (ACR category 1). The patient should return in one ? year for bilateral breast screening mammography. ? Please note that a negative imaging study should not preclude further ? evaluation of a clinically suspicious finding. ? These findings and recommendations were discussed directly with the ? patient. She stated that she will follow up with her referring ? physician, Dr Natanael Saab, to discuss the clinical aspects of her case ? further. ? FINAL ASSESSMENT: ??DIAGNOSTIC LEFT BREAST MAMMOGRAM/ULTRASOUND [...] Torres MD ? CC: ? Transcribed Date/Time: 04/21/2015 (0951) ? Agricultural Lender: NICOLE ? Printed Date/Time: 02/09/2019 (1126) ? PAGE 2 ? Signed Report ? Procedure Note Sony Torres MD - 07/06/2019 EXAM: MAMMOGRAM/MAMMO BILATERAL DX W SUJIT EX. D/ (5484) CLINICAL INFORMATION: LEFT BREAST MASS, GALACTORRHEA, RIGHT SCREEN EXAM: ULTRASOUND/UNILATERAL BREAST LIMITE EX. D/ (7175) CLINICAL INFORMATION: LEFT BREAST MASS TECHNIQUE: Diagnostic left breast mammogram and ultrasound, right breast screening INDICATION: Patient reports area of palpable concern/pain in theleft axilla. Physician reports upper left central breast density. BILATERAL BREAST MAMMOGRAM: Full field digital whole breast 2D and3D CC and MLO views of the left breast were obtained. CAD technologywas utilized. Breast markers are seen at the left breast. Normal,stable-appearing bilateral axillary lymph nodes are noted. The breast tissue is unremarkable. No focal mass or architectural distortion is seen.The breast tissue is of scattered density. LEFT BREAST ULTRASOUND: The entire left axilla was assessed, also, the entire upper outer quadrant of the left breast was assessedfrom the 12-3 o'clock position. Note is made of several left axillary normal-appearing lymph nodes.No suspicious mass or architectural distortion is seen. IMPRESSION: This is a negative bilateral breast mammogram and left breast ultrasound (ACR category 1). The patient should return inone year for bilateral breast screening mammography. Please note that a negative imaging study should not precludefurther evaluation of a clinically suspicious finding. These findings and recommendations were discussed directly with the patient. She stated that she will follow up with her referring physician, Dr Natanael Saab, to discuss the clinical aspects of hercase further. FINAL ASSESSMENT: DIAGNOSTIC LEFT BREAST MAMMOGRAM/ULTRASOUND - Category 1 - Negative. FINAL ASSESSMENT: SCREENING RIGHT BREAST MAMMOGRAM - Category 1 - Negative. These results will be communicated to your patient via a lay letter from Radiology. If any additional imaging is needed we willcontact your patient directly. PAGE 1 Signed Report (CONTINUED) JSP:kawade Reported By: Sony Torres MD CC: Transcribed Date/Time: 04/21/2015 (0951) Agricultural Lender: NICOLE Printed Date/Time: 02/09/2019 (1126) PAGE 2 Signed Report Natanael Saab MD [facility] ORDERABLES Final Result * MA BREAST DIAGNOSTIC SUJIT BILATERAL (04/20/2015 15:55 EDT) Anatomical Region Laterality Modality Breast Bilateral Other 04/20/2015 15:5 5 EDT Narrative 04/21/2015 9:51 EDT ? EXAM: MAMMOGRAM/MAMMO BILATERAL DX W SUJIT EX. D/ (1424) ? CLINICAL INFORMATION: ? LEFT BREAST MASS, GALACTORRHEA, RIGHT SCREEN ? EXAM: ULTRASOUND/UNILATERAL BREAST LIMITE EX. D/ (4475) ? CLINICAL INFORMATION: ? LEFT BREAST MASS ? TECHNIQUE: Diagnostic left breast mammogram and ultrasound, right ? breast screening ? INDICATION: ??Patient reports area of palpable concern/pain in the left ? axilla. Physician reports upper left central breast density. ? BILATERAL BREAST MAMMOGRAM: Full field digital whole breast 2D and 3D ? CC and MLO views of the left breast were obtained. CAD technology was ? utilized. ? Breast markers are seen at the left breast. Normal, stable-appearing ? bilateral axillary lymph nodes are noted. The breast tissue is ? unremarkable. No focal mass or architectural distortion is seen. The ? breast tissue is of scattered density. ? LEFT BREAST ULTRASOUND: ??The entire left axilla was assessed, also, ? the entire upper outer quadrant of the left breast was assessed from ? the 12-3 o'clock position. ? Note is made of several left axillary normal-appearing lymph nodes. No ? suspicious mass or architectural distortion is seen. ? IMPRESSION: ??This is a negative bilateral breast mammogram and left ? breast ultrasound (ACR category 1). The patient should return in one ? year for bilateral breast screening mammography. ? Please note that a negative imaging study should not preclude further ? evaluation of a clinically suspicious finding. ? These findings and recommendations were discussed directly with the ? patient. She stated that she will follow up with her referring ? physician, Dr Natanael Saab, to discuss the clinical aspects of her case ? further. ? FINAL ASSESSMENT: ??DIAGNOSTIC LEFT BREAST MAMMOGRAM/ULTRASOUND [...] Torres MD ? CC: ? Transcribed Date/Time: 04/21/2015 (0951) ? Agricultural Lender: NICOLE ? Printed Date/Time: 02/09/2019 (1126) ? PAGE 2 ? Signed Report ? Procedure Note Sony Torres MD - 07/06/2019 EXAM: MAMMOGRAM/MAMMO BILATERAL DX W SUJIT EX. D/ (7804) CLINICAL INFORMATION: LEFT BREAST MASS, GALACTORRHEA, RIGHT SCREEN EXAM: ULTRASOUND/UNILATERAL BREAST LIMITE EX. D/ (7885) CLINICAL INFORMATION: LEFT BREAST MASS TECHNIQUE: Diagnostic left breast mammogram and ultrasound, right breast screening INDICATION: Patient reports area of palpable concern/pain in theleft axilla. Physician reports upper left central breast density. BILATERAL BREAST MAMMOGRAM: Full field digital whole breast 2D and3D CC and MLO views of the left breast were obtained. CAD technologywas utilized. Breast markers are seen at the left breast. Normal,stable-appearing bilateral axillary lymph nodes are noted. The breast tissue is unremarkable. No focal mass or architectural distortion is seen.The breast tissue is of scattered density. LEFT BREAST ULTRASOUND: The entire left axilla was assessed, also, the entire upper outer quadrant of the left breast was assessedfrom the 12-3 o'clock position. Note is made of several left axillary normal-appearing lymph nodes.No suspicious mass or architectural distortion is seen. IMPRESSION: This is a negative bilateral breast mammogram and left breast ultrasound (ACR category 1). The patient should return inone year for bilateral breast screening mammography. Please note that a negative imaging study should not precludefurther evaluation of a clinically suspicious finding. These findings and recommendations were discussed directly with the patient. She stated that she will follow up with her referring physician, Dr Natanael Saab, to discuss the clinical aspects of hercase further. FINAL ASSESSMENT: DIAGNOSTIC LEFT BREAST MAMMOGRAM/ULTRASOUND - Category 1 - Negative. FINAL ASSESSMENT: SCREENING RIGHT BREAST MAMMOGRAM - Category 1 - Negative. These results will be communicated to your patient via a lay letter from Radiology. If any additional imaging is needed we willcontact your patient directly. PAGE 1 Signed Report (CONTINUED) VIKASP:[email or web address] Reported By: Sony Torres MD CC: Transcribed Date/Time: 04/21/2015 (0951) Agricultural Lender: NICOLE Printed Date/Time: 02/09/2019 (1126) PAGE 2 Signed Report Natanael Saab MD [facility] MAMMOGRAPHY ORDERABLES Final Result documented in this encounter Visit Diagnoses Not on filedocumented in this encounter Care Teams Commercial Light Fixture Assembler Relationship Specialty Start Date End Date Natanael Saab MD PCP - General 03/17/15 12/29/22 documented as of this encounter
--- OUTSIDE RECORDS SUMMARY | 2024-10-13 18:37 | XMS_ITS | Encounter Summary ---
Author Organization [facility] Address [address] [place] [address] Care Team Providers Care Homicide Squad Commanding Officer Name Role Phone Unavailable Primary Care Provider Unavailabl e Encounter Details Date Type Department Care Team (Late st Contact Info) Description 09/30/2007 Before PRISM Converted Visit (Maple) [facility] - Maple conversion [address] [place] [address] Preston Richter MD [address] [place] [phone] Social History Tobacco Use Types Packs/Day Years Used Date Smoking Tobacco: Never Assessed Comments Unknown Sex and Gender Information Value Date Recorded Sex Assigned at Not on file Legal Sex Female 17:26 EST Gender Identity Not on file Sexual Orientation Not on file documented as of this encounter Progress Notes * Preston Richter MD - 07/11/2009 0705 EST [facility] PROGRESS/FOLLOWUP NOTE - 09/30/2007 CHIEF COMPLAINT Follow up sinusitis. SUBJECTIVE Patient continues to complain of pressure and pain around the eyes, especially around the right eye. ALLERGY 1. Penicillin. OBJECTIVE CT scans were read and reviewed and this showed both maxillary sinuses to be clear. No evidence of oral anterior fistula or mucous-retention cysts, or other disease in the maxillary sinuses, however,there is some mucoperiosteal thickening in the ethmoid sinuses, and this may be consistent with thepatients symptoms. ASSESSMENT Possible chronic sinus disease. PLAN We will start the patient on a short-course of oral prednisone and azithromycin. Follow up in threeto four weeks or p.r.n. Signed by Preston Richter MD 10/08/2007 15:16 Preston Richter MD P Job ID [id number] T: 9:37 A/[facility] Doc ID [id number] cc: Felice Vasquez MD 3:36 P Job ID [id number] A/[facility] Doc ID [id number] cc: Felice Vasquez MD documented in this encounter Plan of Treatment Not on file documented as of this encounter Visit Diagnoses Not on filedocumented in this encounter
--- OUTSIDE RECORDS SUMMARY | 2024-10-13 18:37 | XMS_ITS | Encounter Summary ---
Author Organization [facility] Address [address] [place] [address] Care Team Providers Care Surgical Appliances Salesperson Name Role Phone Felice Vasquez MD Primary Care Provider + Natanael Saab MD Primary Care Provider Unavailabl e Encounter Details Date Type Department Care Team (Late st Contact Info) Description 12/20/2014 Historical Results Only [facility] Radiology Results [address] [place], [place] [id number] Nilesh Guerrero DO [address] [place] [phone] Social History Tobacco Use Types Packs/Day Years [...] on filedocumented in this encounter Care Teams Surgical Appliances Salesperson Relationship Specialty Start Date End Date Felice Vasquez MD [address] [place] [phone] PCP - General 04/27/13 03/16/15 Natanael Saab MD [address] [place] [address] PCP - General 03/17/15 3 documented as of this encounter
--- OUTSIDE RECORDS SUMMARY | 2024-10-13 18:37 | XMS_ITS | Encounter Summary ---
Author Organization [facility] Address [address] [place] [address] Care Team Providers Care Wood Carving Lathe Operator Name Role Phone Felice Vasquez MD Primary Care Provider + Natanael Saab MD Primary Care Provider Unavailabl e Encounter Details Date Type Department Care Team (Late st Contact Info) Description 11/01/2010 Historical Results Only [facility] [place] [address] [address] Tami [place]oro, [place] [address] [facility] [address] [place] [phone] Social History Tobacco Use Types Packs/Day Years [...] Date/Time Associated Diagnosis Comments PAP TEST Routine 11/01/2010 documented in this encounter Results * PAP TEST (11/01/2010) 11/01/2010 11/04/2010 12: 23 EST Narrative [facility] - 11/09/2010 15:38 EST ----- ------- Name: ZAINAB MABRY ? : 57 ?Age/Sex: 64/F ?Unit#: [id number] ? Loc: [facility] ?Status: REG POV ?? Reg Date: 11/01/10 ? Pt.Phone Number: ? ----- ------- Specimen: [id number] ?STATUS: SOUT ?Spec Date:11/01/10 ? Physician Copies: ?Tami Santoro. Tissues: ? Cervical/Endo Pap ?Sony Delaney MD ?? CPT: 55040 ?? Units: ??1 ----- ------- ? CYTOLOGY DIAGNOSIS SPECIMEN ADEQUACY: ?Satisfactory for evaluation. Transformation zone component ABSENT. GENERAL CATEGORIZATION: ?Negative for Intraepithelial Lesion or Malignancy DESCRIPTIVE DIAGNOSIS: ? Negative for Intraepithelial Lesion or Malignancy. RECOMMENDATIONS/COMMENTS: ?None. ----- ------- ?HPV DNA RESULTS ?? 11/01/10 1240 HPV DNA RESULT ??NEG ? Negative for HPV types 16, 18, 31, 33, 35, 39, 45, 51, 52, ? 56, 58, 59, 66, 68. ? Method: Cervista HPV HR (High Risk) DNA test. ----- ------- ORDER QUERIES: LMP: 09/02/01- MENOPAUSE ? N Post ? N ??PREVIOUS ATYPICAL: Y BCP/HRT? N Rad Rx? N IUD? N ??PAP PLUS HPV? Y ??REFLEX TO HR-HPV IF ASCUS ?? REFLEX TO HPV 16/18 IF HPV POS/PAP NEG ?? HPV REGARDLESS?RFLX HPV IF LSIL ?? IF ASCUS DO HPV? Y Signed Diane Hernandez CT(ASCP) 11/09/10 By the signature above, the attending physician certifies that he/she has personally conducted a gross and/or microscopic examination of the described specimens and rendered or confirmed the above diagnosis. Test Performed by [facility], [address] [place], [place] [id number] [employer] Dynamics Manager Architect: Daisha Pagan MD PHD ----- ------- us Tami [facility] ORDERABLES Final R esult [facility] documented in this encounter Visit Diagnoses Not on filedocumented in this encounter Care Teams Wood Carving Lathe Operator Relationship Specialty Start Date End Date Felice Vasquez MD [address] [place] [phone] PCP - General 04/27/13 03/16/15 Natanael Saab MD [address] [place] [address] PCP - General 03/17/15 3 documented as of this encounter
--- OUTSIDE RECORDS SUMMARY | 2024-10-13 18:37 | XMS_ITS | Encounter Summary ---
Author Organization [facility] Address [address] [place] [address] Care Team Providers Care Performing Arts Technicians Name Role Phone Unavailable Primary Care Provider Unavailabl e Encounter Details Date Type Department Care Team (Late st Contact Info) Description 09/09/2007 Before PRISM Converted Visit (Maple) [facility] - Maple conversion [address] [place] [address] Preston Richter MD [address] [place] [phone] Social History Tobacco Use Types Packs/Day Years Used Date Smoking Tobacco: Never Assessed Comments Unknown Sex and Gender Information Value Date Recorded Sex Assigned at Not on file Legal Sex Female 17:26 EST Gender Identity Not on file Sexual Orientation Not on file documented as of this encounter Progress Notes * Preston Richter MD - 07/11/20092042 EST [facility] PROGRESS/FOLLOWUP NOTE - 09/09/2007 REASON FOR VISIT Follow up vocal cord polyps and hoarseness, also right nasal obstruction. SUBJECTIVE The patient was seen by her dentist and underwent dental extraction. On radiologic evaluation she was noted to have abreak in the floor of her left maxillary sinus with a possible tract to the oral cavity in the area of tooth #14. No opening was noted in the soft tissue at that time. There was alsoa small root tip in the area of tooth #10 which was also extracted and there was infection in this area at the time of removal. Patient has a previous history of sinus disease which may be related to an oroantral fistula. She was seen in the past for hoarseness and Reinkeedema secondary to smoking, and she also complains of right nasal obstruction. Past medical history, family history, social history and review of systems are reviewed and documented in the chart. OBJECTIVE Ears: External ears are normal, canals are clear, tympanic membranes are normal. Nose: The nasal dorsum is midline, the airway is patent. There may be some valve collapse on the right but no significant nasal septal deviation, spurs, or polyps. No drainage from the middle meatus. Nasopharynx is clear. Oral cavity and posterior pharynx is clear. Neck: No pathologic lymphadenopathy. Fiberoptic endoscopy was performed, and this reveals bilateral true vocal cord Reinkeedema, no evidence of other lesions. 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 PLAN We will obtain a CT scan of the paranasal sinuses. Follow up after CT. Signed by Preston Richter MD 09/17/2007 13:51 Preston Richter MD P Job ID [id number] T: 11:38 A/[facility] Doc ID [id number] cc: MD [address] [place] [address] * cc: MD [address], [place] [address] * documented in this encounter Plan of Treatment Not on file documented as of this encounter Visit Diagnoses Not on filedocumented in this encounter
--- OUTSIDE RECORDS SUMMARY | 2024-10-13 18:37 | XMS_ITS | Encounter Summary ---
Author Organization [facility] Address [address] [place] [address] Care Team Providers Care Blueprint Reader Name Role Phone Felice Vasquez MD Primary Care Provider + Natanael Saab MD Primary Care Provider Unavailabl e Encounter Details Date Type Department Care Team (Late st Contact Info) Description 02/08/2015 Historical Results Only [facility] [place] Results [address] [place], [place] [phone] Rui Traylor MD Social History Tobacco Use [...] Name Priority Date/Time Associated Diagnosis Comments CT RENAL STONE 02/08/2015 10:00 EDT documented in this encounter Results * CT RENAL STONE (02/08/2015 10:00 EDT) Anatomical Region Laterality Modality Other 02/08/2015 10:0 0 EDT Narrative 02/08/2015 10:21 EDT ? EXAM: CAT SCAN/CT STONE PROTOCOL F/U LOW ??EX. D/ (1553) ? CLINICAL INFORMATION: ? URETERAL STONE;MICROHEMATURIA AND BACK PAIN ? INDICATION: Ureteral stone. Microscopic hematuria and back pain. ? COMPARISON: NONCONTRAST CT ABDOMEN/PELVIS - 11/27/2014. ? TECHNIQUE: Noncontrast low-dose CT scan of the abdomen and pelvis was ? performed for followup of renal stone. ? FINDINGS: The 5 mm diameter stone located at the right ureteropelvic ? junction on the prior examination has migrated distally to the right ? ureterovesical junction. No right hydronephrosis is present. The ? nonobstructing stone measuring 4 mm within the right kidney lower ? pole is unchanged. 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 A ? miniscule exophytic focus emanating from the anterior surface of the ? left kidney lower pole is essentially unchanged compared to prior ? studies dating back to 2006, and is consistent with a tiny hyperdense ? cyst. The patient is statuspost cholecystectomy. Prominence to the ? extrahepatic bile duct is likely secondary to the postcholecystectomy ? state. No focal abnormality is identified within the unenhanced ? liver, pancreas, spleen or adrenal glands. No appendicitis is ? identified. There are numerous diverticuli within the sigmoid colon. ? Mild atherosclerosis of the abdominal aorta is present. ? IMPRESSION: ? 1. Interval migration of right ureteral stone, now located at the ? right ureterovesical junction. ? 2. Right nephrolithiasis. ? 3. Right renal chronic scar. ? 4. Sigmoid diverticulosis. ? REPORT SIGNED IN OTHER VENDOR SYSTEM 02/08/2015 ?Reported By: Carlos Sapp MD ? CC: ? Transcribed Date/Time: 02/08/2015 (1021) ? Statement Processor: NICOLE ? Printed Date/Time: 02/08/2019 (1925) ? PAGE 1 ? Signed Report ? Procedure Note Carlos Sapp MD - 07/06/2019 EXAM: CAT SCAN/CT STONE PROTOCOL F/U LOW EX. D/ (1553) CLINICAL INFORMATION: URETERAL STONE;MICROHEMATURIA AND BACK PAIN INDICATION: Ureteral stone. Microscopic hematuria and back pain. COMPARISON: NONCONTRAST CT ABDOMEN/PELVIS - 11/27/2014. TECHNIQUE: Noncontrast low-dose CT scan of the abdomen and pelviswas performed for followup of renal stone. FINDINGS: The 5 mm diameter stone located at the rightureteropelvic junction on the prior examination has migrated distally to theright ureterovesical junction. No right hydronephrosis is present. The nonobstructing stone measuring 4 mm within the right kidney lower pole is unchanged. 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 A miniscule exophytic focus emanating from the anterior surface ofthe left kidney lower pole is essentially unchanged compared to prior studies dating back to 2006, and is consistent with a tinyhyperdense cyst. The patient is statuspost cholecystectomy. Prominence to the extrahepatic bile duct is likely secondary to thepostcholecystectomy state. No focal abnormality is identified within the unenhanced liver, pancreas, spleen or adrenal glands. No appendicitis is identified. There are numerous diverticuli within the sigmoidcolon. Mild atherosclerosis of the abdominal aorta is present. IMPRESSION: 1. Interval migration of right ureteral stone, now located at the right ureterovesical junction. 2. Right nephrolithiasis. 3. Right renal chronic scar. 4. Sigmoid diverticulosis. REPORT SIGNED IN OTHER VENDOR SYSTEM 02/08/2015 Reported By: Carlos Sapp MD CC: Transcribed Date/Time: 02/08/2015 (1021) Statement Processor: NICOLE Printed Date/Time: 02/08/2019 (1925) PAGE 1 Signed Report Rui Traylor MD IMG CT ORDERABLES Final Result documented in this encounter Visit Diagnoses Not on filedocumented in this encounter Care Teams Blueprint Reader Relationship Specialty Start Date End Date Felice Vasquez MD [address] [place] [phone] PCP - General 04/27/13 03/16/15 Natanael Saab MD [address] [place] [address] PCP - General 03/17/15 3 documented as of this encounter
--- OUTSIDE RECORDS SUMMARY | 2024-10-13 18:37 | XMS_ITS | Encounter Summary ---
Author Organization [facility] Address [address] [place] [address] Care Team Providers Care Residential Lawn Specialist Name Role Phone Natanael Saab MD Primary Care Provider Unavailabl e Encounter Details Date Type Department Care Team (Late st Contact Info) Description 02/09/2016 Historical Results Only [facility] Radiology Results [address] [place] [address] Delfino Fabian MD [address] [phone] Social History Tobacco Use Types Packs/Day Years [...] Name Priority Date/Time Associated Diagnosis Comments US CAROTID-VERTEBRAL DUPLEX BILATERAL 02/09/2016 15:47 EDT documented in this encounter Results * US CAROTID-VERTEBRAL DUPLEX BILATERAL (02/09/2016 15:47 EDT) Anatomical Region Laterality Modality Other 02/09/2016 15:4 7 EDT Narrative 02/09/2016 16:14 EDT ? EXAM: ULTRASOUND/DOPPLER CAROTID-BILATERA EX. D/ (1547) ? CLINICAL INFORMATION: ? I63.9 LACUNAR STROKE ? ACUTE ONSET OF BETTY-BODY NUMBNESS.SUGGESTIVE OF ? 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 See attached report. ??Report also available in PACS. ? BBL:[email or web address] ?Reported By: Norris Beard MD ? CC: ? Transcribed Date/Time: 02/09/2016 (3614) ? Loading And Unloading Supervisor: NICOLE ? Printed Date/Time: 02/11/2019 (5447) ? PAGE 1 ? Signed Report ? Procedure Note Norris Beard MD - 07/07/2019 EXAM: ULTRASOUND/DOPPLER CAROTID-BILATERA EX. 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 Report also available in PACS. BBL:jr Reported By: Norris Beard MD CC: Transcribed Date/Time: 02/09/2016 (1614) Loading And Unloading Supervisor: NICOLE Printed Date/Time: 02/11/2019 (5937) PAGE 1 Signed Report us Delfino Fabian MD IMG VASCULAR ORDERABLES Fin al Result documented in this encounter Visit Diagnoses Not on filedocumented in this encounter Care Teams Residential Lawn Specialist Relationship Specialty Start Date End Date Natanael Saab MD PCP - General 03/17/15 12/29/22 documented as of this encounter
--- OUTSIDE RECORDS SUMMARY | 2024-10-13 18:37 | XMS_ITS | Encounter Summary ---
Author Organization [facility] Address [address] [place] [address] Care Team Providers Care Molded Rubber Goods Cutter Name Role Phone Unavailable Primary Care Provider Unavailabl e Encounter Details Date Type Department Care Team (Late st Contact Info) Description 01/10/2003 13:50 EDT Hospital Encounter [facility] - Other [address] [place] [address] Marshal Park MD [address] [facility], [address] [place] [phone] Discharge Disposition: Auto Discharge Social History Tobacco [...] Associated Diagnosis Comments MR CERVICAL SPINE WO CONTRAST Routine 01/10/2003 15:30 EDT CERVICAL SPINE 4 OR MORE VIEWS Routine 01/10/2003 14:30 EDT documented in this encounter Results * MR CERVICAL SPINE WO CONTRAST (01/10/2003 15:30 EDT) Anatomical Region Laterality Modality Other 01/10/2003 15:3 0 EDT Narrative 05/16/2009 1:32 EDT NECK AND UPPER EXT PAIN R/O C5-6 ??SPONDYLOSIS VS HNP MRI OF THE CERVICAL SPINE WITHOUT CONTRAST: 01/10/2003, 17:30 PM IMPRESSIONS: Disc degeneration at C5-C6 with narrowing of the right and left neural foramina. CLINICAL HISTORY: Neck and upper extremity pain. Rule out C5-C6 spondylosis or herniated nucleus pulposus. TECHNIQUE: MRI of the cervical spine is performed with sagittal T1, sagittal T2, axial T2, axial gradient-echo and 3D axial volume images. COMPARISON FILMS: None. FINDINGS: The vertebral marrow, the cord signal, and the craniocervical junction are normal. At C5-C6, the disc space is slightly narrowed in keeping with disc degeneration. Axial sections show no herniated nucleus pulposus. The right and left C5-C6 neural foramina are narrowed by uncinate spurring. Bony ridge is also seen at C5-C6 with mild effacement of the subarachnoid space. tns Procedure Note Filomena Espinoza MD - 05/16/2009 NECK AND UPPER EXT PAIN R/O C5-6 SPONDYLOSIS VS HNP MRI OF THE CERVICAL SPINE WITHOUT CONTRAST: 01/10/2003, 17:30 PM IMPRESSIONS: Disc degeneration at C5-C6 with narrowing of the right and left neural foramina. CLINICAL HISTORY: Neck and upper extremity pain. Rule out C5-C6 spondylosis or herniated nucleus pulposus. TECHNIQUE: MRI of the cervical spine is performed with sagittal T1, sagittal T2, axial T2, axial gradient-echo and 3D axial volume images. COMPARISON FILMS: None. FINDINGS: The vertebral marrow, the cord signal, and the craniocervical junction are normal. At C5-C6, the disc space is slightly narrowed in keeping with disc degeneration. Axial sections show no herniated nucleus pulposus. The right and left C5-C6 neural foramina are narrowed by uncinate spurring. Bony ridge is also seen at C5-C6 with mild effacement of the subarachnoid space. /tns Marshal Park MD [facility] [place] ORDERABLES Final Result * CERVICAL SPINE 4 OR MORE VIEWS (01/10/2003 14:30 EDT) Anatomical Region Laterality Modality Other 01/10/2003 14:3 0 EDT Narrative 05/16/2009 3:13 EDT NECK - RUE PAIN R/O CERVICAL SPONDYLOSIS CERVICAL SPINE 5 VIEWS 01/10/03 CLINICAL INFORMATION: Neck and right upper extremity pain. Rule out cervical spondylosis. FINDINGS: There are findings compatible with degenerative disc disease at C5-6 and C6-7 with mild disc space narrowing and posterior osteophytes. In addition, there is significant arthrosis of the uncovertebral joints with narrowing of the neural foraminal at these levels bilaterally, especially at C5-6. The alignment is within normal limits. There is no sign of fracture or subluxation. /jv Procedure Note Jenaro Madera MD - 05/16/2009 NECK - RUE PAIN R/O CERVICAL SPONDYLOSIS CERVICAL SPINE 5 VIEWS 01/10/03 CLINICAL INFORMATION: Neck and right upper extremity pain. Rule out cervical spondylosis. FINDINGS: There are findings compatible with degenerative disc disease at C5-6 and C6-7 with mild disc space narrowing and posterior osteophytes. In addition, there is significant arthrosis of the uncovertebral joints with narrowing of the neural foraminal at these levels bilaterally, especially at C5-6. The alignment is within normal limits. There is no sign of fracture or subluxation. jv Marshal Park MD IMG DIAGNOSTIC IMAGING ORDERABLE S Final Result documented in this encounter Visit Diagnoses Not on filedocumented in this encounter
--- OUTSIDE RECORDS SUMMARY | 2024-10-13 18:37 | XMS_ITS | Encounter Summary ---
Author Organization [facility] Address [address] [place] [address] Care Team Providers Care Land Checker Name Role Phone Felice Vasquez MD Primary Care Provider + Encounter Details Date Type Department Care Team (Latest Contact Info) Description 07/21/2013 8:27 EST - 07/21/2013 23:59 EST Hospital Encounter [address] [address] Unknown, Provider, Discharge Disposition: Home or Self [...] Code Departure Means Destination Home or Self [facility] documented in this encounter Plan of Treatment Not on file documented as of this encounter Visit Diagnoses Not on filedocumented in this encounter Care Teams Land Checker Relationship Specialty Start Date End Date Felice Vasquez MD [address] [place] [phone] PCP - General 04/27/13 03/16/15 documented as of this encounter
--- OUTSIDE RECORDS SUMMARY | 2024-10-13 18:37 | XMS_ITS | Encounter Summary ---
Author Organization [facility] Address [address] [place] [address] Care Team Providers Care Hotel Associate Name Role Phone Natanael Saab MD Primary Care Provider Unavailabl e Encounter Details Date Type Department Care Team (Late st Contact Info) Description 10/30/2015 Historical Results Only [facility] Radiology Results [address] [place] [address] Natanael Saab MD Social History Tobacco Use [...] on filedocumented in this encounter Care Teams Hotel Associate Relationship Specialty Start Date End Date Natanael Saab MD PCP - General 03/17/15 12/29/22 documented as of this encounter
--- OUTSIDE RECORDS SUMMARY | 2024-10-13 18:37 | XMS_ITS | Encounter Summary ---
Author Organization [facility] Address [address] [place] [address] Care Team Providers Care Paleologist Name Role Phone Natanael Saab MD Primary Care Provider Unavailabl e Reason for Visit * Reason Comments Otalgia with head swelling b lurred vision and headache. Encounter Details Date Type Department Care Team (Late st Contact Info) Description 10/16/2015 13:00 EST Office Visit [address] [id number] Quang Shearer MD [address] [facility], [address] [place] [address] Headache, unspecified headache type (Primary Dx); Right facial swelling; Hearing problem of right ear Social History Tobacco Use Types Packs/Day Years [...] Sign Reading Time Taken Comments Blood Pressure 160/95 10/16/2015 1323 EST Pulse 84 10/16/2015 1323 EST Temperature - - Respiratory Rate - - Oxygen Saturation - - Inhaled Oxygen Concentration - - Weight 74.4 kg (164 lb) 10/16/2015 1323 EST Height 157.5 cm (5' 2) 10/16/2015 1323 EST Body Mass Index 30 10/16/2015 1323 EST documented in this encounter Progress Notes * Quang Shearer MD - 10/16/2015 1508 EST Subjective: Patient ID: Savannah Avery is an 60 y.o. female. Chief Complaint Patient presents with ??? Otalgia with head swelling blurred vision and headache. HPI Savannah Avery is a 60 y.o. year old female who comes in today for evaluation of some recurrent right facial and ear symptoms. She gets episodes where her right nose is congested. She gets swellingover her temporal as well as some vision changes she describes as broken glass. She feels like the temporal area on her scalp feels hot. When his first began approximately year ago they would last about 5 minutes and recently they have been lasting 20 minutes. She thinks her right ear hearing has been down for the past several weeks and her right vision is worse chronically for the past several weeks. She has not seen an tour driver or an program clerk. She is a problem with a retained tooth root on the left that gets recurrently infected. She had a CT scan for that that I reviewed today. She is waiting to find an oral surgeon who will remove the retained root. She is not sure if she has fevers she feels very drained. Last 2 weeks she has had some intermittent numbness in her cheek. This is on the right side. She thinks there is an infection somewhere on the right side and it is positional and is worse when she is lying down. Patient Active Problem List Diagnosis ??? Abdominal pain ??? Ventral hernia without obstruction or gangrene Past Medical History Diagnosis Date ??? Arthritis ??? Cancer ??? Asthma ??? Irritable bowel syndrome ??? COPD (chronic obstructive pulmonary disease) Past Surgical History Procedure Laterality Date ??? Appendectomy ??? Cholecystectomy ??? Wrist ganglion excision History reviewed. No pertinent family history. Social History Social History ??? Marital Status: N/A Spouse Name: N/A Number of Children: N/A ??? Years of Education: N/A Occupational History ??? Not on file. Social History Main Topics ??? Smoking status: Current Every Day Smoker -- 1.00 packs/day for 49 years ??? Smokeless tobacco: Not on file ??? Alcohol Use: No ??? Drug Use: No ??? Sexual Activity: Not on file Other Topics Concern ??? Not on file Social History Narrative Outpatient Prescriptions Marked as Taking for the 10/16/15 encounter (Office Visit) with Quang Shearer MD Medication Sig Dispense Refill ??? cholecalciferol, Vitamin D3, 1,000 unit tablet Take 1,000 Units by mouth daily ??? [DISCONTINUED] doxycycline (VIBRA-TABS) 100 mg tablet Take 100 mg by mouth 2 times daily ??? FLUTICASONE PROPIONATE (FLOVENT HFA INHALATION) Inhale as directed. ??? levalbuterol (XOPENEX HFA) 45 mcg/actuation inhaler Inhale 90 mcg as directed every 6 hours ??? LORazepam (ATIVAN) 2 mg tablet Take 2 mg by mouth 2 times daily ??? tiotropium (SPIRIVA) 18 mcg inhalation capsule Inhale 18 mcg as directed daily ??? traMADol (ULTRAM) 50 mg tablet Take 50 mg by mouth every 6 hours Allergies Allergen Reactions ??? Codeine ??? Novacaine [Procaine (Bulk)] ??? Penicillins Review of Systems Constitutional: Positive for malaise/fatigue. Negative for fever, chills and weight loss. HENT: Positive for congestion, ear pain and hearing loss. Negative for sore throat and tinnitus. Eyes: Positive for blurred vision and photophobia. Negative for double vision. Respiratory: Positive for shortness of breath. Negative for cough, hemoptysis and wheezing. Cardiovascular: Negative for chest pain, palpitations, claudication and leg swelling. Gastrointestinal: Negative for heartburn. Musculoskeletal: Negative for myalgias and joint pain. Skin: Negative for rash. Neurological: Positive for sensory change and headaches. Negative for focal weakness. Endo/Heme/Allergies: Negative for environmental allergies. Does not bruise/bleed easily. - See HPI Objective: BP 160/95 mmHg Pulse 84 Ht 157.5 cm (62) Wt 74.39 kg (164 lb) BMI 29.99 kg/m2 Physical Exam Department of Otolaryngology PHYSICAL EXAMINATION CONSTITUTIONAL: APPEARANCE: The patient appears alert, cooperative, and comfortable. ABILITY TO COMMUNICATE / VOICE: Normal for age HEAD AND FACE: SALIVARY GLANDS: Submandibular and Parotid glands are normal bilaterally FACIAL STRENGTH: Intact and symmetrical bilaterally EARS, NOSE, MOUTH AND THROAT: OTOSCOPY: Right external auditory canal: patent and non-inflamed Left external auditory canal: patent and non-inflamed Right tympanic membrane: intact and normally mobile without retraction, perforation or effusion Left tympanic membrane: intact and normally mobile without retraction, perforation or effusion NOSE: normal turbinates and mucosa: septum in midline LIPS, TEETH & GUMS: partially edentulous ORAL CAVITY & OROPHARYNX: normal HYPOPHARYNX & PHARYNGEAL NEWBERRY: Unable to visualize because of significant gag reflex LARYNX: Unable to visualize because of significant gag reflex NECK: GENERAL: Supple, no asymmetry or crepitus, trachea midline THYROID: Normal LYMPHATIC: CERVICAL LYMPH NODES: No pathologic cervical lymphadenopathy noted Other Exam Findings: Temporomandibular Joints: There is severe point tenderness noted on the right , I reviewed the CT scan that does not demonstrate any sinusitis. AUDIOGRAM: I have reviewed the audiogram performed today by our audiology staff on Savannah Avery and it demonstrates normal hearing and tympanograms bilaterally. See scanned documents for a copy of this test Assessment: Recurrent episodic right facial swelling and pain. There is tenderness over the TMJ. Atypical hearing and vision problems, but today's audiogram is normal. My differential includes TMJ, temporal arteritis, and possible migraine. She will take alleve for the next 5-7 days and see if it helps. I also will check an esr and CRP. I'll talk with her in 2 weeks when I am back to see how she is doing. Plan: Savannah was seen today for otalgia. Diagnoses and all orders for this visit: Headache, unspecified headache type Orders: - Sed. Rate:Westergren; Future - C Reactive Protein; Future Right facial swelling Orders: - Sed. Rate:Westergren; Future - C Reactive Protein; Future Hearing problem of right ear Orders: - Hearing Evaluation Other orders - FLUTICASONE PROPIONATE (FLOVENT HFA INHALATION); Inhale as directed. Quang Shearer MD documented in this encounter Plan of Treatment Scheduled Orders Name Type Priority Associated Diagnoses Orde r Schedule HEARING EVALUATION Audiology Routine Hearing problem of right ear Ordered: 10/16/2015 documented as of this encounter Procedures Procedure Name Priority Date/Time Associated Diagnosis Comments PROCEDURE REPORTS - SCANNED 10/19/2015 12:57 EST documented in this encounter Results * PROCEDURE REPORTS - SCANNED (10/19/2015 12:57 EST) 10/19/2015 12:5 7 EST us Scan 2 Box Lining Machine Feeder PROCEDURE/MINOR SURGICAL OR DERABLES Final Result documented in this encounter Visit Diagnoses Diagnosis Headache, unspecified headache type- Primary Right facial swelling Swelling, mass, or lump in head and neck Hearing problem of right ear documented in this encounter Discontinued Medications Medication Sig Discontinue Reason Start Date End Da te doxycycline (VIBRA-TABS) 100 mg tablet Take 100 mg by mouth 2 times daily 10/16/2015 documented as of this encounter Historical Medications * This list may reflect changes made after this encounter. FLUTICASONE PROPIONATE (FLOVENT HFA INHALATION) Inhale as directed. 09/21/2024 added in this encounter Care Teams Paleologist Relationship Specialty Start Date End Date Natanael Saab MD PCP - General 03/17/15 12/29/22 documented as of this encounter
--- OUTSIDE RECORDS SUMMARY | 2024-10-13 18:37 | XMS_ITS | Encounter Summary ---
Author Organization [facility] Address [address] [place] [address] Care Team Providers Care Metal Fabricator Welder Name Role Phone Felice Vasquez MD Primary Care Provider + Natanael Saab MD Primary Care Provider Unavailabl e Encounter Details Date Type Department Care Team (Late st Contact Info) Description 03/30/2010 Historical Results Only [facility] Lab - Main [place] [address] [place], [place] [phone] Jenaro Gomez MD [address] [place] [address] Social History Tobacco Use Types Packs/Day Years [...] Priority Date/Time Associated Diagnosis Comments SURGICAL PATHOLOGY Routine 03/30/2010 documented in this encounter Results * SURGICAL PATHOLOGY (03/30/2010) 03/30/2010 03/30/2010 16: 33 EDT Narrative [facility] - 04/03/2010 9:53 EDT ----- ------- Name: ZAINAB AVERY ? : 57 ?Age/Sex: 64/F ?Unit#: [id number] ? Loc: END ? Status: DEP CLI ?? Reg Date: 03/30/10 ? Pt.Phone Number: ? ----- ------- Specimen: [id number] ? STATUS: SOUT ?Spec Date:03/30/10 ? Physician Copies: ?Jenaro Gomez MD ?? Tissues: A ?? Gastrointestinal Tract (ANTRUM) ?Sony Delaney MD ?? CPT: 99096 ?? Units: ??1 ? 95808 ? 1 ?FINAL DIAGNOSIS ? Stomach, antrum, biopsy; ? -Antral-type gastric mucosa. ? No significant inflammation. ??No lymphoid follicular aggregates. ? No intestinal metaplasia. ??No ulceration or erosion. ? Special stains negative for H. pylori-type organisms. ? GROSS DESCRIPTION ? Received in [facility]'s and labeled antral biopsies are mucosal tissue fragments ? 0.4 cm. in greatest dimensions. ??Entirely submitted. ?? PREOP DX/CLINICAL HISTORY ?GERD Signed ____(signature on file)____ Valerio Jimenez M.D. 04/03/10 ?? By the signature above, the attending physician certifies that he/she has personally conducted a gross and/or microscopic examination of the described specimens and rendered or confirmed the above diagnosis. Test Performed by [facility], [address] [place], [place] [id number] Cinetechnician: Daisha Pagan MD PHD ----- ------- us Jenaro Gomez MD PATHOLOGY ORDERABLES Final Resul t [facility] documented in this encounter Visit Diagnoses Not on filedocumented in this encounter Care Teams Metal Fabricator Welder Relationship Specialty Start Date End Date Felice Vasquez MD [address] [place] [phone] PCP - General 04/27/13 03/16/15 Natanael Saab MD [address] [place] [phone] PCP - General 03/17/1512/29/ 3 documented as of this encounter
[2024-10-13 19:30] LABS: Bilirubin Negative (Negative); Blood Trace-intact (Negative); Clarity Clear (Clear); Glucose Negative (Negative); Ketones Negative (Negative); Leukocyte Esterase Negative (Negative); Nitrite Negative (Negative); Specific Gravity <= 1.005 (1.005-1.025); Urobilinogen 0.2 mg/dL (Up to 0.2)
[2024-10-13 19:37] LABS: Lactate 0.8 mmol/L (<or=2.0)
[2024-10-13 19:39] LABS: Abs Immature Grans 0.03 10^3/uL (0.0-0.06); Absolute Basophil Count 0.03 10^3/uL (0.0-0.2); Absolute Eosinophil Count 0.04 10^3/uL (0.0-0.7); Absolute Lymphocyte Count 2.18 10^3/uL (1.2-3.4); Absolute Monocyte Count 0.39 10^3/uL (0.1-0.8); Absolute Neutrophil Count 4.88 10^3/uL (1.2-6.7); Basophils % 0.4 %; Eosinophils % 0.5 %; HCT 42.7 % (36.0-46.0); HGB 14.4 g/dL (11.2-15.7); Immature Grans % 0.4 %; Lymphocytes % 28.9 %; MCH 30.8 pg (27.0-33.0); MCHC 33.7 % (32.0-36.0); MCV 91 fL (80-95); MPV 9.5 fL (8.0-11.0); Monocytes % 5.2 %; Neutrophils % 64.6 %; Platelet Count 255 10^3/uL (130-400); RBC 4.68 10^6/uL (3.93-5.22); RDW 12.4 % (11.7-14.6); RDW-SD 41.1 fL; WBC 7.55 10^3/uL (4.4-10.8)
[2024-10-13 19:47] LABS: Bacteria Negative HPF (Negative); C & S Indicated? No; Casts Negative LPF (Negative); Crystals Negative HPF (Negative); Epithelial Cells Rare HPF (Negative); Mucus Negative (Negative); RBC 0-2 HPF (0-2); WBC Negative HPF (0-5)
[2024-10-13 20:00] LABS: ALT 36 U/L (14-59); AST 22 U/L (15-37); Albumin 3.7 g/dL (3.4-5.0); Alkaline Phosphatase 57 U/L (46-116); Anion Gap 5.8 mmol/L (3-11); BUN 8 mg/dL (7-18); Bilirubin, Total 0.64 mg/dL (0.2-1.0); CO2 30.2 mmol/L (21.0-32.0); CREATININE 0.9 mg/dL (0.55-1.02); Calcium 9.2 mg/dL (8.5-10.1); Chloride 107 mmol/L (98-107); Estimated GFR 69.64 (mL/min/1.73m2); Glucose 97 mg/dL (74-106); Lipase 32 U/L (<78); Potassium 3.7 mmol/L (3.5-5.1); Sodium 143 mmol/L (136-145); Total Protein 7.2 g/dL (6.4-8.2); Troponin I 7 ng/L (<or=51)
[2024-10-13] MEDS: Albuterol/Ipratropium 3 ML UPD VIAL UPD (20:10)
--- NOTE | 2024-10-13 20:16 | DI.VRAD_ITS ---
PROCEDURE INFORMATION: Exam: XR Chest Exam date and time: 10/13/2024 8:04 PM Age: 69 years old Clinical indication: Shortness of breath TECHNIQUE: Imaging protocol: Radiologic exam of the chest. Views: 2 views. COMPARISON: CT CHEST/ABD/PEL WO 06/15/2024 11:33 PM FINDINGS: Lungs: A subtle nodular density is identified in the left upper lobe. This could represent a confluence of shadows. Apical lordotic view is recommended. Pleural spaces: Unremarkable. No pleural effusion. No pneumothorax. Heart/Mediastinum: Unremarkable. No cardiomegaly. Bones/joints: Unremarkable. IMPRESSION: 1. No acute infiltrates. 2. Small nodular density identified in the left upper lobe for which apical lordotic views are recommended. Dictated and Authenticated by: Zackery Smith MD. Orderin Sonya Chester MD
[2024-10-13 20:58] LABS: Troponin I 7 ng/L (<or=51)
[2024-10-13] MEDS: predniSONE 20 MG TAB 40 MG PO ×2 (21:14→21:25)
[2024-10-13] MEDS: Doxycycline Hyclate 100 MG, 2 CAPS/BTL PO ×2 (21:15→21:25)
--- NOTE | 2024-10-13 22:20 | W.ED.GENAD ---
Discharge Plan Disposition Patient Disposition: Home Condition: Stable Discharge Details Clinical Impression: Acute viral syndrome, Left upper lobe pulmonary nodule, COPD (chronic obstructive pulmonary disease) Primary Care Provider: Clare Lama ED Provider: Nemo Hassan Home Meds and New Rx's Prescriptions: New doxycycline hyclate 100 mg tablet 100 mg PO BID Qty: 8 0RF prednisone 20 mg tablet 40 mg PO DAILY Qty: 8 0RF Continued lorazepam 1 mg tablet 1 mg PO TID PRN fluticasone propionate 50 mcg/actuation spray,suspension 1 spray SWAPNA DAILY albuterol sulfate [ProAir HFA] 90 mcg/actuation HFA aerosol inhaler 2 puff IH Q4H PRN Narcan 4 mg/actuation spray,non-aerosol 4 mg SWAPNA Q2M PRN nicotine (polacrilex) 4 mg gum 4 mg BC Q2H Spiriva with HandiHaler 18 mcg capsule, w/inhalation device 1 cap IH DAILY guaifenesin [Mucinex] 600 mg tablet extended release 12hr 600 mg PO BID PRN loratadine [Claritin] 10 mg tablet 10 mg PO DAILY PRN cyanocobalamin (vitamin B-12) 1,000 mcg capsule 1,000 mcg PO DAILY Symbicort 160-4.5 mcg/actuation HFA aerosol inhaler 1 puff IH BID nitroglycerin 0.4 mg Tablet, Sublingual 0.4 mg sublingual DIRECTED pregabalin 50 mg capsule 1 cap PO DAILY Patient Comments: TAKE ONE CAPSULE BY MOUTH EVERY DAY buprenorphine-naloxone [Suboxone] 4-1 mg Film 1 film sublingual DAILY diphenhydramine HCl 25 mg Tablet 25 mg PO BID PRN prednisone 20 mg tablet 40 mg PO DAILY Qty: 8 0RF Discharge Instructions Instructions: Pulmonary nodule, COPD Exacerbation, Adult ED, Flu, Adult ED Additional Instructions: Please follow-up with your doctor regarding the possible pulmonary nodule, this was not seen on your CAT scan in December of last year Start the doxycycline, know that this medication can make you sun sensitive even in the winter Yogurt daily while on antibiotic Please be reevaluated in 24 to 48 hours your tests today are otherwise reassuring HPI General Date/Time Provider Initiated Documentation: 10/13/24 18:27. HPI Narrative: The patient is a 69-year-old female with a past medical history of coronary artery disease, peripheral vascular disease, CVA, COPD, tobacco use, and chronic pain. She presents with a report of fever, 103.4 which started on 10/01/2024 after having an endoscopic sonogram for a concerning lesion on pancreas at [facility]. She states she has had chills, myalgias and felt tired with cough and shortness of breath. She is able to tolerate p.o. and is feeling better after a nebulizer treatment. She reports a fever of 103.4?F that started on 10/01/2024, following an endoscopic sonogram for a concerning lesion on her pancreas at [facility]. Accompanying symptoms include chills, muscle aches, fatigue, cough, and shortness of breath. She is able to tolerate p.o. and is feeling better after a nebulizer treatment. She is alert and oriented, she has wheezes throughout her lungs, she is in no acute respiratory distress, she is alert and oriented. She has a nontender abdominal exam without significant distention, no peripheral edema. Mild increased work of breathing answering questions appropriately. She has a history of COPD and reports worsening breathing, although she felt slightly improved today, prompting her visit. She has had significant mucus production per patient. She is able to tolerate p.o. and is feeling better after a nebulizer treatment. Related Data Home Medications ?Medication ?Instructions ?Recorded ?Confirmed albuterol sulfate 90 mcg/actuation 2 puff inhalation Q4H PRN 07/20/19 10/13/24 aerosol inhaler (ProAir HFA) fluticasone propionate 50 1 spray intranasal DAILY 07/20/19 10/13/24 mcg/actuation nasal spray,suspension lorazepam 1 mg tablet 1 mg PO TID PRN 07/20/19 10/13/24 naloxone 4 mg/actuation nasal 4 mg intranasal Q2M PRN 07/20/19 10/13/24 spray (Narcan) nicotine (polacrilex) 4 mg gum 4 mg buccal Q2H 07/20/19 10/13/24 tiotropium bromide 18 mcg capsule 1 cap inhalation DAILY 07/20/19 10/13/24 with inhalation device (Spiriva with HandiHaler) buprenorphine 4 mg-naloxone 1 mg 1 film sublingual DAILY 03/23/21 10/13/24 sublingual film (Suboxone) diphenhydramine HCl 25 mg tablet 25 mg PO BID PRN 03/23/21 10/13/24 cyanocobalamin (vitamin B-12) 1,000 mcg PO DAILY 04/03/21 10/13/24 1,000 mcg capsule nitroglycerin 0.4 mg sublingual 0.4 mg sublingual DIRECTED 07/12/21 10/13/24 tablet budesonide-formoterol HFA 160 1 puff inhalation BID 01/15/22 10/13/24 mcg-4.5 mcg/actuation aerosol inhaler (Symbicort) pregabalin 50 mg capsule 1 cap PO DAILY 06/19/22 10/13/24 guaifenesin 600 mg tablet, 600 mg PO BID PRN 07/15/22 10/13/24 extended release 12 hr (Mucinex) loratadine 10 mg tablet (Claritin) 10 mg PO DAILY PRN 07/15/22 10/13/24 prednisone 20 mg tablet 40 mg (2 x 20 mg) PO DAILY #8 tabs 06/16/24 10/13/24 doxycycline hyclate 100 mg tablet 100 mg PO BID #8 tabs 10/13/24 prednisone 20 mg tablet 40 mg (2 x 20 mg) PO DAILY #8 tabs 10/13/24 Previous Rx's ?Medication ?Instructions ?Recorded prednisone 20 mg tablet 40 mg (2 x 20 mg) PO DAILY #8 tabs 06/16/24 doxycycline hyclate 100 mg tablet 100 mg PO BID #8 tabs 10/13/24 prednisone 20 mg tablet 40 mg (2 x 20 mg) PO DAILY #8 tabs 10/13/24 Allergies Allergy/AdvReac Type Severity Reaction Status Date / Time amitriptyline Allergy Severe none Verified 10/13/24 18:17 specified with referral codeine Allergy Severe none Verified 10/13/24 18:17 specified with referral gabapentin Allergy Severe none Verified 10/13/24 18:17 specified with referral ondansetron (From Zofran) Allergy Severe none Verified 10/13/24 18:17 specified with referral sulfamethoxazole (From Allergy Severe none Verified 10/13/24 18:17 Bactrim) specified with referral trimethoprim (From Bactrim) Allergy Severe none Verified 10/13/24 18:17 specified with referral influenza virus vacc Allergy Unknown Verified 10/13/24 18:17 trivalent, split (From Fluzone) Iodinated Contrast Media AdvReac Unknown Unknown Verified 10/13/24 18:17 General Stated Complaint: RespSymp DANIELLE: 3 Exam Narrative Exam Narrative: General Appearance: The patient is alert and oriented. Vital signs: Within normal limits. HEENT: Within normal limits. Respiratory: Wheezes are present throughout the lungs. No acute respiratory distress noted. Gastrointestinal: The abdomen is nontender without significant distention. Extremities: There is no peripheral edema. Skin: Warm and dry, no rash. Neurological: Normal. Course Vital Signs Vital signs: Vital Signs Temperature 36.8 C 10/13/24 18:12 Pulse 74 10/13/24 18:12 Respiratory Rate 20 10/13/24 18:12 Blood Pressure 178/91 H 10/13/24 18:12 Pulse Oximetry 93 10/13/24 18:12 Temperature 36.9 C 10/13/24 21:26 Temperature Source Oral 10/13/24 18:17 Pulse 75 10/13/24 21:26 Pulse 74 10/13/24 20:50 Respiratory Rate 18 10/13/24 21:26 Respiratory Effort Normal 10/13/24 19:09 Respiratory Depth Normal 10/13/24 19:09 Blood Pressure 158/71 H 10/13/24 21:26 Blood Pressure Mean 84 10/13/24 20:46 Blood Pressure Position Sitting 10/13/24 18:17 Pulse Oximetry 92 10/13/24 21:26 Oxygen Delivery Method Room Air 10/13/24 18:17 Oxygen Flow Rate 0 10/13/24 18:17 Pain Level 2 10/13/24 21:26 Lab/Test Results Lab/Test Results: 10/13/24 19:50 Blood Blood Culture - Pending 10/13/24 19:28 Blood Blood Culture - Pending 10/13/24 18:14 Tonsil - Not Specified Group A Streptococcus Culture - Pending Laboratory Tests Range/Units 10/13/24 10/13/24 10/13/24 18:50 19:28 20:36 WBC (4.4-10.8) 10^3/uL 7.55 RBC (3.93-5.22) 10^6/uL 4.68 Hgb (11.2-15.7) g/dL 14.4 Hct (36.0-46.0) % 42.7 MCV (80-95) fL 91 MCH (27.0-33.0) pg 30.8 MCHC (32.0-36.0) % 33.7 RDW (11.7-14.6) % 12.4 Plt Count (130-400) 10^3/uL 255 MPV (8.0-11.0) fL 9.5 Immature Gran % % 0.4 Neutrophils % % 64.6 Lymphocytes % % 28.9 Monocytes % % 5.2 Eosinophils % % 0.5 Basophils % % 0.4 Nucleated RBC % (0.0-0.3) % 0.0 Absolute Neutrophils (1.2-6.7) 10^3/uL 4.88 Absolute Lymphocytes (1.2-3.4) 10^3/uL 2.18 Absolute Monocytes (0.1-0.8) 10^3/uL 0.39 Absolute Eosinophils (0.0-0.7) 10^3/uL 0.04 Absolute Basophils (0.0-0.2) 10^3/uL 0.03 VBG Lactate (<or=2.0) mmol/L 0.8 Sodium (136-145) mmol/L 143 Potassium (3.5-5.1) mmol/L 3.7 Chloride (98-107) mmol/L 107 Carbon Dioxide (21.0-32.0) mmol/L 30.2 Anion Gap (3-11) mmol/L 5.8 BUN (7-18) mg/dL 8 Creatinine (0.55-1.02) mg/dL 0.9 Est GFR (CKD-EPI 2020) (mL/min/1.73m2) 69.64 Glucose (74-106) mg/dL 97 Calcium (8.5-10.1) mg/dL 9.2 Total Bilirubin (0.2-1.0) mg/dL 0.64 AST (15-37) U/L 22 ALT (14-59) U/L 36 Alkaline Phosphatase (46-116) U/L 57 Troponin I (<or=51) ng/L 7 7 Total Protein (6.4-8.2) g/dL 7.2 Albumin (3.4-5.0) g/dL 3.7 Lipase (<78) U/L 32 Urine Color (Yellow) Yellow Urine Clarity (Clear) Clear Urine pH (5-8) 6.0 Ur Specific [place] (1.005-1.025) <= 1.005 Urine Protein (Neg-Trace) mg/dL Negative Urine Ketones (Negative) mg/dL Negative Urine Blood (Negative) Trace-intact H Urine Nitrite (Negative) Negative Urine Bilirubin (Negative) Negative Urine Urobilinogen (Up to 0.2) mg/dL 0.2 Ur Leukocyte Esterase (Negative) Negative Urine RBC (0-2) HPF 0-2 Urine WBC (0-5) HPF Negative Ur Epithelial Cells (Negative) HPF Rare Urine Crystals (Negative) HPF Negative Urine Bacteria (Negative) HPF Negative Urine Casts (Negative) LPF Negative Urine Mucus (Negative) Negative Ur Culture Indicated? No Urine Glucose (Negative) mg/dL Negative POC Strep Test-KELLEY(Rapid) Start: 10/13/24 18:27 Freq: .Rapid Strep Test Status: Active Protocol: Document 10/13/24 18:28 [email or web address] (Rec: 10/13/24 18:28 [id number]) Strep test-KELLEY(Rapid)-POC POC-Strep test-KELLEY (Rapid) Negative POC-Strep test-KELLEY (Rapid) Negative Medical Decision Making Laboratory Studies Influenza and COVID-19 tests were negative. Initial Assessment: 69-year-old female with past medical history of coronary artery disease, peripheral vascular disease, CVA, COPD, tobacco use, and chronic pain presents with fever, chills, myalgias, fatigue, cough, and shortness of breath. Denies new nausea or vomiting, has intermittent diarrhea without abdominal discomfort or blood in stool. Significant mucus production noted. ED Course: - Labs ordered, including flu and COVID tests, chest x-ray, and diagnostic labs. - Flu and COVID tests negative (12 days post-symptom onset). - Chest x-ray shows possible left upper lobe nodule; previous CT in December was normal, may be shadowing per radiology. - Suspected influenza or viral syndrome; labs reassuring, no obvious source of infection. - Nebulizer treatment administered; patient feeling better. - Doxycycline prescribed for 5 days with prednisone. - Continued use of inhalers for COPD exacerbation. - Encouraged follow-up with primary care physician for nodule monitoring. Final Assessment: Patient likely had influenza or viral syndrome with no obvious infection source. COPD exacerbation managed with nebulizer treatment, doxycycline, and prednisone. Follow-up with primary care physician recommended for nodule monitoring. Clinical Impression: - Fever - Chronic Obstructive Pulmonary Disease (COPD) exacerbation Disposition: - Discharge - Follow-Up: Primary care physician for nodule monitoring and COPD management. MDM Components Evaluation: - Number of Differential Diagnoses or Management Options: Influenza, viral syndrome, COPD exacerbation. - Amount and Complexity of Data Reviewed: Diagnostic labs, flu and COVID tests, chest x-ray, previous CT scan. - Risk of Complication and Morbidity or Mortality: Moderate due to COPD exacerbation and potential nodule in the lung. Quality:SDOH Health Related Social Needs: No Data to Display PFSH All Active Problems (Updated 10/13/24 @ 21:05 by ELIUD Adler) COPD (chronic obstructive pulmonary disease) (Chronic) Left upper lobe pulmonary nodule (Acute) Acute viral syndrome (Acute) Warts (Acute) Neuropraxia of right lower extremity (Acute) Internal derangement of left knee (Acute) Tibial plateau fracture, right (Acute 12/19/21) Fracture of right wrist (Acute) Closed head injury (Acute) Post concussive syndrome (Acute) Esophageal dysphagia (Acute) Tobacco abuse (Acute) Colon stricture (Acute) Emphysema/COPD (Acute) Atherosclerosis of arteries of extremities (Acute) Coronary atherosclerosis due to calcified coronary lesion (Acute) Ventral hernia (Acute) Lumbosacral radiculopathy due to degenerative joint disease of spine (Acute) Urinary incontinence (Acute) Galactorrhea (Acute) Diverticulosis of colon (Acute) Odontogenic infection of jaw (Acute) Headache (Acute) GERD (gastroesophageal reflux disease) (Chronic) Bilateral breast lump (Acute) Chronic fatigue (Acute) Lumbar radiculitis (Acute) Chronic cough (Acute) Elevated blood pressure reading in office without diagnosis of hypertension (Acute) Peripheral neuropathy (Acute) Prediabetes (Acute) Unintentional weight loss (Acute) Medical History Heart attack Stroke Chronic osteomyelitis Kidney stones Breast lump History of cervical cancer PTSD (post-traumatic stress disorder) Anxiety and depression Somatization disorder Postmenopausal Skin lesion of face Back pain Smoker COPD (chronic obstructive pulmonary disease) Dysphagia Diarrhea Chronic pain Surgical History S/P exploratory laparotomy S/P wrist surgery S/P decompression of ulnar nerve History of esophagogastroduodenoscopy (EGD) (~07/13/21) S/P cholecystectomy History of esophagogastroduodenoscopy (EGD) History of salpingectomy H/O cone biopsy of cervix History of colonoscopy Family History Father Cancer throat Kidney failure Mother Cancer Social History Smoking/Tobacco Use Status: Current every day Tobacco Type: cigarettes Smoking risk assessment performed?: Yes Alcohol Intake: former Drug use: Occasionally Substance use type: marijuana Current gender identity: female Do you feel safe at home: Yes Do you feel safe in your relationship?: Yes
== END 2024-10-13 21:41 | disposition home or self-care (01) ==
PROVIDERS: Emergency Provider Physician Assistant; PCP Family Medicine
DX: J44.9 Chronic obstructive pulmonary disease, unspecified (principal); R91.1 Solitary pulmonary nodule; B34.9 Viral infection, unspecified; R05.1 Acute cough; R03.0 Elevated blood-pressure reading, without diagnosis of hypertension; F17.210 Nicotine dependence, cigarettes, uncomplicated
CPT/HCPCS: 36415; 80053; 83690; 87040; 87880; 93005; 94640; 99284; 71046; 81003; 81015; 83605; 84484; 85025; 87081; 93010; J7512; J7620

== ENCOUNTER 2024-12-15 01:31 | Outpatient (CLI) | payer MEDICARE, MEDICAID, SELFPAY ==
--- NOTE | 2024-12-15 | DI.CT_ITS ---
Exam(s) CT CHEST WO EXAM: CT CHEST WO CLINICAL HISTORY: RADIOLOGY RESULT ABNORMAL, R93.89 ABN FINDINGS ON DI OF OTHER SPECIFIED. TECHNIQUE: Imaging protocol: Axial computed tomography images were obtained and coronal and sagittal reformatted images were created and reviewed. Computer aided detection (CAD) was utilized. CONTRAST MATERIAL: Noncontrast COMPARISON: CT CT CHEST/ABD/PEL WO from 06/15/2024 CR,XR XR CHEST 2V PA LATERAL from 10/13/2024 FINDINGS: Pulmonary parenchyma: No consolidation. No suspicious nodules. Interstitial changes: None. Emphysema: [id number] centrilobular emphysema, mostly in the upper lobes.. Tracheobronchial tree: No mucous plugging. No bronchiectasis . Pleura: No effusion or pneumothorax. Heart: The heart is mildly dilated. The coronary arteries show moderate calcifications. Aorta: Thoracic aorta non-dilated. Mild to moderate atherosclerotic changes. Lymph nodes: No enlarged lymph nodes. Bones: Degenerative disc changes are seen. No evidence of compression fracture. Upper abdomen: Stable dilatation of the common bile duct. Soft tissues: Midline upper anterior abdominal wall fatty containing hernia again noted. IMPRESSION: No evidence of pulmonary nodule or other acute abnormality. The findings on recent chest x-ray repre sent overlying structures. Emphysematous changes noted in the upper lobes. RADIATION DOSE DELIVERED: Total DLP Total DLP DATA REPOSITORY: All CT scans at this facility are submitted to the National Radiology Data Registry (NRDR) Dose Index Registry (DIR) with the [employer] (ACR). RADIATION OPTIMIZATION: All CT scans at this facility use at least one of these dose optimization te chniques: automated exposure control; mA and/or kV adjustment per patient size (includes targeted exa ms where dose is matched to clinical indication); or iterative reconstruction.
== END 2024-12-15 01:51 ==
LOC: DI 01:31
PROVIDERS: PCP Family Medicine; Visit Provider Family Medicine
DX: R93.89 Abnormal findings on diagnostic imaging of other specified body structures (principal)
CPT/HCPCS: 71250

== ENCOUNTER 2025-01-06 21:44 | Outpatient (REF) | payer MEDICARE, MEDICAID, SELFPAY | END 2025-01-06 21:45 | disposition home or self-care (01) | LOC: NCHCN 21:44 | PROVIDERS: PCP Family Medicine; Visit Provider Family Medicine | DX: J02.9 Acute pharyngitis, unspecified (principal) | CPT/HCPCS: 87070 ==

== ENCOUNTER 2025-02-08 01:16 | Outpatient (CLI) | payer MEDICARE, MEDICAID, SELFPAY ==
--- NOTE | 2025-02-08 | DI.RAD_ITS ---
Exam(s) XR THORACIC SPINE COMPLETE EXAM: XR THORACIC SPINE COMPLETE CLINICAL HISTORY: M54.6 Pain in Thoracic spine, unspecified back pain laterality, unspecified. TECHNIQUE: 2D digital imaging was performed of the thoracic spine. Three views were obtained. AP, swimmer's and lateral views were obtained. COMPARISON: CR XR CERVICAL SPINE COMP 4-5V from 02/08/2025 FINDINGS: BONES: There is no fracture or destructive lesion. Chronic changes are seen in the spine with osteoph ytes and disc space narrowing present. DISKS:Alignment is within normal limits. There is mild disc space narrowing seen in the midthoracic s pine. SOFT TISSUE: Visualized lungs are clear. IMPRESSION: No acute fracture or subluxation. If there are radicular concerns, an MRI should be considered for f urther evaluation. DATA REPOSITORY: RADIATION DOSE DELIVERED:
--- NOTE | 2025-02-08 | DI.RAD_ITS ---
Exam(s) XR CERVICAL SPINE COMP 4-5V EXAM: XR CERVICAL SPINE COMP 4-5V CLINICAL HISTORY: M54.2 Cervicalgia, pain of neck w/recent traumatic injury. TECHNIQUE: 2D digital imaging was performed. Five images were obtained. AP, odontoid, lateral and bi lateral oblique images were obtained. COMPARISON: CT CT NECK WO from 06/19/2022 FINDINGS: The odontoid is intact. The lateral masses are well aligned. There is normal alignment of the cervi elisa spine. There is mild disc space narrowing seen at C5-C6. Small osteophytes are seen at C4-5, C5- 6 and C6-C7. No acute fracture or subluxation is present. There is [id number] left neural opal inal stenosis at C5-6 and C6-7 and [id number] narrowing of the right C5-6 neural foramen. The cervical thoracic junction is well maintained. The prevertebral soft tissues are unremarkable. Lung apices are clear. IMPRESSION: Moderate degenerative changes seen in the cervical spine. DATA REPOSITORY: RADIATION DOSE DELIVERED:
== END 2025-02-08 01:36 ==
LOC: DI 01:16
PROVIDERS: PCP Family Medicine; Visit Provider Family Medicine
DX: M48.02 Spinal stenosis, cervical region (principal)
CPT/HCPCS: 72050; 72072

== ENCOUNTER → 2025-04-19 15:27 | Outpatient (BNVA) | payer MEDICARE, MEDICAID, SELFPAY | PROVIDERS: PCP Family Medicine; Referring Provider Family Medicine; Visit Provider Podiatrist | DX: L60.3 Nail dystrophy (principal); M79.674 Pain in right toe(s); M79.675 Pain in left toe(s); G62.9 Polyneuropathy, unspecified; B35.1 Tinea unguium; L60.0 Ingrowing nail; R09.89 Other specified symptoms and signs involving the circulatory and respiratory systems; R60.0 Localized edema; R20.8 Other disturbances of skin sensation; I83.93 Asymptomatic varicose veins of bilateral lower extremities; L65.9 Nonscarring hair loss, unspecified; M20.41 Other hammer toe(s) (acquired), right foot; M20.42 Other hammer toe(s) (acquired), left foot; R23.4 Changes in skin texture; L60.2 Onychogryphosis; L60.8 Other nail disorders; R20.2 Paresthesia of skin; Z72.0 Tobacco use | CPT/HCPCS: 99214; 11721 ==

== ENCOUNTER 2025-08-11 18:05 | Outpatient (REF) | payer MEDICARE, MEDICAID, SELFPAY ==
[2025-08-11 21:44] LABS: Glucose Negative (Negative)
[2025-08-11 21:56] LABS: WBC Negative HPF (0-5)
[2025-08-11 21:57] LABS: C & S Indicated? No
== END 2025-08-11 18:06 | disposition home or self-care (01) ==
LOC: NCHCN 18:05
PROVIDERS: PCP Family Medicine; Visit Provider Family Medicine
DX: R35.0 Frequency of micturition (principal)
CPT/HCPCS: 81003; 81015